=== PATIENT | male | born 1950 | race Caucasian/White ===

== ENCOUNTER 2018-03-12 19:18 | Inpatient (IN) ==
[2018-03-12 19:39] LABS: Basophils % 0.4 % (0.1-2.0); Eosinophils # 0.1 K/mm3 (0.0-0.4); Eosinophils % 2.2 % (0.1-12.0); Hematocrit 45.6 % (42.0-52.0); Hemoglobin 15.7 g/dL (14.1-18.0); Lymphocytes # 1.3 K/mm3 (0.7-4.5); Lymphocytes % 19.8 K/mm3 (10-50); Mean Corpuscular HGB Conc 34.4 g/dL (31.8-35.4); Mean Corpuscular Hemoglobin 30.4 pg (27.0-31.2); Mean Corpuscular Volume 88.3 fl (80-94); Mean Platelet Volume 7.7 fl (7.4-10.4); Monocytes # 0.5 K/mm3 (0.1-1.0); Monocytes % 8.1 % (1.7-9.3); Neutrophils # 4.5 K/mm3 (1.8-7.8); Neutrophils % 69.5 % (37.0-80.0); Platelet Count 204 K/mm3 (142-424); Red Blood Count 5.17 M/mm3 (4.60-6.20); White Blood Count 6.5 K/mm3 (4.8-10.8)
--- NOTE | 2018-03-12 19:46 | Emergency Department Note ---
ED Disposition Clinical Impression: Unstable angina pectoris Disposition: Admitted As Inpatient Condition on Discharge: Serious - Critical Care Critical Care Time: Yes Attestation: On , the high probability of a clinically significant, sudden or life threatening deterioration of the following system(s) required my full and direct attention, intervention and personal management. The time I documented below is in addition to time spent performing reported procedures but includes the following listed in this critical care notation. Total Critical Care Time: 60 Vital system(s) involved:: Circulatory Failure My critical care processes included: Assessment & monitoring of V/S, Initial and Re-exams, Data Review/Interpretation, Coordinating Care, Documentation Medical Decision Making - Medical Records Medical records reviewed: Yes: I reviewed the patient's medical records. - Donald Inquiry Pt receiving controlled substance: No Vital Signs: 03/12/18 19:19 Temperature 98.4 F Temperature Source Oral Pulse Rate [Right Brachial] 76 Respiratory Rate 16 Blood Pressure [Right Arm] 145/102 Blood Pressure Mean [Right Arm] 116 Blood Pressure Source [Right Arm] Automatic Cuff Blood Pressure Position [Right Arm] Sitting 02 Sat by Pulse Oximetry 96 Oxygen Delivery Method Room Air - Lab Data Lab results reviewed: Yes: I reviewed the patient's lab results. Orders (Tests/Meds): ED MEDICATIONS Discontinued Medications Generic Name Dose Route Start Last Admin Trade Name Freq PRN Reason Stop Dose Admin Aspirin 325 mg 03/12/18 19:31 03/12/18 19:35 Aspirin 325mg Tablet PO 03/12/18 19:32 325 mg ONCE ONE Administration Nitroglycerin 0.4 mg 03/12/18 19:31 03/12/18 19:35 Nitrostat 0.4mg Sl Tablet SL 03/12/18 19:32 0.4 mg ONCE ONE Administration ORDERS Category Date Time Status XR chest portable Stat Exams 03/12/18 19:31 Ordered Basic Metabolic Panel Stat Lab 03/12/18 19:30 Received Complete Blood Count Auto Diff Stat Lab 03/12/18 19:30 Received Troponin I Stat Lab 03/12/18 19:30 Received - Radiology Data #1 Image(s): Chest Image Reviewed: Yes I reviewed the patient's radiology image Preliminary Findings: Normal/NAD - ECG Data Tracing #1 I reviewed this ECG and interpreted as documented below: Normal Sinus Rhythm: Yes Ischemic changes: non-specific ST-T wave changes Tracing #2 I reviewed this ECG and interpreted as documented below: Normal Sinus Rhythm: Yes Ischemic changes: non-specific ST-T wave changes - Physician Consults Physician Consulted: deni Reason -: Pt condition Additional Consult: ajay Time: 19:57 Reason -: Admission Chest Pain HPI - General Chief Complaint: Chest Pain Stated Complaint: Chest pain Time Seen by Provider: 03/12/18 19:25 Mode of Arrival: Ambulatory Source of Information: Patient, Spouse, Medical Record Limitations: No Limitations Description of Symptoms (Recalled from ER Triage Doc. by RN): Pt advises he had sharp pains and pressure in his chest that started around 1800. Took 1 nitro prior to coming to ER. 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 hx of cad - last stent about 5 yrs ago - pt has been compliant with meds MD complaint: chest pain indicative of cardiac Onset (ago): hour(s) Duration: constant Activity at onset: during rest Pain location: left chest Severity: severe Quality: sharp Relieving factors: nitroglycerin Associated symptoms: nausea, sense of impending doom Risk Factors for CAD: Hypertension, Hypercholesterolemia, Family Hx of CAD Treatments prior to or on arrival for Cardiac Chest Pain: nitroglycerin - MARIA DE JESUS Score Non-Stemi Age of patient: 65 yrs or more Number of risk factors for CAD: Presence of 3 or more Prior coronary artery stenosis(seen in coronary angiography): Less than 50% ST-Segment deviation on ECG (more than 1 min): Absent Prior aspirin intake: ASA intake in the last 7 days Severe anginal chest pain: No or one episode in last 24 hours Elevated cardiac markers(CK-MB or troponin): Absent Non-Stemi Risk Score: 3 - Related Data Prior Cardiac Testing/Procedures: Stenting Home Medications Medication Instructions Recorded Confirmed Aspirin [Aspirin 81mg chewable 81 mg PO DAILY 03/12/18 03/12/18 tab] Atorvastatin Calcium [Atorvastatin 40 mg PO DAILY 03/12/18 03/12/18 40mg Tab] Losartan/Hydrochlorothiazide 1 each PO DAILY 03/12/18 03/12/18 [Losartan-Hctz 50-12.5 mg Tab] Omeprazole [Omeprazole 40mg 40 mg PO DAILY 08/27/18 08/27/18 Capsule] Allergies Allergy/AdvReac Type Severity Reaction Status Date / Time No Known Allergies Allergy Verified 03/12/18 19:27 [facility] History I have reviewed the patient's past medical history: Yes 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: Denies:: Cancer, Diabetes Mellitus Type 1, Diabetes Mellitus Type 2, Internal Pacemaker, MRSA Laterality Cases: Bilateral: Cataract Other Surgeries: No: Pacemaker Amputation: No Fractures: No - 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 Alcohol Intake: never - Psychiatric History Expresses thoughts of harming self/others: None Suicide Plan Description: No Plan ROS Obtained: Yes All systems reviewed & no additional complaints - Constitutional Constitutional: Denies fever(s) - Eyes Eyes: Denies change in vision - ENT Ears, Nose, Mouth, and Throat: Denies sore throat - Cardiovascular Cardiovascular: Reports chest pain, Reports chest pain at rest - Respiratory Respiratory: No cough - Gastrointestinal Gastrointestingal: Reports: abdominal pain - Genitourinary Male Genitourinary: Denies hematuria - Musculoskeletal Musculoskeletal: Denies joint pain, Denies joint swelling - Integumentary/Breasts Skin/Breast: Denies rash - Neurologic Neurologic: Denies seizure-like activity Physical Exam - General General appearance: alert, in no apparent distress - Head Head exam: normocephalic - Eye Eye exam: Present: PERRL, EOMI. Absent: scleral icterus - ENT ENT exam: Present: mucous membranes dry - Neck Neck exam: Present: trachea midline - Respiratory Respiratory exam: Present: normal lung sounds bilaterally. Absent: respiratory distress - Cardiovascular Cardiovascular exam: Present: regular rate. Absent: systolic murmur - Abdominal Exam Abdominal exam: Present: soft - Extremities Exam Extremities exam: Absent: calf tenderness - Neurological Exam Neurological exam: Present: alert, oriented X3, CN II-XII intact - Psychiatric Psychiatric exam: Present: normal affect - Skin Skin exam: Absent: rash
[2018-03-12 20:00] LABS: Blood Urea Nitrogen 13 mg/dL (7-18); Calcium 8.9 mg/dL (8.5-10.1); Carbon Dioxide 29 mmol/L (21.0-32.0); Chloride 100 mmol/L (98-107); Glucose 119 mg/dL (74-106); Sodium 138 mmol/L (136-145)
--- NOTE | 2018-03-13 07:47 | History & Physical Report ---
*Admission Date: 03/12/18 *Chief complaint: Chest pain *History of present illness: Mr. Miranda is a 67-year-old male with a history of coronary artery disease, acute CT in 1996 with stent placement, acute CT in 2001 with stent placement, hypertension, GERD, and COPD who presented to the emergency room last evening with severe midsternal sharp and pressure like chest pain. This was associated with shortness of breath and nausea. The chest pain started about 6 PM last evening. He did take a nitroglycerin which eased the pain for about 1-2 minutes. The pain again became severe and thus he had his bring him to the emergency room. The chest pain remains severe even after pain medicine in the emergency room. EKG was normal and with history and continuing severe chest pain he was taken to the [facility] at which time a stent was placed. He states that after stent placement the pain resolved. Patient has had nausea vomiting and diarrhea with fever and chilling for the past 2 days as well. During this period of time he had no chest pain and no shortness of breath. He had a minimal cough. He even exercised on 03/09/2018. He has had minimal p.o. intake. This a.m. the patient's chest is sore. He is not short of breath. He has eaten breakfast without problems. He has had no further vomiting. He does continue to have diarrhea. He had 20 diarrhea episodes yesterday. He denies hematemesis and any blood in his stool. He has ambulated to the bathroom without difficulty. [facility] History 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: Reports:: Atherosclerotic Heart Disease, Chronic Obstructive Pulmonary Disease (COPD), Coronary Artery Disease, Gastroesophageal Reflux Disease(GERD), Hyperlipidemia, Hypertension, Myocardial Infarction Denies:: Atrial Fibrillation, Cancer, Diabetes Mellitus Type 1, Diabetes Mellitus Type 2, Gastrointestinal Bleed, Internal Pacemaker, MRSA Laterality Cases: Bilateral: Cataract Other Surgeries: Yes: Cardiac Catheterization, Coronary Stent. No: Pacemaker Amputation: No Fractures: No Comment: Back surgery 1982; stent 1996; stent 2001; stent 05/2006. - *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 Educational Level: Completed High School Smoking Status: Former smoker Alcohol Intake: never Occupational Status: retired Housing: house - Psychiatric History Expresses thoughts of harming self/others: None Suicide Plan Description: No Plan *Family Hx:: Cancer, Diabetes Review of Systems - Constitutional Reports chills, Reports fatigue, Reports fever(s), Reports headache(s) - ENT Reports headache(s), Denies ear pain, Denies sore throat - *Cardiovascular Reports chest pain, Reports chest pain at rest, Reports chest pain with activity , Reports shortness of breath, Denies generalized swelling, Denies irregular heart rhythm, Denies leg swelling - *Respiratory Reports cough (Minimal), Denies chest congestion, Denies coughing up blood - *Gastrointestinal Reports change in bowel habits (Diarrhea), Reports change in stools, Reports heartburn, Reports nausea, Reports vomiting, Denies abdominal pain, Denies constipation, Denies vomiting blood, Denies bright, red blood in stools, Denies black, tarry stools - *Genitourinary Denies difficulty urinating - *Musculoskeletal Denies abnormal walking - *Neurologic Reports headache(s), Denies seizure-like activity Meds Home Medications Medication Instructions Recorded Confirmed Type Aspirin [Aspirin 81mg chewable 81 mg PO DAILY 03/12/18 03/12/18 History tab] Atorvastatin Calcium [Atorvastatin 40 mg PO HS 03/12/18 03/13/18 History 40mg Tab] Omeprazole [Omeprazole 40mg 40 mg PO DAILY 03/12/18 03/12/18 History Capsule] Albuterol Sulfate [Albuterol HFA 1 - 2 puffs IH Q4-6H 03/13/18 03/13/18 History Inhaler] Losartan Potassium 50 mg PO DAILY 03/13/18 03/13/18 History Allergies Allergy/AdvReac Type Severity Reaction Status Date / Time No Known Allergies Allergy Verified 03/12/18 19:27 Exam Vital signs and Labs for Last 24 Hours: Temp Pulse Resp BP Pulse Ox 98 F 70 18 109/74 99 03/13/18 05:00 03/13/18 06:57 03/13/18 06:57 03/13/18 06:57 03/13/18 06:57 Laboratory Results - last 24 hr 03/12/18 19:30: WBC 6.5, RBC 5.17, Hgb 15.7, Hct 45.6, MCV 88.3, MCH 30.4, MCHC 34.4, RDW 13.0, Plt Count 204, MPV 7.7, Neut % (Auto) 69.5, Lymph % (Auto) 19.8 , [place] % (Auto) 8.1, Eos % (Auto) 2.2, Baso % (Auto) 0.4, Neut # (Auto) 4.5, Lymph # (Auto) 1.3, [place] # (Auto) 0.5, Eos # (Auto) 0.1, Baso # (Auto) 0.0 03/12/18 19:30: Sodium 138, Potassium 3.0 L, Chloride 100, Carbon Dioxide 29, Anion Gap 12.0, BUN 13, Creatinine 1.23, Estimated Creat Clear 73, Estimated GFR 59, Est GFR ( Amer) 71, Glucose 119 H, Calcium 8.9, Troponin I < 0.02 I & O for Last 24 hours: Intake & Output 03/10/18 03/11/18 03/12/18 03/13/18 11:59 11:59 11:59 11:59 Intake Total Balance Weight 190 lb Radiology Reports for the Last 24 Hours: 03/12/2018 chest x-ray IMPRESSION: COPD 03/12/2018 cardiac catheterization IMPRESSION: 1. Severe disease in the proximal dominant right coronary 2. Successful stenting of the ostial proximal dominant right artery severe disease reduced to 0% with 1 drug-eluting stent 3. Slightly hyperdynamic ejection fraction with elevated LVEDP 4. Nonflow limiting disease as described above PLAN: 1. Brilinta and aspirin 2. LDL less than 55 3. Patient would benefit from beta blockers. He has both hypertensive and tachycardic. Metoprolol titrate 50 mg by mouth every 6 hours be started. I would recommend switching him to metoprolol succinate tomorrow. 4. Cardiac rehabilitation 5. Avoidance of tobacco products - Constitutional no acute distress - *Routine HEENT Exam Head: Present: normocephalic, atraumatic Eye: Present: PERRL. Absent: scleral injection, conjunctivae pink ENT: Present: mucous membranes moist, oropharynx clear - *Routine Neck Exam Present: supple, full ROM. Absent: carotid bruit, lymphadenopathy, tenderness - *Routine Respiratory Exam Present: CTA bilaterally (A&P) - *Routine Cardiovascular Exam Present: RRR Comments: Monitor showing sinus rhythm in the 50s - *Routine Abdominal Exam Present: soft, distended (Slightly). Absent: tenderness, guarding, organomegaly , mass - *Routine Extremities Exam Present: pulses intact. Absent: edema, calf tenderness - *Routine Skin Exam Present: dry, warm Comments: Good color - *Routine Neurological Exam Present: alert, oriented X3 Assessment and Plan (1) Unstable angina pectoris Current visit: Yes Status: Acute Category: Medical Code(s): I20.0 - Unstable angina (2) Acute coronary syndrome Current visit: Yes Status: Acute Category: Medical Code(s): I24.9 - Acute ischemic heart disease, unspecified (3) Status post insertion of drug-eluting stent into right coronary artery for coronary artery disease Current visit: Yes Status: Acute Category: Surgical Code(s): Z95.5 - Presence of coronary angioplasty implant and graft (4) Hypertension Current visit: Yes Status: Chronic Category: Medical Code(s): I10 - Essential (primary) hypertension (5) COPD (chronic obstructive pulmonary disease) Current visit: Yes Status: Chronic Category: Medical Code(s): J44.9 - Chronic obstructive pulmonary disease, unspecified (6) Hypokalemia Current visit: Yes Status: Acute Category: Medical Code(s): E87.6 - Hypokalemia (7) GERD (gastroesophageal reflux disease) Current visit: Yes Status: Chronic Category: Medical Code(s): K21.9 - Gastro-esophageal reflux disease without esophagitis - Assessment and plan all Dx Assessment and Plan for all problems:: Patient is post cardiac cath from last p.m. with stent placed in right coronary artery. We will continue to monitor and follow cardiology direction as to meds. Other home meds have been started.
[2018-03-13 09:15] LABS: Chol/HDL Ratio 2.7 (1-3.5)
--- NOTE | 2018-03-13 09:32 | Consult Report ---
History of Present Illness Consult date: 03/13/18 Requesting physician: Minoo Armenta Consult reason: chest pain Chief complaint: chest pain Additional 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:: 1. Coronary artery disease A. History of myocardial infarction with subsequent stenting approximately 1997. B. Acute myocardial infarction, 03/12/18 C. Cardiac catheterization, 03/12/18, ANGIOGRAPHIC RESULTS: 1. The left main artery has distal 10% stenosis 2. The left anterior descending artery has ostial 10-20% stenosis with mild luminal irregularities in the very proximal segment. 10% stenoses are present in the mid segment. 3. The circumflex artery gives rise to a ramus intermedius which has 20 and 30% stenoses. The true circumflex artery is a nondominant vessel and has proximal 30% stenoses with a 30-40% stenosis and a 1.5 mm first obtuse marginal artery 4. The right coronary artery is a large dominant vessel and has an ostial 50 followed by proximal 70-80% stenosis. The remaining vessel has 10% stenoses. 5. The MARQUEZ ventriculogram reveals slightly hyperdynamic at 75% 6. The left ventricular end-diastolic pressure 25 mmHg IMPRESSION: 1. Severe disease in the proximal dominant right coronary 2. Successful stenting of the ostial proximal dominant right artery severe disease reduced to 0% with 1 drug-eluting stent 3. Slightly hyperdynamic ejection fraction with elevated LVEDP 4. Nonflow limiting disease as described above PLAN: 1. Brilinta and aspirin 2. LDL less than 55 3. Patient would benefit from beta blockers. He has both hypertensive and tachycardic. Metoprolol titrate 50 mg by mouth every 6 hours be started. I would recommend switching him to metoprolol succinate tomorrow. 4. Cardiac rehabilitation 5. Avoidance of tobacco products 2. Hypertension 3. Hyperlipidemia History of present illness: Mr. Miranda is a 67-year-old male with a history of coronary artery disease, acute MT in 1996 with stent placement, acute MT in 2001 with stent placement, hypertension, GERD, and COPD who presented to the emergency room last evening with severe midsternal sharp and pressure like chest pain. This was associated with shortness of breath and nausea. The chest pain started about 6 PM last evening. He did take a nitroglycerin which eased the pain for about 1-2 minutes. The pain again became severe and thus he had his bring him to the emergency room. The chest pain remains severe even after pain medicine in the emergency room. EKG was normal and with history and continuing severe chest pain he was taken to the [facility] at which time a stent was placed. He states that after stent placement the pain resolved. Patient has had nausea vomiting and diarrhea with fever and chilling for the past 2 days as well. During this period of time he had no chest pain and no shortness of breath. He had a minimal cough. He even exercised on 03/09/2018. He has had minimal p.o. intake. This a.m. the patient's chest is sore. He is not short of breath. He has eaten breakfast without problems. He has had no further vomiting. He does continue to have diarrhea. He had 20 diarrhea episodes yesterday. He denies hematemesis and any blood in his stool. He has ambulated to the bathroom without difficulty. The above per Jocelin Morales APRN for Dr. Armenta. [facility] History 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: Reports:: Atherosclerotic Heart Disease, Chronic Obstructive Pulmonary Disease (COPD), Coronary Artery Disease, Gastroesophageal Reflux Disease(GERD), Hyperlipidemia, Hypertension, Myocardial Infarction Denies:: Atrial Fibrillation, Cancer, Diabetes Mellitus Type 1, Diabetes Mellitus Type 2, Gastrointestinal Bleed, Internal Pacemaker, MRSA Laterality Cases: Bilateral: Cataract Other Surgeries: Yes: Cardiac Catheterization, Coronary Stent. No: Pacemaker Amputation: No Fractures: No - *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 Educational Level: Completed High School Smoking Status: Former smoker Alcohol Intake: never Occupational Status: retired Housing: house - Psychiatric History Expresses thoughts of harming self/others: None Suicide Plan Description: No Plan *Family Hx:: Cancer, Diabetes Meds Home Medications Medication Instructions Recorded Confirmed Type Aspirin [Aspirin 81mg chewable 81 mg PO DAILY 03/12/18 03/12/18 History tab] Atorvastatin Calcium [Atorvastatin 40 mg PO HS 03/12/18 03/13/18 History 40mg Tab] Omeprazole [Omeprazole 40mg 40 mg PO DAILY 03/12/18 03/12/18 History Capsule] Albuterol Sulfate [Albuterol HFA 1 - 2 puffs IH Q4-6H 03/13/18 03/13/18 History Inhaler] Losartan Potassium 50 mg PO DAILY 03/13/18 03/13/18 History Allergies Allergy/AdvReac Type Severity Reaction Status Date / Time No Known Allergies Allergy Verified 03/12/18 19:27 Review of Systems - *Cardiovascular Reports chest pain, Reports shortness of breath with activity - *Respiratory Reports shortness of breath with activity - *Gastrointestinal Denies abdominal pain - *Genitourinary Denies blood in urine - *Neurologic Reports headache(s), Denies abnormal walking, Denies seizure-like activity Exam Vital signs and Labs for Last 24 Hours: Temp Pulse Resp BP Pulse Ox 98 F 70 18 109/74 99 03/13/18 05:00 03/13/18 06:57 03/13/18 06:57 03/13/18 06:57 03/13/18 06:57 Laboratory Results - last 24 hr 03/12/18 19:30: WBC 6.5, RBC 5.17, Hgb 15.7, Hct 45.6, MCV 88.3, MCH 30.4, MCHC 34.4, RDW 13.0, Plt Count 204, MPV 7.7, Neut % (Auto) 69.5, Lymph % (Auto) 19.8, [place] % (Auto) 8.1, Eos % (Auto) 2.2, Baso % (Auto) 0.4, Neut # (Auto) 4.5, Lymph # (Auto) 1.3, [place] # (Auto) 0.5, Eos # (Auto) 0.1, Baso # (Auto) 0.0 03/12/18 19:30: Sodium 138, Potassium 3.0 L, Chloride 100, Carbon Dioxide 29, An ion Gap 12.0, BUN 13, Creatinine 1.23, Estimated Creat Clear 73, Estimated GFR 59, Est GFR ( Amer) 71, Glucose 119 H, Calcium 8.9, Troponin I < 0.02 03/13/18 08:35: Triglycerides 98, Cholesterol 88 L, LDL Cholesterol 35, VLDL Cholesterol 20, HDL Cholesterol 33, Cholesterol/HDL Ratio 2.7 03/13/18 08:35: Troponin I 0.06 I & O for Last 24 hours: Intake & Output 03/10/18 03/11/18 03/12/18 03/13/18 11:59 11:59 11:59 11:59 Intake Total 373 / 373 Balance 373 / 373 Weight 190 lb - *Routine Neck Exam Absent: JVD, carotid bruit - *Routine Respiratory Exam Present: CTA bilaterally - *Routine Cardiovascular Exam Present: RRR. Absent: murmur, gallop - *Routine Abdominal Exam Present: soft. Absent: tenderness - *Routine Extremities Exam Absent: edema - *Routine Neurological Exam Present: alert, oriented X3, moving all extremities Assessment and Plan (1) Unstable angina pectoris Current visit: Yes Status: Acute Category: Medical Code(s): I20.0 - Uns table angina (2) Acute coronary syndrome Current visit: Yes Status: Acute Category: Medical Code(s): I24.9 - Acute ischemic heart disease, unspecified (3) Status post insertion of drug-eluting stent into right coronary artery for coronary artery disease Current visit: Yes Status: Acute Category: Surgical Code(s): Z95.5 - Presence of coronary angioplasty implant and graft (4) Hypertension Current visit: Yes Status: Chronic Category: Medical Code(s): I10 - Essential (primary) hypertension (5) COPD (chronic obstructive pulmonary disease) Current visit: Yes Status: Chronic Category: Medical Code(s): J44.9 - Chronic obstructive pulmonary disease, unspecified (6) Hypokalemia Current visit: Yes Status: Acute Category: Medical Code(s): E87.6 - Hypokalemia (7) GERD (gastroesophageal reflux disease) Current visit: Yes Status: Chronic Category: Medical Code(s): K21.9 - Gastro-esophageal reflux disease without esophagitis - Assessment and plan all Dx Assessment and Plan for all problems:: 1. Continue dual antiplatelet therapy in the form of aspirin and Brilinta. 2. Continue atorvastatin therapy. 3. Patient originally was to be started on metoprolol but due to low blood pressure this has been stopped. 4. Patient will ambulate today on the monitor and will reassess possible discharge tomorrow. 5. Will obtain an echocardiogram to evaluate for segmental wall motion abnormalities.
--- NOTE | 2018-03-13 14:54 | Progress Note ---
Internal Medicine - PN: Subj *Date: 03/13/18 *Time: 14:52 Interval history: PCR indicates C. Diff and EPEC. C/o abdominal pain. Exam Vital signs and Labs for Last 24 Hours: Temp Pulse Resp BP Pulse Ox 97.5 F L 60 20 119/73 97 03/13/18 07:00 03/13/18 12:00 03/13/18 11:00 03/13/18 11:00 03/13/18 11:00 Laboratory Results - last 24 hr 03/12/18 19:30: WBC 6.5, RBC 5.17, Hgb 15.7, Hct 45.6, MCV 88.3, MCH 30.4, MCHC 34.4, RDW 13.0, Plt Count 204, MPV 7.7, Neut % (Auto) 69.5, Lymph % (Auto) 19.8 , [place] % (Auto) 8.1, Eos % (Auto) 2.2, Baso % (Auto) 0.4, Neut # (Auto) 4.5, Lymph # (Auto) 1.3, [place] # (Auto) 0.5, Eos # (Auto) 0.1, Baso # (Auto) 0.0 03/12/18 19:30: Sodium 138, Potassium 3.0 L, Chloride 100, Carbon Dioxide 29, Anion Gap 12.0, BUN 13, Creatinine 1.23, Estimated Creat Clear 73, Estimated GFR 59, Est GFR ( Amer) 71, Glucose 119 H, Calcium 8.9, Troponin I < 0.02 03/13/18 07:30: Stl Aeromonas (PCR) Not detected, Stl C. cayetanensis PCR Not detected, Stool Rotavirus (PCR) Not detected, Stl Adenov F 40/41 PCR Not detected, Stool Astrovirus (PCR) Not detected, Stool Campylobacter PCR Not detected, Stl C.difficile Tox PCR Detected A, Stool Cryptosporidium PCR Not detected, Stl E.coli Shiga Tox PCR Not detected, Stool E coli O157 PCR Not detected, Stl Enterotoxigenic E PCR Detected A, Stool EPEC (PCR) Detected A, Stool EAEC (PCR) Not detected, Stl E. histolytica PCR Not detected, Stool Giardia Lamblia PCR Not detected, Stool Salmonella PCR Not detected, Stool Sapovirus (PCR) Not detected, Stl P. shigelloides PCR Not detected, Stl Shigella /EIEC PCR Not detected, St Y.enterocolitica PCR Not detected, Stool Vibrio (PCR ) Not detected, Stl Vibrio cholerae PCR Not detected, Stl Norovirus GI/GII PCR Not detected 03/13/18 08:35: Triglycerides 98, Cholesterol 88 L, LDL Cholesterol 35, VLDL Cholesterol 20, HDL Cholesterol 33, Cholesterol/HDL Ratio 2.7 03/13/18 08:35: Troponin I 0.06 I & O for Last 24 hours: Intake & Output 03/11/18 03/12/18 03/13/18 03/14/18 11:59 11:59 11:59 11:59 Intake Total 373 / 373 Balance 373 / 373 Weight 192 lb 2 oz Assessment and Plan (1) Unstable angina pectoris Current visit: Yes Status: Acute Category: Medical Code(s): I20.0 - Unstable angina (2) Acute coronary syndrome Current visit: Yes Status: Acute Category: Medical Code(s): I24.9 - Acute ischemic heart disease, unspecified (3) Status post insertion of drug-eluting stent into right coronary artery for coronary artery disease Current visit: Yes Status: Acute Category: Surgical Code(s): Z95.5 - Presence of coronary angioplasty implant and graft (4) Hypertension Current visit: Yes Status: Chronic Category: Medical Code(s): I10 - Essential (primary) hypertension (5) COPD (chronic obstructive pulmonary disease) Current visit: Yes Status: Chronic Category: Medical Code(s): J44.9 - Chronic obstructive pulmonary disease, unspecified (6) Hypokalemia Current visit: Yes Status: Acute Category: Medical Code(s): E87.6 - Hypokalemia (7) GERD (gastroesophageal reflux disease) Current visit: Yes Status: Chronic Category: Medical Code(s): K21.9 - Gastro-esophageal reflux disease without esophagitis - Assessment and plan all Dx Assessment and Plan for all problems:: KUB. Morphine Sulfate 2mg q 4hrs prn. Metronidazole and Levaquin IV.
[2018-03-13 16:37] LABS: Albumin Level 3.3 gm/dL (3.4-5.0); Albumin/Globulin Ratio 0.9 (1.1-1.8); Anion Gap 12.4 mEq/L (5-15); Bilirubin,Total 0.6 mg/dL (0.2-1.0); Calcium 8.4 mg/dL (8.5-10.1); Globulin 3.8 gm/dl (1.3-3.2); Potassium 3.4 mmoL/L (3.5-5.1); Total Protein,Serum 7.1 gm/dL (6.4-8.2)
[2018-03-13 17:11] LABS: Basophils % 0.4 % (0.1-2.0); Eosinophils # 0.3 K/mm3 (0.0-0.4); Eosinophils % 4.3 % (0.1-12.0); Hematocrit 41.5 % (42.0-52.0); Hemoglobin 14.3 g/dL (14.1-18.0); Lymphocytes # 1.4 K/mm3 (0.7-4.5); Lymphocytes % 23.7 K/mm3 (10-50); Mean Corpuscular HGB Conc 34.6 g/dL (31.8-35.4); Mean Corpuscular Hemoglobin 30.1 pg (27.0-31.2); Mean Corpuscular Volume 86.9 fl (80-94); Mean Platelet Volume 7.6 fl (7.4-10.4); Monocytes # 0.5 K/mm3 (0.1-1.0); Monocytes % 8.4 % (1.7-9.3); Neutrophils # 3.8 K/mm3 (1.8-7.8); Neutrophils % 63.2 % (37.0-80.0); Platelet Count 162 K/mm3 (142-424); Red Blood Count 4.77 M/mm3 (4.60-6.20); Red Cell Distribution Width 12.9 % (11.5-17.5); White Blood Count 6.1 K/mm3 (4.8-10.8)
[2018-03-13 18:18] LABS: Amylase 45 U/L (25-125); Lipase 136 u/L (73-393)
--- NOTE | 2018-03-13 20:23 | Cardiology Report ---
PROCEDURE: 2-D M-mode and color Doppler study INDICATIONS FOR THE TEST: Chest pain X COPDX Heart Murmur Tobacco SmokingEX Palpitations Fatigue Syncope Edema HypertensionXDiabetes Mellitus Rheumatic Fever SOB CHIRINOS Obesity HyperlipidemiaX Family History HD Additional History AK,STENT,CAD TDS LIMITED PSAX VIEWS PATIENT INFORMATION HEIGHT: 68 WEIGHT:192 GENDER: Male B/P:109/74 2-D/M-MODE INTERPRETATION: 2-D MEASUREMENTS OBSERVED VALUES IN CMS Right Ventricular Dimension (RVDd) 2.9 Interventricular Septum (Thickness)(IVsd) .6 Left Ventricular Internal Dimensions(LVIDd) 5.1 Left Ventricular Posterior Wall (Thickness)(LVPWd) 1.1 Aortic Root 4.2 Aortic Cusp Separation 1.9 Left Atrial Dimensions (LAD) 2.2 2D 1. Left atrium is qualitatively mildly enlarged, left ventricle is normal size, there is no concentric left ventricular hypertrophy, visually estimated ejection fraction 50%, there is abnormal septal motion. 2. The right atrium and right ventricle are mildly enlarged with normal contractility. 3. The aortic valve is minimally thickened and fibrosed. 4. The mitral and tricuspid valve are grossly normal. 5. The pulmonic valve is poorly visualized. 6. No significant pericardial effusion noted. DOPPLER INTERROGATION: Doppler interrogation of the aortic, mitral and tricuspid valvular presence of mild mitral and tricuspid regurgitation, tricuspid regurgitation jet velocity is insufficient for calculation of the right ventricular systolic pressure, diastolic parameters are inconclusive. CONCLUSION: 1. Mild biatrial enlargement, normal left ventricular size, visually estimated ejection fraction 50%, there is abnormal septal motion. Diastolic parameters are inconclusive. 2. Mildly enlarged right ventricle with normal contractility. 3. Mild mitral and tricuspid regurgitation 4. No significant pericardial effusion noted.
[2018-03-14 06:35] LABS: Anion Gap 10.4 mEq/L (5-15); Calcium 8.5 mg/dL (8.5-10.1); Potassium 3.4 mmoL/L (3.5-5.1)
--- NOTE | 2018-03-14 07:54 | Progress Note ---
Internal Medicine - PN: Subj *Date: 03/14/18 *Time: 07:40 Interval history: Patient does not feel well this morning. He is nauseated and does not want clear liquids this morning.. He has some abdominal pain. This started yesterday after eating a roast beef sandwich with right upper quadrant severe abdominal pain, nausea and vomiting. He thinks this is his gallbladder. He states he has had about 5 stools over 24 hours. Dilaudid seems to help the pain. He did sleep a little. He denies chest pain but chest wall is sore. Breathing is rough at times but he does want his inhaler. He ambulates to the bathroom without difficulty. Potassium remains slightly low at 3.4. Troponin I's have all been negative. Amylase and lipase are negative. He was busy yesterday and had CT of the abdomen and pelvis, chest and aortic ultrasound. CT of the abdomen did show gallbladder wall thickening, diverticulosis, and aortic artery was normal. CT of the chest was negative for pulmonary embolism and again the aortic artery was normal. Stool was positive for E. coli and C. difficile for which she was started on Levaquin and Flagyl IV Exam Vital signs and Labs for Last 24 Hours: Temp Pulse Resp BP Pulse Ox 98.7 F 65 17 110/51 96 03/14/18 05:00 03/14/18 06:00 03/14/18 05:00 03/14/18 07:01 03/14/18 07:01 Laboratory Results - last 24 hr 03/12/18 20:35: Activated Clotting Time 287 H* 03/13/18 07:30: Stl Aeromonas (PCR) Not detected, Stl C. cayetanensis PCR Not detected, Stool Rotavirus (PCR) Not detected, Stl Adenov F 40/41 PCR Not detected, Stool Astrovirus (PCR) Not detected, Stool Campylobacter PCR Not detected, Stl C.difficile Tox PCR Detected A, Stool Cryptosporidium PCR Not detected, Stl E.coli Shiga Tox PCR Not detected, Stool E coli O157 PCR Not detected, Stl Enterotoxigenic E PCR Detected A, Stool EPEC (PCR) Detected A, Stool EAEC (PCR) Not detected, Stl E. histolytica PCR Not detected, Stool Giardia Lamblia PCR Not detected, Stool Salmonella PCR Not detected, Stool Sapovirus (PCR) Not detected, Stl P. shigelloides PCR Not detected, Stl Shigella/EIEC PCR Not detected, St Y.enterocolitica PCR Not detected, Stool Vibrio (PCR) Not detected, Stl Vibrio cholerae PCR Not detected, Stl Norovirus GI/GII PCR Not detected 03/13/18 08:35: Triglycerides 98, Cholesterol 88 L, LDL Cholesterol 35, VLDL Cholesterol 20, HDL Cholesterol 33, Cholesterol/HDL Ratio 2.7 03/13/18 08:35: Troponin I 0.06 03/13/18 16:10: Sodium 138, Potassium 3.4 L, Chloride 104, Carbon Dioxide 25, Anion Gap 12.4, BUN 11, Creatinine 1.05, Estimated Creat Clear 86, Estimated GFR 71, Est GFR ( Amer) 86 D, Glucose 127 H, Calcium 8.4 L, Total Bilirubin 0.6, AST 20, ALT 33, Alkaline Phosphatase 94, Troponin I 0.04, Total Protein 7.1, Albumin 3.3 L, Globulin 3.8 H, Albumin/Globulin Ratio 0.9 L 03/13/18 16:10: WBC 6.1, RBC 4.77, Hgb 14.3, Hct 41.5 L, MCV 86.9, MCH 30.1, MCHC 34.6, RDW 12.9, Plt Count 162, MPV 7.6, Neut % (Auto) 63.2, Lymph % (Auto) 23.7, [place] % (Auto) 8.4, Eos % (Auto) 4.3, Baso % (Auto) 0.4, Neut # (Auto) 3.8, Lymph # (Auto) 1.4, [place] # (Auto) 0.5, Eos # (Auto) 0.3, Baso # (Auto) 0.0 03/13/18 16:10: Amylase 45, Lipase 136 03/14/18 05:10: Sodium 139, Potassium 3.4 L, Chloride 105, Carbon Dioxide 27, Anion Gap 10.4, BUN 10, Creatinine 0.95, Estimated Creat Clear 89, Estimated GFR 80, Est GFR ( Amer) 96, Glucose 100 D, Calcium 8.5 I & O for Last 24 hours: Intake & Output 03/11/18 03/12/18 03/13/18 03/14/18 11:59 11:59 11:59 11:59 Intake Total 373 / 373 20 / 20 Output Total 775 / 775 Balance 373 / 373 -755 / -755 Weight 192 lb 2 oz 189 lb 3 oz - Constitutional no acute distress Comments: Appears not to feel well. - *Routine Respiratory Exam Present: CTA bilaterally (Anteriorly and posteriorly) - *Routine Cardiovascular Exam Present: RRR (Monitor showing normal sinus rhythm in the 70s) - *Routine Abdominal Exam Present: soft, tenderness (Mostly in right upper quadrant and epigastrium), distended. Absent: guarding Comments: Hyperactive bowel sounds - *Routine Extremities Exam Absent: edema, calf tenderness Comments: PAO hose on - *Routine Neurological Exam Present: alert, oriented X3 Assessment and Plan (1) Unstable angina pectoris Current visit: Yes Status: Acute Category: Medical Code(s): I20.0 - Unstable angina (2) Acute coronary syndrome Current visit: Yes Status: Acute Category: Medical Code(s): I24.9 - Acute ischemic heart disease, unspecified (3) Status post insertion of drug-eluting stent into right coronary artery for coronary artery disease Current visit: Yes Status: Acute Category: Surgical Code(s): Z95.5 - Presence of coronary angioplasty implant and graft (4) Hypertension Current visit: Yes Status: Chronic Category: Medical Code(s): I10 - Essential (primary) hypertension (5) COPD (chronic obstructive pulmonary disease) Current visit: Yes Status: Chronic Category: Medical Code(s): J44.9 - Chronic obstructive pulmonary disease, unspecified (6) Hypokalemia Current visit: Yes Status: Acute Category: Medical Code(s): E87.6 - Hypokalemia (7) GERD (gastroesophageal reflux disease) Current visit: Yes Status: Chronic Category: Medical Code(s): K21.9 - Gastro-esophageal reflux disease without esophagitis (8) Enteritis, E. coli Current visit: Yes Status: Acute Category: Medical Code(s): A04.4 - Other intestinal Escherichia coli infections (9) C. difficile enteritis Current visit: Yes Status: Acute Category: Medical Code(s): A04.72 - Enterocolitis due to Clostridium difficile, not specified as recurrent (10) Right upper quadrant abdominal pain Current visit: Yes Status: Acute Category: Medical Code(s): R10.11 - Right upper quadrant pain - Assessment and plan all Dx Assessment and Plan for all problems:: Patient has been started on Levaquin and Flagyl IV. He continues with a PPI. We will add Levsin and Zofran for nausea. Continue with clear liquids. May need right upper quadrant ultrasound.
--- NOTE | 2018-03-14 08:06 | Pharmacy Consult Notes ---
[facility] Pharmacy VTE Monitoring - Patient Demographics Admission date: 03/14/18 Report Date: 03/14/18 Time: 08:06 Allergies/Adverse Reactions: Patient Allergies No Known Allergies Allergy (Verified 03/12/18 19:27) Height: 1.73 m Weight: 85.814 kg Patient Problems: Current Active Problems Unstable angina pectoris (Acute) Acute coronary syndrome (Acute) S/P right coronary artery (RCA) stent placement (Acute) Status post insertion of drug-eluting stent into right coronary artery for coronary artery disease (Acute) Hypertension (Chronic) COPD (chronic obstructive pulmonary disease) (Chronic) Hypokalemia (Acute) GERD (gastroesophageal reflux disease) (Chronic) Enteritis, E. coli (Acute) C. difficile enteritis (Acute) Right upper quadrant abdominal pain (Acute) - VTE Risk Labs: VTE Related Lab Results Hgb 14.3 g/dL (14.1-18.0) 03/13/18 16:10 Hct 41.5 % (42.0-52.0) L 03/13/18 16:10 Plt Count 162 K/mm3 (142-424) 03/13/18 16:10 BUN 10 mg/dL (7-18) 03/14/18 05:10 Creatinine 0.95 mg/dL (0.70-1.30) 03/14/18 05:10 Estimated Creat Clear 89 mL/min (0-300) 03/14/18 05:10 Was VTE Risk Assessment Performed: Yes VTE Score: 5 VTE Risk Level: Low Risk Clinical Trial Participant: No - Prophylaxis Types of VTE Prophylaxis: TEDS Knee High Location of Applied Device: Bilateral Lower Extremeties
--- NOTE | 2018-03-14 09:04 | Progress Note ---
Subjective Date: 03/14/18 Time: 09:01 Principal diagnosis: ACS Interval history: 67 yo WM in bed in NAD but appears weak and tired. Rough night secondary to abdominal pain and BM's. "Gallbladder is acting up." Denies chest pains. Exam Vital signs and Labs for Last 24 Hours: Temp Pulse Resp BP Pulse Ox 97.3 F L 69 16 132/80 96 03/14/18 07:51 03/14/18 07:51 03/14/18 07:51 03/14/18 07:51 03/14/18 07:51 Laboratory Results - last 24 hr 03/12/18 20:35: Activated Clotting Time 287 H* 03/13/18 07:30: Stl Aeromonas (PCR) Not detected, Stl C. cayetanensis PCR Not detected, Stool Rotavirus (PCR) Not detected, Stl Adenov F 40/41 PCR Not detected, Stool Astrovirus (PCR) Not detected, Stool Campylobacter PCR Not detected, Stl C.difficile Tox PCR Detected A, Stool Cryptosporidium PCR Not detected, Stl E.coli Shiga Tox PCR Not detected, Stool E coli O157 PCR Not detected, Stl Enterotoxigenic E PCR Detected A, Stool EPEC (PCR) Detected A, Stool EAEC (PCR) Not detected, Stl E. histolytica PCR Not detected, Stool Giardia Lamblia PCR Not detected, Stool Salmonella PCR Not detected, Stool Sapovirus (PCR) Not detected, Stl P. shigelloides PCR Not detected, Stl Shigella/EIEC PCR Not detected, St Y.enterocolitica PCR Not detected, Stool Vibrio (PCR) Not detected, Stl Vibrio cholerae PCR Not detected, Stl Norovirus GI/GII PCR Not detected 03/13/18 08:35: Triglycerides 98, Cholesterol 88 L, LDL Cholesterol 35, VLDL Cholesterol 20, HDL Cholesterol 33, Cholesterol/HDL Ratio 2.7 03/13/18 08:35: Troponin I 0.06 03/13/18 16:10: Sodium 138, Potassium 3.4 L, Chloride 104, Carbon Dioxide 25, Anion Gap 12.4, BUN 11, Creatinine 1.05, Estimated Creat Clear 86, Estimated GFR 71, Est GFR ( Amer) 86 D, Glucose 127 H, Calcium 8.4 L, Total Bilirubin 0.6, AST 20, ALT 33, Alkaline Phosphatase 94, Troponin I 0.04, Total Protein 7.1, Albumin 3.3 L, Globulin 3.8 H, Albumin/Globulin Ratio 0.9 L 03/13/18 16:10: WBC 6.1, RBC 4.77, Hgb 14.3, Hct 41.5 L, MCV 86.9, MCH 30.1, MCHC 34.6, RDW 12.9, Plt Count 162, MPV 7.6, Neut % (Auto) 63.2, Lymph % (Auto) 23.7, [place] % (Auto) 8.4, Eos % (Auto) 4.3, Baso % (Auto) 0.4, Neut # (Auto) 3.8, Lymph # (Auto) 1.4, [place] # (Auto) 0.5, Eos # (Auto) 0.3, Baso # (Auto) 0.0 03/13/18 16:10: Amylase 45, Lipase 136 03/14/18 05:10: Sodium 139, Potassium 3.4 L, Chloride 105, Carbon Dioxide 27, Anion Gap 10.4, BUN 10, Creatinine 0.95, Estimated Creat Clear 89, Estimated GFR 80, Est GFR ( Amer) 96, Glucose 100 D, Calcium 8.5 I & O for Last 24 hours: Intake & Output 03/11/18 03/12/18 03/13/18 03/14/18 11:59 11:59 11:59 11:59 Intake Total 373 / 373 80 / 80 Output Total 775 / 775 Balance 373 / 373 -695 / -695 Weight 192 lb 2 oz 189 lb 3 oz - *Routine Respiratory Exam Present: decreased breath sounds, CTA bilaterally - *Routine Cardiovascular Exam Present: RRR Progress Note: A&P (1) Unstable angina pectoris Status: Acute Current Visit: Yes (2) Acute coronary syndrome Status: Acute Current Visit: Yes (3) Status post insertion of drug-eluting stent into right coronary artery for coronary artery disease Status: Acute Current Visit: Yes (4) Hypertension Status: Chronic Current Visit: Yes (5) COPD (chronic obstructive pulmonary disease) Status: Chronic Current Visit: Yes (6) Hypokalemia Status: Acute Current Visit: Yes (7) GERD (gastroesophageal reflux disease) Status: Chronic Current Visit: Yes (8) Enteritis, E. coli Status: Acute Current Visit: Yes (9) C. difficile enteritis Status: Acute Current Visit: Yes (10) Right upper quadrant abdominal pain Status: Acute Current Visit: Yes Assessment and Plan for All Diagnoses:: Cardiac status stable. Echo shows preserved LVEF without significant valve disease. Continue ASA, Brilinta and statin. BP and pulse rate controlled on no meds at this time. Continue to monitor. GI issues per PCP.
[2018-03-15 07:01] LABS: Albumin/Globulin Ratio 0.8 (1.1-1.8); Anion Gap 9.6 mEq/L (5-15); Calcium 8.6 mg/dL (8.5-10.1); Globulin 3.6 gm/dl (1.3-3.2); Potassium 3.6 mmoL/L (3.5-5.1); Total Protein,Serum 6.6 gm/dL (6.4-8.2)
--- NOTE | 2018-03-15 08:19 | Progress Note ---
Subjective Date: 03/15/18 Time: 08:13 Principal diagnosis: ACS Interval history: 67-year-old white male in bed in no acute distress. States his abdominal issues are improving. He is now on full liquid diet including oatmeal without complications or problems. Exam Vital signs and Labs for Last 24 Hours: Temp Pulse Resp BP Pulse Ox 98.0 F 64 18 98/58 95 03/15/18 04:00 03/15/18 04:00 03/15/18 04:00 03/15/18 04:00 03/15/18 04:00 Laboratory Results - last 24 hr 03/15/18 06:17: Sodium 138, Potassium 3.6, Chloride 105, Carbon Dioxide 27, Anion Gap 9.6, BUN 9, Creatinine 1.04, Estimated Creat Clear 86, Estimated GFR 72, Est GFR ( Amer) 87, Glucose 100, Calcium 8.6, Total Bilirubin 1.0, AST 19, ALT 33, Alkaline Phosphatase 96, Total Protein 6.6, Albumin 3.0 L, Globulin 3.6 H, Albumin/Globulin Ratio 0.8 L I & O for Last 24 hours: Intake & Output 03/12/18 03/13/18 03/14/18 03/15/18 11:59 11:59 11:59 11:59 Intake Total 373 / 373 180 / 180 480 / 480 Output Total 1575 / 1575 1500 / 1500 Balance 373 / 373 -1395 / -1395 -1020 / -1020 Weight 192 lb 2 oz 189 lb 3 oz - *Routine Neck Exam Present: supple. Absent: lymphadenopathy - *Routine Respiratory Exam Present: CTA bilaterally. Absent: rhonchi, wheezes - *Routine Cardiovascular Exam Present: RRR. Absent: murmur, gallop, rubs - *Routine Extremities Exam Absent: cyanosis, clubbing, edema - *Routine Neurological Exam Present: alert, oriented X3, moving all extremities Progress Note: A&P (1) Acute coronary syndrome Status: Acute Current Visit: Yes (2) Status post insertion of drug-eluting stent into right coronary artery for coronary artery disease Status: Acute Current Visit: Yes (3) Hypertension Status: Chronic Current Visit: Yes (4) COPD (chronic obstructive pulmonary disease) Status: Chronic Current Visit: Yes (5) Hypokalemia Status: Acute Current Visit: Yes (6) GERD (gastroesophageal reflux disease) Status: Chronic Current Visit: Yes (7) Enteritis, E. coli Status: Acute Current Visit: Yes (8) C. difficile enteritis Status: Acute Current Visit: Yes (9) Right upper quadrant abdominal pain Status: Acute Current Visit: Yes Assessment and Plan for All Diagnoses:: Continue current meds. Will follow with you but OK for discharge from cardiology standpoint when PCP ready.
--- NOTE | 2018-03-15 08:26 | Progress Note ---
Internal Medicine - PN: Subj *Date: 03/15/18 *Time: 08:22 Interval history: The patient is resting quietly in bed watching tv. He tolerated his full liquid breakfast without nausea or abdominal pain. He denies any CP or SOB. He reports that his stools have been less frequent overnight and remain loose. Exam Vital signs and Labs for Last 24 Hours: Temp Pulse Resp BP Pulse Ox 98.0 F 64 18 98/58 95 03/15/18 04:00 03/15/18 04:00 03/15/18 04:00 03/15/18 04:00 03/15/18 04:00 Laboratory Results - last 24 hr 03/15/18 06:17: Sodium 138, Potassium 3.6, Chloride 105, Carbon Dioxide 27, Anion Gap 9.6, BUN 9, Creatinine 1.04, Estimated Creat Clear 86, Estimated GFR 72, Est GFR ( Amer) 87, Glucose 100, Calcium 8.6, Total Bilirubin 1.0, AST 19, ALT 33, Alkaline Phosphatase 96, Total Protein 6.6, Albumin 3.0 L, Globulin 3.6 H, Albumin/Globulin Ratio 0.8 L I & O for Last 24 hours: Intake & Output 03/12/18 03/13/18 03/14/18 03/15/18 11:59 11:59 11:59 11:59 Intake Total 373 / 373 180 / 180 480 / 480 Output Total 1575 / 1575 1500 / 1500 Balance 373 / 373 -1395 / -1395 -1020 / -1020 Weight 192 lb 2 oz 189 lb 3 oz Radiology Reports for the Last 24 Hours: 03/14/18 Gallbladder ultrasound: IMPRESSION: 1. No gallstones apparent. 2. Gallbladder wall slightly thickened which is nonspecific measuring up to 5mm. - Constitutional no acute distress - *Routine HEENT Exam Head: Present: normocephalic, atraumatic ENT: Present: mucous membranes moist - *Routine Respiratory Exam Present: CTA bilaterally Comments: generally diminished - *Routine Cardiovascular Exam Present: RRR - *Routine Abdominal Exam Comments: BS present x 4, soft, not distended, mildly ttp RUQ and epigastrium, no guarding or rigidity - *Routine Extremities Exam Present: full ROM, pulses intact. Absent: edema, calf tenderness Comments: bilateral PAO hose in place - *Routine Neurological Exam Present: alert, oriented X3, moving all extremities, normal speech. Absent: facial asymmetry Assessment and Plan (1) Acute coronary syndrome Current visit: Yes Status: Acute Category: Medical Code(s): I24.9 - Acute ischemic heart disease, unspecified (2) Status post insertion of drug-eluting stent into right coronary artery for coronary artery disease Current visit: Yes Status: Acute Category: Surgical Code(s): Z95.5 - Presence of coronary angioplasty implant and graft (3) Hypertension Current visit: Yes Status: Chronic Category: Medical Code(s): I10 - Essential (primary) hypertension (4) COPD (chronic obstructive pulmonary disease) Current visit: Yes Status: Chronic Category: Medical Code(s): J44.9 - Chronic obstructive pulmonary disease, unspecified (5) Hypokalemia Current visit: Yes Status: Acute Category: Medical Code(s): E87.6 - Hypokalemia (6) GERD (gastroesophageal reflux disease) Current visit: Yes Status: Chronic Category: Medical Code(s): K21.9 - Gastro-esophageal reflux disease without esophagitis (7) Enteritis, E. coli Current visit: Yes Status: Acute Category: Medical Code(s): A04.4 - Other intestinal Escherichia coli infections (8) C. difficile enteritis Current visit: Yes Status: Acute Category: Medical Code(s): A04.72 - Enterocolitis due to Clostridium difficile, not specified as recurrent (9) Right upper quadrant abdominal pain Current visit: Yes Status: Acute Category: Medical Code(s): R10.11 - Right upper quadrant pain - Assessment and plan all Dx Assessment and Plan for all problems:: Pt seems to be slightly improved. Will continue current care. Further per Dr. Armenta.
[2018-03-16 07:04] LABS: Anion Gap 10.6 mEq/L (5-15); Calcium 8.6 mg/dL (8.5-10.1); Potassium 3.6 mmoL/L (3.5-5.1)
--- NOTE | 2018-03-16 08:10 | Progress Note ---
Subjective Date: 03/16/18 Time: 08:07 Principal diagnosis: ACS Interval history: 67-year-old white male in bed in no aches she is feeling better. Continues to state no further chest pain since coronary stent was placed. His abdomen is feeling better and he is tolerating the advance diet. Exam Vital signs and Labs for Last 24 Hours: Temp Pulse Resp BP Pulse Ox 98.1 F 72 16 118/75 94 L 03/16/18 04:00 03/16/18 04:00 03/16/18 04:00 03/16/18 04:00 03/16/18 04:00 Laboratory Results - last 24 hr 03/16/18 06:17: Sodium 139, Potassium 3.6, Chloride 105, Carbon Dioxide 27, Anion Gap 10.6, BUN 12 D, Creatinine 1.04, Estimated Creat Clear 86, Estimated GFR 72, Est GFR ( Amer) 87, Glucose 105, Calcium 8.6 I & O for Last 24 hours: Intake & Output 03/13/18 03/14/18 03/15/18 03/16/18 11:59 11:59 11:59 11:59 Intake Total 373 / 373 180 / 180 580 / 580 700 / 700 Output Total 1575 / 1575 1500 / 1500 2 / 2 Balance 373 / 373 -1395 / -1395 -920 / -920 698 / 698 Weight 192 lb 2 oz 189 lb 3 oz - *Routine Respiratory Exam Present: CTA bilaterally - *Routine Cardiovascular Exam Present: RRR Progress Note: A&P (1) Acute coronary syndrome Status: Acute Current Visit: Yes (2) Status post insertion of drug-eluting stent into right coronary artery for coronary artery disease Status: Acute Current Visit: Yes (3) Hypertension Status: Chronic Current Visit: Yes (4) COPD (chronic obstructive pulmonary disease) Status: Chronic Current Visit: Yes (5) Hypokalemia Status: Acute Current Visit: Yes (6) GERD (gastroesophageal reflux disease) Status: Chronic Current Visit: Yes (7) Enteritis, E. coli Status: Acute Current Visit: Yes (8) C. difficile enteritis Status: Acute Current Visit: Yes (9) Right upper quadrant abdominal pain Status: Acute Current Visit: Yes Assessment and Plan for All Diagnoses:: 1. Cardiac status stable. Patient could be discharged home from cardiology standpoint. 2. Home medications, from a cardiac standpoint, should include aspirin 81 mg daily, Brilinta 90 mg twice daily and atorvastatin 40 mg daily. 3. With history of ST elevation TX and abnormal septal wall motion on cardiac cath, it was recommended the patient be on beta-evie therapy, however patient 's borderline low blood pressure at times, recent diarrhea and relative bradycardia have precluded institution of those medications at this time. We will continue to hold off on those medications but reconsider those at follow-up next week.
--- NOTE | 2018-03-16 08:17 | Progress Note ---
Internal Medicine - PN: Subj *Date: 03/16/18 *Time: 08:13 Interval history: Pt resting in bed without complaint. He tolerated advanced diet this morning without GI upset or discomfort. He reports ambulating around the unit last night without difficulty. He denies any CP or SOB. He is feeling much better and eager to go home. Exam Vital signs and Labs for Last 24 Hours: Temp Pulse Resp BP Pulse Ox 97.0 F L 74 18 121/80 95 03/16/18 08:00 03/16/18 08:00 03/16/18 08:00 03/16/18 08:00 03/16/18 08:00 Laboratory Results - last 24 hr 03/16/18 06:17: Sodium 139, Potassium 3.6, Chloride 105, Carbon Dioxide 27, Anion Gap 10.6, BUN 12 D, Creatinine 1.04, Estimated Creat Clear 86, Estimated GFR 72, Est GFR ( Amer) 87, Glucose 105, Calcium 8.6 I & O for Last 24 hours: Intake & Output 03/13/18 03/14/18 03/15/18 03/16/18 11:59 11:59 11:59 11:59 Intake Total 373 / 373 180 / 180 580 / 580 1060 / 1060 Output Total 1575 / 1575 1500 / 1500 2 / 2 Balance 373 / 373 -1395 / -1395 -920 / -920 1058 / 1058 Weight 192 lb 2 oz 189 lb 3 oz - Constitutional no acute distress - *Routine HEENT Exam Head: Present: normocephalic ENT: Present: mucous membranes moist - *Routine Respiratory Exam Comments: CTAB, generally diminished - *Routine Cardiovascular Exam Present: RRR - *Routine Abdominal Exam Present: soft, normoactive bowel sounds. Absent: tenderness, distended, rebound, guarding, rigid, organomegaly, mass - *Routine Extremities Exam Present: full ROM, pulses intact. Absent: edema, calf tenderness - *Routine Neurological Exam Present: alert, oriented X3, moving all extremities, normal speech. Absent: facial asymmetry Assessment and Plan (1) Acute coronary syndrome Current visit: Yes Status: Acute Category: Medical Code(s): I24.9 - Acute ischemic heart disease, unspecified (2) Status post insertion of drug-eluting stent into right coronary artery for coronary artery disease Current visit: Yes Status: Acute Category: Surgical Code(s): Z95.5 - Presence of coronary angioplasty implant and graft (3) Hypertension Current visit: Yes Status: Chronic Category: Medical Code(s): I10 - Essential (primary) hypertension (4) COPD (chronic obstructive pulmonary disease) Current visit: Yes Status: Chronic Category: Medical Code(s): J44.9 - Chronic obstructive pulmonary disease, unspecified (5) Hypokalemia Current visit: Yes Status: Acute Category: Medical Code(s): E87.6 - Hypokalemia (6) GERD (gastroesophageal reflux disease) Current visit: Yes Status: Chronic Category: Medical Code(s): K21.9 - Gastro-esophageal reflux disease without esophagitis (7) Enteritis, E. coli Current visit: Yes Status: Acute Category: Medical Code(s): A04.4 - Other intestinal Escherichia coli infections (8) C. difficile enteritis Current visit: Yes Status: Acute Category: Medical Code(s): A04.72 - Enterocolitis due to Clostridium difficile, not specified as recurrent (9) Right upper quadrant abdominal pain Current visit: Yes Status: Acute Category: Medical Code(s): R10.11 - Right upper quadrant pain - Assessment and plan all Dx Assessment and Plan for all problems:: Likely home today.
--- NOTE | 2018-03-16 10:37 | Discharge Summary ---
General - General Admission date:: 03/13/18 Discharge date: 03/16/18 HPI HPI: Mr. Miranda is a 67-year-old male with a history of coronary artery disease, acute OR in 1996 with stent placement, acute OR in 2001 with stent placement, hypertension, GERD, and COPD who presented to the emergency room evening with severe midsternal sharp and pressure like chest pain. This was associated with shortness of breath and nausea. The chest pain started about 6 PM in the evening. He did take a nitroglycerin which eased the pain for about 1-2 minutes. The pain again became severe and thus he had his bring him to the emergency room. The chest pain remained severe even after pain medicine in the emergency room. EKG was normal and with his cardiac history and continuing severe chest pain he was taken to the [facility] at which time a stent was placed. He stated that after stent placement the pain resolved. Patient experienced nausea, vomiting and diarrhea with fever and chilling for the previous 2 days as well. During this period of time he had no chest pain and no shortness of breath. He had a minimal cough. He even exercised on 03/09/2018. He had minimal p.o. intake. This a.m. after admission and stent placement the patient's chest was sore. He denied short of breath. He ate breakfast without problems. He had no further vomiting. He continued to have diarrhea with 20 diarrhea episodes the previous day. He denied hematemesis and any blood in his stool. He ambulated to the bathroom without difficulty. Hospital Course Hospital Course: Patient had cardiac cath the night of admission with stent placement. He was followed by cardiolgy daily. He did well initially with only chest wall soreness. CT of chest and US of aorta revealed normal aorta. After an evening meal he developed nausea, vomiting and abdominal pain. RUQ US showed a slight GB wall thickening. LFT were normal. Symptoms did improve with GI rest, antiemetics and levsin. Diarrhea persisted with a panel + for Ecoli and C diff. Flagyl and Levaquin were initiated. Hypokalemia was corrected. Pt was continued to have only chest wall soreness. Diet was slowly advanced; stool frequency decreased ; and was ambulating without problems. On 03/16/18 he was much improved and was stable to be discharged. Discharged to home in stable and satisfactory condition. He was to followup with Dr. Armenta in 1 week and continue with a low fat/cholesterol diet. He was also to follow up with cardiology. Meds as per med discharge sheet. Objective Vital signs: Temp Pulse Resp BP Pulse Ox 97.0 F L 74 18 121/80 95 03/16/18 08:00 03/16/18 08:00 03/16/18 08:00 03/16/18 08:00 03/16/18 08:00 Narrative: I & O for Last 24 hours: Intake & Output 03/13/18 03/14/18 03/15/18 03/16/18 11:59 11:59 11:59 11:59 Intake Total 373 / 373 180 / 180 580 / 580 1060 / 1060 Output Total 1575 / 1575 1500 / 1500 2 / 2 Balance 373 / 373 -1395 / -1395 -920 / -920 1058 / 1058 Weight 192 lb 2 oz 189 lb 3 oz - Constitutional no acute distress - *Routine HEENT Exam Head: Present: normocephalic ENT: Present: mucous membranes moist - *Routine Respiratory Exam Comments: CTAB, generally diminished - *Routine Cardiovascular Exam Present: RRR - *Routine Abdominal Exam Present: soft, normoactive bowel sounds. Absent: tenderness, distended, rebound, guarding, rigid, organomegaly, mass - *Routine Extremities Exam Present: full ROM, pulses intact. Absent: edema, calf tenderness - *Routine Neurological Exam Present: alert, oriented X3, moving all extremities, normal speech. Absent: facial asymmetry Results Completed studies during hospitalization [Text1]: 03/12/18 CXR IMPRESSION: COPD 03/13/18 ECHO CONCLUSION: 1. Mild biatrial enlargement, normal left ventricular size, visually estimated ejection fraction 50%, there is abnormal septal motion. Diastolic parameters are inconclusive. 2. Mildly enlarged right ventricle with normal contractility. 3. Mild mitral and tricuspid regurgitation 4. No significant pericardial effusion noted. 03/13/18 Aorta US IMPRESSION: Unremarkable upper abdominal aorta. Cannot adequately evaluate the mid and lower abdominal aorta. Suggest CT for better evaluation. 03/13/18 Chest CTA IMPRESSION: 1. No evidence of pulmonary embolus or aortic aneurysm. 2. Diffuse panlobular emphysematous changes with scattered areas of pulmonary fibrosis and evidence of old granulomatous disease 03/13/18 CT of abdomen/pelvis IMPRESSION: 1. No acute abdominal or pelvic findings. 2. No evidence of aortic aneurysm. 3. Other nonacute nonspecific findings as described above GB US 03/14/18 IMPRESSION: 1. No gallstones apparent. 2. Gallbladder wall slightly thickened which is nonspecific measuring up to 5 mm Labs on day of discharge: Labs from last 24 hours 03/16/18 06:17 Sodium 139 Potassium 3.6 Chloride 105 Carbon Dioxide 27 Anion Gap 10.6 BUN 12 D Creatinine 1.04 Estimated Creat Clear 86 Estimated GFR 72 Est GFR ( Amer) 87 Glucose 105 Calcium 8.6 - Additional Comments 03/12/18 cardiac cath IMPRESSION: 1. Severe disease in the proximal dominant right coronary 2. Successful stenting of the ostial proximal dominant right artery severe disease reduced to 0% with 1 drug-eluting stent 3. Slightly hyperdynamic ejection fraction with elevated LVEDP 4. Nonflow limiting disease as described above PLAN: 1. Brilinta and aspirin 2. LDL less than 55 3. Patient would benefit from beta blockers. He has both hypertensive and tachycardic. Metoprolol titrate 50 mg by mouth every 6 hours be started. I would recommend switching him to metoprolol succinate tomorrow. 4. Cardiac rehabilitation 5. Avoidance of tobacco products DS: Diagnosis - Discharge Diagnosis (1) Acute coronary syndrome Status: Acute (2) Status post insertion of drug-eluting stent into right coronary artery for coronary artery disease Status: Acute (3) Hypertension Status: Chronic (4) COPD (chronic obstructive pulmonary disease) Status: Chronic (5) Hypokalemia Status: Acute (6) GERD (gastroesophageal reflux disease) Status: Chronic (7) Enteritis, E. coli Status: Acute (8) C. difficile enteritis Status: Acute (9) Right upper quadrant abdominal pain Status: Acute Discharge Plan - Patient Discharge Instructions ACTIVITY: Continue current activity DIET: low fat, low cholesterol Patient Instructions: DI for Heart Attack, DI for Antibiotic -- associated Coli tis -- C difficile - Follow up Plan Follow up with: Minoo Armenta MD [Primary Care Provider] - 1 week Disposition: Home, Self-Jail Medications: Home Medications Medication Instructions Recorded Confirmed Type Aspirin [Aspirin 81mg chewable 81 mg PO HS 03/12/18 03/14/18 History tab] Atorvastatin Calcium [Atorvastatin 40 mg PO HS 03/12/18 03/13/18 History 40mg Tab] Omeprazole [Omeprazole 40mg 40 mg PO HS 03/12/18 03/14/18 History Capsule] Albuterol Sulfate [Albuterol HFA 2 puffs IH Q4HP PRN 03/13/18 03/14/18 History Inhaler] Losartan Potassium 50 mg PO DAILY 03/13/18 03/13/18 History Prescriptions/Medication Reconciliation: New Potassium Chloride [Klor-con 20 mEq tablet] 40 meq PO DAILY tablet Ticagrelor [Brilinta 90mg Tablet] 90 mg PO BID #60 tablet metroNIDAZOLE [metroNIDAZOLE 500mg Tablet] 500 mg PO TID #20 tablet Continue Omeprazole [Omeprazole 40mg Capsule] 40 mg PO HS Atorvastatin Calcium [Atorvastatin 40mg Tab] 40 mg PO HS Albuterol Sulfate [Albuterol HFA Inhaler] 2 puffs IH Q4HP PRN PRN Reason: Shortness Of Breath Or Wheezing Losartan Potassium 50 mg PO DAILY Aspirin [Aspirin 81mg chewable tab] 81 mg PO HS
== END 2018-03-16 09:42 | disposition home or self-care (01) ==
LOC: ER 19:18 → CATHLAB 20:02 → 2ND 20:02
PROVIDERS: ADMIT Internal Medicine; ATTEND Family Medicine

== ENCOUNTER → 2018-03-23 12:34 | Outpatient (CLI) | payer MEDICARE, SELFPAY ==
[2018-03-23 13:07] LABS: Adenovirus F 40/41, stool Not Detected (NotDetected); Astrovirus Not Detected (NotDetected); Campylobacter Not Detected (NotDetected); Clostridium Difficile A/B, PCR Not Detected (NotDetected); Cryptosporidium Not Detected (NotDetected); Cyclospora Cayetanesis Not Detected (NotDetected); Entamoeba histolytica Not Detected (NotDetected); Enteroaggregative E coli Not Detected (NotDetected); Enteropathogenic E coli Not Detected (NotDetected); Enterotoxigenic E coli Not Detected (NotDetected); Giardia lamblia Not Detected (NotDetected); Norovirus Not Detected (NotDetected); Plesimonas Shigalloides, PCR Not Detected (NotDetected); Rotavirus A Not Detected (NotDetected); Salmonella, PCR Not Detected (NotDetected); Sapovirus Not Detected (NotDetected); Shiga-like toxin E coli Not Detected (NotDetected); Shigella Enterovasive E coli Not Detected (NotDetected); Vibrio Cholerae Not Detected (NotDetected); Vibrio, PCR Not Detected (NotDetected); Yersinia Entercolitica, PCR Not Detected (NotDetected)
== END ==
PROVIDERS: PCP Family Medicine; Visit Provider Physician Assistant
DX: A09 Infectious gastroenteritis and colitis, unspecified (principal)
CPT/HCPCS: 87507

== ENCOUNTER 2018-03-26 10:22 | Outpatient (RCR) | payer MEDICARE, SELFPAY | END 2018-03-26 10:23 | disposition home or self-care (01) | LOC: PT 10:22 | PROVIDERS: Family Provider Family Medicine; PCP Family Medicine; Visit Provider Internal Medicine | DX: Z95.5 Presence of coronary angioplasty implant and graft (principal) | CPT/HCPCS: 93798 ==

== ENCOUNTER → 2018-04-04 09:04 | Outpatient (CLI) | payer MEDICARE, SELFPAY ==
[2018-04-04 10:27] LABS: Alanine Aminotransferase 44 U/L (12-78); Albumin Level 3.7 gm/dL (3.4-5.0); Alkaline Phosphatase 102 U/L (46-116); Aspartate Amino Transferase 28 U/L (15-37); Bilirubin,Direct 0.1 mg/dL (0.0-0.2); Bilirubin,Indirect 0.6 mg/dL (0.0-0.9); Bilirubin,Total 0.7 mg/dL (0.2-1.0); Chol/HDL Ratio 3.7 (1-3.5); Cholesterol 126 mg/dL (140-200); HDL Cholesterol 34 mg/dL (27-67); LDL Cholesterol 58 mg/dL (0-130); Total Protein,Serum 7.1 gm/dL (6.4-8.2); Triglycerides 172 mg/dL (30-200); VLDL Cholesterol 34 mg/dL (0-40)
== END ==
PROVIDERS: PCP Physician Assistant; Visit Provider Internal Medicine
DX: I10 Essential (primary) hypertension (principal); I24.9 Acute ischemic heart disease, unspecified; I25.10 Atherosclerotic heart disease of native coronary artery without angina pectoris; J44.9 Chronic obstructive pulmonary disease, unspecified; K21.9 Gastro-esophageal reflux disease without esophagitis; R06.09 Other forms of dyspnea; R94.31 Abnormal electrocardiogram [ECG] [EKG]; Z95.5 Presence of coronary angioplasty implant and graft
CPT/HCPCS: 36415; 80061; 80076

== ENCOUNTER → 2018-04-09 10:13 | Outpatient (CLI) | payer MEDICARE, SELFPAY ==
--- NOTE | 2018-04-09 10:30 | NM_ITS ---
Hepatobiliary HEPATOBILIARY SCAN WITH FATTY MEAL/ENSURE ORDERING PHYSICIAN : Minoo Armenta MD PATIENT AGE: 67 years GENDER: Male HISTORY: Right upper quadrant pain and nausea Following 8.02 millicuries Tc Choletec, images of the RUQ were obtained. There is prompt uptake of radionuclide by the liver which is grossly unremarkable. However at 60 minutes there is lack of activity within the small bowel... This may reflect Sphincter of Oddi spasm or dysfunction. Did the patient having pain medications / opioid prior to this study which could induce such.? The gallbladder was allowed to fill out to 60 minutes. Fatty meal/1 can of ensure over administered with imaging performed over 60 minutes minutes. Thereafter. The obtain data was analyzed and reveals a 23% gallbladder ejection fraction . Abnormal decreased gallbladder contraction. (normal greater than 50%; borderline 35-50%).. Visual inspection would support abnormal decreased contraction.. No pain following fatty meal. There is progressive Activity is seen throughout the small bowel on these latter images IMPRESSION: Abnormal study 1. Study Suggest Sphincter Of Oddi Spasm and/or dysfunction.. Lack of activity in the small bowel after 60 minutes. (Did patient take any pain medication that might affect Sphincter of Oddi prior to the study.) 2. Abnormal function gallbladder - . Only 23% % gallbladder ejection fraction following fatty meal./Ensure No pain with fatty meal.
--- NOTE | 2018-04-09 10:50 | HMH.ITSHM ---
POTASSIUM BRILINTA OMEPRAZOLE LOSARTAN ATORVASTATIN ASA
== END ==
PROVIDERS: Family Provider Family Medicine; PCP Family Medicine; Visit Provider Family Medicine
DX: R10.11 Right upper quadrant pain (principal)
CPT/HCPCS: 78226; A9537

== ENCOUNTER → 2018-11-21 12:34 | Outpatient (CLI) | payer MEDICARE, SELFPAY ==
--- NOTE | 2018-11-21 12:40 | XR_ITS ---
XR foot RT min 3V HISTORY: ITS.REASON: S/P INJURY, RT FOOT PAIN ORDERING PHYSICIAN: Jocelin Morales APRN PATIENT AGE: 68 years COMPARISON: None FINDINGS: No acute fracture or dislocation. There is a small well-circumscribed defect in the distal and medial aspect of the first metatarsal. Has the patient had prior surgery?. Possibly related to old injury. A small calcific density is present at the base and lateral aspect of the proximal phalanx of the fourth toe and could be related to a small avulsion injury age indeterminate. There are also small calcific densities along the lateral aspect of the midfoot lateral to the cuboid and one also lateral to the distal aspect of the calcaneus. These are nonspecific but could be related to avulsion injuries. IMPRESSION: 1. Small calcific densities at the base of the proximal phalanx of the fourth digit and at the lateral aspect of the calcaneocuboid junction. These are nonspecific but could related to avulsion injuries. Please correlate with patient's area of pain and tenderness 2. Otherwise negative
== END ==
PROVIDERS: PCP Nurse Practitioner Family; Visit Provider Nurse Practitioner Family
DX: S99.921A Unspecified injury of right foot, initial encounter (principal)
CPT/HCPCS: 73630

== ENCOUNTER 2019-01-23 09:00 | Outpatient (RCR) | payer MEDICARE, SELFPAY | END 2019-01-23 09:05 | disposition home or self-care (01) | LOC: PT 09:00 | PROVIDERS: Visit Provider Orthopaedic Surgery | DX: S93.601A Unspecified sprain of right foot, initial encounter (principal) | CPT/HCPCS: 97010; 97014; 97110; 97112; 97140; 97163; G0283 ==

== ENCOUNTER → 2019-08-09 12:38 | Outpatient (CLI) | payer MEDICARE, SELFPAY ==
--- NOTE | 2019-08-09 12:39 | CA_ITS ---
APPROVED REPORT EXAM: Comprehensive 2D, Doppler, and color-flow Echocardiogram De Icer Element Winder: Julianna Mims RVT Ht: 5 ft 8 in Wt: 199lbs BSA: 2.04 BP: 130/82 mmHg Indications: COPD, Shortness of Breath, CAD, Hyperlipidemia, Hypertension,Stents TDS 2D Dimensions LVOT 1.99 cm (M/F) 1.5-2.5 M-Mode Dimensions LVDd 5.19 cm (3.5-5.7) LVDs 3.74 cm (3.5-5.7) IVSd 0.47 cm (0.6-1.1) PWd 0.84 cm (0.6-1.1) EF (Teich) 53.80% FS 27.90% EDV (Teich) 128.90 mL ESV (Teich) 59.60 mL LV Diastology E/A Ratio 0.67 Mitral Valve MV A Velocity 63.00 (40-130 cm/s) Left Ventricle Left atrium is mildly enlarged, left ventricle is normal size, mild concentric left ventricular hypertrophy, visually estimated ejection fraction 55% with no regional wall motion abnormality. Grade 1 diastolic dysfunction seen without tissue Doppler evidence of raise left atrial pressure. Right Ventricle Right atrium and right ventricle mildly enlarged with normal contractility. Aortic Valve Aortic valve is minimally thickened and fibrosed, there is no aortic stenosis or aortic insufficiency. Mitral Valve Mitral valve is grossly normal, there is mild mitral regurgitation. Tricuspid Valve Tricuspid valve is grossly normal, there is mild tricuspid regurgitation. Tricuspid regurgitation jet velocity is inadequate for calculation of the right ventricular systolic pressure. Pulmonic Valve Pulmonic valve is poorly visualized. Great Vessels Aortic root is normal size. Pericardium No significant pericardial effusion noted. Conclusion 1. Mild biatrial enlargement, normal left ventricular size, mild concentric left ventricular hypertrophy, visually estimated ejection fraction 55% with no regional wall motion abnormality, grade 1 diastolic dysfunction seen without tissue Doppler evidence of raise left atrial pressure. 2. Mildly enlarged right ventricle with normal contractility. 3. Mild mitral and tricuspid regurgitation. 4. No significant pericardial effusion noted. Electronically signed by : Luis Cole, 08/09/2019 13:53:54
== END ==
PROVIDERS: PCP Family Medicine; Visit Provider Urology
DX: I10 Essential (primary) hypertension (principal); I25.10 Atherosclerotic heart disease of native coronary artery without angina pectoris; Z95.5 Presence of coronary angioplasty implant and graft
CPT/HCPCS: 93306

== ENCOUNTER → 2020-02-03 07:16 | Outpatient (CLI) | payer MEDICARE, SELFPAY ==
[2020-02-03 08:38] LABS: Alanine Aminotransferase 31 U/L (12-78); Alkaline Phosphatase 85 U/L (38-126); Aspartate Amino Transferase 33 U/L (17-59); Bilirubin,Direct 0.1 mg/dl (0.0-0.4); Bilirubin,Indirect 0.7 mg/dL (0.0-0.9); Bilirubin,Total 0.8 mg/dl (0.2-1.3); Bilirubin,Unconjugated 0.6 mg/dL (0.0-1.1)
[2020-02-03 08:39] LABS: Albumin Level 4.2 g/dl (3.5-5.0); Chol/HDL Ratio 4.6 (1-3.5); Cholesterol 143 mg/dl (140-200); HDL Cholesterol 31 mg/dl (40-60); Total Protein,Serum 7.3 g/dl (6.3-8.2); Triglycerides 302 mg/dl (30-150); VLDL Cholesterol 60 mg/dL (0-40)
[2020-02-03 08:49] LABS: Direct LDL Cholesterol 77.13 mg/dL (100-129)
== END ==
PROVIDERS: Visit Provider Urology
DX: E78.5 Hyperlipidemia, unspecified (principal); I20.0 Unstable angina
CPT/HCPCS: 36415; 80061; 80076

== ENCOUNTER → 2020-06-09 15:55 | Outpatient (CLI) | payer MEDICARE, SELFPAY ==
[2020-06-09 17:58] LABS: Basophils % 0.9 % (0.1-2.0); Eosinophils # 0.1 K/mm3 (0.0-0.4); Eosinophils % 2.8 % (0.1-12.0); Hematocrit 43.8 % (42.0-52.0); Hemoglobin 15.6 g/dL (14.1-18.0); Lymphocytes # 1.6 K/mm3 (0.7-4.5); Lymphocytes % 36.5 % (10-50); Mean Corpuscular HGB Conc 35.7 g/dL (31.8-35.4); Mean Corpuscular Hemoglobin 33.3 pg (27.0-31.2); Mean Corpuscular Volume 93.5 fl (80-94); Mean Platelet Volume 10.5 fl (7.4-10.4); Monocytes # 0.7 K/mm3 (0.1-1.0); Monocytes % 15.7 % (1.7-9.3); Neutrophils % 44.1 % (37.0-80.0); Platelet Count 149 K/mm3 (142-424); Red Blood Count 4.69 M/mm3 (4.60-6.20); Red Cell Distribution Width 14.7 % (11.5-17.5); White Blood Count 4.5 K/mm3 (4.8-10.8)
[2020-06-10 20:47] LABS: Covid-19 Nasal PCR Sendout Lex Positive
== END ==
PROVIDERS: PCP Family Medicine; Visit Provider Family Medicine
DX: Z20.828 Contact with and (suspected) exposure to other viral communicable diseases (principal); U07.1 COVID-19
CPT/HCPCS: 36415; 85025; 87275; 87276; U0004

== ENCOUNTER → 2020-07-15 14:54 | Outpatient (CLI) | payer MEDICARE, SELFPAY ==
--- NOTE | 2020-07-15 14:59 | XR_ITS ---
PROCEDURE: XR CHEST PORTABLE CLINICAL HISTORY: COVID SCREENING COMPARISON: CR CXR CHEST(2 VIEWS-NOT PORTABLE) from 12/27/2016 CR CXR CHEST(2 VIEWS-NOT PORTABLE) from 05/22/2017 CR [id number] XR chest portable from 03/12/[address] angio chest from 03/13/2018 FINDINGS: The cardiomediastinal silhouette and pulmonary vascularity are within normal limits. There is mild hyperinflation lung lo with possible mild bullous change in the upper lobes there is no acute infiltrate seen. Mild chronic basilar changes noted bilaterally which were seen previously. There is no pleural fluid. IMPRESSION: Mild COPD, no acute pathology noted Dictated by: Dr. Milton Phillips MD 07/15/2020 15:51 Dr. Milton Phillips MD in [place] 07/15/2020 15:51
[2020-07-15 15:47] LABS: Basophils % 0.7 % (0.1-2.0); Eosinophils # 0.2 K/mm3 (0.0-0.4); Eosinophils % 2.5 % (0.1-12.0); Hematocrit 45.1 % (42.0-52.0); Hemoglobin 15.1 g/dL (14.1-18.0); Lymphocytes % 33.5 % (10-50); Mean Corpuscular HGB Conc 33.5 g/dL (31.8-35.4); Mean Corpuscular Hemoglobin 30.7 pg (27.0-31.2); Mean Corpuscular Volume 91.7 fl (80-94); Mean Platelet Volume 8.1 fl (7.4-10.4); Monocytes # 0.5 K/mm3 (0.1-1.0); Monocytes % 9.2 % (1.7-9.3); Neutrophils # 3.2 K/mm3 (1.8-7.8); Neutrophils % 54.2 % (37.0-80.0); Platelet Count 189 K/mm3 (142-424); Red Blood Count 4.92 M/mm3 (4.60-6.20); Red Cell Distribution Width 13.5 % (11.5-17.5); White Blood Count 5.9 K/mm3 (4.8-10.8)
[2020-07-17 11:26] LABS: Covid-19 Nasal PCR Sendout P&C NEGATIVE
== END ==
PROVIDERS: PCP Family Medicine; Visit Provider Physician Assistant
DX: Z03.818 Encounter for observation for suspected exposure to other biological agents ruled out (principal)
CPT/HCPCS: 36415; 71045; 85025; U0004

== ENCOUNTER 2020-10-04 12:20 | Emergency (ER) | payer MEDICARE, SELFPAY ==
[2020-10-04 12:25] VITALS: BP 125/70; PULSE 83; RESP 17; TEMP 36.8; O2SAT 98; BMI 29.7
[2020-10-04 12:41] VITALS: BP 125/70; PULSE 83; RESP 17; TEMP 36.8; O2SAT 98
--- NOTE | 2020-10-04 12:46 | HMH.EDUTC ---
[facility] [place] Clinical Impression: Strep throat Disposition: Home, Self-Care Condition on Discharge: Good Instructions: Sore Throat, DI for Nasal Congestion, DI for Cough -- Adult, Amoxicillin Additional Instructions: *Monitor Temp, Over the counter Motrin or Tylenol as directed/as needed Tylenol every 4 hours and Motrin every 6 hours (as long as your family doctor has told you that you can take it) for fever or pain. and straight to ER if unable to lower temp less than 101.0 after medication given *Warm salt water gargles may help to soothe the throat *Throat Lozenges *Warm fluids like tea with honey may help to soothe the throat *Sleep elevated *Humidifier/Vaporizer *Flonase 2 sprays in each nostril daily but be aware that it may take 2-3 days before you notice improvement Follow up IMMEDIATELY for new or worsening symptoms or no Noticeable improvement over the next 48-72 hours. 911 for difficulty breathing or swallowing You were tested for today for COVID19 your test result should be back in the next 24-48 hours, you may call to the [facility] to see if your test results are back in the next 48 hours [phone] [facility] hours are 9am-9pm You was given a handout with instructions for Self Quarantine and Self isolation for while you wait on test results and what to do if they are positive If you are positive the Health Dept will be contacting you also Prescriptions: Amoxicillin [Amoxicillin 500mg Cap] 500 mg PO BID 10 Days #20 cap Transmission Status: Pending to [facility] #[id number] Promethazine/Dextromethorphan [Promethazine-Dm Syrup] 2.5 - 5 ml PO Q46H PRN #150 ml PRN Reason: Cough Transmission Status: Pending to [facility] #[id number] Referrals: Minoo Armenta MD [Primary Care Provider] - As needed Time of Disposition: 13:01 Medical Decision Making - Donald Inquiry Pt receiving controlled substance: No Donald was queried for this patient: No Vital Signs: 10/04/20 12:25 10/04/20 12:41 Temperature 98.2 F 98.2 F Temperature Source Oral Pulse Rate 83 Pulse Rate [Right Brachial] 83 Respiratory Rate 17 17 Blood Pressure 125/70 Blood Pressure [Right Arm] 125/70 Blood Pressure Mean [Right Arm] 88 Blood Pressure Source [Right Arm] Automatic Cuff Blood Pressure Position [Right Arm] Sitting 02 Sat by Pulse Oximetry 98 Oxygen Delivery Method Room Air - Lab Data Lab results reviewed: Yes: I reviewed the patient's lab results. Orders (Tests/Meds): ORDERS Category Date Time Status Covid-19 Nasal PCR ([facility]) Routine Lab 10/04/20 12:26 Received Medical Decision Narrative: Patient has taken Prometh DM previously without complications or reactions [facility] [place] HPI - General Stated complaint: wants covid test,symtoms Time Seen by Provider: 10/04/20 12:46 Mode of Arrival: Ambulatory Source of Information: Patient Limitations: No Limitations Description of Symptoms (Recalled from Triage Doc. by RN): COVID TEST D/T EXPOSURE. C/O COUGH AND RUNNY NOSE HEENT Symptoms (Recalled from RN notes): No Resp Symptoms (Recalled from RN notes): Yes Skin Symptoms (Recalled from RN notes): No MS Symptoms (Recalled from RN notes): No Functional Status (Recalled from RN notes): WNL - History of Present Illness Provider Complaint: Patient states that he had his first COVID vaccine a week or so ago and then last week he was around his grandson that tested positive for COVID State that for the last couple of days he has been having sore scratchy throat, runny nose and cough and is due for his second injection next week and wanted to make sure he didnt have COVID - Related Data Home Medications Medication Instructions Recorded Confirmed Aspirin [Aspirin 81mg chewable 81 mg PO HS 03/12/18 01/21/20 tab] Albuterol Sulfate [Ventolin HFA 2 puffs IH Q4HP PRN 03/13/18 01/21/20 Inhaler] Previous Rx's Medication Instructions Recorded atorvastatin 40 mg tablet 40 mg PO HS #90
[2020-10-04 13:02] LABS: UTC Influenza A Antigen Negative (Negative); UTC Strep Screen (Rapid) Positive (Negative)
[2020-10-04 13:03] LABS: UTC Influenza B Antigen Negative (Negative)
== END 2020-10-04 12:48 | disposition home or self-care (01) ==
PROVIDERS: Emergency Provider Nurse Practitioner; PCP Family Medicine
DX: J02.0 Streptococcal pharyngitis (principal); Z20.822 Contact with and (suspected) exposure to COVID-19; I10 Essential (primary) hypertension; E78.5 Hyperlipidemia, unspecified; I25.10 Atherosclerotic heart disease of native coronary artery without angina pectoris; J44.9 Chronic obstructive pulmonary disease, unspecified; K21.9 Gastro-esophageal reflux disease without esophagitis; Z87.891 Personal history of nicotine dependence; I25.2 Old myocardial infarction; Z79.899 Other long term (current) drug therapy
CPT/HCPCS: G0463; 87804; 87880; 99202; U0003

== ENCOUNTER → 2020-12-01 07:52 | Outpatient (CLI) | payer MEDICARE, SELFPAY | PROVIDERS: Visit Provider Surgery | DX: Z01.812 Encounter for preprocedural laboratory examination (principal); Z20.822 Contact with and (suspected) exposure to COVID-19; Z12.11 Encounter for screening for malignant neoplasm of colon | CPT/HCPCS: U0003 ==

== ENCOUNTER 2020-12-03 07:11 | Day surgery (SDC) | payer MEDICARE, SELFPAY ==
[2020-12-01 10:13] VITALS: BMI 30.2
--- NOTE | 2020-12-03 07:29 | P.PN_ITS ---
[facility] Anesthesia Checklist - Patient Identification Patient Identification: Arm Band - Structural Data Admitted From: Home Planned Operative Procedure/s: Colonooscopy Consent for Planned Operative Procedure(s) Verified: Yes - NPO Status Verified Time NPO: 03:50 (Prep) - Additional verifications Anesthesia Reactions: No Hx Blood Transfusions: No Blood Transfusion Reaction: No - Airway Assessment C-Spine Mobility Assessed: Yes TMJ Mobility Assessed: Yes - Neurological Assessment Level of Consciousness: Awake Hx Seizures: No Numbness or tingling in extremities: No - Anesthesia Plan Anesthesia Risk discussed: Yes Anesthesia Plan: Verified ASA Class: IV Anesthesia Type: MAC [facility] History I have reviewed the patient's past medical history: Yes 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: Reports:: Atherosclerotic Heart Disease, Chronic Obstructive Pulmonary Disease (COPD), Coronary Artery Disease, Gastroesophageal Reflux Disease(GERD), Hyperlipidemia, Hypertension, Lung Disease, Myocardial Infarction Denies:: Atrial Fibrillation, Cancer, Diabetes Mellitus Type 1, Diabetes Mellitus Type 2, Gastrointestinal Bleed, Internal Pacemaker, MRSA, Seizures *Have you ever received a pneumonia vaccine?: Yes *Have you received a flu vaccine this season?: Yes Other 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: Denies: Blood Transfusion Reaction Anesthesia experience/problems:: None Other Surgeries: Yes: Cardiac Catheterization, Cardiac Surgery, Colonoscopy, Coronary Stent, Other. No: Pacemaker Amputation: No Fractures: No - *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 Last grade of school completed: High school graduate Smoking Status: Never smoker Alcohol Intake: never Substance Use Type: denies use *Occupational Status:: retired Housing: house Household Members: spouse *Travel in the last 8 weeks: None Family Hx:: Cancer, Diabetes
[2020-12-03 07:42] VITALS: BP 124/73; PULSE 62; RESP 18; TEMP 36.1; O2SAT 98
[2020-12-03 08:37] VITALS: O2SAT 97
--- NOTE | 2020-12-03 09:06 | HMH.SCOPE ---
- Procedure: Date: 12/03/20 Patient Date of :: 1950 Procedure Performed:: Colonoscopy with polypectomy by means other than snare Indications:: History of multiple complex colon polyps Performing Provider:: Bryant Montoya MD Referring Provider:: . Sedation:: Monitored anesthesia care Procedure:: After informed consent was obtained the patient was taken to the endoscopy suite. Sedation ensued after the patient was transferred to the left lateral decubitus position. Pulse, blood pressure, and oxygen saturation were monitored throughout the procedure. Digital rectal exam revealed no significant abnormality. The colonoscope was placed in position. The entire colon was evaluated. The colonoscope was carefully removed and the patient was transferred to recovery in stable condition. Please see findings and specimens below for detail. Findings:: Bowel preparation moderate Moderate sigmoid spasticity/lack of relaxation Polyp at 15 cm Specimens:: Polyp at 15 cm Recommendations:: Timing of repeat colonoscopy is pending pathology but will likely be between 3-5 years. Complications:: No immediate Estimated blood obtained (mL): 1
[2020-12-03 09:08] VITALS: BP 99/57; PULSE 87; RESP 18; TEMP 36.2; O2SAT 90
[2020-12-03 09:18] VITALS: BP 98/57; PULSE 82; RESP 16; O2SAT 92
[2020-12-03 09:28] VITALS: BP 103/70; PULSE 81; RESP 18; O2SAT 94
[2020-12-03 09:38] VITALS: BP 123/75; PULSE 70; RESP 18; O2SAT 98
== END 2020-12-03 09:38 | disposition home or self-care (01) ==
LOC: OUTP 07:13
PROVIDERS: PCP Family Medicine; Visit Provider Surgery
PROC: 0DJD8ZZ Inspection of Lower Intestinal Tract, Via Natural or Artificial Opening Endoscopic (ICD-10-PCS; principal; 2020-12-03 08:30)
DX: Z12.11 Encounter for screening for malignant neoplasm of colon (principal); K58.9 Irritable bowel syndrome, unspecified; K63.5 Polyp of colon; Z86.010 Personal history of colon polyps; I25.10 Atherosclerotic heart disease of native coronary artery without angina pectoris; J44.9 Chronic obstructive pulmonary disease, unspecified; K21.9 Gastro-esophageal reflux disease without esophagitis; E78.5 Hyperlipidemia, unspecified; I10 Essential (primary) hypertension; I25.2 Old myocardial infarction; Z80.9 Family history of malignant neoplasm, unspecified; Z83.3 Family history of diabetes mellitus
CPT/HCPCS: 45380; 88305; J2704

== ENCOUNTER 2020-12-07 05:05 | Observation (INO) | payer MEDICARE, SELFPAY ==
[2020-12-07] VITALS (25 sets, daily range): BP systolic 91–141; BP diastolic 54–82; PULSE 54–75; RESP 13–21; TEMP 36.1–37.2; O2SAT 90–98; BMI 31.3; BMI 30.6
--- NOTE | 2020-12-07 | IR_ITS ---
APPROVED REPORT Patient Location: [facility] Publications Inspector: KEISHA Eddy RT (R) PROCEDURES Left heart catheterization Left ventriculogram Selective coronary angiogram Drug-eluting stent deployment to the ostial proximal dominant right coronary INDICATION Unstable angina, Coronary artery disease Informed consent was obtained prior to the procedure. COMPLICATIONS None Estimated Blood Loss: Less than 10 mls TECHNIQUE One percent lidocaine used to anesthetize the right anterior aspect of the wrist. The right radial artery was accessed via the Seldinger technique. A 6 Telugu sheath was placed in the right radial artery. 2.5 mg of verapamil, 800 mcg of nitroglycerin, 1mg Lidocaine and 5000 U Heparin were given through the arterial sheath. The Poppa was also used to perform left heart catheterization, left ventriculogram and selective coronary angiogram. At the end of the diagnostic angiogram therapeutic heparin was administered giving a therapeutic ACT and the same diagnostic catheter was used to intubate the right coronary artery followed by placement of a Choice PT extra-support wire distally. A 4 mm x 26 mm resolute [place] stent was deployed at 24 cody in the ostial proximal segment. A 4.5 x 12 mm balloon was then placed in the ostial proximal segment and deployed at 25 cody to post dilate. This still did not reduce the stenosis therefore a 5 mm x 8 mm noncompliant balloon was then deployed in the area of interest at 25 cody this time reducing the stenosis to 0%. MARIA DE JESUS-3 flow was present before and after the procedure. After achieving excellent angiographic results the apparatus was removed the sheath was removed and hemostasis was achieved using TR banding patient was transferred to the postop coronary stable condition ANGIOGRAPHIC RESULTS The left main artery Normal The left anterior descending artery Has mild proximal and mid vessel diffuse 10 to 20% luminal irregularities The circumflex artery Small nondominant with mild 10% diffuse luminal irregularities The right coronary artery Large dominant vessel with a proximal concentric 90% stenosis representing in-stent restenosis followed by diffuse 10 to 20% luminal irregularities The MARQUEZ ventriculogram reveals Preserved at 55 to 60% with mild inferior wall hypokinesis The left ventricular end-diastolic pressure 15 mmHg IMPRESSION Critical proximal dominant right coronary stenosis Successful stenting of the ostial proximal dominant right coronary artery critical disease reduced to 0% with 1 drug-eluting stent Preserved ejection fraction with mild regional wall motion abnormality Mildly elevated LVEDP PLAN 1. Dual antiplatelet therapy 2. LDL less than 55 3. Risk factor modification 4. Avoidance of tobacco products 5. Cardiac rehabilitation Electronically signed by : Puneet Ellison, 12/07/2020 08:22:45
--- NOTE | 2020-12-07 05:05 | ECG_ITS ---
APPROVED REPORT Exam: Resting ECG HR:69 bpm ECG Measurements Heart Rate 69 AXES OR 190 P 77 QRSd 84 QRS 37 QT 430 T 79 QTc 460 Conclusion Normal sinus rhythm Low voltage QRS Prolonged QT Abnormal ECG Electronically signed by : Dedrick Mcwilliams, 12/12/2020 07:38:28
--- NOTE | 2020-12-07 05:10 | XR_ITS ---
PROCEDURE INFORMATION: Exam: XR Chest Exam date and time: 12/07/2020 5:10 AM Age: 70 years old Clinical indication: Shortness of breath; Sternal or substernal pain; Prior surgery; Surgery date: 6+ months; Patient HX: Mid chest pain, stents, HX of heart attacks TECHNIQUE: Imaging protocol: XR of the chest. Views: 2 views. COMPARISON: CR XR CHEST PORTABLE 07/15/2020 3:19 PM FINDINGS: Lungs: COPD and interstitial prominence. Pleural spaces: No pleural effusion. Heart/Mediastinum: No cardiomegaly. Bones/joints: Mild degenerative change. IMPRESSION: COPD and interstitial prominence.
--- NOTE | 2020-12-07 05:13 | CT_ITS ---
PROCEDURE INFORMATION: Exam: CTA Chest With Contrast Exam date and time: 12/07/2020 5:13 AM Age: 70 years old Clinical indication: Shortness of breath; Sternal or substernal pain; Prior surgery; Surgery date: 6+ months; Patient HX: Mid chest pain, stents, HX of heart attacks; Additional info: Shortness of air, chest pain TECHNIQUE: Imaging protocol: Computed tomographic angiography of the chest with contrast. 3D rendering (Not supervised by radiologist): MIP and/or 3D reconstructed images were created by the technologist. Radiation optimization: All CT scans at this facility use at least one of these dose optimization techniques: automated exposure control; mA and/or kV adjustment per patient size (includes targeted exams where dose is matched to clinical indication); or iterative reconstruction. Contrast material: ISOVUE 370; Contrast volume: 70 ml; Contrast route: INTRAVENOUS (IV); COMPARISON: [facility] CT angio chest 03/13/2018 5:07 PM FINDINGS: Pulmonary arteries: No pulmonary embolus in the opacified pulmonary arteries. Aorta: Calcification and ectasia of the thoracic aorta, with the ascending thoracic aorta measuring 4.1 cm in maximum diameter. Lungs: COPD, interstitial disease, chronic granulomatous disease, and lingular parenchymal stranding. Pleural spaces: No pleural effusion. Heart: Coronary artery calcification. Lymph nodes: Calcified and noncalcified lymph nodes, the majority of which are subcentimeter in size. Upper abdomen: Cholelithiasis. Splenic granulomata. Wall thickening in the nondistended stomach. Bones/joints: Degenerative change and Schmorl's nodes. IMPRESSION: 1. No pulmonary embolus in the opacified pulmonary arteries. 2. COPD, interstitial disease, chronic granulomatous disease, and lingular parenchymal stranding. 3. Additional findings as described above.
[2020-12-07 05:17] LABS: Basophils % 0.7 % (0.1-2.0); Eosinophils # 0.2 K/mm3 (0.0-0.4); Eosinophils % 3.8 % (0.1-12.0); Hematocrit 42.9 % (42.0-52.0); Hemoglobin 14.7 g/dL (14.1-18.0); Lymphocytes # 2.7 K/mm3 (0.7-4.5); Lymphocytes % 42.6 % (10-50); Mean Corpuscular HGB Conc 34.2 g/dL (31.8-35.4); Mean Corpuscular Hemoglobin 30.6 pg (27.0-31.2); Mean Corpuscular Volume 89.2 fl (80-94); Mean Platelet Volume 8.1 fl (7.4-10.4); Monocytes # 0.5 K/mm3 (0.1-1.0); Monocytes % 8.1 % (1.7-9.3); Neutrophils # 2.8 K/mm3 (1.8-7.8); Neutrophils % 44.8 % (37.0-80.0); Platelet Count 189 K/mm3 (142-424); Red Cell Distribution Width 13.1 % (11.5-17.5); White Blood Count 6.3 K/mm3 (4.8-10.8)
--- NOTE | 2020-12-07 05:20 | PC.NURSE ---
Pt reports pain went from 8 out of 10 to 6 out of 10 after SL nitro.
[2020-12-07 05:25] LABS: Alanine Aminotransferase 28 U/L (12-78); Albumin Level 4.1 g/dl (3.5-5.0); Alkaline Phosphatase 85 U/L (38-126); Anion Gap 8.7 mEq/L (5-15); Aspartate Amino Transferase 36 U/L (17-59); Bilirubin,Direct 0.3 mg/dl (0.0-0.4); Bilirubin,Indirect 0.4 mg/dL (0.0-0.9); Bilirubin,Total 0.7 mg/dl (0.2-1.3); Bilirubin,Unconjugated 0.4 mg/dL (0.0-1.1); Blood Urea Nitrogen 15 mg/dl (9-20); Calcium 8.8 mg/dl (8.4-10.2); Carbon Dioxide 28 mmol/L (22.0-30.0); Chloride 108 mmol/L (98-107); Creatinine Clearance Estimated 91 mL/min (50-200); Estimated Glomerular Filt Rate 74 ml/min (>60); GFR (African American) 90 ML/MIN (>60); Glucose 115 mg/dl (74-100); Lipase 118 U/L (23-300); Potassium 3.7 mmoL/L (3.5-5.1); Sodium 141 mmol/L (136-145); Total Protein,Serum 7.3 g/dl (6.3-8.2)
[2020-12-07 05:28] LABS: Adenovirus,PCR Not Detected (NotDetected); Bordetella Pertussis Not Detected (NotDetected); Chlamydophila Pneumoniae, PCR Not Detected (NotDetected); Coronavirus 19, PCR Not Detected (NotDetected); Coronavirus 229E Not Detected (NotDetected); Coronavirus NL63 Not Detected (NotDetected); Coronavirus OC43 Not Detected (NotDetected); Coronovirus HKU1,PCR Not Detected (NotDetected); Human Metapneumovirus Not Detected (NotDetected); Influenza A, PCR Not Detected (NotDetected); Influenza AH1, 2009 Not Detected (NotDetected); Influenza AH1, PCR Not Detected (NotDetected); Influenza AH3,PCR Not Detected (NotDetected); Influenza B, PCR Not Detected (NotDetected); Mycoplasma Pneumoniae, PCR Not Detected (NotDetected); Parainfluenza 1, PCR Not Detected (NotDetected); Parainfluenza 2, PCR Not Detected (NotDetected); Parainfluenza 3, PCR Not Detected (NotDetected); Parainfluenza 4, PCR Not Detected (NotDetected); Respiratory Syncytial Virus Not Detected (NotDetected); Rhinovirus/Enterovirus Not Detected (NotDetected)
[2020-12-07 05:34] LABS: NT Pro Brain Natriuretic Pep. 55.6 pg/mL (0-125)
--- NOTE | 2020-12-07 05:39 | PC.NURSE ---
Pt reports pain has eased up and describes it as a dull pain 6 out of 10.
[2020-12-07 05:41] LABS: Troponin I < 0.01 ng/ml (0.00-0.034)
[2020-12-07 05:56] LABS: Thyroid Stimulating Hormone 1.64 uIU/mL (0.465-4.68)
--- NOTE | 2020-12-07 06:38 | HMH.EDCP ---
ED Disposition Clinical Impression: Unstable angina pectoris, S/P right coronary artery (RCA) stent placement COPD (chronic obstructive pulmonary disease) Qualifiers: COPD type: unspecified COPD Qualified Code(s): J44.9 - Chronic obstructive pulmonary disease, unspecified Disposition: Admitted As Inpatient Condition on Discharge: Good Referrals: Provider,Referral, [Primary Care Provider] - - Critical Care Critical Care Time: No Attestation: On 12/07/20, the high probability of a clinically significant, sudden or life threatening deterioration of the following system(s) required my full and direct attention, intervention and personal management. The time I documented below is in addition to time spent performing reported procedures but includes the following listed in this critical care notation. Medical Decision Making - Medical Records Medical records reviewed: Yes: I reviewed the patient's medical records. - Donald Inquiry Pt receiving controlled substance: No Vital Signs: 12/07/20 05:05 12/07/20 05:30 Temperature 97.9 F Temperature Source Oral Pulse Rate 65 Pulse Rate [Apical] 75 Respiratory Rate 21 18 Blood Pressure 122/69 Blood Pressure [Right Arm] 141/82 H Blood Pressure Mean 86 Blood Pressure Mean [Right Arm] 101 Blood Pressure Source [Right Arm] Automatic Cuff Blood Pressure Position [Right Arm] Sitting 02 Sat by Pulse Oximetry 95 96 Oxygen Delivery Method Room Air Room Air - Lab Data Lab results reviewed: Yes: I reviewed the patient's lab results. Lab Results 12/07/20 05:10: WBC 6.3, RBC 4.80, Hgb 14.7, Hct 42.9, MCV 89.2, MCH 30.6, MCHC 34.2, RDW 13.1, Plt Count 189, MPV 8.1, Neut % (Auto) 44.8, Lymph % (Auto) 42.6, [place] % (Auto) 8.1, Eos % (Auto) 3.8, Baso % (Auto) 0.7, Neut # (Auto) 2.8, Lymph # (Auto) 2.7, [place] # (Auto) 0.5, Eos # (Auto) 0.2, Baso # (Auto) 0.0 12/07/20 05:10: Sodium 141, Potassium 3.7, Chloride 108 H, Carbon Dioxide 28, Anion Gap 8.7, BUN 15, Creatinine 1.00, Estimated Creat Clear 91, Estimated GFR 74, Est GFR ( Amer) 90, Glucose 115 H, Calcium 8.8, Total Bilirubin 0.7, Direct Bilirubin 0.3, Conjugated Bilirubin 0.0, Indirect Bilirubin 0.4, Unconjugated Bilirubin 0.4, AST 36, ALT 28, Alkaline Phosphatase 85, Troponin I < 0.01, Total Protein 7.3, Albumin 4.1, Lipase 118, TSH 1.64, Thyroxine (T4) 8.0 12/07/20 05:10: NT-Pro-B Natriuret Pep 55.6 Result diagrams: 12/07/20 05:10 12/07/20 05:10 Orders (Tests/Meds): ED MEDICATIONS Generic Name Dose Route Start Last Admin Trade Name Freq PRN Reason Stop Dose Admin Sodium Chloride 1,000 mls @ 999 mls/hr 12/07/20 05:15 12/07/20 05:15 Sod Chlor 0.9% 1000ml Bag IV 12/07/20 06:15 999 mls/hr .Q1H1M JIMMIE Administration Nitroglycerin 0.4 mg 12/07/20 05:12 12/07/20 05:12 Nitroglycerin 0.4mg Sl Tablet SL 01/06/21 05:11 0.4 mg Q5MINP PRN Administration Chest Pain Sodium Chloride 8 ml 12/07/20 05:25 Sodium Chloride 0.9% 10ml Vial IV 01/06/21 05:24 NEEDED PRN dilute pepcid Discontinued Medications Generic Name Dose Route Start Last Admin Trade Name Freq PRN Reason Stop Dose Admin Aspirin 324 mg 12/07/20 05:12 12/07/20 05:12 Aspirin 81mg Chewable Tablet PO 12/07/20 05:13 324 mg ONCE ONE Administration Famotidine 20 mg 12/07/20 05:25 Famotidine 20mg/2ml Vial IV 12/07/20 05:26 ONCE ONE Iopamidol 70 ml 12/07/20 06:15 12/07/20 06:19 Iopamidol-370 (76%);100ml Bottle IV 12/07/20 06:16 70 ml ONCE ONE Administration Ketorolac Tromethamine 30 mg 12/07/20 05:25 12/07/20 05:43 Ketorolac 30mg/Ml Vial IV 12/07/20 05:26 30 mg ONCE ONE Administration Methylprednisolone Sodium Succinate 125 mg 12/07/20 05:42 12/07/20 05:43 Methylprednisolone Sod Succ 125mg Vial IV 12/07/20 05:43 125 mg ONCE ONE Administration Metoclopramide HCl 10 mg 12/07/20 05:25 Metoclopramide Hcl 10mg/2ml Vial IVP 12/07/20 05:26
--- NOTE | 2020-12-07 06:40 | PC.NURSE ---
Dano Ellison at this time.
--- NOTE | 2020-12-07 06:40 | PC.NURSE ---
dr. cheema paged for Dr. Galloway
--- NOTE | 2020-12-07 06:41 | PC.NURSE ---
Nilesh speaking with Scot at this time.
--- NOTE | 2020-12-07 06:47 | PC.NURSE ---
call placed to house for admit; tena to tena, obs and unstable angina
--- NOTE | 2020-12-07 06:49 | PC.NURSE ---
spoke with dr cheema and confirmed that he had spoken with the cath team and they were aware of the patient coming to the clinical lab assistant. waiting to hear from clinical lab assistant nurse. pt placed in gown, sites shaved. consent obtained.
--- NOTE | 2020-12-07 06:58 | PC.NURSE ---
Pt reports no pain currently. Bilateral groins and right wrist prepped and cath consent signed by patient.
--- NOTE | 2020-12-07 07:01 | PC.NURSE ---
Spoke with Leno from lab aid. He states someone will be down to get pt shortly.
--- NOTE | 2020-12-07 07:24 | CA_ITS ---
APPROVED REPORT EXAM: Comprehensive 2D, Doppler, and color-flow Echocardiogram Food Processing Chemist: Damaris Jacob RT(R) Ht: 5 ft 8 in Wt: 199lbs BSA: 2.04 BP: 141/82 mmHg Indications: CP, COPD, HTN, hyperlipidemia, CAD, GERD, angina, heart cath this morning with stent placed 2D Dimensions LVOT 2.10 cm (M/F) 1.5-2.5 M-Mode Dimensions RVDd 3.34 cm (0.9-2.6) LVDd 4.06 cm (3.5-5.7) LVDs 3.03 cm (3.5-5.7) IVSd 0.87 cm (0.6-1.1) PWd 0.93 cm (0.6-1.1) EF (Teich) 50.50% FS 25.40% EDV (Teich) 72.50 mL ESV (Teich) 35.90 mL LV Diastology E Decel Time 190.00 (160-240 msec) E/A Ratio 0.7 MED E' 8.10 (< 7 cm/sec) E'/MED E' Ratio 6.15 (>14) LAT E' 8.30 (<10 cm/sec) E/LAT E' Ratio 6.00 (>14) Mitral Valve MV E Max Real. 50.00 (40-130 cm/s) MV A Velocity 68.00 (40-130 cm/s) E/A Ratio 0.74 MV Decel. Time 190.00 (160-240 ms) MV PHT 56.00 ms Left Ventricle Technically difficult study because of the patient factors and poor acoustic windows. Left atrium is mildly enlarged, left ventricle is normal size, mild concentric left ventricular hypertrophy, visually estimated ejection fraction 55%, there is abnormal septal motion. There is no obvious regional wall motion abnormality, endocardial surfaces are poorly visualized. Right Ventricle Right atrium and right ventricle are mildly enlarged with normal contractility. Aortic Valve Aortic valve is thickened and calcified without aortic stenosis or aortic insufficiency. Mitral Valve Mitral valve is minimally thickened, there is mild mitral regurgitation. Tricuspid Valve Tricuspid valve is grossly normal, there is mild tricuspid regurgitation, tricuspid regurgitation jet velocity is inadequate for calculation of the right ventricular systolic pressure. Pulmonic Valve Pulmonic valve is poorly visualized. Great Vessels Aortic root is normal size. Pericardium No significant pericardial effusion noted. Conclusion 1. Technically difficult study because of the patient factors and poor acoustic windows. 2. Mild biatrial enlargement, normal left ventricular size, mild concentric left ventricular hypertrophy, visually estimated ejection fraction 55% with no regional wall motion abnormality, there is abnormal septal motion. 3. Mildly enlarged right ventricle with normal contractility. 4. Mild mitral and tricuspid regurgitation. 5. No significant pericardial effusion noted. Electronically signed by : Luis Cole, 12/08/2020 05:12:18
[2020-12-07 07:45] LABS: Troponin I < 0.01 ng/ml (0.00-0.034)
--- NOTE | 2020-12-07 07:53 | HMH.PHAVTE ---
[facility] [place] Pharmacy VTE Monitoring - Patient Demographics Admission date: 12/07/20 Report Date: 12/07/20 Time: 07:53 Allergies/Adverse Reactions: Patient Allergies No Known Allergies Allergy (Verified 12/03/20 07:48) Height: 1.7 m Weight: 90.718 kg Patient Problems: Current Active Problems Unstable angina pectoris (Acute) COPD (chronic obstructive pulmonary disease) (Chronic) S/P right coronary artery (RCA) stent placement (Chronic) - VTE Risk Labs: VTE Related Lab Results Hgb 14.7 g/dL (14.1-18.0) 12/07/20 05:10 Hct 42.9 % (42.0-52.0) 12/07/20 05:10 Plt Count 189 K/mm3 (142-424) 12/07/20 05:10 BUN 15 mg/dl (9-20) 12/07/20 05:10 Creatinine 1.00 mg/dl (0.66-1.25) 12/07/20 05:10 Estimated Creat Clear 91 mL/min (50-200) 12/07/20 05:10 - Prophylaxis VTE Prophylaxis Ordered?: Yes Types of VTE Prophylaxis: TEDS Knee High Location of Applied Device: Bilateral Lower Extremeties
[2020-12-07 09:06] LABS: CATHL Activated Clotting Time > 400 SEC (74-125)
--- NOTE | 2020-12-07 09:57 | HMH.PHAINT ---
MEDICATION RECONCILIATION COMPLETED ON PATIENT USING EXTERNAL FILL HISTORY FROM PHARMACY, LIST FROM CARDIOLOGY, AND LIST FROM [facility] OFFICE. -LATRICE COBBD
--- NOTE | 2020-12-07 10:59 | HMH.CNCARD ---
History of Present Illness Consult date: 12/07/20 Requesting physician: Minoo Armenta Consult reason: chest pain Chief complaint: chest pain History of present illness: 89-year-old male presented to [facility] ED with persistent chest pain. Patient states the chest pain woke him up in the middle of the night and was unable to rest. Patient states he did have to take a nitroglycerin to help relieve the pain. Patient states the nitroglycerin did not improve his chest pain, therefore he proceeded to the emergency room. He states upon arrival to the ED he was given morphine per his IV which seemed to improve his chest pain. Patient did complain of increased shortness of breath throughout the day yesterday. Patient states he did have an episode of diarrhea prior to coming to the emergency room. Patient denies palpitations or dizziness. Patient denies chest pain or shortness of breath at this time. Patient was admitted to the facility and underwent left heart catheterization this a.m. Left heart catheterization revealed critical proximal dominant RCA stenosis which required stenting to the ostial proximal dominant RCA with 1 drug-eluting stent. Patient was currently on Plavix and will continue the Plavix and aspirin due to CAD. Patient is currently on an RIAN inhibitor and statin. Patient is not on a beta-evie at this time due to hypotension and bradycardia. Patient seems to have a history of bradycardia. Once heart rate and blood pressure stabilized, will try to add beta-evie to current medication regimen. ED work-up was performed. Initial EKG revealed sinus bradycardia. early childhood associate teacher at this time reveals sinus bradycardia with a heart rate of 56 bpm. Blood pressure is stable. Serial troponins were negative. Dr. Ellison was notified from the ED regarding patient's condition, patient underwent left heart catheterization immediately after arrival to the ED. Will obtain echocardiogram to evaluate LV function and valve status. Pending on the results of the echocardiogram, medication and treatment therapy changes may be recommended. [facility]:ANGIOGRAPHIC RESULTS The left main artery Normal The left anterior descending artery Has mild proximal and mid vessel diffuse 10 to 20% luminal irregularities The circumflex artery Small nondominant with mild 10% diffuse luminal irregularities The right coronary artery Large dominant vessel with a proximal concentric 90% stenosis representing in-stent restenosis followed by diffuse 10 to 20% luminal irregularities The MARQUEZ ventriculogram reveals Preserved at 55 to 60% with mild inferior wall hypokinesis The left ventricular end-diastolic pressure 15 mmHg IMPRESSION Critical proximal dominant right coronary stenosis Successful stenting of the ostial proximal dominant right coronary artery critical disease reduced to 0% with 1 drug-eluting stent Preserved ejection fraction with mild regional wall motion abnormality Mildly elevated LVEDP PLAN 1. Dual antiplatelet therapy 2. LDL less than 55 3. Risk factor modification 4. Avoidance of tobacco products 5. Cardiac rehabilitation Thank you for allowing cardiology to participate in the care of this patient. [facility] History I have reviewed the patient's past medical history: Yes 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: Reports:: Atherosclerotic Heart Disease, Chronic Obstructive Pulmonary Disease (COPD), Coronary Artery Disease, Gastroesophageal Reflux Disease(GERD), Hyperlipidemia, Hypertension, Lung Disease, Myocardial Infarction Denies:: Atrial Fibrillation, Cancer, Diabetes Mellitus Type 1, Diabetes Mellitus Type 2, Gastrointestinal Bleed, Internal Pacemaker, MRSA, Seizures *Have you ever received a pneumonia vaccine?: Yes *Have you received a flu vaccine this season?: Yes Other 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: Denies: Blood Transfusion Reaction Other Surgeries: Yes: Cardiac Catheterization, Cardiac Surgery, Colonoscopy, Coronary Stent, Other. No: Pacemaker
--- NOTE | 2020-12-07 12:40 | PC.NURSE ---
TRACELET OFF @ 1235, SITE C/D/I. TELFA AND TEGADERM PLACED OVER SITE. CAP REFILL <3 SEC. MOVING FINGERS FREELY. +2 PULSES PALPABLE.
--- NOTE | 2020-12-07 13:12 | HMH.HP ---
*Admission Date: 12/07/20 *Chief complaint: Chest pain *History of present illness: This 70-year-old white male with known coronary artery disease started having midsternal chest pain last evening at about 11:00. He felt like he had indigestion. His pain worsened when it woke him up in the morning at 4 AM. He had associated nausea. He had associated shortness of breath. He came to the emergency room at [facility]. His evaluation revealed acute coronary syndrome. Dr. Ellison was contacted. He underwent heart catheterization this morning. His right coronary artery was stented. See cardiology's note for more details. Patient has a history of coronary artery disease with previous stents placed. His initial stent was placed at [place]. Subsequently he had a catheterization and stents placed in [place] and previous stenting at [facility] as well. Again see cardiology note for details. The patient is seen post procedure. He states he feels much better. He is not having chest pain. He is not having shortness of breath. [facility] History 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: Reports:: Atherosclerotic Heart Disease, Chronic Obstructive Pulmonary Disease (COPD), Coronary Artery Disease, Gastroesophageal Reflux Disease(GERD), Hyperlipidemia, Hypertension, Lung Disease, Myocardial Infarction Denies:: Atrial Fibrillation, Cancer, Diabetes Mellitus Type 1, Diabetes Mellitus Type 2, Gastrointestinal Bleed, Internal Pacemaker, MRSA, Seizures *Have you ever received a pneumonia vaccine?: Yes *Have you received a flu vaccine this season?: Yes Other 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: Denies: Blood Transfusion Reaction Other Surgeries: Yes: Cardiac Catheterization, Cardiac Surgery, Colonoscopy, Coronary Stent, Other. No: Pacemaker Amputation: No Fractures: No - *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 Smoking Status: Never smoker Alcohol Intake: never Substance Use Type: denies use *Occupational Status:: retired Housing: house Household Members: spouse *Travel in the last 8 weeks: None Family Hx:: Cancer, Diabetes Review of Systems - Constitutional Denies body ache(s), Denies chills - Eyes Denies change in vision - ENT Denies difficulty swallowing - *Cardiovascular Reports chest pain, Reports chest pain at rest, Reports shortness of breath, Reports leg swelling (Some recent) - *Respiratory Denies chest congestion, Denies cough - *Gastrointestinal Reports nausea (At the time of his chest pain), Denies abdominal pain - *Genitourinary Denies difficulty urinating - *Musculoskeletal Denies abnormal walking - *Neurologic Denies abnormal walking, Denies localized weakness, Denies seizure-like activity - Allergic/Immunologic Denies GI upset with certain foods Meds Home Medications Medication Instructions Recorded Confirmed Type Aspirin [Aspirin 81mg chewable 81 mg PO HS 03/12/18 12/07/20 History tab] Albuterol Sulfate [Ventolin HFA 2 puffs IH Q4HP PRN 03/13/18 12/07/20 History Inhaler] atorvastatin 40 mg tablet 40 mg PO HS #90 tab 07/21/20 12/07/20 Rx losartan 50 mg tablet 50 mg PO DAILY #90 tab 07/21/20 12/07/20 Rx Clopidogrel Bisulfate [Plavix] 75 mg PO DAILY 12/01/20 12/07/20 History Pantoprazole Sodium 40 mg PO DAILY 12/01/20 12/07/20 History Fluticasone/Vilanterol [Breo 1 puff IH DAILY 12/07/20 12/07/20 History Ellipta 100-25 Mcg INH] Umeclidinium [place] [Incruse 1 puff IH DAILY 12/07/20 12/07/20 History Ellipta] Allergies Allergy/AdvReac Type Severity Reaction Status Date / Time No Known Allergies Allergy Verified 12/03/20 07:48 Exam Vital signs and Labs for Last 24 Hours: Temp Pulse Resp BP Pulse Ox 98.1 F 57 L 16 96/58 L 93 L 12/07/20 09:20 12/07/20 12:35 12/07/20 12:35 12/07/20 12:35 12/07/20 12:35 Laboratory Results - last 24 hr 12/07/20 05:10: WBC 6.3, RBC 4.80, Hgb 14.7, Hct 42.9, MCV 89.2, MCH 30.6, MCHC 34.2, RDW 13.1, Plt Count 189, MPV 8.1, Neut % (Auto) 44.8, Lymph % (Auto) 4
--- NOTE | 2020-12-07 15:11 | PC.NURSE ---
@ 1435 recheck radial site w/ small amount of serosang drainage present. Cath site soft w/ no s/s of active bleeding. Cap refill <3 sec. Pulses present and equal. Currently on room air w/ no s/s of resp distress. HR regular, has been neha majority of time after cath. Abdomen soft, non-tender w/ active BS in all quads. Has gotten up to bathroom w/ standby assist. Sat in recliner for breif period of time. Voiding w/o difficulty. Denies pain. Currently sitting up in bed talking w/ family. No needs voiced. VSS.
[2020-12-08 04:00] VITALS: BP 101/59; PULSE 60; PULSE 70; RESP 17; TEMP 36.5; O2SAT 95
--- NOTE | 2020-12-08 04:23 | PC.NURSE ---
alert and oriented. vss. no acute changes. independent with care. telemetry reads NSR. right radial site dressing in place. scant amount of blood noted to dressing but has been unchanged this shift. call light in reach. will continue to monitor
[2020-12-08 04:59] VITALS: BMI 30.4
[2020-12-08 06:30] LABS: Basophils % 0.1 % (0.1-2.0); Eosinophils % 0.1 % (0.1-12.0); Hematocrit 37.7 % (42.0-52.0); Hemoglobin 12.6 g/dL (14.1-18.0); Lymphocytes # 1.3 K/mm3 (0.7-4.5); Lymphocytes % 9.8 % (10-50); Mean Corpuscular HGB Conc 33.4 g/dL (31.8-35.4); Mean Corpuscular Hemoglobin 30.8 pg (27.0-31.2); Mean Platelet Volume 8.2 fl (7.4-10.4); Monocytes # 0.7 K/mm3 (0.1-1.0); Monocytes % 5.4 % (1.7-9.3); Neutrophils % 84.7 % (37.0-80.0); Platelet Count 178 K/mm3 (142-424); Red Cell Distribution Width 12.8 % (11.5-17.5)
[2020-12-08 06:37] LABS: Anion Gap 9.5 mEq/L (5-15); Blood Urea Nitrogen 17 mg/dl (9-20); Calcium 8.4 mg/dl (8.4-10.2); Carbon Dioxide 27 mmol/L (22.0-30.0); Chloride 107 mmol/L (98-107); Chol/HDL Ratio 3.8 (1-3.5); Cholesterol 123 mg/dl (140-200); Creatinine Clearance Estimated 93 mL/min (50-200); Estimated Glomerular Filt Rate 96 ml/min (>60); GFR (African American) 116 ML/MIN (>60); Glucose 128 mg/dl (74-100); HDL Cholesterol 32 mg/dl (40-60); Magnesium 1.8 mg/dl (1.6-2.3); Potassium 4.5 mmoL/L (3.5-5.1); Sodium 139 mmol/L (136-145); Triglycerides 127 mg/dl (30-150); VLDL Cholesterol 25 mg/dL (0-40)
[2020-12-08 06:48] LABS: Direct LDL Cholesterol 67.25 mg/dL (100-129)
--- NOTE | 2020-12-08 07:49 | HMH.PNCARD ---
Subjective Date: 12/08/20 Time: 07:25 Principal diagnosis: Chest pain Interval history: 70-year-old male admitted to [facility] 1 day ago with acute coronary syndrome. Patient did undergo left heart catheterization upon arrival to the ED. Left heart catheterization revealed critical proximal dominant RCA with successful stenting to the ostial proximal dominant RCA. Mildly elevated LVEDP noted. Patient will continue his aspirin 81 mg daily along with Plavix 75 mg daily due to his CAD. Echocardiogram was also performed to assess LV function and valve status. EF 55% with no wall motion abnormality but there was abnormal septal motion. Mild MR and TR also noted. Patient is resting quietly in his room. Patient denies chest pain, pressure or tightness this morning. Patient states he slept very well throughout the night. Denies shortness of breath with exertion. Denies palpitations or dizziness. 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 BP is stable this morning even though he did have periods hypotension throughout the night. Right wrist cath site noted with dressing dry and intact. No swelling noted around the site. Patient states he is feeling so much better he is ready to go home. LHC:IMPRESSION Critical proximal dominant right coronary stenosis Successful stenting of the ostial proximal dominant right coronary artery critical disease reduced to 0% with 1 drug-eluting stent Preserved ejection fraction with mild regional wall motion abnormality Mildly elevated LVEDP PLAN 1. Dual antiplatelet therapy 2. LDL less than 55 3. Risk factor modification 4. Avoidance of tobacco products 5. Cardiac rehabilitation Echo:Conclusion 1. Technically difficult study because of the patient factors and poor acoustic windows. 2. Mild biatrial enlargement, normal left ventricular size, mild concentric left ventricular hypertrophy, visually estimated ejection fraction 55% with no regional wall motion abnormality, there is abnormal septal motion. 3. Mildly enlarged right ventricle with normal contractility. 4. Mild mitral and tricuspid regurgitation. 5. No significant pericardial effusion noted. Patient may be discharged home today. Patient symptoms have improved. Patient is on standard medications for CAD even though we are unable to start a beta-evie at this time due to bradycardia and hypotension at times. We will discuss this at clinic appointment in 1 week. Instructions given to patient as to no strenuous activity or heavy lifting until follow-up in clinic. Patient will be set up for cardiac rehab due to stenting and CAD. LDL goal<55. Pt will continue his statin. Encourage diet and exercise. Patient is to follow-up with cardiology in 1 week or sooner if signs and symptoms develop or persist. Thank you for allowing cardiology to participate in the care of this patient. Exam Vital signs and Labs for Last 24 Hours: Temp Pulse Resp BP Pulse Ox 97.7 F 70 17 101/59 L 95 12/08/20 04:00 12/08/20 04:00 12/08/20 04:00 12/08/20 04:00 12/08/20 04:00 Laboratory Results - last 24 hr 12/07/20 08:07: Activated Clotting Time > 400 H* 12/08/20 05:47: WBC 13.0 H D, RBC 4.10 L, Hgb 12.6 L, Hct 37.7 L, MCV 92.0, MCH 30.8, MCHC 33.4, RDW 12.8, Plt Count 178, MPV 8.2, Neut % (Auto) 84.7 H, Lymph % (Auto) 9.8 L, [place] % (Auto) 5.4, Eos % (Auto) 0.1, Baso % (Auto) 0.1, Neut # (Auto) 11.0 H, Lymph # (Auto) 1.3, [place] # (Auto) 0.7, Eos # (Auto) 0.0, Baso # (Auto) 0.0 12/08/20 05:47: Sodium 139, Potassium 4.5 D, Chloride 107, Carbon Dioxide 27, Anion Gap 9.5, BUN 17, Creatinine 0.80, Estimated Creat Clear 93, Estimated GFR 96, Est GFR ( Amer) 116 D, Glucose 128 H, Calcium 8.4, Magnesium 1.8, Triglycerides 127, Cholesterol 123 L, LDL Cholesterol Direct 67.25 L, VLDL Cholesterol 25, HDL Cholesterol 32 L, Cholesterol/HDL Ratio 3.8 H I & O for Last 24 hours: Intake & Ou
[2020-12-08 07:59] VITALS: BP 125/65; PULSE 60; RESP 18; TEMP 36.5; O2SAT 95
[2020-12-08 08:00] VITALS: PULSE 60; O2SAT 98
--- NOTE | 2020-12-08 08:42 | HMH.ACPN2 ---
Internal Medicine - PN: Subj *Date: 12/08/20 *Time: 08:42 Interval history: Patient states he feels better today. He denies any chest pain and feels his breathing is much improved. He has been out of bed without difficulty and no dizziness. He is eating without problems. He is voiding QS. He is ready to go home. Exam Vital signs and Labs for Last 24 Hours: Temp Pulse Resp BP Pulse Ox 97.7 F 60 18 125/65 95 12/08/20 07:59 12/08/20 07:59 12/08/20 07:59 12/08/20 07:59 12/08/20 07:59 Laboratory Results - last 24 hr 12/07/20 08:07: Activated Clotting Time > 400 H* 12/08/20 05:47: WBC 13.0 H D, RBC 4.10 L, Hgb 12.6 L, Hct 37.7 L, MCV 92.0, MCH 30.8, MCHC 33.4, RDW 12.8, Plt Count 178, MPV 8.2, Neut % (Auto) 84.7 H, Lymph % (Auto) 9.8 L, [place] % (Auto) 5.4, Eos % (Auto) 0.1, Baso % (Auto) 0.1, Neut # (Auto) 11.0 H, Lymph # (Auto) 1.3, [place] # (Auto) 0.7, Eos # (Auto) 0.0, Baso # (Auto) 0.0 12/08/20 05:47: Sodium 139, Potassium 4.5 D, Chloride 107, Carbon Dioxide 27, Anion Gap 9.5, BUN 17, Creatinine 0.80, Estimated Creat Clear 93, Estimated GFR 96, Est GFR ( Amer) 116 D, Glucose 128 H, Calcium 8.4, Magnesium 1.8, Triglycerides 127, Cholesterol 123 L, LDL Cholesterol Direct 67.25 L, VLDL Cholesterol 25, HDL Cholesterol 32 L, Cholesterol/HDL Ratio 3.8 H I & O for Last 24 hours: Intake & Output 12/05/20 12/06/20 12/07/20 12/08/20 11:59 11:59 11:59 11:59 Intake Total 999 / 999 1688 / 1688 Balance 999 / 999 1688 / 1688 Weight 207 lb 4 oz 205 lb 8 oz - Constitutional no acute distress - *Routine Respiratory Exam Present: CTA bilaterally (Anteriorly and posteriorly) - *Routine Cardiovascular Exam Present: RRR (Monitor showing sinus rhythm) - *Routine Abdominal Exam Present: soft, normoactive bowel sounds. Absent: tenderness, distended - *Routine Extremities Exam Absent: edema, calf tenderness - *Routine Neurological Exam Present: alert, oriented X3 Assessment and Plan (1) Unstable angina pectoris Status: Acute Category: Medical Code(s): I20.0 - Unstable angina (2) Acute coronary syndrome Status: Acute Category: Medical Code(s): I24.9 - Acute ischemic heart disease, unspecified (3) Hypertension Status: Chronic Qualifiers: Hypertension type: essential hypertension Qualified Code(s): I10 - Essential (primary) hypertension Category: Medical Code(s): I10 - Essential (primary) hypertension (4) COPD (chronic obstructive pulmonary disease) Status: Chronic Qualifiers: COPD type: unspecified COPD Qualified Code(s): J44.9 - Chronic obstructive pulmonary disease, unspecified Category: Medical Code(s): J44.9 - Chronic obstructive pulmonary disease, unspecified (5) GERD (gastroesophageal reflux disease) Status: Chronic Qualifiers: Esophagitis presence: esophagitis presence not specified Qualified Code(s): K21.9 - Gastro-esophageal reflux disease without esophagitis Category: Medical Code(s): K21.9 - Gastro-esophageal reflux disease without esophagitis (6) Abnormal EKG Status: Acute Category: Medical Code(s): R94.31 - Abnormal electrocardiogram [ECG] [EKG] (7) Stented coronary artery Status: Chronic Category: Surgical Code(s): Z95.5 - Presence of coronary angioplasty implant and graft (8) S/P right coronary artery (RCA) stent placement Status: Chronic Category: Surgical Code(s): Z95.5 - Presence of coronary angioplasty implant and graft (9) Status post insertion of drug-eluting stent into right coronary artery for coronary artery disease Status: Chronic Category: Surgical Code(s): Z95.5 - Presence of coronary angioplasty implant and graft (10) SOB (shortness of breath) Status: Chronic Category: Medical Code(s): R06.02 - Shortness of breath (11) HLD (hyperlipidemia) Status: Chronic Qualifiers: Hyperlipidemia type: unspecified Qualified Code(s): E78.5 - Hyperlipidemia, unspec
--- NOTE | 2020-12-08 09:27 | HMH.PHACLD ---
Giovani Miranda has received discharge medication counseling on the following medications: CONTINUED MEDICATIONS: PLAVIX, ASPIRIN, LOSARTAN, LIPITOR PATIENT WILL NOT BE STARTED ON A BETA MIKEL AT THIS TIME DUE TO HYPOTENSION PER CARDIOLOGY.
--- NOTE | 2020-12-10 15:03 | HMH.DCSUM ---
General - General Admission date:: 12/07/20 Discharge date: 12/08/20 HPI HPI: This 70-year-old white male with known coronary artery disease started having midsternal chest pain last evening at about 11:00. He felt like he had indigestion. His pain worsened when it woke him up in the morning at 4 AM. He had associated nausea. He had associated shortness of breath. He came to the emergency room at [facility]. His evaluation revealed acute coronary syndrome. Dr. Ellison was contacted. He underwent heart catheterization this morning. His right coronary artery was stented. See cardiology's note for more details. Patient has a history of coronary artery disease with previous stents placed. His initial stent was placed at [place]. Subsequently he had a catheterization and stents placed in [place] and previous stenting at [facility] as well. Again see cardiology note for details. The patient is seen post procedure. He states he feels much better. He is not having chest pain. He is not having shortness of breath. Hospital Course Hospital Course: The patient was observed overnight after his cardiac stent was placed. He was on Plavix and aspirin prior to hospitalization and these were continued. He was already on an RIAN inhibitor and a statin but cardiology was unable to start a beta-evie due to his history of hypotension and bradycardia. An echo was done showing an EF of 55%. He felt much better and had no further chest pain. His white blood cell count was elevated, but he had no other signs of infection. It was felt he was stable to be discharged home and will follow up with cardiology in 1 week. Objective Vital signs: Temp Pulse Resp BP Pulse Ox 97.7 F 60 18 125/65 98 12/08/20 07:59 12/08/20 08:00 12/08/20 07:59 12/08/20 07:59 12/08/20 08:00 Narrative: - Constitutional no acute distress (Post procedure.) - *Routine HEENT Exam Head: Present: normocephalic Eye: Present: PERRL ENT: Present: mucous membranes moist - *Routine Neck Exam Absent: JVD, carotid bruit - *Routine Respiratory Exam Present: CTA bilaterally - *Routine Cardiovascular Exam Present: bradycardia (Distant heart sounds) - *Routine Abdominal Exam Present: soft, normoactive bowel sounds. Absent: tenderness - *Routine Rectal Exam Rectal:: deferred - *Routine Genitalia Exam Genitalia:: deferred - *Routine Extremities Exam Present: edema (Trace). Absent: cyanosis, clubbing - *Routine Skin Exam Present: intact, warm. Absent: rash - *Routine Neurological Exam Present: alert, oriented X3 DS: Diagnosis - Discharge Diagnosis (1) Unstable angina pectoris Status: Acute (2) Acute coronary syndrome Status: Acute (3) Hypertension Status: Chronic (4) COPD (chronic obstructive pulmonary disease) Status: Chronic (5) GERD (gastroesophageal reflux disease) Status: Chronic (6) Abnormal EKG Status: Acute (7) Stented coronary artery Status: Chronic (8) S/P right coronary artery (RCA) stent placement Status: Chronic (9) Status post insertion of drug-eluting stent into right coronary artery for coronary artery disease Status: Chronic (10) SOB (shortness of breath) Status: Chronic (11) HLD (hyperlipidemia) Status: Chronic (12) CAD (coronary artery disease) Status: Chronic Discharge Plan - Patient Discharge Instructions ACTIVITY: Limited activity DIET: low fat, low cholesterol Patient Instructions: DI for Chronic Obstructive Pulmonary Disease, DI for Angina, DI for Cardiac Catheterization, DI for Coronary Stenting, DI for Surgical Site Infection, DI for Coronary Artery Disease - Follow up Plan Follow up with: Minoo Armenta MD [Primary Care Provider] - 12/16/20 2:15 pm (Also needs appt with Cardiology in a week) Puneet Ellison MD [Staff Physician] - 12/15/20 8:30 am Disposition: Home, Self-Care
== END 2020-12-08 09:55 | disposition home or self-care (01) ==
LOC: ER 06:47 → 2ND 06:56
PROVIDERS: Internal Medicine; Admitting Provider Family Medicine; Emergency Provider Emergency Medicine; PCP Family Medicine; Visit Provider Family Medicine
DX: T82.855A Stenosis of coronary artery stent, initial encounter (principal); I25.110 Atherosclerotic heart disease of native coronary artery with unstable angina pectoris; I10 Essential (primary) hypertension; J44.9 Chronic obstructive pulmonary disease, unspecified; K21.9 Gastro-esophageal reflux disease without esophagitis; R94.31 Abnormal electrocardiogram [ECG] [EKG]; Z95.5 Presence of coronary angioplasty implant and graft; E78.5 Hyperlipidemia, unspecified; Y83.1 Surgical operation with implant of artificial internal device as the cause of abnormal reaction of the patient, or of later complication, without mention of misadventure at the time of the procedure
CPT/HCPCS: 36415; 71046; 71275; 80048; 80061; 80076; 83690; 83735; 83880; 84436; 84443; 84484; 85025; 85347; 87581; 87633; 87798; 92928; 93005; 93306; 93458; 96365; 96375; 99152; 99284; C1725; C1769; C1876; C9600; G0378; J1644; J2405; Q9967

== ENCOUNTER 2020-12-12 21:51 | Emergency (ER) | payer MEDICARE, SELFPAY ==
[2020-12-12 21:53] VITALS: BP 146/85; PULSE 70; RESP 20; TEMP 36.3; O2SAT 97; BMI 30.4
--- NOTE | 2020-12-12 21:54 | XR_ITS ---
PROCEDURE INFORMATION: Exam: XR Chest Exam date and time: 12/12/2020 9:54 PM Age: 70 years old Clinical indication: Left-sided; Prior surgery; Surgery date: 3-7 days post-operative; Surgery type: Heart cath with stent placement; Patient HX: HX of heart cath 5 days ago with stent placement, total of 5 stents over the years, left sided chest pain for 1 hr TECHNIQUE: Imaging protocol: XR of the chest. Views: 2 views. COMPARISON: CR XR CHEST 2V 12/07/2020 5:50 AM FINDINGS: Lungs: Interstitial haziness in the lung bases which could reflect atelectasis or pneumonia. No CHF. Emphysema. Pleural spaces: Unremarkable. No pleural effusion. No pneumothorax. Heart/Mediastinum: Unremarkable. No cardiomegaly. Bones/joints: Unremarkable. IMPRESSION: Atelectasis versus pneumonia in the lung bases.
--- NOTE | 2020-12-12 22:02 | ECG_ITS ---
APPROVED REPORT Exam: Resting ECG HR:72 bpm ECG Measurements Heart Rate 72 AXES DE 168 P 77 QRSd 80 QRS 24 QT 380 T 70 QTc 416 Conclusion Sinus rhythm with fusion complexes Low voltage QRS Possible Inferior infarct, age undetermined Abnormal ECG Electronically signed by : Dedrick Mcwilliams, 12/18/2020 17:29:32
[2020-12-12 22:04] LABS: Basophils # 0.1 K/mm3 (0-0.2); Basophils % 0.6 % (0.1-2.0); Eosinophils # 0.2 K/mm3 (0.0-0.4); Eosinophils % 2.8 % (0.1-12.0); Hematocrit 47.8 % (42.0-52.0); Hemoglobin 16.2 g/dL (14.1-18.0); Lymphocytes # 2.7 K/mm3 (0.7-4.5); Lymphocytes % 34.8 % (10-50); Mean Corpuscular HGB Conc 33.8 g/dL (31.8-35.4); Mean Corpuscular Hemoglobin 30.8 pg (27.0-31.2); Mean Corpuscular Volume 91.2 fl (80-94); Mean Platelet Volume 8.2 fl (7.4-10.4); Monocytes # 0.8 K/mm3 (0.1-1.0); Monocytes % 10.1 % (1.7-9.3); Neutrophils # 4.1 K/mm3 (1.8-7.8); Neutrophils % 51.6 % (37.0-80.0); Platelet Count 204 K/mm3 (142-424); Red Blood Count 5.24 M/mm3 (4.60-6.20); Red Cell Distribution Width 13.1 % (11.5-17.5); White Blood Count 7.9 K/mm3 (4.8-10.8)
[2020-12-12 22:08] LABS: Anion Gap 9.9 mEq/L (5-15); Blood Urea Nitrogen 16 mg/dl (9-20); Calcium 8.9 mg/dl (8.4-10.2); Carbon Dioxide 30 mmol/L (22.0-30.0); Chloride 104 mmol/L (98-107); Creatinine Clearance Estimated 82 mL/min (50-200); Estimated Glomerular Filt Rate 67 ml/min (>60); GFR (African American) 81 ML/MIN (>60); Glucose 93 mg/dl (74-100); Potassium 3.9 mmoL/L (3.5-5.1); Sodium 140 mmol/L (136-145)
[2020-12-12 22:22] LABS: Troponin I < 0.01 ng/ml (0.00-0.034)
[2020-12-12 22:25] VITALS: BP 124/86; PULSE 76; RESP 15; O2SAT 94
[2020-12-12 22:30] VITALS: BP 118/85; PULSE 76; RESP 16; O2SAT 94
[2020-12-12 23:00] VITALS: BP 125/76; PULSE 76; RESP 15; O2SAT 94
[2020-12-12 23:30] VITALS: BP 124/76; PULSE 72; RESP 16; O2SAT 93
--- NOTE | 2020-12-12 23:44 | PC.NURSE ---
Pt states his pain has resolved with the GI cocktail, pt and family was informed of pt staying for his second troponin.
--- NOTE | 2020-12-12 23:50 | HMH.EDCP ---
ED Disposition Clinical Impression: Atypical chest pain GERD (gastroesophageal reflux disease) Qualifiers: Esophagitis bleeding: without hemorrhage Disposition: Home, Self-Care Condition on Discharge: Good Instructions: DI for Atypical Chest Pain Additional Instructions: Keep your follow-up with cardiology and your primary care for Monday and Monday. Please return to the ED if you have any new or worsening symptoms. Recommend [id number] acid reducing medication such as famotidine for your continued GERD symptoms. Prescriptions: Doxycycline Hyclate [Doxycycline 100mg Capsule] 100 mg PO Q12 7 Days #14 cap Transmission Status: Pending to [facility] #[id number] Referrals: Minoo Armenta MD [Primary Care Provider] - Time of Disposition: 03:00 - Critical Care Critical Care Time: No Attestation: On 12/12/20, the high probability of a clinically significant, sudden or life threatening deterioration of the following system(s) required my full and direct attention, intervention and personal management. The time I documented below is in addition to time spent performing reported procedures but includes the following listed in this critical care notation. Medical Decision Making - Medical Records Medical records reviewed: Yes: I reviewed the patient's medical records. - Donald Inquiry Pt receiving controlled substance: No Vital Signs: 12/12/20 21:53 12/12/20 22:25 12/12/20 22:30 Temperature 97.4 F L Temperature Source Oral Pulse Rate 76 76 Pulse Rate [Right] 70 Respiratory Rate 20 15 16 Blood Pressure 124/86 118/85 Blood Pressure [Right Arm] 146/85 H Blood Pressure Mean Blood Pressure Mean [Right Arm] 105 Blood Pressure Source [Right Arm] Automatic Cuff Blood Pressure Position [Right Arm] Supine 02 Sat by Pulse Oximetry 97 94 L 94 L Oxygen Delivery Method Room Air 12/12/20 23:00 12/12/20 23:30 12/13/20 00:00 Temperature Temperature Source Pulse Rate 76 72 62 Pulse Rate [Right] Respiratory Rate 15 16 16 Blood Pressure 125/76 124/76 139/76 Blood Pressure [Right Arm] Blood Pressure Mean 97 Blood Pressure Mean [Right Arm] Blood Pressure Source [Right Arm] Blood Pressure Position [Right Arm] 02 Sat by Pulse Oximetry 94 L 93 L 94 L Oxygen Delivery Method Room Air 12/13/20 00:30 Temperature Temperature Source Pulse Rate 60 Pulse Rate [Right] Respiratory Rate 14 Blood Pressure 122/77 Blood Pressure [Right Arm] Blood Pressure Mean 89 Blood Pressure Mean [Right Arm] Blood Pressure Source [Right Arm] Blood Pressure Position [Right Arm] 02 Sat by Pulse Oximetry 94 L Oxygen Delivery Method Room Air - Lab Data Lab Results 12/12/20 21:51: WBC 7.9, RBC 5.24, Hgb 16.2, Hct 47.8, MCV 91.2, MCH 30.8, MCHC 33.8, RDW 13.1, Plt Count 204, MPV 8.2, Neut % (Auto) 51.6, Lymph % (Auto) 34.8, [place] % (Auto) 10.1 H, Eos % (Auto) 2.8, Baso % (Auto) 0.6, Neut # (Auto) 4.1, Lymph # (Auto) 2.7, [place] # (Auto) 0.8, Eos # (Auto) 0.2, Baso # (Auto) 0.1 12/12/20 21:51: Sodium 140, Potassium 3.9, Chloride 104, Carbon Dioxide 30, Anion Gap 9.9, BUN 16, Creatinine 1.10, Estimated Creat Clear 82, Estimated GFR 67, Est GFR ( Amer) 81, Glucose 93, Calcium 8.9, Troponin I < 0.01 12/13/20 00:47: Troponin I < 0.01 Result diagrams: 12/12/20 21:51 12/12/20 21:51 Orders (Tests/Meds): ED MEDICATIONS Discontinued Medications Generic Name Dose Route Start Last Admin Trade Name Charity PRN Reason Stop Dose Admin Aspirin 324 mg 12/12/20 22:02 12/12/20 22:03 Aspirin 81mg Chewable Tablet PO 12/12/20 22:03 324 mg ONCE ONE Administration Belladonna Alkaloids 60 ml 12/12/20 22:40 12/12/20 22:44 Gi Cocktail 60ml Udc PO 12/12/20 22:41 60 ml ONCE ONE Administration Nitroglycerin 0.4 mg 12/12/20 22:02 12/12/20 22:03 Nitroglycerin 0.4mg Sl Tablet SL 12/12/20 22:03 1 tab ONCE ONE Administration Nitroglycerin 0.4 mg
[2020-12-13] VITALS: BP 139/76; PULSE 62; RESP 16; O2SAT 94
[2020-12-13 00:30] VITALS: BP 122/77; PULSE 60; RESP 14; O2SAT 94
--- NOTE | 2020-12-13 00:52 | PC.NURSE ---
second Troponin drawn and sent to lab
[2020-12-13 01:54] LABS: Troponin I < 0.01 ng/ml (0.00-0.034)
[2020-12-13 03:07] VITALS: BP 127/76; PULSE 60; RESP 16; TEMP 36.4; O2SAT 95
== END 2020-12-13 03:08 | disposition home or self-care (01) ==
PROVIDERS: Emergency Provider Student in an Organized Health Care Education/Training Program; PCP Family Medicine
DX: K21.00 Gastro-esophageal reflux disease with esophagitis, without bleeding (principal); J44.9 Chronic obstructive pulmonary disease, unspecified; I25.10 Atherosclerotic heart disease of native coronary artery without angina pectoris; E78.5 Hyperlipidemia, unspecified; I25.2 Old myocardial infarction; I10 Essential (primary) hypertension; Z79.899 Other long term (current) drug therapy
CPT/HCPCS: 71046; 80048; 84484; 85025; 93005; 99282

== ENCOUNTER 2020-12-22 09:50 | Outpatient (RCR) | payer MEDICARE, SELFPAY | END 2021-03-01 10:54 | disposition home or self-care (01) | LOC: PT 09:50 | PROVIDERS: Visit Provider Internal Medicine | DX: Z95.5 Presence of coronary angioplasty implant and graft (principal) | CPT/HCPCS: 93798 ==

== ENCOUNTER 2021-02-01 05:48 | Observation (INO) | payer MEDICARE, SELFPAY ==
[2021-02-01] VITALS (22 sets, daily range): BP systolic 102–161; BP diastolic 47–98; PULSE 49–80; RESP 14–22; TEMP 36.4–36.9; O2SAT 91–99; BMI 30.4
--- NOTE | 2021-02-01 | IR_ITS ---
APPROVED REPORT Patient Location: Inpatient [facility] Hand: KEISHA Dexter RT (R) PROCEDURES Left heart catheterization Left ventriculogram Selective coronary angiogram INDICATION Unstable angina, Known coronary artery disease Informed consent was obtained prior to the procedure. COMPLICATIONS None Estimated Blood Loss: Less than 10 mls TECHNIQUE One percent lidocaine used to anesthetize the right anterior aspect of the wrist. The right radial artery was accessed via the Seldinger technique. A 6 [place] sheath was placed in the right radial artery. 2.5 mg of verapamil, 800 mcg of nitroglycerin, 1mg Lidocaine and 5000 U Heparin were given through the arterial sheath. The trap catheter was also used to perform left heart catheterization, left ventriculogram and selective coronary angiogram. At the end of the procedure the sheath was removed good hemostasis was achieved using Traclet band, patient was transferred to the postop holding area in stable condition. ANGIOGRAPHIC RESULTS The left main artery Normal and widely patent The left anterior descending artery Has proximal 10 to 20% stenoses with mid vessel 20 to 30% stenosis along a tortuous bend The circumflex artery Is nondominant and has 20 to 30% stenosis in a proximal and mid first obtuse marginal artery with mild 10% luminal irregularities throughout The right coronary artery Is a large dominant vessel and has a stent in the ostial proximal segment which is widely patent free of in-stent restenosis with excellent distal transitioning and wide ostial patency. The mid LAD has 20 to 30% stenoses with distal 30% stenosis The MARQUEZ ventriculogram reveals Preserved at 60% The left ventricular end-diastolic pressure 15 mmHg IMPRESSION Widely patent coronary arteries as described above Preserved ejection fraction Borderline LVEDP PLAN 1. Continue medical management for ischemic heart disease 2. Evaluation for noncardiac symptoms Electronically signed by : Puneet Ellison, 02/01/2021 14:35:18
--- NOTE | 2021-02-01 05:46 | ECG_ITS ---
APPROVED REPORT Exam: Resting ECG HR:60 bpm ECG Measurements Heart Rate 60 AXES MN 176 P 72 QRSd 82 QRS 64 QT 404 T 73 QTc 404 Conclusion Normal sinus rhythm Normal ECG Electronically signed by : Dedrick Mcwilliams, 02/01/2021 22:09:23
--- NOTE | 2021-02-01 05:51 | XR_ITS ---
PROCEDURE INFORMATION: Exam: XR Chest Exam date and time: 02/01/2021 5:51 AM Age: 70 years old Clinical indication: Pain; Chest pressure; Prior surgery; Surgery date: 6+ months; Surgery type: Heart stents; Additional info: Chest pain TECHNIQUE: Imaging protocol: XR of the chest. Views: 2 views. COMPARISON: CR XR CHEST 2V 12/12/2020 10:09 PM FINDINGS: Lungs: Pulmonary hyperexpansion, similar to previous. No pulmonary infiltrate or consolidation. The appearance of the lungs is unchanged in the interval. Pleural spaces: Unremarkable. No pleural effusion. No pneumothorax. Heart/Mediastinum: Unremarkable. No cardiomegaly. Bones/joints: Unremarkable. IMPRESSION: 1. No acute cardiopulmonary disease. 2. Chronic obstructive pulmonary disease.
[2021-02-01 06:06] LABS: Basophils % 0.6 % (0.1-2.0); Eosinophils # 0.2 K/mm3 (0.0-0.4); Eosinophils % 2.7 % (0.1-12.0); Hematocrit 42.5 % (42.0-52.0); Hemoglobin 14.9 g/dL (14.1-18.0); Lymphocytes # 2.3 K/mm3 (0.7-4.5); Lymphocytes % 30.7 % (10-50); Mean Corpuscular Hemoglobin 31.6 pg (27.0-31.2); Mean Corpuscular Volume 90.3 fl (80-94); Monocytes # 0.6 K/mm3 (0.1-1.0); Monocytes % 7.8 % (1.7-9.3); Neutrophils # 4.4 K/mm3 (1.8-7.8); Neutrophils % 58.2 % (37.0-80.0); Platelet Count 182 K/mm3 (142-424); Red Blood Count 4.71 M/mm3 (4.60-6.20); Red Cell Distribution Width 13.3 % (11.5-17.5); White Blood Count 7.6 K/mm3 (4.8-10.8)
[2021-02-01 06:14] LABS: Blood Urea Nitrogen 14 mg/dl (9-20); Calcium 8.8 mg/dl (8.4-10.2); Carbon Dioxide 30 mmol/L (22.0-30.0); Chloride 103 mmol/L (98-107); Creatinine Clearance Estimated 91 mL/min (50-200); Estimated Glomerular Filt Rate 74 ml/min (>60); GFR (African American) 90 ML/MIN (>60); Glucose 113 mg/dl (74-100); Sodium 142 mmol/L (136-145)
[2021-02-01 06:29] LABS: Troponin I < 0.01 ng/ml (0.00-0.034)
[2021-02-01 06:30] LABS: Erythrocyte Sedimentation Rate 19 mm/hr (0-20)
[2021-02-01 06:33] LABS: Procalcitonin 0.072 ng/mL (0.0-2.0)
--- NOTE | 2021-02-01 06:38 | HMH.EDCP ---
ED Disposition Clinical Impression: Angina at rest Disposition: Admitted as Observation Condition on Discharge: Good Referrals: Minoo Armenta MD [Primary Care Provider] - - Critical Care Critical Care Time: No Attestation: On 02/01/21, the high probability of a clinically significant, sudden or life threatening deterioration of the following system(s) required my full and direct attention, intervention and personal management. The time I documented below is in addition to time spent performing reported procedures but includes the following listed in this critical care notation. Medical Decision Making - Medical Records Medical records reviewed: Yes: I reviewed the patient's medical records. - Donald Inquiry Pt receiving controlled substance: No Vital Signs: 02/01/21 05:48 02/01/21 06:19 02/01/21 06:41 Temperature 97.8 F Temperature Source Oral Pulse Rate 60 Pulse Rate [Right] 62 Respiratory Rate 20 22 17 Blood Pressure 132/75 123/77 Blood Pressure [Right Arm] 161/96 H Blood Pressure Mean [Right Arm] 117 02 Sat by Pulse Oximetry 97 98 97 Oxygen Delivery Method Room Air - Lab Data Lab results reviewed: Yes: I reviewed the patient's lab results. Lab Results 02/01/21 05:40: WBC 7.6, RBC 4.71, Hgb 14.9, Hct 42.5, MCV 90.3, MCH 31.6 H, MCHC 35.0, RDW 13.3, Plt Count 182, MPV 8.0, Neut % (Auto) 58.2, Lymph % (Auto) 30.7, [place] % (Auto) 7.8, Eos % (Auto) 2.7, Baso % (Auto) 0.6, Neut # (Auto) 4.4, Lymph # (Auto) 2.3, [place] # (Auto) 0.6, Eos # (Auto) 0.2, Baso # (Auto) 0.0 02/01/21 05:40: Sodium 142, Potassium 4.0, Chloride 103, Carbon Dioxide 30, Anion Gap 13.0, BUN 14, Creatinine 1.00, Estimated Creat Clear 91, Estimated GFR 74, Est GFR ( Amer) 90, Glucose 113 H, Calcium 8.8, Troponin I < 0.01, C-Reactive Protein 1.0 02/01/21 05:40: ESR 02/01/21 05:40: Procalcitonin 0.072 02/01/21 05:40: Total Bilirubin 0.7, Direct Bilirubin 0.4, Conjugated Bilirubin 0.0, Indirect Bilirubin 0.3, Unconjugated Bilirubin 0.2, AST 31, ALT 24, Alkaline Phosphatase 83, NT-Pro-B Natriuret Pep 65.5, Total Protein 6.8, Albumin 3.9, TSH 0.79, Thyroxine (T4) 7.8 Result diagrams: 02/01/21 05:40 02/01/21 05:40 Orders (Tests/Meds): ED MEDICATIONS Generic Name Dose Route Start Last Admin Trade Name Freq PRN Reason Stop Dose Admin Sodium Chloride 10 ml 02/01/21 06:36 Sodium Chloride 0.9% 10ml Flush Syringe IV 03/03/21 06:35 NEEDED PRN Maintain IV Site Discontinued Medications Generic Name Dose Route Start Last Admin Trade Name Freq PRN Reason Stop Dose Admin Aspirin 243 mg 02/01/21 05:54 02/01/21 05:56 Aspirin 81mg Chewable Tablet PO 02/01/21 05:55 243 mg ONCE ONE Administration Famotidine 20 mg 02/01/21 06:36 02/01/21 06:54 Famotidine 20mg/2ml Vial IV 02/01/21 06:37 20 mg ONCE ONE Administration Sodium Chloride 1,000 mls @ 999 mls/hr 02/01/21 06:15 02/01/21 06:35 Sod Chlor 0.9% 1000ml Bag IV 02/01/21 07:15 999 mls/hr .Q1H1M JIMMIE Administration Metoclopramide HCl 10 mg 02/01/21 06:36 02/01/21 06:54 Metoclopramide Hcl 10mg/2ml Vial IVP 02/01/21 06:37 10 mg ONCE ONE Administration Morphine Sulfate 4 mg 02/01/21 06:52 02/01/21 06:54 Morphine 4mg/Ml Syringe IV 02/01/21 06:53 4 mg ONCE ONE Administration Nitroglycerin 1 gm 02/01/21 05:54 02/01/21 05:56 Nitroglycerin 1 Gm Ointment TD 02/01/21 05:55 1 gm ONCE ONE Administration Ondansetron HCl 4 mg 02/01/21 06:36 02/01/21 06:54 Ondansetron 4mg/2ml Vial IV 02/01/21 06:37 4 mg ONCE ONE Administration ORDERS Category Date Time Status Chest XR 2 view (NOT portable) [XR chest 2V] Stat Exams 02/01/21 05:51 Taken Rapid PCR Covid and Flu A/B Stat Lab 02/01/21 07:15 Received Troponin I Q3H Lab 02/01/21 09:00 Ordered Troponin I Q3H Lab 02/01/21 12:00 Ordered - ECG Data Tracing #1 Normal Sinus Rhythm: Yes Ischemic changes: non-specific
--- NOTE | 2021-02-01 06:38 | PC.NURSE ---
pt returned from rad
[2021-02-01 06:58] LABS: Alanine Aminotransferase 24 U/L (12-78); Albumin Level 3.9 g/dl (3.5-5.0); Alkaline Phosphatase 83 U/L (38-126); Aspartate Amino Transferase 31 U/L (17-59); Bilirubin,Direct 0.4 mg/dl (0.0-0.4); Bilirubin,Indirect 0.3 mg/dL (0.0-0.9); Bilirubin,Total 0.7 mg/dl (0.2-1.3); Bilirubin,Unconjugated 0.2 mg/dL (0.0-1.1); Total Protein,Serum 6.8 g/dl (6.3-8.2)
[2021-02-01 07:09] LABS: NT Pro Brain Natriuretic Pep. 65.5 pg/mL (0-125)
[2021-02-01 07:16] LABS: T4 (Thyroxine) 7.8 ug/dl (5.53-11.0)
[2021-02-01 07:18] LABS: Coronavirus 19, PCR Not Detected (NotDetected); Influenza A, PCR Not Detected (NotDetected); Influenza B, PCR Not Detected (NotDetected)
[2021-02-01 07:30] LABS: Thyroid Stimulating Hormone 0.79 uIU/mL (0.465-4.68)
--- NOTE | 2021-02-01 07:33 | PC.NURSE ---
BRITNEY LAURA speaking with Dr. Armenta
--- NOTE | 2021-02-01 07:42 | PC.NURSE ---
notified care management of admission, spoke with gucci
--- NOTE | 2021-02-01 08:02 | PC.NURSE ---
pete malinn at BS
--- NOTE | 2021-02-01 08:08 | CA_ITS ---
APPROVED REPORT EXAM: Comprehensive 2D, Doppler, and color-flow Echocardiogram [employer] Supervisor: Orquidea Mcmanus CRT Ht: 5 ft 8 in Wt: 200lbs BSA: 2.04 BP: 161/96 mmHg Indications: CAD, GERD, Stent 12/07/20, 5 old MIs, COPD, HTN, Hyperlipidemia, cp 2D Dimensions LVOT 2.01 cm (M/F) 1.5-2.5 M-Mode Dimensions LA Diam 3.99 cm (1.9-4.0) LVDd 3.11 cm (3.5-5.7) Ao Diam 4.22 cm (2.0-3.7) LVDs 0.00 cm (3.5-5.7) IVSd 1.73 cm (0.6-1.1) PWd 1.14 cm (0.6-1.1) EF (Teich) 84.80% FS 52.40% EDV (Teich) 38.20 mL ESV (Teich) 5.80 mL Left Ventricle Technically difficult and poor study, left atrium is normal size, left ventricle is normal size, visually estimated ejection fraction 55% in the obtained views, with no regional wall motion abnormality, diastolic parameters are inconclusive. Right Ventricle Right atrium and right ventricle are mildly enlarged with normal contractility. Aortic Valve Aortic valve is minimally thickened and fibrosed, there is no aortic stenosis or aortic insufficiency. Mitral Valve Mitral valve is grossly normal, there is trace mitral regurgitation. Tricuspid Valve Tricuspid valve grossly normal, there is trace tricuspid regurgitation, tricuspid regurgitation jet velocity is inadequate for calculation of the right ventricular systolic pressure. Pulmonic Valve Pulmonic valve is poorly visualized. Great Vessels Aortic root is normal size. Pericardium No significant pericardial effusion noted. Conclusion 1. Normal left ventricular size, preserved left ventricular systolic function, visually estimated ejection fraction 55% with no regional wall motion abnormality, diastolic parameters are inconclusive. Endocardial surfaces are very poorly visualized, technically difficult and limited study. 2. Trace mitral and tricuspid regurgitation. 3. No significant pericardial effusion noted. Electronically signed by : Luis Cole, 02/01/2021 21:49:53
--- NOTE | 2021-02-01 08:14 | PC.WOUNDNOTE ---
report called to hernando recio rn on second floor at this time
--- NOTE | 2021-02-01 08:42 | HMH.HP ---
*Chief complaint: chest pain *History of present illness: Mr. Miranda is a 70-year-old male patient with a history of coronary artery disease with an acute [place] in 1996 and 2001, multiple stent placements with the last being 11/[address] Ellison. He also has a history of hypertension, GERD, COPD, and was Covid positive in May 2020. Patient states he awakened this a.m. around 4:00 with left anterior chest discomfort. This was associated with shortness of breath and some nausea. He did take a nitro with some improvement but when it did not resolve he came to the emergency room. Chest pain is now just a dull presence after receiving Nitropaste and morphine. Patient states he did nothing unusual yesterday. He was treated in the office of [facility] on 01/19/2021 for upper respiratory tract infection and was on a Z-Roderick and Medrol Dosepak. He states he did get better although the cough has been persistent. The cough is mostly nonproductive. At the time of this exam the patient does appear comfortable and states the chest discomfort is mildly present. His shortness of breath has resolved. He will be admitted with a cardiology consult. [facility] History I have reviewed the patient's past medical history: Yes 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: Reports:: Atherosclerotic Heart Disease, Chronic Obstructive Pulmonary Disease (COPD), Coronary Artery Disease, Gastroesophageal Reflux Disease(GERD), Hyperlipidemia, Hypertension, Lung Disease, Myocardial Infarction Denies:: Atrial Fibrillation, Cancer, Diabetes Mellitus Type 1, Diabetes Mellitus Type 2, Gastrointestinal Bleed, Internal Pacemaker, MRSA, Seizures *Have you ever received a pneumonia vaccine?: Yes *Have you received a flu vaccine this season?: Yes Other 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: Denies: Blood Transfusion Reaction Other Surgeries: Yes: Cardiac Catheterization, Cardiac Surgery, Colonoscopy, Coronary Stent, Other. No: Pacemaker Amputation: No Fractures: No Comment: back surgery 1982 - *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 Smoking Status: Former smoker Alcohol Intake: never Substance Use Type: denies use *Occupational Status:: retired Housing: house Household Members: spouse *Travel in the last 8 weeks: None Family Hx:: Cancer, Diabetes Review of Systems - Constitutional Reports lack of energy, Denies fever(s), Denies headache(s) - Eyes Denies change in vision - ENT Denies ear pain, Denies nasal congestion, Denies sore throat, Denies dizziness - *Cardiovascular Reports chest pain, Reports shortness of breath, Reports slow heart rate, Denies irregular heart rhythm, Denies rapid, pounding, or irregular heartbeat - *Respiratory Reports cough, Reports shortness of breath, Denies chest congestion, Denies coughing up blood - *Gastrointestinal Reports nausea, Denies abdominal pain, Denies loose stools, Denies bright, red blood in stools, Denies black, tarry stools, Denies vomiting - *Genitourinary Denies difficulty urinating - *Musculoskeletal Denies abnormal walking - *Neurologic Denies localized weakness, Denies seizure-like activity Meds Home Medications Medication Instructions Recorded Confirmed Type Aspirin [Aspirin 81mg chewable 81 mg PO HS 03/12/18 02/01/21 History tab] Albuterol Sulfate [Ventolin HFA 2 puffs IH Q4HP PRN 03/13/18 02/01/21 History Inhaler] atorvastatin 40 mg tablet 40 mg PO HS #90 tab 07/21/20 02/01/21 Rx losartan 50 mg tablet 50 mg PO DAILY #90 tab 07/21/20 02/01/21 Rx Clopidogrel Bisulfate [Plavix] 75 mg PO DAILY 12/01/20 02/01/21 History Fluticasone/Vilanterol [Breo 1 puff IH DAILY 12/07/20 02/01/21 History Ellipta 100-25 Mcg INH] Umeclidinium [place] [Incruse 1 puff IH DAILY 12/07/20 02/01/21 History Ellipta] Allergies Allergy/AdvReac Type Severity Reaction Status Date / Time No Known Allergies Allergy Verified 12/23/20 11:06 Exam Vital signs and Labs for Last 24 Hours: Temp Pulse Resp BP Pulse Ox 98.1 F 52 L 18 110/67 97 02/01
--- NOTE | 2021-02-01 09:10 | HMH.PHAINT ---
MEDICATION RECONCILIATION COMPLETE USING LIST FROM MD OFFICE AND EXTERNAL PHARMACY FILL HISTORY.
--- NOTE | 2021-02-01 09:17 | HMH.PHAVTE ---
[facility] Pharmacy VTE Monitoring - Patient Demographics Admission date: 02/01/21 Report Date: 02/01/21 Time: 09:17 Allergies/Adverse Reactions: Patient Allergies No Known Allergies Allergy (Verified 12/23/20 11:06) Height: 1.73 m Weight: 90.718 kg Patient Problems: Current Active Problems Hypertension (Chronic) COPD (chronic obstructive pulmonary disease) (Chronic) GERD (gastroesophageal reflux disease) (Chronic) Angina at rest (Acute) Chest pain at rest (Acute) SOB (shortness of breath) (Chronic) HLD (hyperlipidemia) (Chronic) CAD (coronary artery disease) (Chronic) - VTE Risk Labs: VTE Related Lab Results Hgb 14.9 g/dL (14.1-18.0) 02/01/21 05:40 Hct 42.5 % (42.0-52.0) 02/01/21 05:40 Plt Count 182 K/mm3 (142-424) 02/01/21 05:40 BUN 14 mg/dl (9-20) 02/01/21 05:40 Creatinine 1.00 mg/dl (0.66-1.25) 02/01/21 05:40 Estimated Creat Clear 91 mL/min (50-200) 02/01/21 05:40 - Prophylaxis VTE Prophylaxis Ordered?: Yes Types of VTE Prophylaxis: TEDS Knee High Location of Applied Device: Bilateral Lower Extremeties
[2021-02-01 09:30] LABS: Troponin I < 0.01 ng/ml (0.00-0.034)
--- NOTE | 2021-02-01 11:20 | HMH.CNCARD ---
History of Present Illness Consult date: 02/01/21 Requesting physician: Minoo Armenta Consult reason: chest pain Chief complaint: chest pain History of present illness: This is a 70-year-old white gentleman who was admitted to the hospital with chest pain. He does have a history of [place] in 1996 in 2001. The patient has had multiple stents placed with his most recent stents in November 2020 with stents to his right coronary artery. The patient states that he woke up around 4 AM this morning and was having substernal chest pain. He describes this as a sharp tight sensation. He states that this pain woke him up and he rated it about a 6 out of 10 in intensity. He states that he had shortness of breath and nausea associated with the chest pain and tightness. He took a sublingual nitroglycerin and it did help to improve the pain but it did not resolve. Because the chest pain and tightness did not resolve he decided to come into the emergency department. He was treated with Nitropaste and morphine at that time and states that he had significant improvement in his chest pain and tightness at that time but it did not resolve. He states that he still has some sharp, tight sensations in his chest but they are not as severe as they were when it woke him up this morning. He states that the pain has been radiating to his left shoudler/arm as well. He denies any fever, chills, vomiting, diarrhea, PND or orthopnea. While I am speaking to him the patient states that he still has some mild chest pain at this time. [facility] History I have reviewed the patient's past medical history: Yes 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: Reports:: Atherosclerotic Heart Disease, Chronic Obstructive Pulmonary Disease (COPD), Coronary Artery Disease, Gastroesophageal Reflux Disease(GERD), Hyperlipidemia, Hypertension, Lung Disease, Myocardial Infarction Denies:: Atrial Fibrillation, Cancer, Diabetes Mellitus Type 1, Diabetes Mellitus Type 2, Gastrointestinal Bleed, Internal Pacemaker, MRSA, Seizures *Have you ever received a pneumonia vaccine?: Yes *Have you received a flu vaccine this season?: Yes Other 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: Denies: Blood Transfusion Reaction Other Surgeries: Yes: Cardiac Catheterization, Cardiac Surgery, Colonoscopy, Coronary Stent, Other. No: Pacemaker Amputation: No Fractures: No - *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 Smoking Status: Former smoker Alcohol Intake: never Substance Use Type: denies use *Occupational Status:: retired Housing: house Household Members: spouse *Travel in the last 8 weeks: None Family Hx:: Cancer, Diabetes Meds Home Medications Medication Instructions Recorded Confirmed Type Aspirin [Aspirin 81mg chewable 81 mg PO HS 03/12/18 02/01/21 History tab] Albuterol Sulfate [Ventolin HFA 2 puffs IH Q4HP PRN 03/13/18 02/01/21 History Inhaler] atorvastatin 40 mg tablet 40 mg PO HS #90 tab 07/21/20 02/01/21 Rx losartan 50 mg tablet 50 mg PO DAILY #90 tab 07/21/20 02/01/21 Rx Clopidogrel Bisulfate [Plavix] 75 mg PO DAILY 12/01/20 02/01/21 History Fluticasone/Vilanterol [Breo 1 puff IH DAILY 12/07/20 02/01/21 History Ellipta 100-25 Mcg INH] Umeclidinium [place] [Incruse 1 puff IH DAILY 12/07/20 02/01/21 History Ellipta] Isosorbide Mononitrate [Isosorbide 30 mg PO DAILY 02/01/21 02/01/21 History Mononitrate ER] Nitroglycerin [Nitrostat 0.4mg SL 0.4 mg SL NEEDED PRN 02/01/21 02/01/21 History Tablet] Pantoprazole Sodium [Protonix 40mg 40 mg PO DAILY 02/01/21 02/01/21 History tablet] Allergies Allergy/AdvReac Type Severity Reaction Status Date / Time No Known Allergies Allergy Verified 12/23/20 11:06 Exam Vital signs and Labs for Last 24 Hours: Temp Pulse Resp BP Pulse Ox 97.5 F L 52 L 20 113/68 99 02/01/21 09:00 02/01/21 09:00 02/01/21 09:00 02/01/21 09:00 02/01/21 09:00 Laboratory Results - last 24 hr 02/01/21 05:40: WBC 7.6, RBC 4.71, Hgb 14.9, Hct 42.5, MCV 90.3, MCH 31.6 H, MCHC 35.0, RDW 13.3, Plt Count 1
[2021-02-01 13:08] LABS: Troponin I < 0.01 ng/ml (0.00-0.034)
--- NOTE | 2021-02-01 16:07 | PC.NURSE ---
Addendum entered by Vanessa Donohue RN 02/01/21 16:08: report given to nadeem nevarez. Original Note: patient has done well this shift. has been resting since return from cathlab. no bleeding noted. on room air. no complaints. radial band in place. family at bedside. vitals stable.
--- NOTE | 2021-02-01 17:34 | P.PN_ITS ---
Internal Medicine - PN: Subj *Date: 02/01/21 *Time: 17:34 Interval history: He is seen this evening stable post cardiac catheterization. No additional stenting was required. Admission chest x-ray was reviewed. White count was noted to be normal on admission. Exam Vital signs and Labs for Last 24 Hours: Temp Pulse Resp BP Pulse Ox 97.5 F L 58 L 16 149/73 H 94 L 02/01/21 09:00 02/01/21 17:20 02/01/21 17:20 02/01/21 17:20 02/01/21 17:20 Laboratory Results - last 24 hr 02/01/21 05:40: WBC 7.6, RBC 4.71, Hgb 14.9, Hct 42.5, MCV 90.3, MCH 31.6 H, MCHC 35.0, RDW 13.3, Plt Count 182, MPV 8.0, Neut % (Auto) 58.2, Lymph % (Auto) 30.7, [place] % (Auto) 7.8, Eos % (Auto) 2.7, Baso % (Auto) 0.6, Neut # (Auto) 4.4, Lymph # (Auto) 2.3, [place] # (Auto) 0.6, Eos # (Auto) 0.2, Baso # (Auto) 0.0 02/01/21 05:40: Sodium 142, Potassium 4.0, Chloride 103, Carbon Dioxide 30, Anion Gap 13.0, BUN 14, Creatinine 1.00, Estimated Creat Clear 91, Estimated GFR 74, Est GFR ( Amer) 90, Glucose 113 H, Calcium 8.8, Troponin I < 0.01, C- Reactive Protein 1.0 02/01/21 05:40: ESR 02/01/21 05:40: Procalcitonin 0.072 02/01/21 05:40: Total Bilirubin 0.7, Direct Bilirubin 0.4, Conjugated Bilirubin 0.0, Indirect Bilirubin 0.3, Unconjugated Bilirubin 0.2, AST 31, ALT 24, Alkaline Phosphatase 83, NT-Pro-B Natriuret Pep 65.5, Total Protein 6.8, Albumin 3.9, TSH 0.79, Thyroxine (T4) 7.8 02/01/21 07:15: SARS-CoV-2 (PCR) Not detected, Influenza A Untype (PCR) Not detected, Influenza Type B (PCR) Not detected 02/01/21 08:58: Troponin I < 0.01 02/01/21 12:30: Troponin I < 0.01 I & O for Last 24 hours: Intake & Output 01/30/21 01/31/21 02/01/21 02/02/21 11:59 11:59 11:59 11:59 Intake Total 0 / 0 Balance 0 / 0 Weight 200 lb 5 oz Assessment and Plan (1) Chest pain at rest Status: Acute Category: Medical Code(s): R07.9 - Chest pain, unspecified (2) CAD (coronary artery disease) Status: Chronic Qualifiers: Coronary Disease-Associated Artery/Lesion type: [place] artery [place] vs. transplanted heart: [place] heart Associated angina: without angina Qualified Code(s): I25.10 - Atherosclerotic heart disease of [place] coronary artery without angina pectoris Category: Medical Code(s): I25.10 - Atherosclerotic heart disease of [place] coronary artery without angina pectoris (3) COPD (chronic obstructive pulmonary disease) Status: Chronic Qualifiers: COPD type: unspecified COPD Qualified Code(s): J44.9 - Chronic obstructive pulmonary disease, unspecified Category: Medical Code(s): J44.9 - Chronic obstructive pulmonary disease, unspecified (4) GERD (gastroesophageal reflux disease) Status: Chronic Qualifiers: Esophagitis bleeding: without hemorrhage Category: Medical Code(s): K21.9 - Gastro-esophageal reflux disease without esophagitis (5) HLD (hyperlipidemia) Status: Chronic Qualifiers: Hyperlipidemia type: unspecified Qualified Code(s): E78.5 - Hyperlipidemia, unspecified Category: Medical Code(s): E78.5 - Hyperlipidemia, unspecified (6) Hypertension Status: Chronic Qualifiers: Hypertension type: essential hypertension Category: Medical Code(s): I10 - Essential (primary) hypertension (7) SOB (shortness of breath) Status: Chronic Category: Medical Code(s): R06.02 - Shortness of breath
[2021-02-02] VITALS: BP 114/53; PULSE 54; PULSE 60; RESP 18; TEMP 37; O2SAT 94
--- NOTE | 2021-02-02 00:37 | PC.NURSE ---
Patient is A&Ox4. Complained of mild chest discomfort at beginning of shift. Rated it a 1/10 on pain scale. Patient voiced no further complaints of pain after. Patient remains on Room air and VSS. Family is at bedside. Radial cath site dressing is clean dry and intact. Instructions given to family and patient on restrictions and instructions for cath site. No further concerns voiced to RN.
[2021-02-02 02:00] VITALS: BP 150/81; PULSE 68; O2SAT 93
[2021-02-02 04:00] VITALS: BP 101/52; PULSE 62; PULSE 90; RESP 18; TEMP 37.1; O2SAT 91
[2021-02-02 05:03] VITALS: BMI 30.4
[2021-02-02 06:00] VITALS: BP 121/64; PULSE 86; TEMP 36.8; O2SAT 92
[2021-02-02 06:33] LABS: Anion Gap 8.1 mEq/L (5-15); Blood Urea Nitrogen 11 mg/dl (9-20); Calcium 8.3 mg/dl (8.4-10.2); Carbon Dioxide 28 mmol/L (22.0-30.0); Chloride 105 mmol/L (98-107); Creatinine Clearance Estimated 91 mL/min (50-200); Estimated Glomerular Filt Rate 84 ml/min (>60); GFR (African American) 102 ML/MIN (>60); Glucose 91 mg/dl (74-100); Magnesium 1.6 mg/dl (1.6-2.3); Potassium 4.1 mmoL/L (3.5-5.1); Sodium 137 mmol/L (136-145)
[2021-02-02 06:40] LABS: Basophils % 0.4 % (0.1-2.0); Eosinophils # 0.2 K/mm3 (0.0-0.4); Eosinophils % 2.5 % (0.1-12.0); Hematocrit 38.9 % (42.0-52.0); Lymphocytes # 1.6 K/mm3 (0.7-4.5); Lymphocytes % 23.3 % (10-50); Mean Corpuscular Hemoglobin 29.7 pg (27.0-31.2); Mean Corpuscular Volume 87.3 fl (80-94); Mean Platelet Volume 8.3 fl (7.4-10.4); Monocytes # 0.5 K/mm3 (0.1-1.0); Monocytes % 7.8 % (1.7-9.3); Neutrophils # 4.5 K/mm3 (1.8-7.8); Platelet Count 141 K/mm3 (142-424); Red Blood Count 4.45 M/mm3 (4.60-6.20); Red Cell Distribution Width 13.3 % (11.5-17.5); White Blood Count 6.8 K/mm3 (4.8-10.8)
[2021-02-02 07:04] LABS: Hemoglobin 13.2 g/dL (14.1-18.0)
[2021-02-02 07:35] VITALS: PULSE 65; O2SAT 94
[2021-02-02 08:00] VITALS: BP 123/75; PULSE 63; PULSE 70; RESP 18; TEMP 36.8; O2SAT 94
--- NOTE | 2021-02-02 08:35 | HMH.ACPN2 ---
Internal Medicine - PN: Subj *Date: 02/02/21 *Time: 08:58 Interval history: Patient does feel better this morning. He did sleep. He denies any midsternal discomfort. He denies shortness of breath. He still does not feel very well. The nonproductive cough persist. Both he and his are concerned about this. He denies nausea and is able to eat. Laboratory data this morning showed a hemoglobin of 13.2 hematocrit of 38.9 and white blood cell count of 6800. Blood chemistries show normal electrolytes and renal function. Troponin I's have been normal x3. Exam Vital signs and Labs for Last 24 Hours: Temp Pulse Resp BP Pulse Ox 98.2 F 86 18 121/64 92 L 02/02/21 08:00 02/02/21 06:00 02/02/21 04:00 02/02/21 06:00 02/02/21 06:00 Laboratory Results - last 24 hr 02/01/21 08:58: Troponin I < 0.01 02/01/21 12:30: Troponin I < 0.01 02/02/21 05:35: WBC 6.8, RBC 4.45 L, Hgb 13.2 L D, Hct 38.9 L, MCV 87.3, MCH 29.7, MCHC 34.0, RDW 13.3, Plt Count 141 L, MPV 8.3, Neut % (Auto) 66.0, Lymph % (Auto) 23.3, [place] % (Auto) 7.8, Eos % (Auto) 2.5, Baso % (Auto) 0.4, Neut # (Auto) 4.5, Lymph # (Auto) 1.6, [place] # (Auto) 0.5, Eos # (Auto) 0.2, Baso # (Auto) 0.0 02/02/21 05:35: Sodium 137, Potassium 4.1, Chloride 105, Carbon Dioxide 28, Anion Gap 8.1, BUN 11, Creatinine 0.90, Estimated Creat Clear 91, Estimated GFR 84, Est GFR ( Amer) 102, Glucose 91, Calcium 8.3 L, Magnesium 1.6 I & O for Last 24 hours: Intake & Output 01/30/21 01/31/21 02/01/21 02/02/21 11:59 11:59 11:59 11:59 Intake Total 1304 / 1304 Balance 1304 / 1304 Weight 200 lb 5 oz 200 lb 9.93 oz - Constitutional no acute distress - *Routine Respiratory Exam Present: CTA bilaterally (Diminished breath sounds posteriorly) - *Routine Cardiovascular Exam Present: RRR (Monitor showing sinus rhythm in the 70s) - *Routine Abdominal Exam Present: soft, normoactive bowel sounds. Absent: tenderness, distended - *Routine Extremities Exam Absent: edema, calf tenderness Assessment and Plan (1) Chest pain at rest Status: Acute Category: Medical Code(s): R07.9 - Chest pain, unspecified (2) CAD (coronary artery disease) Status: Chronic Qualifiers: Coronary Disease-Associated Artery/Lesion type: [place] artery [place] vs. transplanted heart: [place] heart Associated angina: without angina Qualified Code(s): I25.10 - Atherosclerotic heart disease of [place] coronary artery without angina pectoris Category: Medical Code(s): I25.10 - Atherosclerotic heart disease of [place] coronary artery without angina pectoris (3) COPD (chronic obstructive pulmonary disease) Status: Chronic Qualifiers: COPD type: unspecified COPD Qualified Code(s): J44.9 - Chronic obstructive pulmonary disease, unspecified Category: Medical Code(s): J44.9 - Chronic obstructive pulmonary disease, unspecified (4) GERD (gastroesophageal reflux disease) Status: Chronic Qualifiers: Esophagitis bleeding: without hemorrhage Category: Medical Code(s): K21.9 - Gastro-esophageal reflux disease without esophagitis (5) HLD (hyperlipidemia) Status: Chronic Qualifiers: Hyperlipidemia type: unspecified Qualified Code(s): E78.5 - Hyperlipidemia, unspecified Category: Medical Code(s): E78.5 - Hyperlipidemia, unspecified (6) Hypertension Status: Chronic Qualifiers: Hypertension type: essential hypertension Category: Medical Code(s): I10 - Essential (primary) hypertension (7) SOB (shortness of breath) Status: Chronic Category: Medical Code(s): R06.02 - Shortness of breath - Assessment and plan all Dx Assessment and Plan for all problems:: Patient probably home today. Will follow cardiology direction with meds. Will have pulmonary consult as an outpatient.
--- NOTE | 2021-02-06 15:36 | HMH.DCSUM ---
General - General Admission date:: 02/01/21 Discharge date: 02/02/21 HPI HPI: Mr. Miranda is a 70-year-old male patient with a history of coronary artery disease with an acute OH in 1996 and 2001, multiple stent placements with the last being 11/[address] Ellison. He also has a history of hypertension, GERD, COPD, and was Covid positive in May 2020. Patient states he awakened this a.m. around 4:00 with left anterior chest discomfort. This was associated with shortness of breath and some nausea. He did take a nitro with some improvement but when it did not resolve he came to the emergency room. Chest pain is now just a dull presence after receiving Nitropaste and morphine. Patient states he did nothing unusual yesterday. He was treated in the office of [facility] on 01/19/2021 for upper respiratory tract infection and was on a Z-Roderick and Medrol Dosepak. He states he did get better although the cough has been persistent. The cough is mostly nonproductive. At the time of this exam the patient does appear comfortable and states the chest discomfort is mildly present. His shortness of breath has resolved. He will be admitted with a cardiology consult. Hospital Course Hospital Course: The patient was admitted and cardiology was consulted. They recommended a heart cath. It showed widely patent coronary arteries and a preserved ejection fraction. They wanted to continue medical management for ischemic heart disease. They felt the patient could be discharged home and should follow-up with them in 1 to 2 weeks. He did have a limited echo showing an EF of 55%. By 02/02/2021, he felt better and denied any more chest discomfort. He did have a nonproductive cough, but his chest x-ray revealed no pneumonia. His troponins were all normal and it was felt he could be discharged home with a cardiology and pulmonary consult on an outpatient basis. Objective Vital signs: Temp Pulse Resp BP Pulse Ox 98.2 F 63 18 123/75 94 L 02/02/21 08:00 02/02/21 08:00 02/02/21 08:00 02/02/21 08:00 02/02/21 08:00 Narrative: - Constitutional no acute distress Comments: appears comfortable lying on stretcher in the ER - *Routine HEENT Exam Head: Present: normocephalic, atraumatic Eye: Present: PERRL. Absent: conjunctival icterus, scleral injection ENT: Present: mucous membranes moist, oropharynx clear, nares patent, TM's clear bilaterally - *Routine Neck Exam Present: supple, full ROM. Absent: carotid bruit, lymphadenopathy, thyromegaly - Routine Chest/Breast/Axilla Exam Chest wall: Absent: tenderness - *Routine Respiratory Exam Present: CTA bilaterally. Absent: wheezes - *Routine Cardiovascular Exam Present: RRR Comments: sinus rhythm on monitor in the 50's - *Routine Abdominal Exam Present: soft, normoactive bowel sounds. Absent: tenderness, organomegaly - *Routine Rectal Exam Rectal:: deferred - *Routine Genitalia Exam Genitalia:: deferred - *Routine Extremities Exam Present: pulses intact. Absent: edema, calf tenderness - *Routine Skin Exam Present: dry, warm - *Routine Neurological Exam Present: alert, oriented X3 DS: Diagnosis - Discharge Diagnosis (1) Chest pain at rest Status: Acute (2) CAD (coronary artery disease) Status: Chronic (3) COPD (chronic obstructive pulmonary disease) Status: Chronic (4) GERD (gastroesophageal reflux disease) Status: Chronic (5) HLD (hyperlipidemia) Status: Chronic (6) Hypertension Status: Chronic (7) SOB (shortness of breath) Status: Chronic Discharge Plan - Patient Discharge Instructions ACTIVITY: Continue current activity DIET: low fat, low cholesterol Additional Instructions: Pt is scheduled for an upper GI and a gallbladder ultrasound on 02/04 @ 9:30 am. Nothing to eat or drink after midnight the night before. Patient Instructions: Coronary Artery Disease, Cardiac Catheterization,
== END 2021-02-02 10:40 | disposition home or self-care (01) ==
LOC: ER 07:43 → 2ND 08:43
PROVIDERS: Internal Medicine; Admitting Provider Family Medicine; Emergency Provider Emergency Medicine; PCP Family Medicine; Visit Provider Family Medicine
DX: I25.110 Atherosclerotic heart disease of native coronary artery with unstable angina pectoris (principal); I25.2 Old myocardial infarction; J44.9 Chronic obstructive pulmonary disease, unspecified; I25.10 Atherosclerotic heart disease of native coronary artery without angina pectoris; K21.9 Gastro-esophageal reflux disease without esophagitis; E78.5 Hyperlipidemia, unspecified; I10 Essential (primary) hypertension; Z95.5 Presence of coronary angioplasty implant and graft; Z87.891 Personal history of nicotine dependence
CPT/HCPCS: 36415; 71046; 80048; 80076; 83735; 83880; 84145; 84436; 84443; 84484; 85025; 85651; 86140; 93005; 93306; 93308; 93458; 96365; 96375; 99152; 99283; C1725; C1769; G0378; J1644; J2405; Q9967; U0003

== ENCOUNTER → 2021-02-04 09:09 | Outpatient (CLI) | payer MEDICARE, SELFPAY ==
--- NOTE | 2021-02-04 09:12 | US_ITS ---
PROCEDURE: US GALLBLADDER CLINICAL INDICATION: GERD COMPARISON: No exams were available for comparison FINDINGS: Pancreas: Partially visualized pancreas appears unremarkable. The tail is obscured. Liver: The liver parenchyma demonstrates heterogeneous echogenicity with focal hyperechogenicities, may represent focal fatty infiltration. There is appropriate direction of blood flow within a non dilated portal vein. Right kidney: Unremarkable appearing. No hydronephrosis. Gallbladder: Sludge is noted in the gallbladder. Small multiple calculi are noted. The gallbladder wall is normal measuring 3 millimeters without evidence of wall thickening. Common duct is normal in diameter. IMPRESSION: Sludge and calculi are noted in the gallbladder. No evidence of cholecystitis. Focal hyperechoic areas noted within the liver, may represent focal fatty infiltration. No evidence of suspicious lesions are noted. Dictated by: Kimmie Luz 02/04/2021 12:33 Kimmie Luz in [place] 02/04/2021 12:33
--- NOTE | 2021-02-04 09:12 | FL_ITS ---
PROCEDURE: FL UPPER GI W AIR CLINICAL INDICATION: GERD COMPARISON: No exams were available for comparison TECHNIQUE: FLUOROSCOPY TIME : 1 minutes 19 seconds FINDINGS: The esophagus, stomach, and duodenum have an unremarkable appearance. There is mild gastroesophageal reflux. There is no evidence of hiatal hernia. No ulcer or mass evident. No mucosal abnormalities apparent. There is normal peristalsis. The duodenal C-loop is nondisplaced. IMPRESSION: Mild gastroesophageal reflux. Otherwise unremarkable study. Dictated by: Kimmie Luz 02/04/2021 12:54 Kimmie Luz in [facility] 02/04/2021 12:54
== END ==
PROVIDERS: PCP Family Medicine; Visit Provider Family Medicine
DX: K21.9 Gastro-esophageal reflux disease without esophagitis (principal); E78.5 Hyperlipidemia, unspecified
CPT/HCPCS: 74246; 76705

== ENCOUNTER → 2021-03-06 07:53 | Outpatient (CLI) | payer MEDICARE, SELFPAY ==
[2021-03-06 08:15] LABS: Basophils % 0.7 % (0.1-2.0); Eosinophils # 0.2 K/mm3 (0.0-0.4); Eosinophils % 4.1 % (0.1-12.0); Hematocrit 41.5 % (42.0-52.0); Hemoglobin 14.5 g/dL (14.1-18.0); Lymphocytes # 1.8 K/mm3 (0.7-4.5); Mean Corpuscular Hemoglobin 30.8 pg (27.0-31.2); Mean Corpuscular Volume 88.1 fl (80-94); Mean Platelet Volume 7.9 fl (7.4-10.4); Monocytes # 0.4 K/mm3 (0.1-1.0); Monocytes % 7.4 % (1.7-9.3); Neutrophils # 2.9 K/mm3 (1.8-7.8); Neutrophils % 54.8 % (37.0-80.0); Platelet Count 159 K/mm3 (142-424); Red Blood Count 4.71 M/mm3 (4.60-6.20); Red Cell Distribution Width 13.2 % (11.5-17.5); White Blood Count 5.4 K/mm3 (4.8-10.8)
[2021-03-06 11:56] LABS: Chloride 107 mmol/L (98-107); Sodium 143 mmol/L (136-145)
[2021-03-06 11:59] LABS: Alanine Aminotransferase 23 U/L (12-78); Albumin Level 3.8 g/dl (3.5-5.0); Albumin/Globulin Ratio 1.4 (1.1-1.8); Alkaline Phosphatase 86 U/L (38-126); Aspartate Amino Transferase 29 U/L (17-59); Blood Urea Nitrogen 15 mg/dl (9-20); Carbon Dioxide 26 mmol/L (22.0-30.0); Estimated Glomerular Filt Rate 96 ml/min (>60); GFR (African American) 116 ML/MIN (>60); Globulin 2.8 g/dL (1.3-3.2); Total Protein,Serum 6.6 g/dl (6.3-8.2)
[2021-03-06 12:00] LABS: Calcium 8.7 mg/dl (8.4-10.2); Glucose 99 mg/dl (74-100)
== END ==
PROVIDERS: Visit Provider Surgery
DX: K82.9 Disease of gallbladder, unspecified (principal); I20.0 Unstable angina; Z01.812 Encounter for preprocedural laboratory examination; Z20.822 Contact with and (suspected) exposure to COVID-19
CPT/HCPCS: 36415; 80053; 85025; U0003

== ENCOUNTER 2021-03-09 06:54 | Day surgery (SDC) | payer MEDICARE, SELFPAY ==
[2021-03-03 13:56] VITALS: BMI 29.6
[2021-03-09] VITALS (12 sets, daily range): BP systolic 115–154; BP diastolic 57–91; PULSE 57–80; RESP 11–16; TEMP 36.2–43; O2SAT 94–96
--- NOTE | 2021-03-09 07:22 | P.PN_ITS ---
[facility] Anesthesia Checklist - Patient Identification Patient Identification: Arm Band, Verbal (Name & ) - Structural Data Admitted From: Home Planned Operative Procedure/s: [email or web address] Consent for Planned Operative Procedure(s) Verified: Yes Verified Documents: History and Physical - NPO Status Verified Time NPO: 00:00 - Chart Verification Results Verified: CBC, BMP - Additional verifications Patient : No Anesthesia Reactions: No Hx Blood Transfusions: No Blood Transfusion Reaction: No Cephalosporin Allergy: No Previous Colonoscopy: Yes - Cardiovascular Assessment Heart Sounds: S1 & S2 Pulse Strength: Baseline Pulse Rhythm: Regular Peripheral Edema: No - Airway Assessment C-Spine Mobility Assessed: Yes TMJ Mobility Assessed: Yes Dentition: Edentulous - Neurological Assessment Level of Consciousness: Awake, Alert, Appropriate Hx Seizures: No Numbness or tingling in extremities: No - Anesthesia Plan Anesthesia Risk discussed: Yes Anesthesia Plan: Verified ASA Class: III Anesthesia Type: General [facility] History I have reviewed the patient's past medical history: Yes 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: Reports:: Atherosclerotic Heart Disease, Congestive Heart Failure, Chronic Obstructive Pulmonary Disease (COPD), Coronary Artery Disease, Gastroesophageal Reflux Disease(GERD), Hyperlipidemia, Hypertension, Lung Disease, Myocardial Infarction Denies:: Atrial Fibrillation, Cancer, Diabetes Mellitus Type 1, Diabetes Mellitus Type 2, Gastrointestinal Bleed, Internal Pacemaker, MRSA, Seizures *Have you ever received a pneumonia vaccine?: Yes *Have you received a flu vaccine this season?: No Other 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: Denies: Blood Transfusion Reaction Anesthesia experience/problems:: none Laterality Cases: Bilateral: Cataract Other Surgeries: Yes: Cardiac Catheterization, Cardiac Surgery, Colonoscopy, Coronary Stent, Other. No: Pacemaker Amputation: No Fractures: No - *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 Last grade of school completed: GED Smoking Status: Former smoker Alcohol Intake: never Alcohol Intake Frequency:: a few times a month Substance Use Type: denies use *Occupational Status:: retired Housing: house Household Members: spouse *Travel in the last 8 weeks: None Family Hx:: No significant family history
--- NOTE | 2021-03-09 09:46 | HMH.OPNOTE ---
Date of procedure: 03/09/21 Pre-op Diagnosis:: Symptomatic gallstones Post-op Diagnosis:: Same Procedure performed:: Laparoscopic cholecystectomy Surgeon:: Chidi Delvalle MD ELECTRICAL ENGINEERING MANAGER:: Dian Gardner Anesthesia: GETBrendan Estimated blood loss (mL): 20 Clinical Note:: Patient is a 70-year-old male referred by Dr. Jessee Armenta for gallbladder. I had seen the patient about 3 and half years ago for possible gallbladder. At that time he had an ultrasound which was negative for gallstones and had a HIDA scan which revealed borderline ejection fraction with fatty meal. At that time he became asymptomatic and gallbladder surgery was not pursued. Patient has a strong history of coronary disease and states that he has had 5 heart attacks in the past and has had multiple stents placed. He states that he had a heart attack in November and had an additional stent, his fifth. Recently he had developed symptoms of chest pain and nausea. He thought he may be having a heart attack again. He also had some right upper quadrant pain and left arm tingling. He was seen and evaluated in the emergency department. He underwent left heart catheterization which reportedly revealed patent stents. As an outpatient he underwent upper GI series which was reportedly unremarkable. He had a gallbladder ultrasound performed which revealed sludge and gallstones. He was sent for surgical consultation. Patient does state that he has had about 4-5 additional sharp right upper quadrant acute pain attacks. Operative findings:: He had a distended gallbladder with numerous small gallstones Operative note:: Patient was taken to the operating room. He was given preoperative intravenous antibiotics. In the operating room he was placed in a supine position. General anesthesia was induced via endotracheal tube. Abdomen was prepped and draped in the standard surgical fashion. Subumbilical skin incision was made and while performing abdominal wall lift Veress needle was inserted. CO2 pneumoperitoneum was achieved to 15 mmHg. 11 mm optical trocar was inserted at the umbilicus. Intraperitoneal contents were visualized. He was positioned in reverse Trendelenburg left side down. A couple 5 mm trochars were inserted in the right upper abdomen. 10 mm trocar was inserted in the epigastrium. Gallbladder was grasped retracted anteriorly and superiorly over the dome of the liver. Infundibulum/Rubio's pouch of the gallbladder was retracted anterior laterally. Blunt dissection was carried out the neck of the gallbladder bluntly incising the visceral peritoneum. The cystic duct and cystic artery were identified and dissected free. Cystic duct was isolated, multiply clipped, and sharply divided. Cystic artery was carefully coagulated with RIAN ultrasonic harmonic wendi and divided. Gallbladder was dissected free from the liver in a retrograde fashion using RIAN ultrasonic harmonic wendi. There was some unavoidable spillage of bile and small stones during the dissection process and this was immediately suctioned free. The small tear in the gallbladder was closed with a PDS Endoloop. Gallbladder was then dissected free from the remainder of the liver. It was placed within an Endo Catch retrieval device and removed from the peritoneal cavity via the umbilical trocar site. Gallbladder fossa and perihepatic space were then thoroughly irrigated and aspirated until clear. Trochars were removed as CO2 pneumoperitoneum was evacuated. Fascia at the umbilicus was closed with 0 Vicryl suture. Anterior fascia at the epigastric site was closed with a single 0 Vicryl suture. Local anesthetic was infiltrated. Skin incisions were closed with 4-0 Monocryl subcuticular fashion. Steri-Strips and dressings were applied. Condition: stable Disposition: PACU Specimens:: Gallbladder and contents Complications:: None immediately apparent
--- NOTE | 2021-03-09 09:51 | P.PN_ITS ---
[facility] Anesthesia Record Part I Intake, IV Amount: 800 Estimated blood loss (mL): 20 Urine output (mL): 0 Blood Pressure: 119/72 SaO2: 96 Pulse Rate: 61 Respiratory Rate: 11 Temperature: 98.3 F Patient is:: Drowsy, Oral/Nasal airway Stable to PACU at:: 09:50
[2021-03-10 07:16] VITALS: BP 121/76; PULSE 57; TEMP 36.8
--- NOTE | 2021-03-10 07:16 | P.PN_ITS ---
[facility] Anesthesia Record Part II Discharge Time: 10:40 Destination: Surgical Day Care (OP Surgery) PACU nurse assessment reviewed?: Yes Patient Condition:: Good Anesthesia Complications:: None Swallowing reflex intact?: Yes Cyanosis?: No Blood Pressure: 121/76 Pulse Rate: 57 Temperature: 98.2 F Mental Status: Alert & Oriented Pain level:: 0 Nausea and/or vomitting:: None Intake, IV Amount: 0
== END 2021-03-09 11:15 | disposition home or self-care (01) ==
LOC: OR 06:55
PROVIDERS: PCP Family Medicine; Visit Provider Surgery
PROC: 0FT44ZZ Resection of Gallbladder, Percutaneous Endoscopic Approach (ICD-10-PCS; CPT 47562; principal; 2021-03-09 08:30)
DX: K80.12 Calculus of gallbladder with acute and chronic cholecystitis without obstruction (principal); Z95.5 Presence of coronary angioplasty implant and graft; I25.10 Atherosclerotic heart disease of native coronary artery without angina pectoris; E78.5 Hyperlipidemia, unspecified; I11.0 Hypertensive heart disease with heart failure; I50.9 Heart failure, unspecified; I25.2 Old myocardial infarction; Z87.891 Personal history of nicotine dependence; Z79.82 Long term (current) use of aspirin; Z79.899 Other long term (current) drug therapy
CPT/HCPCS: 47562; 88304; 96374; J0131; J2405

== ENCOUNTER → 2021-04-28 09:45 | Outpatient (CLI) | payer MEDICARE, SELFPAY ==
[2021-04-28 10:40] VITALS: PULSE 62; PULSE 64
== END ==
PROVIDERS: PCP Family Medicine; Visit Provider Internal Medicine Pulmonary Disease
DX: R06.00 Dyspnea, unspecified (principal)
CPT/HCPCS: 94060; 94618; 94640; 94727; 94729

== ENCOUNTER 2021-05-08 12:44 | Emergency (ER) | payer MEDICARE, SELFPAY ==
[2021-05-08 13:13] VITALS: BP 165/84; PULSE 67; RESP 18; TEMP 36.5; O2SAT 95; BMI 31.9
--- NOTE | 2021-05-08 13:13 | XR_ITS ---
PROCEDURE INFORMATION: Exam: XR Left Wrist Exam date and time: 05/08/2021 1:13 PM Age: 70 years old Clinical indication: Pain and injury or trauma; Fall; Swelling (edema); Left; Injury date: 05/07/21; Injury details: Fell on hand and wrist TECHNIQUE: Imaging protocol: XR Left wrist. Views: 3 or more views. COMPARISON: No relevant prior studies available. FINDINGS: Bones/joints: Maria E of bone along the dorsal aspect of the carpal bones may represent dorsal chip fracture of unknown age.. Degenerative changes in the radiocarpal joint Soft tissues: Normal. IMPRESSION: Maria E of bone along the dorsal aspect of the carpal bones may represent dorsal chip fracture of unknown age..
--- NOTE | 2021-05-08 13:13 | XR_ITS ---
PROCEDURE INFORMATION: Exam: XR Left Hand Exam date and time: 05/08/2021 1:13 PM Age: 70 years old Clinical indication: Pain; Hand; Left; Additional info: Fall hit hand and wrist TECHNIQUE: Imaging protocol: XR Left hand. Views: 3 or more views. COMPARISON: No relevant prior studies available. FINDINGS: Bones/joints: Joint space narrowing in the DIP joints and PIP joints of the fingers consistent with degenerative changes. Maria E of bone along the dorsal aspect of the carpal bones may represent dorsal chip fracture of unknown age.. Soft tissues: Normal. IMPRESSION: 1. Joint space narrowing in the DIP joints and PIP joints of the fingers consistent with degenerative changes. 2. Maria E of bone along the dorsal aspect of the carpal bones may represent dorsal chip fracture of unknown age..
--- NOTE | 2021-05-08 14:03 | HMH.EDUTC ---
[facility] [place] Clinical Impression: Right wrist sprain Qualifiers: Encounter type: initial encounter Qualified Code(s): S63.501A - Unspecified sprain of right wrist, initial encounter Sprain of right hand Qualifiers: Encounter type: initial encounter Qualified Code(s): S63.91XA - Sprain of unspecified part of right wrist and hand, initial encounter Disposition: Home, Self-Care Condition on Discharge: Good Instructions: DI for Wrist Fracture, How to Take Care of Your Splint, DI for Hand Injury Additional Instructions: Rest the extremity, apply ice for 15 minutes as tolerated three or four times per day, Wear the lois wrap for compression, Elevate the extremity as tolerated while you are resting. Make sure your wrist and hand do not swell too much inside the splint. If it starts getting tight, please remove the lois wrap only, and wrap it back looser. Try to prevent swelling by elevating it and apply ice as directed. Take tylenol for pain. Or, take something else that will not interfere with your plavix. Follow up with Dr. Luz (orthopedics). I put in a referral but you need to call his office and schedule an appointment. Make sure you call the office on Monday morning to get an appointment scheduled for when they can see you this week. Follow up with your regular doctor. GO TO THE ER FOR ANY WORSENING SYMPTOMS Referrals: Minoo Armenta MD [Primary Care Provider] - Deonte Luz MD [Staff Physician] - Time of Disposition: 15:07 Medical Decision Making - Medical Records Medical records reviewed: No: I reviewed the patient's medical records. - Donald Inquiry Pt receiving controlled substance: No Vital Signs: 05/08/21 13:13 05/08/21 15:09 Temperature 97.7 F 98.2 F Temperature Source Temporal Artery Scan Pulse Rate 65 Pulse Rate [Radial] 67 Respiratory Rate 18 19 Blood Pressure 160/80 H Blood Pressure [Right Arm] 165/84 H Blood Pressure Mean [Right Arm] 111 02 Sat by Pulse Oximetry 95 - Radiology Data #1 Image(s): Wrist Image Reviewed: Yes I reviewed the patient's radiology image, Yes I have reviewed radiologist's interpretation Preliminary Findings: No Fracture Seen PROCEDURE INFORMATION: Exam: XR Left Wrist Exam date and time: 05/08/2021 1:13 PM Age: 70 years old Clinical indication: Pain and injury or trauma; Fall; Swelling (edema); Left; Injury date: 05/07/21; Injury details: Fell on hand and wrist TECHNIQUE: Imaging protocol: XR Left wrist. Views: 3 or more views. COMPARISON: No relevant prior studies available. FINDINGS: Bones/joints: Maria E of bone along the dorsal aspect of the carpal bones may represent dorsal chip fracture of unknown age.. Degenerative changes in the radiocarpal joint Soft tissues: Normal. IMPRESSION: Maria E of bone along the dorsal aspect of the carpal bones may represent dorsal chip fracture of unknown age.. #2 Image(s): Hand Image Reviewed: Yes I reviewed the patient's radiology image, Yes I have reviewed radiologist's interpretation Preliminary Findings: Normal/NAD, No Fracture Seen PROCEDURE INFORMATION: Exam: XR Left Hand Exam date and time: 05/08/2021 1:13 PM Age: 70 years old Clinical indication: Pain; Hand; Left; Additional info: Fall hit hand and wrist TECHNIQUE: Imaging protocol: XR Left hand. Views: 3 or more views. COMPARISON: No relevant prior studies available. FINDINGS: Bones/joints: Joint space narrowing in the DIP joints and PIP joints of the fingers consistent with degenerative changes. Maria E of bone along the dorsal aspect of the carpal bones may represent dorsal chip fracture of unknown age.. Soft tissues: Normal. IMPRESSION: 1. Joint space narrowing in the DIP joints and PIP joints of the fingers consistent with degenerative changes. 2. Maria E of bone along the dorsal aspect of the carpal jessica
[2021-05-08 15:09] VITALS: BP 160/80; PULSE 65; RESP 19; TEMP 36.8; O2SAT 96
== END 2021-05-08 15:10 | disposition home or self-care (01) ==
PROVIDERS: Emergency Provider Nurse Practitioner Family; PCP Family Medicine
DX: S63.501A Unspecified sprain of right wrist, initial encounter (principal); W01.0XXA Fall on same level from slipping, tripping and stumbling without subsequent striking against object, initial encounter; Y92.019 Unspecified place in single-family (private) house as the place of occurrence of the external cause; I25.10 Atherosclerotic heart disease of native coronary artery without angina pectoris; K21.9 Gastro-esophageal reflux disease without esophagitis; I10 Essential (primary) hypertension; E78.5 Hyperlipidemia, unspecified
CPT/HCPCS: 29125; G0463; 73110; 73130; 99202

== ENCOUNTER 2021-05-14 14:19 | Outpatient (RCR) | payer MEDICARE, SELFPAY | END 2021-05-14 14:46 | disposition home or self-care (01) | LOC: OT 14:19 | PROVIDERS: Visit Provider Orthopaedic Surgery | DX: S63.501A Unspecified sprain of right wrist, initial encounter (principal) | CPT/HCPCS: 97763 ==

== ENCOUNTER → 2021-06-04 13:01 | Outpatient (CLI) | payer MEDICARE, SELFPAY ==
--- NOTE | 2021-06-04 13:04 | XR_ITS ---
PROCEDURE: XR WRIST LT MIN 3V CLINICAL INDICATION: LT wrist injury COMPARISON: CR XR WRIST LT MIN 3V from 05/08/2021 FINDINGS: Avulsion fracture noted of the triquetrum. Minimal dorsal displacement of fracture fragment. Overall not significantly changed. IMPRESSION: No change triquetrum avulsion fracture. Dictated by: Paulino Ward MD 06/04/2021 14:38 Paulino Ward MD in [facility] 06/04/2021 14:38
== END ==
PROVIDERS: PCP Family Medicine; Visit Provider Orthopaedic Surgery
DX: S69.92XA Unspecified injury of left wrist, hand and finger(s), initial encounter (principal)
CPT/HCPCS: 73110

== ENCOUNTER 2021-07-05 08:00 | Outpatient (RCR) | payer MEDICARE, SELFPAY ==
--- NOTE | 2021-06-14 08:35 | HMH.OTOPEV ---
OT Inpatient Evaluation Rehab OT Outpatient Eval Start: 06/14/21 08:22 Freq: Status: Active Protocol: Document 06/14/21 08:22 CHRISTINAHARDY (Rec: 06/14/21 08:35 [id number] [id number]) Electronically Signed By Jonna Eugene OT 06/14/21 08:22 Outpatient Therapy Subjective History Subjective History 70 year old male referred to skilled OP OT services for left wrist injury. Patient injured L wrist after a fall on 05/07/21. X-ray completed on 05/08/21 with findings of 1 . Joint space narrowing in the DIP joints and PIP joints of the fingers consistent with degenerative changes. 2. Maria E of bone along the dorsal aspect of the carpal bones may represent dorsal chip fracture of unknown age. Patient has been wearing a removable brace since the injury with plenty of resting to promote healing. F/u x-ray on left wrist on 06/04/21 with findings of No change triquetrum avulsion fracture. Chief Complaint Pain,Weakness,Decreased Sap Bi Developer Strength Symptom Type Ache Symptoms Relieved By Heat,Brace/Support Symptoms Aggravated By Physical Activity Prior Functional Limitations None Current Functional Limitations Reaching,Lifting,Squatting Symptom Description Intermittent Level of pain today (0-10) 0 Pain scale - at its best (0-10) 0 Pain scale - at its worst (0-10) 5 Wrist/Hand Eval Wrist Range of Motion Left Wrist Extension Active Range of Motion ( 45 degrees) Wrist Flexion Active Range of Motion ( 50 degrees) Wrist Radial Deviation Active Range of 20 Motion (degrees) Wrist Ulnar Deviation Active Range of 15 Motion (degrees) Forearm Supination Active Range of 85 Motion (degrees) Forearm Pronation Active Range of Motion 90 (degrees) Wrist Manual Muscle Testing Left Wrist Extension Strength Grade 3- Fair- Wrist Flexion Strength Grade 3- Fair- Wrist Radial Deviation Strength Grade 3- Fair- Wrist Ulnar Deviation Strength Grade 3- Fair- Forearm Supination Strength Grade 3+ Fair+ Sap Bi Developer/Pinch Strength Right Sap Bi Developer Strength Measurement (lbs) 100 Left Sap Bi Developer Strength Measurement (lbs) 45 OT Outpa
== END 2021-07-05 08:05 | disposition home or self-care (01) ==
LOC: OT 08:00
PROVIDERS: PCP Family Medicine; Visit Provider Orthopaedic Surgery
DX: S62.172D Displaced fracture of trapezium [larger multangular], left wrist, subsequent encounter for fracture with routine healing (principal)
CPT/HCPCS: 97014; 97035; 97110; 97140; 97165; G0283

== ENCOUNTER → 2021-11-17 08:46 | Outpatient (CLI) | payer MEDICARE, SELFPAY ==
[2021-11-17 10:30] LABS: Alanine Aminotransferase 37 U/L (12-78); Aspartate Amino Transferase 39 U/L (17-59)
[2021-11-17 10:31] LABS: Albumin Level 3.9 g/dl (3.5-5.0); Alkaline Phosphatase 98 U/L (38-126); Bilirubin,Direct 0.1 mg/dl (0.0-0.4); Bilirubin,Indirect 1.1 mg/dL (0.0-0.9); Bilirubin,Total 1.2 mg/dl (0.2-1.3); Chol/HDL Ratio 3.6 (1-3.5); Cholesterol 114 mg/dl (140-200); HDL Cholesterol 32 mg/dl (40-60); Total Protein,Serum 6.6 g/dl (6.3-8.2); Triglycerides 139 mg/dl (30-150); VLDL Cholesterol 28 mg/dL (0-40)
[2021-11-17 10:43] LABS: Direct LDL Cholesterol 62.02 mg/dL (100-129)
== END ==
PROVIDERS: PCP Family Medicine; Visit Provider Nurse Practitioner Family
DX: E78.5 Hyperlipidemia, unspecified (principal); I10 Essential (primary) hypertension; I25.10 Atherosclerotic heart disease of native coronary artery without angina pectoris; Z95.5 Presence of coronary angioplasty implant and graft
CPT/HCPCS: 36415; 80061; 80076

== ENCOUNTER → 2021-11-22 10:24 | Outpatient (CLI) | payer MEDICARE, SELFPAY | PROVIDERS: PCP Family Medicine; Visit Provider Family Medicine | DX: R42 Dizziness and giddiness (principal) | CPT/HCPCS: 93225; 93226 ==

== ENCOUNTER → 2022-05-05 15:49 | Outpatient (CLI) | payer MEDICARE, SELFPAY ==
[2022-05-05 16:13] LABS: Basophils # 0.1 K/mm3 (0-0.2); Basophils % 1.3 % (0.1-2.0); Eosinophils # 0.2 K/mm3 (0.0-0.4); Eosinophils % 4.5 % (0.1-12.0); Hematocrit 44.4 % (42.0-52.0); Hemoglobin 14.9 g/dL (14.1-18.0); Lymphocytes # 1.6 K/mm3 (0.7-4.5); Lymphocytes % 40.9 % (10-50); Mean Corpuscular HGB Conc 33.5 g/dL (31.8-35.4); Mean Corpuscular Hemoglobin 30.6 pg (27.0-31.2); Mean Corpuscular Volume 91.4 fl (80-94); Mean Platelet Volume 9.1 fl (7.4-10.4); Monocytes # 0.5 K/mm3 (0.1-1.0); Monocytes % 13.4 % (1.7-9.3); Neutrophils # 1.5 K/mm3 (1.8-7.8); Neutrophils % 39.9 % (37.0-80.0); Platelet Count 166 K/mm3 (142-424); Red Blood Count 4.85 M/mm3 (4.60-6.20); Red Cell Distribution Width 13.3 % (11.5-17.5); White Blood Count 3.8 K/mm3 (4.8-10.8)
== END ==
PROVIDERS: Physician Assistant; PCP Family Medicine; Visit Provider Family Medicine
DX: Z20.822 Contact with and (suspected) exposure to COVID-19 (principal)
CPT/HCPCS: 36415; 85025; 87275; 87276; C9803; U0003; U0005

== ENCOUNTER 2022-05-13 09:23 | Emergency (ER) | payer MEDICARE, SELFPAY ==
--- NOTE | 2022-05-13 09:45 | EXP.UTC ---
Discharge Plan Disposition Patient Disposition: Home, Self-Care Condition: Good Prescriptions Prescriptions: New benzonatate 100 mg capsule 100 mg PO TID PRN (Reason: cough) Qty: 15 0RF cefdinir 300 mg capsule 300 mg PO BID Qty: 20 0RF No Action Anoro Ellipta 62.5-25 mcg/actuation blister with device 1 inh INHALATION DAILY 90 Days Qty: 180 3RF albuterol sulfate 90 mcg/actuation HFA aerosol inhaler 1 inh INHALATION Q6H PRN (Reason: shortness of breath or wheezing) 90 Days Qty: 8.5 3RF Flovent Diskus 50 mcg/actuation blister with device 1 inh INHALATION BID 90 Days Qty: 180 3RF furosemide 20 mg tablet 20 mg PO DAILY losartan 50 mg tablet See Rx Instructions .ROUTE .COMPLEX Rx Instructions: TAKE 1 TABLET BY MOUTH DAILY FOR HYPERTENSION atorvastatin 40 mg tablet See Rx Instructions .ROUTE .COMPLEX Rx Instructions: TAKE 1 TABLET BY MOUTH AT BEDTIME FOR CHOLESTEROL clopidogrel 75 mg tablet See Rx Instructions .ROUTE .COMPLEX Rx Instructions: TAKE 1 TABLET BY MOUTH DAILY pantoprazole 40 mg tablet,delayed release (DR/EC) See Rx Instructions .ROUTE .COMPLEX Rx Instructions: TAKE 1 TABLET BY MOUTH DAILY aspirin 81 MG tablet,chewable 81 mg PO HS nitroglycerin 0.4 MG tablet, sublingual 0.4 mg sublingual NEEDED PRN (Reason: Chest Pain) Referrals Follow up/Referrals: Minoo Armenta MD [Primary Care Provider] - See instructions Activity Restrictions/Add. Instructions Additional Instructions/Restrictions: Start antibiotic today. Be sure to complete entire prescription even if feeling better Monitor temp. Tylenol every 4 hours as needed and / or ibuprofen every 6 hours as needed ( As long as your primary care physician has told you that it ok to take both. For fever/aches/pains ER if no less than 101 despite Tylenol or Motrin Humidifier/vaporizer or hot steamy shower *Tessalon Perles will not cause drowsiness but use at bedtime to help stop cough so that you may get some rest. Follow up IMMEDIATELY for new or worsening of symptoms OR no noticeable improvement over the next 48-72 hours. 911 immediately for any life threatening symptoms such as chest pain or difficulty breathing You were tested for today for Upper Respiraltory Panel with COVID19 your test result should be back in the next 24-48 hours, you may check your results on the [facility] My Health Portal Clinical Impressions Clinical Impression: Sinusitis, Bronchitis Instructions Patient Instructions: DI for Sinusitis, Sinusitis Discharge ED Provider: Maia Adame [facility] [place] H[place] General Stated complaint: Congestion,cough Time Seen by Provider: 05/13/22 09:45 History of Present Illness Provider Complaint: Patient states that he had telehealth visit with his PCP last week and was given steroids and cough medication States that he has continued to get worse States that he is coughing up mucous at times, headache, sinus congestion and pressure States that he feels like he has drainage in the back of his throat and feels worse States that today he came in to get checked Related Data Home Medications Medication Instructions Recorded Confirmed aspirin 81 mg chewable tablet 81 mg PO [facility] 03/12/18 03/24/22 nitroglycerin 0.4 mg sublingual 0.4 mg sublingual NEEDED PRN 02/01/21 03/24/22 tablet Chest Pain furosemide 20 mg tablet 20 mg PO DAILY 05/18/21 03/24/22 atorvastatin 40 mg tablet See Rx Instructions .Route 05/13/22 05/13/22 .COMPLEX Cholesterol clopidogrel 75 mg tablet See Rx Instructions .Route 05/13/22 05/13/22 .COMPLEX Blood thinner losartan 50 mg tablet See Rx Instructions .Route 05/13/22 05/13/22 .COMPLEX High blood pressure pantoprazole 40 mg tablet,delayed See Rx Instructions .Route 05/13/22 05/13/22 release .COMPLEX GERD Previous Rx's Medication Instructions Recorded albuterol sulfate 9
[2022-05-13 09:55] VITALS: BP 127/76; PULSE 82; RESP 18; TEMP 36.7; O2SAT 97; BMI 28.1
[2022-05-13 10:05] VITALS: BP 127/76; PULSE 82; RESP 18; TEMP 36.7
[2022-05-13 10:14] LABS: Adenovirus,PCR Not Detected (NotDetected); Bordetella Pertussis Not Detected (NotDetected); Chlamydophila Pneumoniae, PCR Not Detected (NotDetected); Coronavirus 229E Not Detected (NotDetected); Coronavirus NL63 Not Detected (NotDetected); Coronavirus OC43 Not Detected (NotDetected); Coronovirus HKU1,PCR Not Detected (NotDetected); Human Metapneumovirus Not Detected (NotDetected); Influenza A, PCR Not Detected (NotDetected); Influenza AH1, 2009 Not Detected (NotDetected); Influenza AH1, PCR Not Detected (NotDetected); Influenza AH3,PCR Not Detected (NotDetected); Influenza B, PCR Not Detected (NotDetected); Mycoplasma Pneumoniae, PCR Not Detected (NotDetected); Parainfluenza 1, PCR Not Detected (NotDetected); Parainfluenza 2, PCR Not Detected (NotDetected); Parainfluenza 3, PCR Not Detected (NotDetected); Parainfluenza 4, PCR Not Detected (NotDetected); Rhinovirus/Enterovirus Not Detected (NotDetected)
[2022-05-13 12:40] LABS: Coronavirus 19, PCR Detected (NotDetected); Respiratory Syncytial Virus Detected (NotDetected)
[2022-05-13 19:04] LABS: UTC Strep Screen (Rapid) Negative (Negative)
== END 2022-05-13 10:10 | disposition home or self-care (01) ==
PROVIDERS: Emergency Provider Nurse Practitioner; PCP Family Medicine
DX: U07.1 COVID-19 (principal); J40 Bronchitis, not specified as acute or chronic; F32.9 Major depressive disorder, single episode, unspecified; Z79.82 Long term (current) use of aspirin; Z79.899 Other long term (current) drug therapy; I25.10 Atherosclerotic heart disease of native coronary artery without angina pectoris; J44.9 Chronic obstructive pulmonary disease, unspecified; E78.5 Hyperlipidemia, unspecified; Z87.891 Personal history of nicotine dependence; Z95.5 Presence of coronary angioplasty implant and graft; I10 Essential (primary) hypertension
CPT/HCPCS: 87581; 87632; 87798; 87880; 99212; C9803; G0463; U0003; U0005

== ENCOUNTER 2022-05-23 12:55 | Emergency (ER) | payer MEDICARE, SELFPAY ==
[2022-05-23 14:46] VITALS: BP 141/80; PULSE 77; RESP 18; TEMP 36.8; O2SAT 97; BMI 28.4
--- NOTE | 2022-05-23 14:54 | XR_ITS ---
FINAL REPORT CLINICAL HISTORY: cough, chest congestion COMPARISON: 02/01/2021 FINDINGS: 2 views of the chest were obtained . The heart is normal in size. The mediastinum is within normal limits. The lungs are hyperexpanded with scarring at the bases. Lungs are otherwise clear. There is no pneumothorax. Osseous structures are unremarkable. IMPRESSION: No acute cardiopulmonary process. Reviewed, Interpreted and Dictated by Maurice Delgado MD Transcribed by Soniya Mcgill Authenticated and [facility]
--- NOTE | 2022-05-23 15:14 | EXP.UTC ---
Discharge Plan Disposition Patient Disposition: Home, Self-Care Condition: Good Prescriptions Prescriptions: New albuterol sulfate [Proventil HFA] 90 mcg/actuation HFA aerosol inhaler 1 inh inhalation Q6H PRN (Reason: shortness of breath or wheezing) Qty: 8.5 0RF azithromycin [Zithromax Z-Roderick] 250 mg tablet See Rx Instructions .ROUTE .COMPLEX 5 Days Qty: 6 0RF Rx Instructions: For 250 mg dose pack: take 500 mg today (day 1), then 250 mg for 4 days (days 2-5) No Action Anoro Ellipta 62.5-25 mcg/actuation blister with device 1 inh INHALATION DAILY 90 Days Qty: 180 3RF albuterol sulfate 90 mcg/actuation HFA aerosol inhaler 1 inh INHALATION Q6H PRN (Reason: shortness of breath or wheezing) 90 Days Qty: 8.5 3RF Flovent Diskus 50 mcg/actuation blister with device 1 inh INHALATION BID 90 Days Qty: 180 3RF clopidogrel 75 mg tablet See Rx Instructions .ROUTE .COMPLEX Qty: 90 3RF Dose Instruction: TAKE 1 TABLET BY MOUTH DAILY Rx Instructions: TAKE 1 TABLET BY MOUTH DAILY losartan 50 mg tablet See Rx Instructions .ROUTE .COMPLEX Rx Instructions: TAKE 1 TABLET BY MOUTH DAILY FOR HYPERTENSION atorvastatin 40 mg tablet See Rx Instructions .ROUTE .COMPLEX Rx Instructions: TAKE 1 TABLET BY MOUTH AT BEDTIME FOR CHOLESTEROL pantoprazole 40 mg tablet,delayed release (DR/EC) See Rx Instructions .ROUTE .COMPLEX Rx Instructions: TAKE 1 TABLET BY MOUTH DAILY aspirin 81 MG tablet,chewable 81 mg PO HS nitroglycerin 0.4 MG tablet, sublingual 0.4 mg sublingual NEEDED PRN (Reason: Chest Pain) Referrals Follow up/Referrals: Minoo Armenta MD [Primary Care Provider] - See instructions Activity Restrictions/Add. Instructions Additional Instructions/Restrictions: *Monitor Temp, Over the counter Motrin or Tylenol as directed/as needed Tylenol every 4 hours and Motrin every 6 hours (as long as your family doctor has told you that you can take it) for fever or pain. and straight to ER if unable to lower temp less than 101.0 after medication given *Warm salt water gargles may help to soothe the throat *Throat Lozenges? *Warm fluids like tea with honey may help to soothe the throat? *Sleep elevated *Humidifier/Vaporizer Follow up IMMEDIATELY for new or worsening symptoms or no Noticeable improvement over the next 48-72 hours. 911 for difficulty breathing or swallowing You were tested for today for COVID19 your test result should be back in the next 24-48 hours, you may check your results on the [facility] Health Portal Clinical Impressions Clinical Impression: Sinusitis Instructions Patient Instructions: DI for Sinusitis, Sinus Headache Discharge ED Provider: Maia Adame [facility] [place] HPI General Stated complaint: Cough,Congestion,weakness Mode of Arrival: Ambulatory Source of Information: Patient Limitations: No Limitations Time Seen by Provider: 05/23/22 15:15 Description of Symptoms (Recalled from Triage Doc. by RN): [facility], CONGESTION, WEAKESS, CHILLS AND A HEADACHE X 3 WEEKS. PT DENIES ANY CHEST PAIN OR SOB AT THIS TIME HEENT Symptoms (Recalled from RN notes): No (CONGESTION) Resp Symptoms (Recalled from RN notes): Yes (COUGH) Skin Symptoms (Recalled from RN notes): No MS Symptoms (Recalled from RN notes): Yes (BODYACHES) Functional Status (Recalled from RN notes): WDL History of Present Illness Provider Complaint: Patient state that he has been sick for about 3 weeks States that he has been having sinus congestion and pressure behind his eyes, cough body aches, chills, feeling achy and tired and headache on and off from his sinuses States that he sinus pressure is hurting behind his eyes States that he had URP in the [facility] and was positive for COVID but he thought he would be over that by now Related Data Home Medications Medication Instructions Recorded Confirmed aspirin 81 mg chewab
[2022-05-23 15:16] LABS: UTC Influenza A Antigen Negative (Negative); UTC Influenza B Antigen Negative (Negative)
[2022-05-23 16:11] LABS: Adenovirus,PCR Not Detected (NotDetected); Bordetella Pertussis Not Detected (NotDetected); Chlamydophila Pneumoniae, PCR Not Detected (NotDetected); Coronavirus 19, PCR Not Detected (NotDetected); Coronavirus 229E Not Detected (NotDetected); Coronavirus NL63 Not Detected (NotDetected); Coronavirus OC43 Not Detected (NotDetected); Coronovirus HKU1,PCR Not Detected (NotDetected); Human Metapneumovirus Not Detected (NotDetected); Influenza A, PCR Not Detected (NotDetected); Influenza AH1, 2009 Not Detected (NotDetected); Influenza AH1, PCR Not Detected (NotDetected); Influenza AH3,PCR Not Detected (NotDetected); Influenza B, PCR Not Detected (NotDetected); Mycoplasma Pneumoniae, PCR Not Detected (NotDetected); Parainfluenza 1, PCR Not Detected (NotDetected); Parainfluenza 2, PCR Not Detected (NotDetected); Parainfluenza 3, PCR Not Detected (NotDetected); Parainfluenza 4, PCR Not Detected (NotDetected); Respiratory Syncytial Virus Not Detected (NotDetected); Rhinovirus/Enterovirus Not Detected (NotDetected)
[2022-05-23 16:39] VITALS: BP 132/75; PULSE 79; RESP 17; TEMP 36.8; O2SAT 97
== END 2022-05-23 16:41 | disposition home or self-care (01) ==
PROVIDERS: Emergency Provider Nurse Practitioner; PCP Family Medicine
DX: J32.9 Chronic sinusitis, unspecified (principal)
CPT/HCPCS: 71046; 87581; 87632; 87798; 87804; 96372; 99212; C9803; G0463; U0003; U0005

== ENCOUNTER 2022-06-17 11:11 | Emergency (ER) | payer MEDICARE, SELFPAY ==
[2022-06-17 12:55] VITALS: BP 134/86; PULSE 65; RESP 16; TEMP 36.6; O2SAT 95; BMI 27.2
--- NOTE | 2022-06-17 12:56 | EXP.UTC ---
Discharge Plan Disposition Patient Disposition: Home, Self-Care Condition: Good Prescriptions Prescriptions: New amoxicillin [amoxicillin] 875 mg tablet 875 mg PO Q12H Qty: 20 0RF benzonatate [benzonatate] 100 mg capsule 100 mg PO TIDP PRN (Reason: Cough) Qty: 30 0RF prednisone 10 mg tablet 10 mg PO DIRECTED 9 Days Qty: 21 0RF Rx Instructions: Take 4 tablets daily for 3 days, then take 2 tablets daily for 3 days, then take 1 tablet daily for 3 days, then stop. No Action Anoro Ellipta 62.5-25 mcg/actuation blister with device 1 inh INHALATION DAILY 90 Days Qty: 180 3RF albuterol sulfate 90 mcg/actuation HFA aerosol inhaler 1 inh INHALATION Q6H PRN (Reason: shortness of breath or wheezing) 90 Days Qty: 8.5 3RF Flovent Diskus 50 mcg/actuation blister with device 1 inh INHALATION BID 90 Days Qty: 180 3RF clopidogrel 75 mg tablet See Rx Instructions .ROUTE .COMPLEX Qty: 90 3RF Dose Instruction: TAKE 1 TABLET BY MOUTH DAILY Rx Instructions: TAKE 1 TABLET BY MOUTH DAILY losartan 50 mg tablet See Rx Instructions .ROUTE .COMPLEX Rx Instructions: TAKE 1 TABLET BY MOUTH DAILY FOR HYPERTENSION atorvastatin 40 mg tablet See Rx Instructions .ROUTE .COMPLEX Rx Instructions: TAKE 1 TABLET BY MOUTH AT BEDTIME FOR CHOLESTEROL pantoprazole 40 mg tablet,delayed release (DR/EC) See Rx Instructions .ROUTE .COMPLEX Rx Instructions: TAKE 1 TABLET BY MOUTH DAILY albuterol sulfate [Proventil HFA] 90 mcg/actuation HFA aerosol inhaler 1 inh inhalation Q6H PRN (Reason: shortness of breath or wheezing) Qty: 8.5 0RF azithromycin [Zithromax Z-Roderick] 250 mg tablet See Rx Instructions .ROUTE .COMPLEX 5 Days Qty: 6 0RF Rx Instructions: For 250 mg dose pack: take 500 mg today (day 1), then 250 mg for 4 days (days 2-5) aspirin 81 MG tablet,chewable 81 mg PO HS nitroglycerin 0.4 MG tablet, sublingual 0.4 mg sublingual NEEDED PRN (Reason: Chest Pain) Referrals Follow up/Referrals: Minoo Armenta MD [Primary Care Provider] - See instructions Activity Restrictions/Add. Instructions Additional Instructions/Restrictions: Drink plenty of fluids. Take tylenol or ibuprofen for pain or fever. Take the medications as directed. Follow up with your regular doctor. GO TO THE ER FOR ANY WORSENING SYMPTOMS Don't start the oral steroids until tomorrow, since you had the shot here today. Clinical Impressions Clinical Impression: COPD (chronic obstructive pulmonary disease), Acute exacerbation of chronic obstructive pulmonary disease Instructions Patient Instructions: DI for Chronic Obstructive Pulmonary Disease Discharge ED Provider: Trey Khan [facility] [place] HPI General Stated complaint: Chills, bodyaches, cough Time Seen by Provider: 06/17/22 12:53 History of Present Illness Provider Complaint: He states that he had covid-19 and RSV around the last of April. He states that since then he has never got back to feeling good. He has continued to cough and have chest congestion. He has a history of copd. He denies shortness of breath and chest pain. Related Data Home Medications Medication Instructions Recorded Confirmed aspirin 81 mg chewable tablet 81 mg PO [facility] 03/12/18 05/23/22 nitroglycerin 0.4 mg sublingual 0.4 mg sublingual NEEDED PRN 02/01/21 05/23/22 tablet Chest Pain atorvastatin 40 mg tablet See Rx Instructions .Route 05/13/22 05/23/22 .COMPLEX Cholesterol losartan 50 mg tablet See Rx Instructions .Route 05/13/22 05/23/22 .COMPLEX High blood pressure pantoprazole 40 mg tablet,delayed See Rx Instructions .Route 05/13/22 05/23/22 release .COMPLEX GERD Previous Rx's Medication Instructions Recorded albuterol sulfate 90 mcg/actuation 1 inh inhalation Q6H PRN shortness 09/23/21 aerosol inhaler of breath or wheezing 90 days #8.5 grams fluticasone propionate
--- NOTE | 2022-06-17 12:57 | XR_ITS ---
FINAL REPORT TECHNIQUE: Chest PA & Lateral CLINICAL HISTORY: COVID/RSV x 1 month, SOA, cough w chest tightness. Former smoker, hx COPD COMPARISON: May 2022 FINDINGS: 2 views of the chest were performed. The heart size is normal. The mediastinum is within normal limits. The lungs are hyperinflated. There is mild scarring in the lung bases. There are no pleural effusions. There is no pneumothorax. The bony thorax appears intact. IMPRESSION: No acute cardiopulmonary process. Reviewed, Interpreted and Dictated by Maurice Delgado MD Transcribed by Yakov Rosenthal Authenticated and [facility]
[2022-06-17 13:37] LABS: UTC Influenza A Antigen Negative (Negative); UTC Influenza B Antigen Negative (Negative)
[2022-06-17 14:26] VITALS: BP 134/86; PULSE 65; RESP 16; TEMP 36.6
[2022-06-17 14:30] LABS: Adenovirus,PCR Not Detected (NotDetected); Bordetella Pertussis Not Detected (NotDetected); Chlamydophila Pneumoniae, PCR Not Detected (NotDetected); Coronavirus 19, PCR Not Detected (NotDetected); Coronavirus 229E Not Detected (NotDetected); Coronavirus NL63 Not Detected (NotDetected); Coronavirus OC43 Not Detected (NotDetected); Coronovirus HKU1,PCR Not Detected (NotDetected); Human Metapneumovirus Not Detected (NotDetected); Influenza A, PCR Not Detected (NotDetected); Influenza AH1, 2009 Not Detected (NotDetected); Influenza AH1, PCR Not Detected (NotDetected); Influenza B, PCR Not Detected (NotDetected); Mycoplasma Pneumoniae, PCR Not Detected (NotDetected); Parainfluenza 1, PCR Not Detected (NotDetected); Parainfluenza 2, PCR Not Detected (NotDetected); Parainfluenza 3, PCR Not Detected (NotDetected); Parainfluenza 4, PCR Not Detected (NotDetected); Respiratory Syncytial Virus Not Detected (NotDetected); Rhinovirus/Enterovirus Not Detected (NotDetected)
[2022-06-18 12:39] LABS: Influenza AH3,PCR Detected (NotDetected)
--- NOTE | 2022-06-18 12:43 | PC.NURSE ---
respiratory panel results called to pt.
== END 2022-06-17 14:27 | disposition home or self-care (01) ==
PROVIDERS: Emergency Provider Nurse Practitioner Family; PCP Family Medicine
DX: J44.1 Chronic obstructive pulmonary disease with (acute) exacerbation (principal)
CPT/HCPCS: 71046; 87581; 87632; 87798; 87804; 96372; 99213; C9803; G0463; J0696; U0003; U0005

== ENCOUNTER 2022-09-12 22:54 | Observation (INO) | payer MEDICARE, SELFPAY ==
[2022-09-12 22:56] VITALS: BP 128/71; PULSE 62; RESP 16; TEMP 36.4; O2SAT 98; BMI 27.5
--- NOTE | 2022-09-12 23:03 | ECG_ITS ---
APPROVED REPORT Exam: Resting ECG HR:60 bpm ECG Measurements Heart Rate 60 AXES ND 205 P 68 QRSd 90 QRS 67 QT 435 T 70 QTc 436 Conclusion SINUS RHYTHM WITH OCCASIONAL SUPRAVENTRICULAR PREMATURE COMPLEXES BORDERLINE ECG UNCONFIRMED REPORT Electronically signed by : Dedrick Mcwilliams MD 09/13/2022 20:29:23
--- NOTE | 2022-09-12 23:11 | XR_ITS ---
PROCEDURE INFORMATION: Exam: XR Chest Exam date and time: 09/12/2022 11:36 PM Age: 72 years old Clinical indication: Pain; Other: Abd; Additional info: Abd pain TECHNIQUE: Imaging protocol: Radiologic exam of the chest. Views: 1 view. Total images: 1 COMPARISON: CR XR CHEST 2V 06/17/2022 1:37 PM FINDINGS: Tubes, catheters and devices: EKG leads are present. Lungs: Lungs are emphysematous with bullous changes in the upper lungs. Chronic bibasilar interstitial fibrotic scarring. No acute infiltrate or airspace consolidation. No pulmonary vascular congestion. Pleural spaces: Unremarkable. No pleural effusion. No pneumothorax. Heart/Mediastinum: Unremarkable. No cardiomegaly. No mediastinal widening or hilar enlargement. Vasculature: Atherosclerotic aortic arch. Bones/joints: Partially visualized mild degenerative changes thoracic spine and both shoulders. Other findings: Lordotic positioning. IMPRESSION: 1. No radiographically acute cardiopulmonary process. 2. COPD and chronic bibasilar interstitial fibrosis.
[2022-09-12 23:21] LABS: Basophils # 0.1 K/mm3 (0-0.2); Basophils % 1.4 % (0.1-2.0); Eosinophils # 0.2 K/mm3 (0.0-0.4); Eosinophils % 2.7 % (0.1-12.0); Lymphocytes # 3.2 K/mm3 (0.7-4.5); Mean Corpuscular HGB Conc 34.1 g/dL (31.8-35.4); Mean Corpuscular Hemoglobin 30.8 pg (27.0-31.2); Mean Corpuscular Volume 90.4 fl (80-94); Mean Platelet Volume 8.1 fl (7.4-10.4); Monocytes # 0.6 K/mm3 (0.1-1.0); Monocytes % 8.5 % (1.7-9.3); Neutrophils # 2.7 K/mm3 (1.8-7.8); Neutrophils % 39.4 % (37.0-80.0); Platelet Count 229 K/mm3 (142-424); Red Blood Count 4.87 M/mm3 (4.60-6.20); Red Cell Distribution Width 12.9 % (11.5-17.5); White Blood Count 6.7 K/mm3 (4.8-10.8)
[2022-09-12 23:28] LABS: Alanine Aminotransferase 25 U/L (12-78); Albumin Level 4.1 g/dl (3.5-5.0); Albumin/Globulin Ratio 1.3 (1.1-1.8); Alkaline Phosphatase 86 U/L (38-126); Amylase 80 U/L (30-110); Anion Gap 4.6 mEq/L (5-15); Aspartate Amino Transferase 30 U/L (17-59); Bilirubin,Total 0.6 mg/dl (0.2-1.3); Blood Urea Nitrogen 15 mg/dl (9-20); Calcium 8.5 mg/dl (8.4-10.2); Carbon Dioxide 27 mmol/L (22.0-30.0); Chloride 108 mmol/L (98-107); Creatinine Clearance Estimated 80 mL/min (50-200); Estimated Glomerular Filt Rate 83 ml/min (>60); GFR (African American) 101 ML/MIN (>60); Globulin 3.2 g/dL (1.3-3.2); Glucose 113 mg/dl (74-100); Lipase 125 U/L (23-300); Potassium 3.6 mmoL/L (3.5-5.1); Sodium 136 mmol/L (136-145); Total Protein,Serum 7.3 g/dl (6.3-8.2)
[2022-09-12 23:30] VITALS: BP 124/74; PULSE 60; RESP 17; O2SAT 93
--- NOTE | 2022-09-12 23:45 | PC.NURSE ---
Addendum entered by Huong Griffiths RN 09/12/22 23:52: Provided him with warm blanket Original Note: Updated pt on POC. provided him with POC
--- NOTE | 2022-09-12 23:55 | HMH.EDDIZZ ---
Discharge Plan Disposition Patient Disposition: Admitted as Observation Chief Complaint: Dizziness Prescriptions Prescriptions: No Action losartan 50 mg tablet 50 mg PO DAILY atorvastatin 40 mg tablet 40 mg PO DAILY Rx Instructions: TAKE 1 TABLET BY MOUTH AT BEDTIME FOR CHOLESTEROL pantoprazole 40 mg tablet,delayed release (DR/EC) 40 mg PO DAILY Rx Instructions: TAKE 1 TABLET BY MOUTH DAILY albuterol sulfate [Proventil HFA] 90 mcg/actuation HFA aerosol inhaler 1 inh inhalation Q6H PRN (Reason: shortness of breath or wheezing) Qty: 8.5 0RF Flovent Diskus 50 mcg/actuation blister with device 1 inh INHALATION BID clopidogrel 75 mg tablet 75 mg PO DAILY Rx Instructions: TAKE 1 TABLET BY MOUTH DAILY Anoro Ellipta 62.5-25 mcg/actuation blister with device 1 inh INHALATION DAILY aspirin 81 MG tablet,chewable 81 mg PO HS nitroglycerin 0.4 MG tablet, sublingual 0.4 mg sublingual NEEDED PRN (Reason: Chest Pain) Discharge ED Provider: Nilesh (ED)Christian HPI General Chief Complaint: Dizziness Stated Complaint: Dizzy,nausea,Weakness Time Seen by Provider: 09/12/22 23:05 Mode of Arrival: Wheelchair Source of Information: Patient, Relative and Medical Record Limitations: No Limitations Description of Symptoms (Recalled from ER Triage Doc. by RN): pt advises around 10pm he became severely nauseated and dizzy. Advises he has not vomited and does not have diarrhea but just does not feel good. History of Present Illness HPI Narrative: pt with acute onset of dizzyness tonight w/o fever/trauma/chest pain/palpitations /no recent viral illness / worse with mov - has hx of cad/htn/copd complaint: dizziness Onset (ago): hour(s) Timing: sudden onset Description: lightheadedness History of similar episodes: No History of trauma: No Severity: moderate Exacerbating factors: movement Related Data Home Medications Medication Instructions Recorded Confirmed aspirin 81 mg chewable tablet 81 mg PO HS [facility] 03/12/18 09/13/22 nitroglycerin 0.4 mg sublingual 0.4 mg sublingual NEEDED PRN 02/01/21 09/13/22 tablet Chest Pain atorvastatin 40 mg tablet 40 mg PO DAILY Cholesterol 05/13/22 09/13/22 losartan 50 mg tablet 50 mg PO DAILY High blood pressure 05/13/22 09/13/22 pantoprazole 40 mg tablet,delayed 40 mg PO DAILY GERD 05/13/22 09/13/22 release clopidogrel 75 mg tablet 75 mg PO DAILY Blood thinner 09/13/22 09/13/22 fluticasone propionate 50 1 inh inhalation BID COPD 09/13/22 09/13/22 mcg/actuation blister powder for inhalation (Flovent Diskus) umeclidinium 62.5 mcg-vilanterol 1 inh inhalation DAILY COPD 09/13/22 09/13/22 25 mcg/actuation powdr for inhalation (Anoro Ellipta) Previous Rx's Medication Instructions Recorded albuterol sulfate 90 mcg/actuation 1 inh inhalation Q6H PRN shortness 05/23/22 aerosol inhaler (Proventil HFA) of breath or wheezing #8.5 grams Allergies Allergy/AdvReac Type Severity Reaction Status Date / Time No Known Allergies Allergy Verified 06/17/22 12:57 [facility] Disclaimer: The information contained in this section may have been updated after the patient was seen, as this information can be updated by other users. 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 CAD (coronary artery disease) COPD (chronic obstructive pulmonary disease) Dyspnea on exertion Family history of asthma History of smoking 30 or more pack years HLD (hyperlipidemia) SOB (shortness of breath) 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 Previous back surgery Stented coronary artery Family History Other No significant family history 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 Smoking Status: Never smoker second hand exposure: No alcohol intake: never substance use type: denies
[2022-09-13] VITALS (12 sets, daily range): BP systolic 95–124; BP diastolic 42–68; PULSE 60–90; RESP 15–18; TEMP 36.5–36.9; O2SAT 90–96; BMI 29.1
--- NOTE | 2022-09-13 | CT_ITS ---
PROCEDURE INFORMATION: Exam: CT Head Without Contrast Exam date and time: 09/13/2022 12:05 AM Age: 72 years old Clinical indication: Dizziness TECHNIQUE: Imaging protocol: Computed tomography of the head without contrast. Radiation optimization: All CT scans at this facility use at least one of these dose optimization techniques: automated exposure control; mA and/or kV adjustment per patient size (includes targeted exams where dose is matched to clinical indication); or iterative reconstruction. REPORTING DATA: Count of CT and Cardiac NM exams in prior 12 months: This patient has received [address] and 0 known cardiac nuclear medicine studies in the 12 months prior to the current study. COMPARISON: No relevant prior studies available. FINDINGS: Brain: There is no evidence of acute parenchymal hemorrhage, extra-axial collection, or acute infarction. There is no mass effect, midline shift, or downward herniation. Cerebral ventricles: No ventriculomegaly. Paranasal sinuses: There is moderate paranasal sinus mucosal thickening/opacification.. Mastoid air cells: Visualized mastoid air cells are well aerated. Bones/joints: Unremarkable. No acute fracture. Soft tissues: Unremarkable. IMPRESSION: No evidence of acute intracranial process.
--- NOTE | 2022-09-13 | CT_ITS ---
PROCEDURE INFORMATION: Exam: CT Abdomen And Pelvis Without Contrast Exam date and time: 09/13/2022 12:09 AM Age: 72 years old Clinical indication: Nausea; Abdominal pain; Additional info: Abd pain TECHNIQUE: Imaging protocol: Computed tomography of the abdomen and pelvis without contrast. Total images: 294 Radiation optimization: All CT scans at this facility use at least one of these dose optimization techniques: automated exposure control; mA and/or kV adjustment per patient size (includes targeted exams where dose is matched to clinical indication); or iterative reconstruction. REPORTING DATA: Count of CT and Cardiac NM exams in prior 12 months: This patient has received [address] and 0 known cardiac nuclear medicine studies in the 12 months prior to the current study. COMPARISON: ABDPELW CT abdomen pelvis w con 03/13/2018 5:07 PM FINDINGS: Lungs: Lungs are emphysematous with fibrotic scarring. No airspace consolidation. Heart: Normal heart size. Prominent coronary artery calcifications. Liver: Normal. No mass. Gallbladder and bile ducts: Status post cholecystectomy. No biliary ductal dilatation. Pancreas: Fatty interdigitation of the pancreas. No pancreatic mass or acute pancreatitis. Spleen: Nonenlarged spleen with calcified granuloma. Adrenal glands: Normal. No mass. Kidneys and ureters: No nephrolithiasis or hydronephrosis. No discrete renal mass. Stomach and bowel: Stomach is mildly distended with recently ingested content. Unremarkable duodenum. No bowel obstruction or ileus. Small bowel appears within normal limits. There are few loops of small bowel interposed anterior to the liver. Mild colonic stool burden. Minor scattered colonic diverticulosis without acute diverticulitis. Unremarkable rectum. Appendix: The appendix is not visualized. No secondary signs for appendicitis. Intraperitoneal space: Unremarkable. No free air. No significant fluid collection. Vasculature: Retroaortic left renal vein is a normal anatomic variation. Atherosclerotic abdominal aorta and iliac arteries without aneurysm. Pelvic phleboliths. Lymph nodes: Unremarkable. No enlarged lymph nodes. Urinary bladder: Minor bladder wall thickening. Reproductive: Mild prostatomegaly with central calcification. Bones/joints: Mild degenerative changes bilateral hips and SI joints. Severe degenerative changes lumbar spine greatest at L4-L5 and L5-S1. No concerning bone lesions. Soft tissues: Unremarkable. IMPRESSION: 1. No acute intra-abdominal or pelvic process. 2. Multiple chronic and incidental findings as described.
--- NOTE | 2022-09-13 00:01 | PC.NURSE ---
Pt to CT
--- NOTE | 2022-09-13 00:14 | PC.NURSE ---
PT back from CT
[2022-09-13 00:18] LABS: Coronavirus 19, PCR Not Detected (NotDetected); Influenza A, PCR Not Detected (NotDetected); Influenza B, PCR Not Detected (NotDetected)
--- NOTE | 2022-09-13 00:20 | PC.NURSE ---
Pt provided with pillow. Pt complains of nausea. RN notified.
[2022-09-13 00:21] LABS: C-Reactive Protein < 0.3 mg/L (0-4)
[2022-09-13 00:31] LABS: Troponin I < 0.01 ng/ml (0.00-0.034)
[2022-09-13 00:49] LABS: Erythrocyte Sedimentation Rate 15 mm/hr (0-20)
--- NOTE | 2022-09-13 00:49 | PC.NURSE ---
updated pt and on POC. Pt advises nausea is better but he is still dizzy when he opens his eyes.
--- NOTE | 2022-09-13 00:58 | PC.NURSE ---
Dr. Fernandez pagefortunato
--- NOTE | 2022-09-13 00:59 | PC.NURSE ---
Dr. Galloway speaking with Dr. Fernandez
--- NOTE | 2022-09-13 01:02 | PC.NURSE ---
Lab advised 7 minutes remaining on covid test
--- NOTE | 2022-09-13 01:06 | PC.NURSE ---
Patient admitted to [facility] with Acute Vertigo to service of Dr. Fernandez to Dr. Armenta.
--- NOTE | 2022-09-13 01:25 | PC.NURSE ---
Called report to Anali
--- NOTE | 2022-09-13 01:33 | PC.NURSE ---
pt arrived to floor at this time
[2022-09-13 03:38] LABS: Troponin I < 0.01 ng/ml (0.00-0.034)
[2022-09-13 06:47] LABS: Basophils % 0.2 % (0.1-2.0); Eosinophils % 0.3 % (0.1-12.0); Hematocrit 43.1 % (42.0-52.0); Hemoglobin 14.2 g/dL (14.1-18.0); Lymphocytes # 0.8 K/mm3 (0.7-4.5); Lymphocytes % 16.3 % (10-50); Mean Corpuscular HGB Conc 32.9 g/dL (31.8-35.4); Mean Corpuscular Hemoglobin 30.6 pg (27.0-31.2); Mean Platelet Volume 8.2 fl (7.4-10.4); Monocytes # 0.1 K/mm3 (0.1-1.0); Monocytes % 1.1 % (1.7-9.3); Neutrophils # 3.8 K/mm3 (1.8-7.8); Neutrophils % 82.2 % (37.0-80.0); Platelet Count 201 K/mm3 (142-424); Red Blood Count 4.63 M/mm3 (4.60-6.20); Red Cell Distribution Width 12.8 % (11.5-17.5); White Blood Count 4.7 K/mm3 (4.8-10.8)
[2022-09-13 07:06] LABS: Chloride 109 mmol/L (98-107); Potassium 4.2 mmoL/L (3.5-5.1); Sodium 138 mmol/L (136-145)
[2022-09-13 07:09] LABS: Anion Gap 8.2 mEq/L (5-15); Blood Urea Nitrogen 13 mg/dl (9-20); Carbon Dioxide 25 mmol/L (22.0-30.0); Creatinine Clearance Estimated 85 mL/min (50-200); Estimated Glomerular Filt Rate 96 ml/min (>60); GFR (African American) 116 ML/MIN (>60)
[2022-09-13 07:10] LABS: Calcium 8.2 mg/dl (8.4-10.2); Glucose 158 mg/dl (74-100)
--- NOTE | 2022-09-13 07:37 | HMH.PHAINT1 ---
Pharmacy Intervention Comments: Medication reconciliation completed using external fill history
[2022-09-13 07:41] LABS: Troponin I < 0.01 ng/ml (0.00-0.034)
--- NOTE | 2022-09-13 09:00 | EXP.ACUTE.PN ---
Subjective *Date: 09/13/22 *Time: 09:00 Interval history: Admitted with vertigo last night through the emergency room. He describesSpinning sensation as opposed to lightheadedness. He has no prior history of vertigo he states. He has prior history of coronary artery disease. He did not receive treatment with Rick maneuver in the emergency room. We will do that this morning. Medical Exam Vital signs and Labs for Last 24 Hours: Vital Signs Temp Pulse Pulse Resp BP BP Pulse Ox 09/13/22 07:57 97.7 F 68 18 95/42 L 90 L 09/13/22 06:00 70 09/13/22 02:00 60 09/13/22 03:57 98.4 F 86 16 116/66 94 L 09/13/22 03:47 98.4 F 86 16 116/66 94 L 09/13/22 01:59 98.2 F 86 16 110/62 96 09/13/22 01:18 98.4 F 66 16 110/62 09/13/22 00:30 62 15 124/68 96 09/12/22 23:30 60 17 124/74 93 L 09/12/22 22:56 97.6 F 62 16 128/71 98 Intake and Output 09/12/22 09/13/22 09/13/22 19:59 03:59 11:59 Output Total 300 / 300 Balance -300 / -300 Output: Output, Urine Amount 300 / 300 Other: Number of Voids 0 Weight 192 lb 3.2 oz Patient Weight 09/13/22 11:59 Weight 192 lb 3.2 oz Laboratory Results - last 24 hr 09/12/22 23:10: WBC 6.7, RBC 4.87, Hgb 15.0, Hct 44.0, MCV 90.4, MCH 30.8, MCHC 34.1, RDW 12.9, Plt Count 229, MPV 8.1, Neut % (Auto) 39.4, Lymph % (Auto) 48.0, [place] % (Auto) 8.5, Eos % (Auto) 2.7, Baso % (Auto) 1.4, Neut # (Auto) 2.7, Lymph # (Auto) 3.2, [place] # (Auto) 0.6, Eos # (Auto) 0.2, Baso # (Auto) 0.1 09/12/22 23:10: Sodium 136, Potassium 3.6, Chloride 108 H, Carbon Dioxide 27, Anion Gap 4.6 L, BUN 15, Creatinine 0.90, Estimated Creat Clear 80, Estimated GFR 83, Est GFR ( Amer) 101, Glucose 113 H, Calcium 8.5, Total Bilirubin 0.6, AST 30, ALT 25, Alkaline Phosphatase 86, Total Protein 7.3, Albumin 4.1, Globulin 3.2, Albumin/Globulin Ratio 1.3, Amylase 80, Lipase 125 09/12/22 23:10: ESR 15 09/12/22 23:10: Troponin I < 0.01, C-Reactive Protein < 0.3 09/13/22 00:16: SARS-CoV-2 (PCR) Not detected, Influenza A Untype (PCR) Not detected, Influenza Type B (PCR) Not detected 09/13/22 03:05: Troponin I < 0.01 09/13/22 06:30: Troponin I < 0.01 09/13/22 06:30: WBC 4.7 L D, RBC 4.63, Hgb 14.2, Hct 43.1, MCV 93.0, MCH 30.6, MCHC 32.9, RDW 12.8, Plt Count 201, MPV 8.2, Neut % (Auto) 82.2 H, Lymph % (Auto) 16.3, [place] % (Auto) 1.1 L, Eos % (Auto) 0.3, Baso % (Auto) 0.2, Neut # (Auto) 3.8, Lymph # (Auto) 0.8, [place] # (Auto) 0.1, Eos # (Auto) 0.0, Baso # (Auto) 0.0 09/13/22 06:30: Sodium 138, Potassium 4.2, Chloride 109 H, Carbon Dioxide 25, Anion Gap 8.2, BUN 13, Creatinine 0.80, Estimated Creat Clear 85, Estimated GFR 96, Est GFR ( Amer) 116, Glucose 158 H D, Calcium 8.2 L I & O for Labs for Last 24 Hours: Intake & Output 09/10/22 09/11/22 09/12/22 09/13/22 11:59 11:59 11:59 11:59 Output Total 300 / 300 Balance -300 / -300 Weight 192 lb 3.2 oz Head: Present normocephalic Eyes: Present change in vision (He states some blurriness) ENT: Present mucous membranes moist Neck: Present normal inspection Respiratory: Present CTA bilaterally; Absent respiratory distress Cardiac: Present Reg Rate and Rhythm (No ectopics) GI: Present soft; Absent distention or tenderness Rectal (male): Present deferred (male): Present deferred Extremities: Present normal inspection Skin: Present intact Neuro: Present Cranial Nerve 2-12 Intact, Motor Function Intact, Weakness (Stated), alert, oriented x 3 and moves all extremities; Absent Numbness, Resting Tremor or No Lateralizing Findings Comment:: No nystagmus. No Definitive nystagmus elicited during Rick maneuver. Assessment and Plan *Assessment and plan (1) Vertigo: Status: Acute Category: Medical Code(s): R42 - Dizziness and giddiness (2) CAD (coronary artery disease): Problem Comment: JANUARY 2021 Medical management for ischemic heart disease NOVEMBER 2020.Critical proxi
--- NOTE | 2022-09-13 09:07 | EXP.HP ---
History of Present Illness *Admission Date: 09/12/22 *Reason for visit:: Dizziness with nausea and some vomiting.: Also abdominal pain *History of present illness: Mr. Miranda is a 72-year-old male patient with a history of coronary artery disease with acute VA in 1996 with stent placement, acute VA in 2001 with stent placement, hypertension, GERD, COPD, colon polyps who was brought to [facility] emergency room after episode of severe dizziness of sudden onset followed with nausea and some vomiting and abdominal pain. He states if he kept his eyes closed it was much better. He was unable to walk any distance because of this. He denies having any chest pain or shortness of breath with this episode. He states he awakened around 9:30 PM last night got up and was a little bit dizzy but then when getting up around 10 PM the dizziness was sudden and made him fall backwards at which time he fell into a chair. He denies any upper respiratory symptoms. He had a good day yesterday and finished painting the ceiling in one room without any difficulties. He was eating and drinking normally as well. . With evaluation in the emergency room CT scan of the head showed no acute changes. CT of the abdomen showed no acute changes. Vital signs were stable. He was afebrile. Troponin I was normal x2. He received a fluid bolus, Zofran 4 mg IV once, promethazine 6.25 mg IV once. The decision was then made to admit him for observation. This a.m. he feels much better. He still has dizziness with movement of his head. He has been unable to go to the bathroom due to dizziness. He was able to eat some breakfast and denies nausea at present. [facility] Disclaimer: The information contained in this section may have been updated after the patient was seen, as this information can be updated by other users. 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 (Updated 09/13/22 @ 01:54 by Anali Longo RN) CAD (coronary artery disease) COPD (chronic obstructive pulmonary disease) Dyspnea on exertion Family history of asthma History of COVID-19 History of smoking 30 or more pack years HLD (hyperlipidemia) SOB (shortness of breath) 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 (Updated 09/13/22 @ 01:54 by Anali Longo RN) History of cholecystectomy History of colonoscopy Previous back surgery Stented coronary artery Family History (Updated 09/13/22 @ 01:54 by Anali Longo RN) Family history of cancer Family history of hypertension Family history of diabetes mellitus type II Family history of hyperlipidemia 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 (Updated 09/13/22 @ 01:54 by Anali Longo RN) Smoking Status: Former smoker second hand exposure: No alcohol intake: never substance use type: denies use current occupational status: retired Travel in the last 8 weeks: None household members: spouse housing: house current occupational exposures/hazards: No caffeine: Yes Review of Systems Constitutional Constitutional: Denies anorexia, Denies body ache(s), Denies chills, Denies fatigue, Denies fever(s), Denies frequent falls and Denies headache(s) Eyes Eyes: Reports blurry vision (with movement of the head) ENT Ears, Nose, Mouth, and Throat: Reports dizziness, Denies otalgia, Denies headache(s) and Denies sore throat *Cardiovascular Cardiovascular: Denies chest pain, Denies dyspnea, Denies edema and Denies irregular heart rhythm *Respiratory Respiratory: Denies chest congestion, Denies cough and Denies dyspnea *Gastrointestinal Gastrointestinal: Denies change in bowel habits, Denies dyspepsia, Denies hematemesis, Denies hematochezia, Denies loose stools, Denies melena, Reports nausea and Reports vomiting *Genitourinary Genitourinary: Denies difficulty urinating *Musculoskeletal Musculoskeletal: Reports abnormal gait (Difficulty with walking due to the dizziness; usually has no problems), Denies arthralgias, Denies muscle weakness and Denies myalgias *Neurologic Neurologic: Reports abnormal gait (Diffi
--- NOTE | 2022-09-13 18:07 | PC.NURSE ---
Pt alert and oriented. No complaints of dizziness throughout day. Up with SBA precaution. Tolerating oral intake with no further nausea. VSS. States he is feeling much better today
--- NOTE | 2022-09-14 11:27 | CARE MANAGER ---
Spoke with patient for post-discharge phone interview, no issues noted.
--- NOTE | 2022-09-18 23:11 | EXP.DC.SUM ---
General Admission date:: 09/13/22 Discharge date: 09/13/22 HPI HPI HPI: Mr. Miranda is a 72-year-old male patient with a history of coronary artery disease with acute MA in 1996 with stent placement, acute MA in 2001 with stent placement, hypertension, GERD, COPD, colon polyps who was brought to [facility] emergency room after episode of severe dizziness of sudden onset followed with nausea and some vomiting and abdominal pain. He states if he kept his eyes closed it was much better. He was unable to walk any distance because of this. He denies having any chest pain or shortness of breath with this episode. He states he awakened around 9:30 PM last night got up and was a little bit dizzy but then when getting up around 10 PM the dizziness was sudden and made him fall backwards at which time he fell into a chair. He denies any upper respiratory symptoms. He had a good day yesterday and finished painting the ceiling in one room without any difficulties. He was eating and drinking normally as well. With evaluation in the emergency room CT scan of the head showed no acute changes. CT of the abdomen showed no acute changes. Vital signs were stable. He was afebrile. Troponin I was normal x2. He received a fluid bolus, Zofran 4 mg IV once, promethazine 6.25 mg IV once. The decision was then made to admit him for observation. This a.m. he feels much better. He still has dizziness with movement of his head. He has been unable to go to the bathroom due to dizziness. He was able to eat some breakfast and denies nausea at present. Hospital Course Hospital Course Hospital Course: The patient was admitted for observation. His dizziness did improve and he was able to get up in a chair. He was stable to be discharged home with outpatient follow-up. Exam Data for Last 24 hours Vital signs and Labs for Last 24 Hours: Temp Pulse Resp BP Pulse Ox 97.9 F 69 17 103/45 L 91 L 09/13/22 15:55 09/13/22 16:00 09/13/22 15:55 09/13/22 15:55 09/13/22 15:55 Narrative: Constitutional Constitutional: no acute distress *Routine HEENT Exam Head: Present normocephalic and atraumatic Eye: Present EOMI and PERRL; Absent conjunctival icterus, scleral injection or conjunctivae pink ENT: Present mucous membranes moist and oropharynx clear *Routine Neck Exam Neck: Present supple; Absent carotid bruit, lymphadenopathy or thyromegaly *Routine Respiratory Exam Respiratory: Present CTA bilaterally (Anteriorly and posteriorly) *Routine Cardiovascular Exam Cardiovascular: Present RRR (Monitor showing sinus rhythm in the 70s without ectopy noted) *Routine Abdominal Exam Abdominal: Present soft, normoactive bowel sounds and tenderness (Because his lower abdomen sore); Absent distended or guarding *Routine Rectal Exam Rectal:: deferred *Routine Genitalia Exam Genitalia:: deferred *Routine Extremities Exam Extremities: Present full ROM and pulses intact; Absent edema or calf tenderness *Routine Neurological Exam Neurological: Present alert, oriented X3, moving all extremities, normal tone, hearing grossly intact and normal speech; Absent altered mental status, nystagmus, facial asymmetry or tremors DS: Diagnosis Discharge Diagnosis (1) Vertigo: Status: Resolved (2) CAD (coronary artery disease): Status: Chronic Problem details: JANUARY 2021 Medical management for ischemic heart disease NOVEMBER 2020.Critical proximal dominant right coronary stenosis Successful stenting of the ostial proximal dominant right coronary artery critical disease reduced to 0% with 1 drug-eluting stent Preserved ejection fraction with mild regional wall motion abnormality Mildly elevated LVEDP (3) HLD (hyperlipidemia): Status: Chronic (4) Stented coronary artery: Status: Chronic (5) COPD (chronic obstructive pulmonary disease): Status: Chronic (6) GERD (gastroesophageal reflux disease): Status: Chronic Meds Home M
== END 2022-09-13 18:30 | disposition home or self-care (01) ==
LOC: ER 23:04 → 2ND 09-13 01:12
PROVIDERS: Admitting Provider Family Medicine; Emergency Provider Emergency Medicine; PCP Family Medicine; Visit Provider Family Medicine
DX: R10.9 Unspecified abdominal pain (principal); R42 Dizziness and giddiness; I25.10 Atherosclerotic heart disease of native coronary artery without angina pectoris; E78.2 Mixed hyperlipidemia; Z95.5 Presence of coronary angioplasty implant and graft; J44.9 Chronic obstructive pulmonary disease, unspecified; K21.9 Gastro-esophageal reflux disease without esophagitis; Z79.899 Other long term (current) drug therapy; Z20.822 Contact with and (suspected) exposure to COVID-19
CPT/HCPCS: G0378; 36415; 70450; 71045; 74176; 80048; 80053; 82150; 83690; 84484; 85025; 85651; 86140; 93005; 99285; C9803; J2405; U0003; U0005

== ENCOUNTER → 2023-02-13 11:24 | Outpatient (CLI) | payer MEDICARE, SELFPAY ==
--- NOTE | 2023-02-13 11:35 | XR_ITS ---
FINAL REPORT CLINICAL HISTORY: HEMOPTYSIS COMPARISON: 09/12/2022 FINDINGS: TWO VIEW CHEST The heart size is normal. The mediastinum is normal. There is mild atelectasis or scarring in the lung bases. Emphysema is seen. There is no pneumothorax. IMPRESSION: Mild atelectasis or scarring in the lung bases. Reviewed, Interpreted and Dictated by Chidi Gross III, MD Transcribed by Karen Barrett Authenticated and [facility]
== END ==
PROVIDERS: PCP Family Medicine; Visit Provider Family Medicine
DX: R04.2 Hemoptysis (principal)
CPT/HCPCS: 71046

== ENCOUNTER → 2023-03-28 12:49 | Outpatient (CLI) | payer MEDICARE, SELFPAY ==
[2023-03-28 13:20] VITALS: PULSE 58; PULSE 60
--- NOTE | 2023-03-28 15:00 | PC.NURSE ---
RESPIRATORY CARE NOTE: PT UNABLE TO DO 6MWT. STATED THAT HE HASNT WALKED LONG DISTANCES IN YEARS
== END ==
PROVIDERS: PCP Family Medicine; Visit Provider Internal Medicine Pulmonary Disease
DX: R06.02 Shortness of breath (principal)
CPT/HCPCS: 94060; 94640

== ENCOUNTER → 2023-05-30 07:49 | Outpatient (CLI) | payer MEDICARE, SELFPAY ==
[2023-05-30 08:37] LABS: Alanine Aminotransferase 27 U/L (12-78); Albumin Level 4.1 g/dl (3.5-5.0); Alkaline Phosphatase 81 U/L (38-126); Aspartate Amino Transferase 39 U/L (17-59); Bilirubin,Direct 0.2 mg/dl (0.0-0.4); Bilirubin,Indirect 0.9 mg/dL (0.0-0.9); Bilirubin,Total 1.1 mg/dl (0.2-1.3); Bilirubin,Unconjugated 0.9 mg/dL (0.0-1.1); Chol/HDL Ratio 4.2 (1-3.5); Cholesterol 130 mg/dl (140-200); HDL Cholesterol 31 mg/dl (40-60); Total Protein,Serum 6.9 g/dl (6.3-8.2); Triglycerides 138 mg/dl (30-150); VLDL Cholesterol 28 mg/dL (0-40)
[2023-05-30 08:49] LABS: Direct LDL Cholesterol 75.73 mg/dL (100-129)
== END ==
PROVIDERS: PCP Family Medicine; Visit Provider Physician Assistant
DX: E78.5 Hyperlipidemia, unspecified (principal); I25.10 Atherosclerotic heart disease of native coronary artery without angina pectoris; R06.09 Other forms of dyspnea; Z95.5 Presence of coronary angioplasty implant and graft; Z87.891 Personal history of nicotine dependence
CPT/HCPCS: 36415; 80061; 80076

== ENCOUNTER → 2023-06-22 09:09 | Outpatient (CLI) | payer MEDICARE, SELFPAY | PROVIDERS: PCP Nurse Practitioner; Visit Provider Nurse Practitioner | DX: H60.91 Unspecified otitis externa, right ear (principal); B96.89 Other specified bacterial agents as the cause of diseases classified elsewhere | CPT/HCPCS: 87070 ==

== ENCOUNTER 2023-07-15 11:41 | Emergency (ER) | payer MEDICARE, SELFPAY ==
--- NOTE | 2023-07-15 12:10 | ED_ITS ---
Discharge Plan Disposition Patient Disposition: Home, Self-Care Condition: Good Prescriptions Prescriptions: New sulfamethoxazole-trimethoprim [Bactrim DS] 800-160 mg Tablet 1 tab PO BID Qty: 20 0RF cephalexin 500 mg capsule 500 mg PO QID Qty: 40 0RF mupirocin 2 % ointment 1 applic topical TID 7 Days Qty: 15 0RF methylprednisolone 4 mg Tablets,Dose Pack 4 mg PO DIRECTED 6 Days Qty: 21 0RF Rx Instructions: Take 1 pack as directed for 6 days No Action losartan 25 mg tablet 25 mg PO DAILY Qty: [address] 0.3-0.05 % drops,suspension 2 drp ophthalmic (eye) BID 10 Days Qty: 5 0RF Rx Instructions: please change the above route to EAR; direction: instill 2 drops into right EAR BID for 10 days mometasone 220 mcg/ actuation (120) aerosol powdr breath activated 1 inh inhalation BID Qty: 3 3RF albuterol sulfate [Proventil HFA] 90 mcg/actuation HFA aerosol inhaler 1 inh inhalation Q6H PRN (Reason: shortness of breath or wheezing) Qty: 8.5 0RF Trelegy Ellipta 100-62.5-25 mcg blister with device 1 inh inhalation DAILY 90 Days Qty: 90 3RF atorvastatin 40 mg tablet See Rx Instructions .ROUTE .COMPLEX Qty: 90 3RF Dose Instruction: TAKE 1 TABLET BY MOUTH AT BEDTIME FOR CHOLESTEROL Rx Instructions: TAKE 1 TABLET BY MOUTH AT BEDTIME FOR CHOLESTEROL pantoprazole 40 mg tablet,delayed release (DR/EC) See Rx Instructions .ROUTE .COMPLEX Qty: 90 3RF Dose Instruction: TAKE 1 TABLET BY MOUTH DAILY Rx Instructions: TAKE 1 TABLET BY MOUTH DAILY clopidogrel 75 mg tablet See Rx Instructions .ROUTE .COMPLEX Qty: 90 3RF Dose Instruction: TAKE 1 TABLET BY MOUTH DAILY Rx Instructions: TAKE 1 TABLET BY MOUTH DAILY aspirin 81 MG tablet,chewable 81 mg PO HS Referrals Follow up/Referrals: Chidi Delvalle MD [Staff Physician] - See instructions Minoo Armenta MD [Primary Care Provider] - See instructions Activity Restrictions/Add. Instructions Additional Instructions/Restrictions: Strep throat: Drink plenty of fluids. Take tylenol or ibuprofen for pain or fever. Take the medications as directed. Follow up with your regular doctor. Groin abscess: Keep the affected area clean and dry. Follow up with Dr Delvalle (surgery) as discussed. I put the referral in but you need to call his office and make the appointment. His office phone number will be on this paperwork. Take the antibiotics as directed and apply the topical antibiotics as directed. Apply warm wet compresses to the affected area three or four times per day. GO TO THE ER FOR ANY WORSENING SYMPTOMS Clinical Impressions Clinical Impression: Strep throat, Abscess of groin, right Instructions Patient Instructions: Strep Throat, Boil, DI for Strep Throat Discharge ED Provider: Trey Khan [facility] General Stated complaint: st cough congestion lathargic Time Seen by Provider: 07/15/23 12:09 History of Present Illness Provider Complaint: He states that he has had a very sore throat for the past 3 days. He also has a swollen area in his right groin area. He states that he has had boils there before that had to be drained. Related Data Home Medications Medication Instructions Recorded Confirmed aspirin 81 mg chewable tablet 81 mg PO [facility] 03/12/18 06/22/23 Previous Rx's Medication Instructions Recorded albuterol sulfate 90 mcg/actuation 1 inh inhalation Q6H PRN shortness 09/22/22 aerosol inhaler (Proventil HFA) of breath or wheezing #8.5 grams mometasone 220 mcg/actuation(120 1 inh inhalation BID #3 ea 09/22/22 doses)breath activated powder inhaler fluticasone fur. 100 mcg-umeclid 1 inh inhalation DAILY 90 days #90 03/28/23 62.5 mcg-vilant 25 mcg ea inhalat.powder (Trelegy Ellipta) atorvastatin 40 mg tablet See Rx Instructions .Route 05/22/23 .COMPLEX #90 tabs clopidogrel 75 mg tablet See Rx Instructions .Route 05/22/23 .COMPLEX #90 tabs pantoprazole 40 mg tablet,delayed See Rx Instructions .Route 05/22/23 release .COMPLEX #90 tabs losartan 25 mg tablet 25 mg PO DAILY #30 tabs 05/29/23 tobramycin 0.3 %-dexamethasone 2 drp ophthalmic (eye) BID right 06/22/23 0.05 % eye drops,suspension EAR 10 days #5 mL (Tobradex ST) cephalexin 500 mg capsule 500 mg PO QID #40 caps 07/15/23 methylprednisolone 4 mg tablets in 4 mg PO DIRECTED 6 days #21 tabs 07/15/23 a dose pack mupirocin 2 % topical ointment 1 applic topical TID 7 days #15 07/15/23 grams sulfamethoxazole 800 1 tab PO BID #20 tabs 07/15/23 mg-trimethoprim 160 mg tablet (Bactrim DS) Allergies Allergy/AdvReac Type Severity Reaction Status Date / Time No Known Allergies Allergy Verified 06/22/23 09:48 [facility] Disclaimer: The information contained in this section may have been updated after the patient was seen, as this information can be updated by other users. 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 (Updated 07/15/23 @ 12:51 by Trey Khan APRN) Acute exacerbation of chronic obstructive pulmonary disease Bronchitis CAD (coronary artery disease) COPD (chronic obstructive pulmonary disease) Dyspnea on exertion Dyspnea on exertion Family history of asthma Hearing loss in right ear History of COVID-19 History of smoking 30 or more pack years HLD (hyperlipidemia) Otitis externa of right ear Sinusitis SOB (shortness of breath) Tinnitus 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 History of cholecystectomy History of colonoscopy Previous back surgery Stented coronary artery Family History Other Family history of cancer Family history of diabetes mellitus type II Family history of hyperlipidemia Family history of hypertension 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 Smoking Status: Former smoker second hand exposure: No alcohol intake: never substance use type: denies use current occupational status: retired Travel in the last 8 weeks: None household members: spouse housing: house current occupational exposures/hazards: No caffeine: Yes ROS Obtained: Yes All systems reviewed & no additional complaints except as documented Constitutional Constitutional: Reports chills and Reports fever(s) Eyes Eyes: Denies eye discharge ENT Ears, Nose, Mouth, and Throat: Reports as per HPI Cardiovascular Cardiovascular: Denies chest pain Respiratory Respiratory: Denies chest congestion and Reports cough Gastrointestinal Gastrointestingal: Reports nausea; Denies abdominal pain, constipation, cramping, diarrhea or vomiting Musculoskeletal Musculoskeletal: Denies arthralgias Integumentary/Breasts Skin/Breast: Reports as per HPI Neurologic Neurologic: Denies paresthesias Physical Exam General General appearance: alert and in no apparent distress Head Head exam: atraumatic, normocephalic and normal inspection Eye Eye exam: Present normal appearance, PERRL and EOMI ENT ENT exam: Present mucous membranes moist and normal external ear exam Expanded ENT Exam TM/Canal exam: Bilateral TM: erythema and bulging Nose exam: Absent sinus tenderness Mouth exam: Present normal external inspection; Absent drooling Teeth exam: Present normal inspection Throat exam: Present tonsillar erythema, tonsillomegaly and tonsillar exudate Neck Neck exam: Present normal inspection, full ROM and trachea midline; Absent tenderness, meningismus or lymphadenopathy Chest Chest inspection: Present normal inspection and symmetric chest wall rise; Absent tenderness Respiratory Respiratory exam: Present normal lung sounds bilaterally; Absent respiratory distress, wheezes or stridor Cardiovascular Cardiovascular exam: Present regular rate and normal rhythm; Absent systolic murmur or diastolic murmur Abdominal Exam Abdominal exam: Present soft and normal bowel sounds; Absent distention, tenderness, guarding, rebound or rigidity Extremities Exam Extremities exam: Present normal inspection and normal capillary refill; Absent calf tenderness Back Exam Back exam: Present normal inspection and full ROM; Absent tenderness, CVA tenderness (R) or CVA tenderness (L) Neurological Exam Neurological exam: Present alert, oriented X3 and CN II-XII intact Psychiatric Psychiatric exam: Present normal affect and normal mood Skin Skin exam: Present erythema (there is an area of redness that measures 2 cm diameter on his right groin area. There is induration beneath it. No open wound or drainage noted. ) Medical Decision Making Medical Records Medical records reviewed: No I reviewed the patient's medical records. Donald Inquiry Pt receiving controlled substance: No Lab Data Lab results reviewed: Yes I reviewed the patient's lab results.
[2023-07-15 12:26] LABS: UTC Strep Screen (Rapid) Positive (Negative)
[2023-07-15 12:30] VITALS: BP 135/73; PULSE 74; RESP 20; TEMP 36.6; O2SAT 96; BMI 28.7
[2023-07-15] MEDS: cefTRIAXone 1GM VIAL 1 GM IM (12:55)
[2023-07-15] MEDS: LIDOCAINE 1% 5ML PF VIAL IM (12:55)
[2023-07-15 13:04] VITALS: BP 135/73; PULSE 74; RESP 20; TEMP 36.6; O2SAT 96
== END 2023-07-15 13:14 | disposition home or self-care (01) ==
PROVIDERS: Emergency Provider Nurse Practitioner Family; PCP Family Medicine
DX: J02.0 Streptococcal pharyngitis (principal); L02.214 Cutaneous abscess of groin; R07.0 Pain in throat; R05.9 Cough, unspecified; R50.9 Fever, unspecified; R09.81 Nasal congestion; R53.83 Other fatigue; J44.9 Chronic obstructive pulmonary disease, unspecified; I11.9 Hypertensive heart disease without heart failure; I25.10 Atherosclerotic heart disease of native coronary artery without angina pectoris; E78.5 Hyperlipidemia, unspecified; Z87.891 Personal history of nicotine dependence; Z95.5 Presence of coronary angioplasty implant and graft
CPT/HCPCS: 87880; 96372; 99212; 99214; G0463; J0696

== ENCOUNTER 2023-09-04 10:01 | Outpatient (POV) | payer MEDICARE, SELFPAY | END 2023-09-04 23:59 | disposition home or self-care (01) | LOC: SC 10:02 | PROVIDERS: Visit Provider Specialist/Technologist | DX: Z00.00 Encounter for general adult medical examination without abnormal findings (principal) ==

== ENCOUNTER 2023-09-28 08:33 | Outpatient (CLI) | payer MEDICARE, SELFPAY ==
--- NOTE | 2023-09-28 | CA_ITS ---
APPROVED REPORT EXAM: Comprehensive 2D, Doppler, and color-flow Echocardiogram Senior Escrow Officer: Julianna Mims RVT Ht: 5 ft 7 in Wt: 194lbs BSA: 2.00 BP: 118/65 mmHg Indications: CM,CAD,COPD,SOA,HLD,EX SMOKER 2D Dimensions LA Volume 48.30 mL LA Volume Index 24.15 mL/m2 (M/F) 16-34 M-Mode Dimensions RVDd 2.21 cm (0.9-2.6) LA Diam 3.67 cm (1.9-4.0) LVDd 4.96 cm (3.5-5.7) LVDs 3.34 cm (3.5-5.7) IVSd 0.64 cm (0.6-1.1) PWd 0.59 cm (0.6-1.1) EF (Teich) 60.90% FS 32.70% EDV (Teich) 116.10 mL TAPSE 2.90 (<1.7) ESV (Teich) 45.40 mL LV Diastology E Decel Time 233 (160-240 msec) E/A Ratio 0.7 Aortic Valve JEROMY Index 1.61 cm2/m2 AoV Peak Real. 111.0 (50-130 cm/s) AO Peak GR. 4.90 mmHg AO Mean GR. 2.30 (<5 mmHg) AO VTI 24.0 (18-25 cm) JEROMY (VTI) 3.29 (2.5-4.5 cm2) Mitral Valve MV E Max Real. 61.0 (40-130 cm/s) MV A Velocity 93.0 (40-130 cm/s) E/A Ratio 0.66 MV PHT 68.0 ms Pulmonary Valve PV Peak Velocity 50.0 (50-150 cm/s) Tricuspid Valve TR P. Velocity 137.00 cm/s RAP Estimate 10.00 mmHg RVSP 17.50 mmHg Left Ventricle The left ventricle is normal size. The left ventricular systolic function is normal. The left ventricular ejection fraction is within the normal range. There is normal left ventricular wall thickness. There is normal LV segmental wall motion. The left ventricular diastolic function is normal. LVEF is 60%. Right Ventricle The right ventricle is normal size. The right ventricular systolic function is normal. Atria The left atrium size is normal. The right atrium size is normal. There is no Doppler evidence of interatrial shunt. Aortic Valve The aortic valve is mildly thickened. There is no aortic valvular stenosis. No aortic regurgitation is present. Mitral Valve The mitral valve is mildly thickened. No evidence of mitral valve stenosis. Trace mitral regurgitation. Tricuspid Valve The tricuspid valve leaflets are thin and pliable. Trace tricuspid regurgitation. There is insufficient TR jet to estimate RVSP. Pulmonic Valve The pulmonary valve is normal in structure. Trace pulmonic regurgitation. Great Vessels The aortic root is normal in size. The ascending aorta is not well-visualized. IVC is normal in size and collapses >50% with inspiration. Pericardium There is no pericardial effusion. Other Information Study Quality: Fair Conclusion Normal biventricular systolic function. No significant valvular stenosis or regurgitation. Electronically signed by : Theresa Enrique MD 09/30/2023 22:24:47
== END 2023-09-28 23:59 ==
LOC: RT 08:33
PROVIDERS: PCP Family Medicine; Visit Provider Family Medicine
DX: I25.5 Ischemic cardiomyopathy (principal); Z95.5 Presence of coronary angioplasty implant and graft; Z87.891 Personal history of nicotine dependence
CPT/HCPCS: 93306

== ENCOUNTER 2023-11-27 09:42 | Outpatient (CLI) | payer MEDICARE, SELFPAY ==
[2023-11-27 10:36] LABS: Basophils % 0.5 % (0.1-2.0); Eosinophils # 0.1 K/mm3 (0.0-0.4); Eosinophils % 1.4 % (0.1-12.0); Hematocrit 45.8 % (42.0-52.0); Hemoglobin 14.8 g/dL (14.1-18.0); Lymphocytes # 1.8 K/mm3 (0.7-4.5); Lymphocytes % 28.6 % (10-50); Mean Corpuscular HGB Conc 32.4 g/dL (31.8-35.4); Mean Corpuscular Hemoglobin 31.2 pg (27.0-31.2); Mean Corpuscular Volume 96.5 fl (80-94); Mean Platelet Volume 8.8 fl (7.4-10.4); Monocytes # 0.4 K/mm3 (0.1-1.0); Monocytes % 6.9 % (1.7-9.3); Neutrophils # 3.9 K/mm3 (1.8-7.8); Neutrophils % 62.5 % (37.0-80.0); Platelet Count 169 K/mm3 (142-424); Red Blood Count 4.75 M/mm3 (4.60-6.20); Red Cell Distribution Width 13.3 % (11.5-17.5); White Blood Count 6.2 K/mm3 (4.8-10.8)
[2023-11-27 10:48] LABS: Alanine Aminotransferase 24 U/L (12-78); Alkaline Phosphatase 91 U/L (38-126); Aspartate Amino Transferase 29 U/L (17-59); Bilirubin,Direct 0.1 mg/dl (0.0-0.4); Bilirubin,Indirect 0.6 mg/dL (0.0-0.9); Bilirubin,Total 0.7 mg/dl (0.2-1.3); Bilirubin,Unconjugated 0.6 mg/dL (0.0-1.1); Blood Urea Nitrogen 16 mg/dl (9-20); Calcium 9.2 mg/dl (8.4-10.2); Carbon Dioxide 28 mmol/L (22.0-30.0); Chloride 104 mmol/L (98-107); Chol/HDL Ratio 2.6 (1-3.5); Cholesterol 132 mg/dl (140-200); Estimated Glomerular Filt Rate 74 ml/min (>60); GFR (African American) 89 ML/MIN (>60); Glucose 108 mg/dl (74-100); HDL Cholesterol 50 mg/dl (40-60); Magnesium 1.6 mg/dl (1.6-2.3); Sodium 140 mmol/L (136-145); Total Protein,Serum 6.8 g/dl (6.3-8.2); Triglycerides 69 mg/dl (30-150); VLDL Cholesterol 14 mg/dL (0-40)
[2023-11-27 10:55] LABS: Anion Gap 12.2 mEq/L (5-15); Potassium 4.2 mmoL/L (3.5-5.1)
[2023-11-27 10:58] LABS: Direct LDL Cholesterol 71.37 mg/dL (100-129)
[2023-11-27 11:05] LABS: Free T4 (Free Thyroxine) 0.92 ng/dl (0.78-2.19)
[2023-11-27 11:21] LABS: Thyroid Stimulating Hormone 0.82 uIU/mL (0.465-4.68)
== END 2023-11-27 23:59 | disposition home or self-care (01) ==
LOC: LAB 09:44
PROVIDERS: PCP Family Medicine; Visit Provider Physician Assistant
DX: E78.2 Mixed hyperlipidemia (principal); I11.9 Hypertensive heart disease without heart failure; I25.119 Atherosclerotic heart disease of native coronary artery with unspecified angina pectoris; Z87.891 Personal history of nicotine dependence; Z95.5 Presence of coronary angioplasty implant and graft
CPT/HCPCS: 36415; 80048; 80061; 80076; 83735; 84439; 84443; 85025

== ENCOUNTER 2024-03-06 11:10 | Inpatient (IN) | payer MEDICARE, SELFPAY ==
--- NOTE | 2024-03-04 16:25 | PC.NURSE ---
arrived by w/c from ED admissions
--- NOTE | 2024-03-04 16:27 | P.HP_ITS ---
History of Present Illness *Admission Date: 03/04/24 *Reason for visit:: RN and clarice *History of present illness: Mr. Miranda is a 73-year-old male with a history of coronary artery disease with acute [place] in 1996 with stent placement and in 2001 with stent placement, hypertension, GERD, COPD, and colon polyps. He presented to the office of [facility] complaining of a cough with a sore throat, body aches, and runny nose for a week. He stated his brother was diagnosed with COVID today. Patient was with him a couple of days ago. Pt denied having any fever, chest pain, and shortness of breath. With evaluation in the office his white blood cell count was found to be 13,400 with 88.3% granulocytes. COVID test and flu test were both negative. Chest assessment revealed bibasilar rales and decreased breath sounds. He was felt to have a pneumonia and was admitted for further evaluation and treatment. Patient also describes a poor oral intake for the last few days with a decrease in urinary output. He had no vomiting until presentation to the office. At the time of this exam right after admission patient is feeling a little better after receiving a DuoNeb treatment. He continues with a nonproductive cough. He states he feels terrible. He is somewhat nauseated and does not want anything to eat. He is complaining of bodyaches as well as a headache. [facility] Disclaimer: The information contained in this section may have been updated after the patient was seen, as this information can be updated by other users. 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 (Updated 03/04/24 @ 17:03 by Jocelin Morales APRN) Acute right otitis media Hearing difficulty of right ear Impacted cerumen, right ear Chronic inflammation of both eustachian tubes Congestion of both ears Excessive cerumen in both ear canals Excessive cerumen in right ear canal Tinnitus aurium Otitis externa of right ear Tinnitus Hearing loss in right ear Dyspnea on exertion History of COVID-19 Acute exacerbation of chronic obstructive pulmonary disease Bronchitis Sinusitis Family history of asthma History of smoking 30 or more pack years Dyspnea on exertion SOB (shortness of breath) HLD (hyperlipidemia) CAD (coronary artery disease) COPD (chronic obstructive pulmonary disease) 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 History of colonoscopy History of cholecystectomy Previous back surgery Stented coronary artery Family History Other Family history of cancer Family history of diabetes mellitus type II Family history of hyperlipidemia Family history of hypertension 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 (Updated 03/04/24 @ 17:00 by Sugar Cristina RN) Smoking Status: Former smoker second hand exposure: No alcohol intake: never substance use type: denies use current occupational status: retired Travel in the last 8 weeks: None household members: spouse housing: house current occupational exposures/hazards: No caffeine: Yes Review of Systems Constitutional Constitutional: Reports body ache(s), Denies fever(s), Denies frequent falls, Reports headache(s) and Reports poor appetite Eyes Eyes: Denies change in vision ENT Ears, Nose, Mouth, and Throat: Reports headache(s), Denies nasal congestion and Denies sore throat *Cardiovascular Cardiovascular: Denies chest pain and Reports dyspnea *Respiratory Respiratory: Reports chest congestion, Reports cough and Reports dyspnea *Gastrointestinal Gastrointestinal: Denies abdominal pain, Denies diarrhea, Reports nausea and Re ports vomiting *Genitourinary Genitourinary: Denies difficulty urinating and Reports oliguria *Musculoskeletal Musculoskeletal: Denies abnormal gait and Denies arthralgias *Neurologic Neurologic: Denies abnormal gait, Denies frequent falls and Reports headache(s) Meds Home Medications and Allergies Home Medications ?Medication ?Instructions ?Recorded ?Confirmed ?Type aspirin 81 mg chewable tablet 81 mg PO [facility] 03/12/18 02/08/24 History albuterol sulfate 90 mcg/actuation 1 inh inhalation Q6H PRN shortness 09/22/22 02/08/24 Rx aerosol inhaler (Proventil HFA) of breath or wheezing #8.5 grams atorvastatin 40 mg tablet See Rx Instructions .Route 05/22/23 02/08/24 Rx .COMPLEX #90 tabs clopidogrel 75 mg tablet See Rx Instructions .Route 05/22/23 02/08/24 Rx .COMPLEX #90 tabs pantoprazole 40 mg tablet,delayed See Rx Instructions .Route 05/22/23 02/08/24 Rx release .COMPLEX #90 tabs losartan 25 mg tablet See Rx Instructions .Route 07/31/23 02/08/24 Rx .COMPLEX #90 tabs fluticasone fur. 100 mcg-umeclid 1 inh inhalation DAILY 90 days #90 09/26/23 02/08/24 Rx 62.5 mcg-vilant 25 mcg ea inhalat.powder (Trelegy Ellipta) tadalafil 5 mg tablet (Cialis) 5 mg PO DAILY #30 tabs 10/09/23 02/08/24 Rx levocetirizine 5 mg tablet (Xyzal) 5 mg PO DAILY #30 tabs 12/18/23 02/08/24 Rx azelastine 137 mcg (0.1 %) nasal 1 spray intranasal BID #30 mL 01/10/24 02/08/24 Rx spray amoxicillin 500 mg capsule 500 mg PO Q12H otitis media 10 02/08/24 02/08/24 Rx days #20 caps New Prescriptions to Start Prescriptions: Allergies Allergy/AdvReac Type Severity Reaction Status Date / Time No Known Allergies Allergy Verified 02/08/24 10:14 Exam Constitutional Constitutional: no acute distress Comments: Appears not to feel well *Routine HEENT Exam Head: Present normocephalic and atraumatic Eye: Present PERRL; Absent conjunctival icterus, scleral injection or conjunctivae pink ENT: Present mucous membranes dry and oropharynx clear *Routine Neck Exam Neck: Present supple; Absent lymphadenopathy or thyromegaly *Routine Respiratory Exam Respiratory: Present decreased breath sounds (Posteriorly), wheezes (Bilaterally anteriorly) and able to speak in complete sentences *Routine Cardiovascular Exam Cardiovascular: Present RRR *Routine Abdominal Exam Abdominal: Present soft; Absent tenderness *Routine Rectal Exam Rectal:: deferred *Routine Genitalia Exam Genitalia:: deferred *Routine Extremities Exam Extremities: Absent edema or calf tenderness *Routine Neurological Exam Neurological: Present alert and oriented X3 Assessment and Plan *Assessment and plan (1) Pneumonia: Status: Acute Category: Medical Code(s): J18.9 - Pneumonia, unspecified organism (2) S/P right coronary artery (RCA) stent placement: Status: Chronic Category: Surgical Code(s): Z95.5 - Presence of coronary angioplasty implant and graft (3) GERD (gastroesophageal reflux disease): Status: Chronic Qualifiers: Esophagitis bleeding: without hemorrhage Category: Medical Code(s): K21.9 - Gastro-esophageal reflux disease without esophagitis (4) COPD (chronic obstructive pulmonary disease): Status: Chronic Qualifiers: COPD type: emphysema Emphysema type: centrilobular Qualified Code(s): J43.2 - Centrilobular emphysema Category: Medical Code(s): J44.9 - Chronic obstructive pulmonary disease, unspecified (5) History of smoking 30 or more pack years: Status: Chronic Category: Social Hx Code(s): Z87.891 - Personal history of nicotine dependence (6) HLD (hyperlipidemia): Status: Chronic Qualifiers: Hyperlipidemia type: mixed hyperlipidemia Qualified Code(s): E78.2 - Mixed hyperlipidemia Category: Medical Code(s): E78.5 - Hyperlipidemia, unspecified (7) CAD (coronary artery disease): Problem Comment: JANUARY 2021 Medical management for ischemic heart disease NOVEMBER 2020.Critical proximal dominant right coronary stenosis Successful stenting of the ostial proximal dominant right coronary artery critical disease reduced to 0% with 1 drug-eluting stent Preserved ejection fraction with mild regional wall motion abnormality Mildly elevated LVEDP Status: Chronic Qualifiers: Associated angina: without angina Coronary Disease-Associated Artery/Lesion type: [place] artery [place] vs. transplanted heart: [place] heart Qualified Code(s): I25.10 - Atherosclerotic heart disease of [place] coronary artery without angina pectoris Category: Medical Code(s): I25.10 - Atherosclerotic heart disease of [place] coronary artery without angina pectoris Plan Antibiotics with Rocephin and Zithromax. Also steroids and DuoNebs ordered. Cough medicine and Tylenol for symptoms. Chest x-ray, CMP ordered.
[2024-03-04 16:38] VITALS: BP 176/75; PULSE 95; RESP 24; TEMP 36.6; O2SAT 93; BMI 29.1
--- NOTE | 2024-03-04 17:05 | XR_ITS ---
PROCEDURE INFORMATION: Exam: XR Chest Exam date and time: 03/04/2024 5:15 PM Age: 73 years old Clinical indication: Shortness of breath; Additional info: SOB TECHNIQUE: Imaging protocol: Radiologic exam of the chest. Views: 1 view. COMPARISON: CR XR CHEST 2V 02/13/2023 11:39 AM FINDINGS: Lungs: No evidence of acute pulmonary disease or infiltrates Pleural spaces: No large effusion or pneumothorax. Heart/Mediastinum: Stable cardiac and mediastinal contours. Vasculature: There are calcifications of the aortic arch. Bones/joints: No evidence of acute osseous abnormalities within the visualized portions of the thoracic spine and ribs. Osseous structures appear appropriate for patient age. IMPRESSION: No dense parenchymal consolidation, pleural effusion, or pneumothorax.
--- NOTE | 2024-03-04 17:22 | PC.NURSE ---
new admit this shift, tolerating room air fairly well at time of writing with o2 sat >90%. duoneb admin upon arrival to floor r/t wheezing and tachypnea.
[2024-03-04] MEDS: 0.9 % SODIUM CHLORIDE 1000ML 1,000 ML 100 ML IV (17:40)
[2024-03-04] MEDS: METHYLPREDNISOLONE SOD SUCC 125MG VIAL 125 MG IV (17:40)
[2024-03-04] MEDS: guaiFENesin 200MG/10ML SYRUP UDC 200 MG PO (17:42)
[2024-03-04 17:44] LABS: MANUAL DIFFERENTIAL MANUAL DIFFERENTIAL (MANUAL DIFF)
[2024-03-04 17:47] LABS: Basophils # 0.1 K/mm3 (0-0.2); Basophils % 0.5 % (0.1-2.0); Eosinophils # 0.4 K/mm3 (0.0-0.4); Eosinophils % 2.5 % (0.1-12.0); Hematocrit 48.9 % (42.0-52.0); Hemoglobin 15.6 g/dL (14.1-18.0); Lymphocytes # 2.7 K/mm3 (0.7-4.5); Lymphocytes % 18.8 % (10-50); Mean Corpuscular HGB Conc 31.8 g/dL (31.8-35.4); Mean Corpuscular Hemoglobin 30.7 pg (27.0-31.2); Mean Corpuscular Volume 96.5 fl (80-94); Mean Platelet Volume 9.2 fl (7.4-10.4); Monocytes # 0.7 K/mm3 (0.1-1.0); Monocytes % 5.1 % (1.7-9.3); Neutrophils # 10.5 K/mm3 (1.8-7.8); Neutrophils % 73.1 % (37.0-80.0); Platelet Count 231 K/mm3 (142-424); Red Blood Count 5.07 M/mm3 (4.60-6.20); Red Cell Distribution Width 13.7 % (11.5-17.5); White Blood Count 14.4 K/mm3 (4.8-10.8)
[2024-03-04] MEDS: CEFTRIAXONE SODIUM 1 GM in 0.9 % SODIUM CHLORIDE 50 ML IV (17:48)
[2024-03-04 17:54] LABS: Chloride 103 mmol/L (98-107); Potassium 3.9 mmoL/L (3.5-5.1); Sodium 139 mmol/L (136-145)
[2024-03-04 17:57] LABS: Anion Gap 11.9 mEq/L (5-15); Blood Urea Nitrogen 20 mg/dl (9-20); Calcium 8.7 mg/dl (8.4-10.2); Carbon Dioxide 28 mmol/L (22.0-30.0); Creatinine Clearance Estimated 83 mL/min (50-200); Estimated Glomerular Filt Rate 74 ml/min (>60); GFR (African American) 89 ML/MIN (>60); Glucose 106 mg/dl (74-100)
[2024-03-04] MEDS: IPRATROPIUM/ALBUTEROL 3 ML NEB IH ×2 (18:08→23:03)
[2024-03-04 18:15] VITALS: PULSE 89; PULSE 91
[2024-03-04] MEDS: AZITHROMYCIN 500 MG in 0.9 % SODIUM CHLORIDE 250 ML 250 MG IV (18:33)
[2024-03-04 18:34] LABS: Adenovirus,PCR Not Detected (NotDetected); Bordetella Pertussis Not Detected (NotDetected); Chlamydophila Pneumoniae, PCR Not Detected (NotDetected); Coronavirus 19, PCR Not Detected (NotDetected); Coronavirus 229E Not Detected (NotDetected); Coronavirus NL63 Not Detected (NotDetected); Coronavirus OC43 Not Detected (NotDetected); Coronovirus HKU1,PCR Not Detected (NotDetected); Human Metapneumovirus Not Detected (NotDetected); Influenza A, PCR Not Detected (NotDetected); Influenza AH1, 2009 Not Detected (NotDetected); Influenza AH1, PCR Not Detected (NotDetected); Influenza AH3,PCR Not Detected (NotDetected); Influenza B, PCR Not Detected (NotDetected); Mycoplasma Pneumoniae, PCR Not Detected (NotDetected); Parainfluenza 1, PCR Not Detected (NotDetected); Parainfluenza 2, PCR Not Detected (NotDetected); Parainfluenza 3, PCR Not Detected (NotDetected); Parainfluenza 4, PCR Not Detected (NotDetected); Respiratory Syncytial Virus Not Detected (NotDetected); Rhinovirus/Enterovirus Not Detected (NotDetected)
[2024-03-04 19:12] LABS: Lymphocytes % 20 % (10-50); Monocytes % 6 % (2-9); Neutrophils % 74 % (42-76); Platelet Estimate Normal; RBC Morphology Normal; Total Cells Counted 100
[2024-03-04 20:00] VITALS: BP 131/74; PULSE 105; RESP 20; TEMP 37.1; O2SAT 95
[2024-03-04] MEDS: SODIUM CHLORIDE 0.9% 10ML VIAL 10 ML IV (20:42)
[2024-03-04] MEDS: PANTOPRAZOLE 40MG VIAL 40 MG IV (20:42)
[2024-03-04] MEDS: [UNRECOGNIZED DRUG - OTHER] PO (20:43)
[2024-03-04] MEDS: HYDROCODONE PO (20:43)
[2024-03-04 23:10] VITALS: PULSE 100; PULSE 96
[2024-03-04] MEDS: METHYLPREDNISOLONE SOD SUCC 125MG VIAL 80 MG IV (23:35)
[2024-03-05] VITALS (11 sets, daily range): BP systolic 115–142; BP diastolic 58–93; PULSE 74–102; RESP 16–18; TEMP 36.5–37.4; O2SAT 93–96; BMI 29.5
[2024-03-05] MEDS: HYDROCODONE PO ×5 (01:47→21:46)
[2024-03-05] MEDS: [UNRECOGNIZED DRUG - OTHER] PO ×5 (01:47→21:46)
[2024-03-05] MEDS: 0.9 % SODIUM CHLORIDE 1000ML 1,000 ML 100 ML IV ×2 (03:57→14:00)
[2024-03-05 06:14] LABS: MANUAL DIFFERENTIAL MANUAL DIFFERENTIAL (MANUAL DIFF)
[2024-03-05] MEDS: METHYLPREDNISOLONE SOD SUCC 125MG VIAL 80 MG IV (06:14)
[2024-03-05] MEDS: IPRATROPIUM/ALBUTEROL 3 ML NEB IH ×4 (06:20→23:44)
[2024-03-05 06:28] LABS: Chloride 105 mmol/L (98-107); Sodium 135 mmol/L (136-145)
[2024-03-05 06:29] LABS: Potassium 3.9 mmoL/L (3.5-5.1)
[2024-03-05 06:31] LABS: Anion Gap 12.9 mEq/L (5-15); Blood Urea Nitrogen 17 mg/dl (9-20); Carbon Dioxide 21 mmol/L (22.0-30.0); Creatinine Clearance Estimated 85 mL/min (50-200); Estimated Glomerular Filt Rate 83 ml/min (>60); GFR (African American) 101 ML/MIN (>60)
[2024-03-05 06:32] LABS: Calcium 8.2 mg/dl (8.4-10.2); Glucose 181 mg/dl (74-100)
[2024-03-05 06:58] LABS: Basophils % 0.1 % (0.1-2.0); Hematocrit 43.4 % (42.0-52.0); Hemoglobin 14.1 g/dL (14.1-18.0); Lymphocytes # 1.2 K/mm3 (0.7-4.5); Lymphocytes % 6.2 % (10-50); Mean Corpuscular HGB Conc 32.5 g/dL (31.8-35.4); Mean Corpuscular Hemoglobin 30.8 pg (27.0-31.2); Mean Corpuscular Volume 94.8 fl (80-94); Mean Platelet Volume 8.8 fl (7.4-10.4); Monocytes # 0.6 K/mm3 (0.1-1.0); Monocytes % 2.9 % (1.7-9.3); Neutrophils # 17.6 K/mm3 (1.8-7.8); Neutrophils % 90.8 % (37.0-80.0); Platelet Count 187 K/mm3 (142-424); Red Blood Count 4.58 M/mm3 (4.60-6.20); Red Cell Distribution Width 13.7 % (11.5-17.5); White Blood Count 19.4 K/mm3 (4.8-10.8)
--- NOTE | 2024-03-05 07:06 | PC.NURSE ---
Pt is alert and oriented x4 and currently on RA @ 93%. Pt did require 1L of O2 for the most part of the shift but was able to be taken off by morning. Pt has complained of cough throughout the shift and has been treated per MAR. no other acute changes this shift to note.
--- NOTE | 2024-03-05 07:34 | EXP.ACUTE.PN ---
Subjective *Date: 03/05/24 *Time: 07:34 Interval history: Patient states he still feels awful. He did not sleep due to cough. Cough remains nonproductive but is looser. He continues with the body aches and has a slight headache this morning. He still does not feel like eating and drinking. After IV fluids he is voiding QS. Blood chemistries with a sodium of 135 and potassium 3.9 BUN and creatinine are 17 and 0.9. Respiratory panel is negative. Chest x-ray completed yesterday showed nothing acute. Medical Exam Vital signs and Labs for Last 24 Hours: Vital Signs Temp Pulse Pulse Resp BP Pulse Ox O2 Del Method 03/05/24 07:00 Room Air 03/05/24 06:20 79 03/05/24 06:20 80 03/05/24 04:55 Nasal Cannula 03/05/24 04:00 98.6 F 85 16 127/79 93 L Nasal Cannula 03/05/24 03:00 Nasal Cannula 03/05/24 01:00 Nasal Cannula 03/05/24 00:00 99.3 F 102 H 16 120/58 L 95 Nasal Cannula 03/04/24 23:10 96 H 03/04/24 23:10 100 H 03/04/24 23:00 Nasal Cannula 03/04/24 22:00 Room Air 03/04/24 20:00 98.7 F 105 H 20 131/74 95 Room Air 03/04/24 20:00 Room Air 03/04/24 18:15 89 03/04/24 18:15 91 H 03/04/24 18:00 Room Air 03/04/24 16:38 97.8 F 95 H 24 176/75 H 93 L Room Air O2 Flow Rate 03/05/24 07:00 03/05/24 06:20 03/05/24 06:20 03/05/24 04:55 1 03/05/24 04:00 1 03/05/24 03:00 1 03/05/24 01:00 1 03/05/24 00:00 1 03/04/24 23:10 03/04/24 23:10 03/04/24 23:00 1 03/04/24 22:00 03/04/24 20:00 03/04/24 20:00 03/04/24 18:15 03/04/24 18:15 03/04/24 18:00 03/04/24 16:38 Intake and Output 03/04/24 03/05/24 03/05/24 19:59 03:59 11:59 Intake Total 620 / 620 Output Total 525 / 525 250 / 775 Balance 95 / 95 -250 / -155 Intake: Intake, Oral Amount 120 / 120 Intake, Total IV Amount 500 / 500 0.9 % Sodium Chloride 1000ML 1, 500 / 500 000 ml @ 100 mls/hr IV .Q10H [facility] Rx#:[id number] Output: Output, Urine Amount 525 / 525 250 / 775 Other: Weight 191 lb 7 oz 195 lb 4 oz Patient Weight 03/05/24 11:59 Weight 195 lb 4 oz Laboratory Results - last 24 hr 03/04/24 17:35: WBC 14.4 H, RBC 5.07, Hgb 15.6, Hct 48.9, MCV 96.5 H, MCH 30.7, MCHC 31.8, RDW 13.7, Plt Count 231, MPV 9.2, Neut % (Auto) 73.1, Lymph % (Auto) 18.8, [place] % (Auto) 5.1, Eos % (Auto) 2.5, Baso % (Auto) 0.5, Neut # (Auto) 10.5 H, Lymph # (Auto) 2.7, [place] # (Auto) 0.7, Eos # (Auto) 0.4, Baso # (Auto) 0.1, Total Counted 100, Neutrophils % (Manual) 74, Lymphocytes % (Manual) 20, Monocytes % (Manual) 6, Platelet Estimate Normal, RBC Morphology Normal, Sodium 139, Potassium 3.9, Chloride 103, Carbon Dioxide 28, Anion Gap 11.9, BUN 20, Creatinine 1.00, Estimated Creat Clear 83, Estimated GFR 74, Est GFR ( Amer) 89, Glucose 106 H, Calcium 8.7 03/04/24 18:30: Chlamy pneumoniae PCR Not detected, Adenovirus (PCR) Not detected, B. pertussis DNA (PCR) Not detected, Coronavirus OC43 (PCR) Not detected, Coronavirus HKU1 (PCR) Not detected, Coronavirus 229E (PCR) Not detected, SARS-CoV-2 (PCR) Not detected, Coronavirus NL63 (PCR) Not detected, Human Metapneumovir PCR Not detected, Influenza A (H1) PCR Not detected, Influ A (H1N1/09) PCR Not detected, Influenza A (H3) PCR Not detected, Influenza Type A (PCR) Not detected, Influenza Type B (PCR) Not detected, M. pneumoniae (PCR) Not detected, Parainfluenza 1 (PCR) Not detected, Parainfluenza 2 (PCR) Not detected, Parainfluenza 3 (PCR) Not detected, Parainfluenza 4 (PCR) Not detected, RSV (PCR) Not detected, Entero/Rhino (PCR) Not detected 03/05/24 05:45: WBC 19.4 H D, RBC 4.58 L, Hgb 14.1, Hct 43.4, MCV 94.8 H, MCH 30.8, MCHC 32.5, RDW 13.7, Plt Count 187, MPV 8.8, Neut % (Auto) 90.8 H, Lymph % (Auto) 6.2 L, [place] % (Auto) 2.9, Eos % (Auto) 0.0 L, Baso % (Auto) 0.1, Neut # (Auto) 17.6 H, Lymph # (Auto) 1.2, [place] # (Auto) 0.6, Eos # (Auto) 0.0, Baso # (Auto) 0.0, Sodium 135 L, Potassium 3.9, Chloride 105, Carbon Dioxide 21 L, Anion Gap 12.9, BUN 17, Creatinine 0.90, Estimated Creat Clear 85, Estimated GFR 83, Est GFR ( Amer) 101, Glucose 181 H D, Calcium 8.2 L I & O for Labs for Last 24 Hours: Intake & Output 03/02/24 03/03/24 03/04/24 03/05/24 11:59 11:59 11:59 11:59 Intake Total 620 / 620 Output Total 775 / 775 Balance -155 / -155 Weight 195 lb 4 oz Constitutional: Present no acute distress Comment:: Appears not to feel well. Respiratory: Present crackles (On the posterior left.) and diminished air movement (Anteriorly and on the right.) Cardiac: Present Reg Rate and Rhythm (90/min) GI: Present soft and normal bowel sounds; Absent distention, tenderness or guarding Extremities: Absent tenderness, edema or calf tenderness Neuro: Present alert and oriented x 3 Assessment and Plan *Assessment and plan (1) Pneumonia: Status: Acute Category: Medical Code(s): J18.9 - Pneumonia, unspecified organism (2) S/P right coronary artery (RCA) stent placement: Status: Chronic Category: Surgical Code(s): Z95.5 - Presence of coronary angioplasty implant and graft (3) GERD (gastroesophageal reflux disease): Status: Chronic Qualifiers: Esophagitis bleeding: without hemorrhage Category: Medical Code(s): K21.9 - Gastro-esophageal reflux disease without esophagitis (4) COPD (chronic obstructive pulmonary disease): Status: Chronic Qualifiers: COPD type: emphysema Emphysema type: centrilobular Qualified Code(s): J43.2 - Centrilobular emphysema Category: Medical Code(s): J44.9 - Chronic obstructive pulmonary disease, unspecified (5) History of smoking 30 or more pack years: Status: Chronic Category: Social Hx Code(s): Z87.891 - Personal history of nicotine dependence (6) HLD (hyperlipidemia): Status: Chronic Qualifiers: Hyperlipidemia type: mixed hyperlipidemia Qualified Code(s): E78.2 - Mixed hyperlipidemia Category: Medical Code(s): E78.5 - Hyperlipidemia, unspecified (7) CAD (coronary artery disease): Problem Comment: JANUARY 2021 Medical management for ischemic heart disease NOVEMBER 2020.Critical proximal dominant right coronary stenosis Successful stenting of the ostial proximal dominant right coronary artery critical disease reduced to 0% with 1 drug-eluting stent Preserved ejection fraction with mild regional wall motion abnormality Mildly elevated LVEDP Status: Chronic Qualifiers: Coronary Disease-Associated Artery/Lesion type: [place] artery [place] vs. transplanted heart: [place] heart Associated angina: without angina Qualified Code(s): I25.10 - Atherosclerotic heart disease of [place] coronary artery without angina pectoris Category: Medical Code(s): I25.10 - Atherosclerotic heart disease of [place] coronary artery without angina pectoris Plan Continue with current care. Continue with as needed cough meds. Increase in leukocytosis most likely due to steroids.
--- NOTE | 2024-03-05 08:15 | HMH.PHAINT1 ---
Pharmacy Intervention Comments: MEDICATION RECONCILIATION COMPLETED ON PATIENT USING EXTERNAL FILL HISTORY FROM PHARMACY. -MARY ANN DAVE, LATRICED
[2024-03-05 08:31] LABS: Lymphocytes % 8 % (10-50); Neutrophils % 90 % (42-76); Platelet Estimate Normal; RBC Morphology Normal; Total Cells Counted 100
--- NOTE | 2024-03-05 09:45 | EXP.PULM.CON ---
History of Present Illness History of present illness: Mr. Miranda is a 73-year-old male greater than [id number] smoking history, COPD at baseline on Trelegy 100 inhaler presented to [facility] with complaints of cough sore throat body aches and runny nose in the setting of exposure to COVID-19 pneumonia and was eventually admitted to the hospital for further evaluation and management. Patient other complaining of worsening cough productive phlegm wheezing along with diffuse bodyaches and weakness PFSH PFS Disclaimer: The information contained in this section may have been updated after the patient was seen, as this information can be updated by other users. 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 (Updated 03/05/24 @ 10:15 by Phong Rodas MD) Acute respiratory failure with hypoxia Acute right otitis media Hearing difficulty of right ear Impacted cerumen, right ear Chronic inflammation of both eustachian tubes Congestion of both ears Excessive cerumen in both ear canals Excessive cerumen in right ear canal Tinnitus aurium Otitis externa of right ear Tinnitus Hearing loss in right ear Dyspnea on exertion History of COVID-19 Acute exacerbation of chronic obstructive pulmonary disease Bronchitis Sinusitis Family history of asthma History of smoking 30 or more pack years Dyspnea on exertion SOB (shortness of breath) HLD (hyperlipidemia) CAD (coronary artery disease) COPD (chronic obstructive pulmonary disease) 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 History of colonoscopy History of cholecystectomy Previous back surgery Stented coronary artery Family History Other Family history of cancer Family history of diabetes mellitus type II Family history of hyperlipidemia Family history of hypertension 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 (Updated 03/04/24 @ 17:00 by Sugar Cristina RN) Smoking Status: Former smoker second hand exposure: No alcohol intake: never substance use type: denies use current occupational status: retired Travel in the last 8 weeks: None household members: spouse housing: house current occupational exposures/hazards: No caffeine: Yes Review of Systems Constitutional Constitutional: Reports body ache(s), Reports chills, Reports fatigue, Denies frequent falls, Reports headache(s) and Reports lethargy Eyes Eyes: Denies eye discharge, Denies dry eyes, Denies irritation and Denies itchy eyes ENT Ears, Nose, Mouth, and Throat: Reports headache(s), Denies lip swelling and Denies throat swelling *Cardiovascular Cardiovascular: Reports dyspnea and Reports dyspnea on exertion *Respiratory Respiratory: Denies change in phlegm color, Reports chest congestion, Reports cough, Reports dyspnea, Reports dyspnea on exertion, Reports excessive phlegm production and Reports wheezing *Gastrointestinal Gastrointestinal: Denies abdominal pain, Denies belching and Denies cramping *Musculoskeletal Musculoskeletal: Denies abnormal gait *Neurologic Neurologic: Denies abnormal gait, Denies frequent falls and Reports headache(s) Psychiatric Psychiatric: Denies homicidal ideation and Denies suicidal ideation Endocrine Endocrine: Reports fatigue and Denies heat intolerance Hematologic/Lymphatic Hematologic/Lymphatic: Denies easy bleeding and Denies lymphadenopathy Allergic/Immunologic Allergic/Immunologic: Denies itchy eyes, Denies lip swelling, Denies throat swelling and Reports wheezing Pulmonology Exam Inpatient Vital signs and Labs for Last 24 Hours: Temp Pulse Resp BP Pulse Ox O2 Del Method O2 Flow Rate 97.7 F 89 18 140/77 96 Room Air 1 03/05/24 08:00 03/05/24 08:00 03/05/24 08:00 03/05/24 08:00 03/05/24 08:00 03/05/24 08:00 03/05/24 04:55 Laboratory Results - last 24 hr 03/04/24 17:35: WBC 14.4 H, RBC 5.07, Hgb 15.6, Hct 48.9, MCV 96.5 H, MCH 30.7, MCHC 31.8, RDW 13.7, Plt Count 231, MPV 9.2, Neut % (Auto) 73.1, Lymph % (Auto) 18.8, [place] % (Auto) 5.1, Eos % (Auto) 2.5, Baso % (Auto) 0.5, Neut # (Auto) 10.5 H, Lymph # (Auto) 2.7, [place] # (Auto) 0.7, Eos # (Auto) 0.4, Baso # (Auto) 0.1, Total Counted 100, Neutrophils % (Manual) 74, Lymphocytes % (Manual) 20, Monocytes % (Manual) 6, Platelet Estimate Normal, RBC Morphology Normal, Sodium 139, Potassium 3.9, Chloride 103, Carbon Dioxide 28, Anion Gap 11.9, BUN 20, Creatinine 1.00, Estimated Creat Clear 83, Estimated GFR 74, Est GFR ( Amer) 89, Glucose 106 H, Calcium 8.7 03/04/24 18:30: Chlamy pneumoniae PCR Not detected, Adenovirus (PCR) Not detected, B. pertussis DNA (PCR) Not detected, Coronavirus OC43 (PCR) Not detected, Coronavirus HKU1 (PCR) Not detected, Coronavirus 229E (PCR) Not detected, SARS-CoV-2 (PCR) Not detected, Coronavirus NL63 (PCR) Not detected, Human Metapneumovir PCR Not detected, Influenza A (H1) PCR Not detected, Influ A (H1N1/09) PCR Not detected, Influenza A (H3) PCR Not detected, Influenza Type A (PCR) Not detected, Influenza Type B (PCR) Not detected, M. pneumoniae (PCR) Not detected, Parainfluenza 1 (PCR) Not detected, Parainfluenza 2 (PCR) Not detected, Parainfluenza 3 (PCR) Not detected, Parainfluenza 4 (PCR) Not detected, RSV (PCR) Not detected, Entero/Rhino (PCR) Not detected 03/05/24 05:45: WBC 19.4 H D, RBC 4.58 L, Hgb 14.1, Hct 43.4, MCV 94.8 H, MCH 30.8, MCHC 32.5, RDW 13.7, Plt Count 187, MPV 8.8, Neut % (Auto) 90.8 H, Lymph % (Auto) 6.2 L, [place] % (Auto) 2.9, Eos % (Auto) 0.0 L, Baso % (Auto) 0.1, Neut # (Auto) 17.6 H, Lymph # (Auto) 1.2, [place] # (Auto) 0.6, Eos # (Auto) 0.0, Baso # (Auto) 0.0, Total Counted 100, Neutrophils % (Manual) 90 H, Lymphocytes % (Manual) 8 L, Atypical Lymphs % 2.0, Platelet Estimate Normal, RBC Morphology Normal, Sodium 135 L, Potassium 3.9, Chloride 105, Carbon Dioxide 21 L, Anion Gap 12.9, BUN 17, Creatinine 0.90, Estimated Creat Clear 85, Estimated GFR 83, Est GFR ( Amer) 101, Glucose 181 H D, Calcium 8.2 L I & O for Labs for Last 24 Hours: Intake & Output 03/02/24 03/03/24 03/04/24 03/05/24 23:59 23:59 23:59 23:59 Intake Total 620 / 620 120 / 120 Output Total 225 / 225 550 / 550 Balance 395 / 395 -430 / -430 Weight 191 lb 7 oz 195 lb 4 oz Constitutional: Present moderate distress Head: Present normocephalic and atraumatic ENT: Present normal exam, normal oropharynx and mucous membranes moist Neck: Present normal inspection and full ROM Respiratory: Present respiratory distress; Absent wheezes, crackles or able to speak in complete sentences Cardiac: Present S1/S2, Tachycardia and radial pulses present GI: Present soft and distention; Absent tenderness or guarding Skin: Present intact; Absent cyanosis or jaundice Neuro: Present alert, awake and oriented x 3 Extremities: Present normal inspection; Absent clubbing or cyanosis Psychiatric: Present normal affect and cooperative Meds Home Medications and Allergies Home Medications ?Medication ?Instructions ?Recorded ?Confirmed ?Type aspirin 81 mg chewable tablet 81 mg PO HS 03/12/18 03/04/24 History fluticasone fur. 100 mcg-umeclid 1 inh inhalation DAILY 90 days #90 09/26/23 03/05/24 Rx 62.5 mcg-vilant 25 mcg ea inhalat.powder (Trelegy Ellipta) atorvastatin 40 mg tablet 40 mg PO HS 03/04/24 03/04/24 History clopidogrel 75 mg tablet 75 mg PO DAILY 03/04/24 03/04/24 History losartan 25 mg tablet 25 mg PO DAILY 03/04/24 03/04/24 History pantoprazole 40 mg tablet,delayed 40 mg PO DAILY 03/04/24 03/04/24 History release albuterol sulfate 90 mcg/actuation 1 inh inhalation Q6HP PRN 03/05/24 03/05/24 History aerosol inhaler (Proventil HFA) shortness of breath or wheezing New Prescriptions to Start Prescriptions: Allergies Allergy/AdvReac Type Severity Reaction Status Date / Time No Known Allergies Allergy Verified 02/08/24 10:14 Results Laboratory Findings 03/05/24 05:45 03/05/24 05:45 Abnormal lab findings: Abnormal Labs 03/04/24 03/05/24 17:35 05:45 WBC 14.4 H 19.4 H D RBC 4.58 L MCV 96.5 H 94.8 H Neut % (Auto) 90.8 H Lymph % (Auto) 6.2 L Eos % (Auto) 0.0 L Neut # (Auto) 10.5 H 17.6 H Neutrophils % (Manual) 90 H Lymphocytes % (Manual) 8 L Sodium 135 L Carbon Dioxide 21 L Glucose 106 H 181 H D Calcium 8.2 L Assessment and Plan *Assessment and plan (1) Pneumonia: Status: Acute Category: Medical Code(s): J18.9 - Pneumonia, unspecified organism (2) Acute respiratory failure with hypoxia: Status: Acute Category: Medical Code(s): J96.01 - Acute respiratory failure with hypoxia Plan Mr. Miranda is a 73-year-old male greater than [id number] smoking history, COPD at baseline on Trelegy 100 inhaler presented to [facility] with complaints of cough sore throat body aches and runny nose in the setting of exposure to COVID-19 pneumonia and was eventually admitted to the hospital for further evaluation and management. Patient other complaining of worsening cough productive phlegm wheezing along with diffuse bodyaches and weakness Comprehensive respiratory viral PCR panel upon admission resulted negative. Neutrophilic predominant leukocytosis upon admission worsening. Chest x-ray concerning for bilateral lower lobe airspace disease right greater than left. Patient on admission was initiated on treatment for community-acquired pneumonia with ceftriaxone azithromycin along with methylprednisolone 80 IV every 6 hours. -No significant wheezing noted on auscultation. Severe respiratory distress, not able to complete full sentences. Plan: - Continue oxygen supplementation as needed to maintain O2 saturation goal of 89% able to continue with saturating 90 to 92% Continue ceftriaxone azithromycin follow sputum cultures Wean steroids to methylprednisolone 40 IV daily DuoNebs every 6 hours along with pulm but every 12 scheduled # Thank you for involving pulmonary in this patient care. Will continue to follow.
[2024-03-05] MEDS: CLOPIDOGREL 75MG TAB 75 MG PO (10:34)
[2024-03-05] MEDS: SODIUM CHLORIDE 3% 15ML NEB 3 ML IH (11:06)
[2024-03-05] MEDS: BUDESONIDE 0.5MG/2ML NEB 0.5 MG IH (18:48)
[2024-03-05] MEDS: CEFTRIAXONE SODIUM 1 GM in 0.9 % SODIUM CHLORIDE 50 ML IV (18:50)
--- NOTE | 2024-03-05 19:29 | PC.NURSE ---
Patient had c/o cough once today relieved with medications
[2024-03-05] MEDS: AZITHROMYCIN 500 MG in 0.9 % SODIUM CHLORIDE 250 ML 250 MG IV (19:30)
[2024-03-05] MEDS: PANTOPRAZOLE 40MG VIAL 40 MG IV (20:33)
[2024-03-05] MEDS: SODIUM CHLORIDE 0.9% 10ML VIAL 10 ML IV (20:33)
[2024-03-06] VITALS (7 sets, daily range): BP systolic 114–116; BP diastolic 54–70; PULSE 77–92; RESP 18–20; TEMP 36.5–36.7; O2SAT 92–96; BMI 30.2
[2024-03-06] MEDS: 0.9 % SODIUM CHLORIDE 1000ML 1,000 ML 100 ML IV ×3 (01:56→23:11)
--- NOTE | 2024-03-06 04:00 | PC.NURSE ---
note per LCrump, pt is alert and oriented x 4 and currently tolerating RA well, pt became SOB when ambulating to the BR, this nurse applied 1L of O2 for comfort, was later removed, pt has coughed intermittently this shift and was treated per MAR, pt lungs sound remain diminished, pt denies pain and needs at this time and has no other acute changes to note this shift
[2024-03-06] MEDS: IPRATROPIUM/ALBUTEROL 3 ML NEB IH ×3 (06:21→18:38)
[2024-03-06] MEDS: BUDESONIDE 0.5MG/2ML NEB 0.5 MG IH ×2 (06:21→18:38)
[2024-03-06] MEDS: [UNRECOGNIZED DRUG - OTHER] PO ×3 (07:46→18:13)
[2024-03-06] MEDS: HYDROCODONE PO ×3 (07:46→18:13)
--- NOTE | 2024-03-06 08:39 | P.PN_ITS ---
Subjective *Date: 03/06/24 *Time: 09:50 Interval history: Patient states he finally feels a little better today. He is still coughing and sore. He was able to sleep last night. He did eat breakfast. Medical Exam Vital signs and Labs for Last 24 Hours: Vital Signs Temp Pulse Pulse Resp BP Pulse Ox O2 Del Method 03/06/24 00:00 97.8 F 77 18 116/65 94 L Nasal Cannula 03/05/24 21:38 98.3 F 88 18 119/64 94 L Room Air 03/05/24 18:48 76 03/05/24 18:48 79 03/05/24 16:00 98.2 F 81 18 115/66 94 L Room Air 03/05/24 12:00 98.1 F 101 H 16 142/93 H 94 L Room Air 03/05/24 11:08 78 18 03/05/24 11:08 78 03/05/24 11:08 78 O2 Flow Rate 03/06/24 00:00 1 03/05/24 21:38 03/05/24 18:48 03/05/24 18:48 03/05/24 16:00 03/05/24 12:00 03/05/24 11:08 03/05/24 11:08 03/05/24 11:08 Intake and Output 03/05/24 03/06/24 03/06/24 19:59 03:59 11:59 Intake Total 600 / 600 Output Total 550 / 1050 250 / 1050 250 / 1050 Balance 50 / -450 -250 / -450 -250 / -450 Intake: Intake, Oral Amount 600 / 600 Output: Output, Urine Amount 550 / 1050 250 / 1050 250 / 1050 Other: Number of Unmeasured Voids 0 0 Weight 199 lb 3.2 oz Patient Weight 03/06/24 11:59 Weight 199 lb 3.2 oz I & O for Labs for Last 24 Hours: Intake & Output 03/03/24 03/04/24 03/05/24 03/06/24 11:59 11:59 11:59 11:59 Intake Total 740 / 740 600 / 600 Output Total 775 / 775 1050 / 1050 Balance -35 / -35 -450 / -450 Weight 195 lb 4 oz 199 lb 3.2 oz Microbiology Reports for the Last 24 Hours: Microbiology 03/05/24 11:30 Sputum - Expectorated Sputum Gram Stain - Final Constitutional: Present no acute distress Comment:: Appears not to feel well. Respiratory: Present crackles (On the posterior left.) and diminished air moveme nt (Anteriorly and on the right.) Cardiac: Present Reg Rate and Rhythm GI: Present soft and normal bowel sounds; Absent distention, tenderness or guarding Extremities: Absent tenderness, edema or calf tenderness Neuro: Present alert and oriented x 3 Assessment and Plan *Assessment and plan (1) Pneumonia: Status: Acute Category: Medical Code(s): J18.9 - Pneumonia, unspecified organism (2) S/P right coronary artery (RCA) stent placement: Status: Chronic Category: Surgical Code(s): Z95.5 - Presence of coronary angioplasty implant and graft (3) GERD (gastroesophageal reflux disease): Status: Chronic Qualifiers: Esophagitis bleeding: without hemorrhage Category: Medical Code(s): K21.9 - Gastro-esophageal reflux disease without esophagitis (4) COPD (chronic obstructive pulmonary disease): Status: Chronic Qualifiers: COPD type: emphysema Emphysema type: centrilobular Qualified Code(s): J43.2 - Centrilobular emphysema Category: Medical Code(s): J44.9 - Chronic obstructive pulmonary disease, unspecified (5) History of smoking 30 or more pack years: Status: Chronic Category: Social Hx Code(s): Z87.891 - Personal history of nicotine dependence (6) HLD (hyperlipidemia): Status: Chronic Qualifiers: Hyperlipidemia type: mixed hyperlipidemia Qualified Code(s): E78.2 - Mixed hyperlipidemia Category: Medical Code(s): E78.5 - Hyperlipidemia, unspecified (7) CAD (coronary artery disease): Problem Comment: JANUARY 2021 Medical management for ischemic heart disease NOVEMBER 2020.Critical proximal dominant right coronary stenosis Successful stenting of the ostial proximal dominant right coronary artery critical disease reduced to 0% with 1 drug-eluting stent Preserved ejection fraction with mild regional wall motion abnormality Mildly elevated LVEDP Status: Chronic Qualifiers: Associated angina: without angina Coronary Disease-Associated Artery/Lesion type: [place] artery [place] vs. transplanted heart: chilkat heart Qualified Code(s): I25.10 - Atherosclerotic heart disease of [place] coronary artery without angina pectoris Category: Medical Code(s): I25.10 - Atherosclerotic heart disease of [place] coronary artery without angina pectoris Plan Continue with current care. Continue with as needed cough meds. Pulmonology to follow. Patient was able to get a sputum sample yesterday.
[2024-03-06] MEDS: METHYLPREDNISOLONE SOD SUCC 40MG VIAL 40 MG IV (08:59)
[2024-03-06] MEDS: CLOPIDOGREL 75MG TAB 75 MG PO (08:59)
--- NOTE | 2024-03-06 09:32 | EXP.PULM.PN ---
Subjective *Date: 03/06/24 *Time: 11:14 Interval history: Patient admits improving respiratory status. Denies any worsening cough and productive phlegm. Continue to complain of cough and pain with coughing. Not pleuritic. Pulmonology Exam Inpatient Vital signs and Labs for Last 24 Hours: Temp Pulse Resp BP Pulse Ox O2 Del Method O2 Flow Rate 97.7 F 92 H 18 114/54 L 94 L Room Air 1 03/06/24 08:00 03/06/24 08:00 03/06/24 08:00 03/06/24 08:00 03/06/24 08:00 03/06/24 08:00 03/06/24 00:00 Temp Pulse Resp BP Pulse Ox O2 Del Method O2 Flow Rate 97.7 F 89 18 140/77 96 Room Air 1 03/05/24 08:00 03/05/24 08:00 03/05/24 08:00 03/05/24 08:00 03/05/24 08:00 03/05/24 08:00 03/05/24 04:55 Laboratory Results - last 24 hr 03/04/24 17:35: WBC 14.4 H, RBC 5.07, Hgb 15.6, Hct 48.9, MCV 96.5 H, MCH 30.7, MCHC 31.8, RDW 13.7, Plt Count 231, MPV 9.2, Neut % (Auto) 73.1, Lymph % (Auto) 18.8, [place] % (Auto) 5.1, Eos % (Auto) 2.5, Baso % (Auto) 0.5, Neut # (Auto) 10.5 H, Lymph # (Auto) 2.7, [place] # (Auto) 0.7, Eos # (Auto) 0.4, Baso # (Auto) 0.1, Total Counted 100, Neutrophils % (Manual) 74, Lymphocytes % (Manual) 20, Monocytes % (Manual) 6, Platelet Estimate Normal, RBC Morphology Normal, Sodium 139, Potassium 3.9, Chloride 103, Carbon Dioxide 28, Anion Gap 11.9, BUN 20, Creatinine 1.00, Estimated Creat Clear 83, Estimated GFR 74, Est GFR ( Amer) 89, Glucose 106 H, Calcium 8.7 03/04/24 18:30: Chlamy pneumoniae PCR Not detected, Adenovirus (PCR) Not detected, B. pertussis DNA (PCR) Not detected, Coronavirus OC43 (PCR) Not detected, Coronavirus HKU1 (PCR) Not detected, Coronavirus 229E (PCR) Not detected, SARS-CoV-2 (PCR) Not detected, Coronavirus NL63 (PCR) Not detected, Human Metapneumovir PCR Not detected, Influenza A (H1) PCR Not detected, Influ A (H1N1/09) PCR Not detected, Influenza A (H3) PCR Not detected, Influenza Type A (PCR) Not detected, Influenza Type B (PCR) Not detected, M. pneumoniae (PCR) Not detected, Parainfluenza 1 (PCR) Not detected, Parainfluenza 2 (PCR) Not detected, Parainfluenza 3 (PCR) Not detected, Parainfluenza 4 (PCR) Not detected, RSV (PCR) Not detected, Entero/Rhino (PCR) Not detected 03/05/24 05:45: WBC 19.4 H D, RBC 4.58 L, Hgb 14.1, Hct 43.4, MCV 94.8 H, MCH 30.8, MCHC 32.5, RDW 13.7, Plt Count 187, MPV 8.8, Neut % (Auto) 90.8 H, Lymph % (Auto) 6.2 L, [place] % (Auto) 2.9, Eos % (Auto) 0.0 L, Baso % (Auto) 0.1, Neut # (Auto) 17.6 H, Lymph # (Auto) 1.2, [place] # (Auto) 0.6, Eos # (Auto) 0.0, Baso # (Auto) 0.0, Total Counted 100, Neutrophils % (Manual) 90 H, Lymphocytes % (Manual) 8 L, Atypical Lymphs % 2.0, Platelet Estimate Normal, RBC Morphology Normal, Sodium 135 L, Potassium 3.9, Chloride 105, Carbon Dioxide 21 L, Anion Gap 12.9, BUN 17, Creatinine 0.90, Estimated Creat Clear 85, Estimated GFR 83, Est GFR ( Amer) 101, Glucose 181 H D, Calcium 8.2 L I & O for Labs for Last 24 Hours: Intake & Output 03/03/24 03/04/24 03/05/24 03/06/24 23:59 23:59 23:59 23:59 Intake Total 620 / 620 720 / 720 780 / 780 Output Total 225 / 225 1350 / 1350 250 / 250 Balance 395 / 395 -630 / -630 530 / 530 Weight 191 lb 7 oz 195 lb 4 oz 199 lb 3.2 oz Intake & Output 03/02/24 03/03/24 03/04/24 03/05/24 23:59 23:59 23:59 23:59 Intake Total 620 / 620 120 / 120 Output Total 225 / 225 550 / 550 Balance 395 / 395 -430 / -430 Weight 191 lb 7 oz 195 lb 4 oz Microbiology Reports for the Last 24 Hours: Microbiology 03/05/24 11:30 Sputum - Expectorated Sputum Gram Stain - Final Constitutional: Present moderate distress Head: Present normocephalic and atraumatic ENT: Present normal exam, normal oropharynx and mucous membranes moist Neck: Present normal inspection and full ROM Respiratory: Present respiratory distress; Absent wheezes, crackles or able to speak in complete sentences Cardiac: Present S1/S2, Tachycardia and radial pulses present GI: Present soft and distention; Absent tenderness or guarding Skin: Present intact; Absent cyanosis or jaundice Neuro: Present alert, awake and oriented x 3 Extremities: Present normal inspection; Absent clubbing or cyanosis Psychiatric: Present normal affect and cooperative Assessment and Plan *Assessment and plan (1) Pneumonia: Status: Acute Category: Medical Code(s): J18.9 - Pneumonia, unspecified organism (2) Acute respiratory failure with hypoxia: Status: Acute Category: Medical Code(s): J96.01 - Acute respiratory failure with hypoxia Plan Mr. Miranda is a 73-year-old male greater than [id number] smoking history, COPD at baseline on Trelegy 100 inhaler presented to [facility] with complaints of cough sore throat body aches and runny nose in the setting of exposure to COVID-19 pneumonia and was eventually admitted to the hospital for further evaluation and management. Patient other complaining of worsening cough productive phlegm wheezing along with diffuse bodyaches and weakness Comprehensive respiratory viral PCR panel upon admission resulted negative. Neutrophilic predominant leukocytosis upon admission worsening. Chest x-ray concerning for bilateral lower lobe airspace disease right greater than left. Patient on admission was initiated on treatment for community-acquired pneumonia with ceftriaxone azithromycin along with methylprednisolone 80 IV every 6 hours. - On initial examination severe respiratory distress, not able to complete full sentences. No significant wheezing noted on auscultation. Interval update: No acute respiratory events overnight. Sputum Gram stain concerning for mixed respiratory nayeli. No actionable results at this point of time. Chest x-ray concern for slight worsening of the lower lobe airspace disease. Oxygen requirements improved, now on some improvement saturating 95% today. Will continue current antibiotic course. Follow with echocardiogram result. Plan: Continue oxygen supplementation as needed to maintain O2 saturation goal of 89% able to continue with saturating 90 to 92% Continue current antibiotics including ceftriaxone and azithromycin. Wean steroids to prednisone 40 mg daily for total of 5 days from tomorrow. DuoNebs every 6 hours along with pulm but every 12 scheduled # Thank you for involving pulmonary in this patient care. Will continue to follow.
--- NOTE | 2024-03-06 09:41 | XR_ITS ---
FINAL REPORT CLINICAL HISTORY: Hypoxia COMPARISON: 03/04/2024 FINDINGS: SINGLE-VIEW CHEST The heart size is normal. Lordotic positioning was obtained. The mediastinum is normal. There are chronic changes at the bases. The lungs are otherwise clear. There is no pneumothorax. IMPRESSION: No acute cardiopulmonary process. Reviewed, Interpreted and Dictated by Maurice Delgado MD Transcribed by Jocelin Soria Authenticated and [facility]
[2024-03-06 09:44] LABS: Basophils % 0.2 % (0.1-2.0); Eosinophils % 0.1 % (0.1-12.0); Hematocrit 40.5 % (42.0-52.0); Hemoglobin 13.1 g/dL (14.1-18.0); Lymphocytes # 1.4 K/mm3 (0.7-4.5); Lymphocytes % 8.4 % (10-50); Mean Corpuscular HGB Conc 32.3 g/dL (31.8-35.4); Mean Corpuscular Hemoglobin 31.3 pg (27.0-31.2); Mean Corpuscular Volume 96.8 fl (80-94); Mean Platelet Volume 8.8 fl (7.4-10.4); Monocytes # 0.9 K/mm3 (0.1-1.0); Monocytes % 5.5 % (1.7-9.3); Neutrophils # 14.1 K/mm3 (1.8-7.8); Neutrophils % 85.9 % (37.0-80.0); Platelet Count 183 K/mm3 (142-424); Red Blood Count 4.18 M/mm3 (4.60-6.20); Red Cell Distribution Width 13.8 % (11.5-17.5); White Blood Count 16.5 K/mm3 (4.8-10.8)
[2024-03-06 10:03] LABS: Albumin Level 3.3 g/dl (3.5-5.0); Chloride 109 mmol/L (98-107); Potassium 4.6 mmoL/L (3.5-5.1); Sodium 138 mmol/L (136-145)
--- NOTE | 2024-03-06 10:04 | CA_ITS ---
APPROVED REPORT EXAM: Comprehensive 2D, Doppler, and color-flow Echocardiogram Astronautical Engineer: Julianna Mims RVT Ht: 5 ft 8 in Wt: 199lbs BSA: 2.04 BP: 114/54 mmHg Indications: PNEUMONIA,SMOKER,COPD,CAD,HTN,HLD 2D Dimensions IVSd 0.70 cm M: 0.6-1.2 LVEF (Visual) 50.50 % PWd 0.87 cm M: 0.6 - 1.2 LA Volume 35.60 mL LVDd 5.04 cm M: 4.2 - 5.9 LA Volume Index 17.45 mL/m2 (M/F) 16-34 LVDs 3.74 cm M: 2.5 - 4.0 EF AP4 51.90 % GL Strain -29.0 % M-Mode Dimensions LA Diam 3.85 cm (1.9-4.0) TAPSE 2.17 (<1.7) LV Diastology E Decel Time 240 (160-240 msec) E/A Ratio 0.9 Aortic Valve JEROMY Index 2.00 cm2/m2 AoV Peak Real. 103.0 (50-130 cm/s) AO Peak GR. 4.30 mmHg AO Mean GR. 2.40 (<5 mmHg) AO VTI 21.5 (18-25 cm) JEROMY (VTI) 4.19 (2.5-4.5 cm2) Mitral Valve MV E Max Real. 72.0 (40-130 cm/s) MV A Velocity 82.0 (40-130 cm/s) E/A Ratio 0.87 MV PHT 70.0 ms Pulmonary Valve PV Peak Velocity 70.0 (50-150 cm/s) Tricuspid Valve TR P. Velocity 197.00 cm/s RAP Estimate 10.00 mmHg RVSP 25.50 mmHg Left Ventricle The left ventricle is normal size. The left ventricular systolic function is normal. The left ventricular ejection fraction is within the normal range. There is increased LV wall thickness. There is normal LV segmental wall motion. The left ventricular diastolic function is normal. LVEF is 60%. Right Ventricle Right ventricle is mildly dilated. The right ventricular systolic function is normal. Atria The left atrium size is normal. The right atrium size is normal. Color Doppler suggests presence of left to right interatrial shunt. Aortic Valve The aortic valve is mildly thickened. There is no aortic valvular stenosis. Trace aortic regurgitation. Mitral Valve The mitral valve is normal in structure. No evidence of mitral valve stenosis. Trace mitral regurgitation. Tricuspid Valve The tricuspid valve leaflets are thin and pliable. Trace tricuspid regurgitation. There is insufficient TR jet to estimate RVSP. Pulmonic Valve The pulmonary valve is normal in structure. Trace pulmonic regurgitation. Great Vessels The aortic root is normal in size. The ascending aorta is not well visualized. The IVC is not well visualized. Pericardium There is no pericardial effusion. Other Information Study Quality: Fair Conclusion Normal biventricular systolic function. Mild RV dilation. No significant valvular stenosis or regurgitation. Electronically signed by : Theresa Enrique MD 03/07/2024 15:58:19
[2024-03-06 10:05] LABS: Blood Urea Nitrogen 16 mg/dl (9-20); Creatinine Clearance Estimated 87 mL/min (50-200); Estimated Glomerular Filt Rate 95 ml/min (>60); GFR (African American) 115 ML/MIN (>60)
[2024-03-06 10:06] LABS: Alanine Aminotransferase 40 U/L (12-78); Albumin/Globulin Ratio 1.2 (1.1-1.8); Alkaline Phosphatase 62 U/L (38-126); Anion Gap 7.6 mEq/L (5-15); Aspartate Amino Transferase 59 U/L (17-59); Bilirubin,Total 0.6 mg/dl (0.2-1.3); Calcium 8.3 mg/dl (8.4-10.2); Carbon Dioxide 26 mmol/L (22.0-30.0); Globulin 2.7 g/dL (1.3-3.2); Glucose 149 mg/dl (74-100)
--- NOTE | 2024-03-06 11:46 | ECG_ITS ---
APPROVED REPORT Exam: Resting ECG HR:85 bpm ECG Measurements Heart Rate 85 AXES OR 172 P 90 QRSd 83 QRS 74 QT 325 T 27 QTc 367 Conclusion SINUS RHYTHM WITH OCCASIONAL ECTOPIC PREMATURE COMPLEXES NONSPECIFIC T-WAVE ABNORMALITY BORDERLINE ECG UNCONFIRMED REPORT Electronically signed by : Dedrick Mcwilliams MD 03/06/2024 14:04:40
[2024-03-06 11:53] LABS: MANUAL DIFFERENTIAL MANUAL DIFFERENTIAL (MANUAL DIFF)
[2024-03-06 13:19] LABS: Lymphocytes % 11 % (10-50); Monocytes % 9 % (2-9); Neutrophils % 80 % (42-76); Total Cells Counted 100
[2024-03-06 13:20] LABS: Burr Cells 1+; Platelet Estimate Normal
[2024-03-06] MEDS: CEFTRIAXONE SODIUM 1 GM in 0.9 % SODIUM CHLORIDE 50 ML IV (18:09)
--- NOTE | 2024-03-06 18:41 | PC.NURSE ---
Pt has done well this shift. remains on room air. Has had a couple of episodes of SOB after coughing spells and when walking to and from the bathroom. No other complaints this shift.
[2024-03-06] MEDS: AZITHROMYCIN 500 MG in 0.9 % SODIUM CHLORIDE 250 ML 250 MG IV (19:04)
[2024-03-06] MEDS: PANTOPRAZOLE 40MG VIAL 40 MG IV (20:47)
[2024-03-06] MEDS: SODIUM CHLORIDE 0.9% 10ML VIAL 10 ML IV (20:47)
[2024-03-07] VITALS (8 sets, daily range): BP systolic 124–143; BP diastolic 68–80; PULSE 72–82; RESP 16–22; TEMP 36.6–36.8; O2SAT 90–97; BMI 30.7
[2024-03-07] MEDS: IPRATROPIUM/ALBUTEROL 3 ML NEB IH ×3 (00:25→11:06)
--- NOTE | 2024-03-07 05:44 | PC.NURSE ---
Pt has rested well through this shift. He has remained A/O X 4. He has maintained 02 sats on RA above 90%. He still has occasional cough, mostly nonproductive and complains of tiring easily.
[2024-03-07] MEDS: BUDESONIDE 0.5MG/2ML NEB 0.5 MG IH (06:06)
--- NOTE | 2024-03-07 07:56 | P.PN_ITS ---
Subjective *Date: 03/07/24 *Time: 07:56 Medical Exam Vital signs and Labs for Last 24 Hours: Vital Signs Temp Pulse Pulse Resp BP Pulse Ox O2 Del Method 03/07/24 06:52 Room Air 03/07/24 06:44 97.8 F 72 16 126/71 90 L Room Air 03/07/24 06:07 78 03/07/24 06:07 82 03/07/24 06:07 97 Nasal Cannula 03/07/24 05:00 Room Air 03/07/24 03:00 Room Air 03/07/24 01:00 Room Air 03/07/24 00:26 77 03/07/24 00:26 78 03/07/24 00:26 95 Room Air 03/07/24 00:00 98.3 F 74 18 124/72 90 L Nasal Cannula 03/06/24 23:00 Room Air 03/06/24 21:00 Room Air 03/06/24 20:29 97.7 F 86 18 115/70 92 L Nasal Cannula 03/06/24 20:00 92 L Room Air 03/06/24 18:38 Room Air 03/06/24 18:38 79 03/06/24 18:38 85 03/06/24 18:38 96 Room Air 03/06/24 17:00 Room Air 03/06/24 16:00 98.1 F 78 20 114/65 95 Room Air 03/06/24 16:00 Room Air 03/06/24 15:00 Room Air 03/06/24 13:00 Room Air 03/06/24 11:10 78 03/06/24 11:10 80 03/06/24 11:10 95 Room Air 03/06/24 11:00 Room Air 03/06/24 09:00 Room Air 03/06/24 09:00 Room Air 03/06/24 08:00 97.7 F 92 H 18 114/54 L 94 L Room Air O2 Flow Rate 03/07/24 06:52 03/07/24 06:44 03/07/24 06:07 03/07/24 06:07 03/07/24 06:07 2 03/07/24 05:00 03/07/24 03:00 03/07/24 01:00 03/07/24 00:26 03/07/24 00:26 03/07/24 00:26 03/07/24 00:00 1 03/06/24 23:00 03/06/24 21:00 03/06/24 20:29 1 03/06/24 20:00 03/06/24 18:38 03/06/24 18:38 03/06/24 18:38 03/06/24 18:38 03/06/24 17:00 03/06/24 16:00 03/06/24 16:00 03/06/24 15:00 03/06/24 13:00 03/06/24 11:10 03/06/24 11:10 03/06/24 11:10 03/06/24 11:00 03/06/24 09:00 03/06/24 09:00 03/06/24 08:00 Intake and Output 03/06/24 03/06/24 03/07/24 15:59 23:59 07:59 Intake Total 1020 / 6976 5456 / 6976 1100 / 1100 Output Total 0 / 550 600 / 600 Balance 1020 / 6426 5456 / 6426 500 / 500 Intake: Intake, Oral Amount 1020 / 1570 550 / 1570 Intake, Total IV Amount 4906 / 5406 1100 / 1100 0.9 % Sodium Chloride 1000ML 1, 4906 / 5406 1100 / 1100 000 ml @ 100 mls/hr IV .Q10H [facility] Rx#:[id number] Output: Output, Urine Amount 0 / 550 600 / 600 Other: Number of Unmeasured Voids 0 Number of Bowel Movements 1 Weight 92.079 kg Patient Weight 03/07/24 23:59 Weight 92.079 kg Laboratory Results - last 24 hr 03/06/24 09:34: WBC 16.5 H, RBC 4.18 L, Hgb 13.1 L, Hct 40.5 L, MCV 96.8 H, MCH 31.3 H, MCHC 32.3, RDW 13.8, Plt Count 183, MPV 8.8, Neut % (Auto) 85.9 H, Lymph % (Auto) 8.4 L, [place] % (Auto) 5.5, Eos % (Auto) 0.1, Baso % (Auto) 0.2, Neut # (Auto) 14.1 H, Lymph # (Auto) 1.4, [place] # (Auto) 0.9, Eos # (Auto) 0.0, Baso # (Auto) 0.0, Total Counted 100, Neutrophils % (Manual) 80 H, Lymphocytes % (Manual) 11, Monocytes % (Manual) 9, Platelet Estimate Normal, [place] Cells 1+, Sodium 138, Potassium 4.6, Chloride 109 H, Carbon Dioxide 26, Anion Gap 7.6, BUN 16, Creatinine 0.80, Estimated Creat Clear 87, Estimated GFR 95, Est GFR ( Amer) 115, Glucose 149 H, Calcium 8.3 L, Total Bilirubin 0.6, AST 59, ALT 40, Alkaline Phosphatase 62, Total Protein 6.0 L, Albumin 3.3 L, Globulin 2.7, Albumin/Globulin Ratio 1.2 I & O for Labs for Last 24 Hours: Intake & Output 03/04/24 03/05/24 03/06/24 03/07/24 23:59 23:59 23:59 23:59 Intake Total 620 / 620 720 / 720 6476 / 6976 1100 / 1100 Output Total 225 / 225 1350 / 1350 250 / 550 600 / 600 Balance 395 / 395 -630 / -630 6226 / 6426 500 / 500 Weight 86.835 kg 88.564 kg 90.356 kg 92.079 kg The patient's infection will respond to the chosen ABx?: Yes (SPUTUM CULTURE PENDING, AFEBRILE > 24 HR, WHITE COUNT 16.5 TRENDING DOWN.) Is the patient receiving the right drug, dose, and route?: Yes Could a more targeted ABx be ordered?: No How long ABx needed (days)?: 7
--- NOTE | 2024-03-07 08:07 | EXP.ACUTE.PN ---
Subjective *Date: 03/07/24 *Time: 09:05 Interval history: Patient did not rest last night so he is tired this am. He was able to get up and take a shower this am but got very SOA. He had a neb and has had his oxygen off with satisfactory room air sats at rest. He ate some of his breakfast. Still sore from coughing and is now coughing up brown sputum. Medical Exam Vital signs and Labs for Last 24 Hours: Vital Signs Temp Pulse Pulse Resp BP Pulse Ox O2 Del Method 03/07/24 06:52 Room Air 03/07/24 06:44 97.8 F 72 16 126/71 90 L Room Air 03/07/24 06:07 78 03/07/24 06:07 82 03/07/24 06:07 97 Nasal Cannula 03/07/24 05:00 Room Air 03/07/24 03:00 Room Air 03/07/24 01:00 Room Air 03/07/24 00:26 77 03/07/24 00:26 78 03/07/24 00:26 95 Room Air 03/07/24 00:00 98.3 F 74 18 124/72 90 L Nasal Cannula 03/06/24 23:00 Room Air 03/06/24 21:00 Room Air 03/06/24 20:29 97.7 F 86 18 115/70 92 L Nasal Cannula 03/06/24 20:00 92 L Room Air 03/06/24 18:38 Room Air 03/06/24 18:38 79 03/06/24 18:38 85 03/06/24 18:38 96 Room Air 03/06/24 17:00 Room Air 03/06/24 16:00 98.1 F 78 20 114/65 95 Room Air 03/06/24 16:00 Room Air 03/06/24 15:00 Room Air 03/06/24 13:00 Room Air 03/06/24 11:10 78 03/06/24 11:10 80 03/06/24 11:10 95 Room Air 03/06/24 11:00 Room Air 03/06/24 09:00 Room Air 03/06/24 09:00 Room Air O2 Flow Rate 03/07/24 06:52 03/07/24 06:44 03/07/24 06:07 03/07/24 06:07 03/07/24 06:07 2 03/07/24 05:00 03/07/24 03:00 03/07/24 01:00 03/07/24 00:26 03/07/24 00:26 03/07/24 00:26 03/07/24 00:00 1 03/06/24 23:00 03/06/24 21:00 03/06/24 20:29 1 03/06/24 20:00 03/06/24 18:38 03/06/24 18:38 03/06/24 18:38 03/06/24 18:38 03/06/24 17:00 03/06/24 16:00 03/06/24 16:00 03/06/24 15:00 03/06/24 13:00 03/06/24 11:10 03/06/24 11:10 03/06/24 11:10 03/06/24 11:00 03/06/24 09:00 03/06/24 09:00 Intake and Output 03/06/24 03/07/24 03/07/24 19:59 03:59 11:59 Intake Total 5696 / 6796 500 / 6796 600 / 6796 Output Total 0 / 600 300 / 600 300 / 600 Balance 5696 / 6196 200 / 6196 300 / 6196 Intake: Intake, Oral Amount 790 / 790 Intake, Total IV Amount 4906 / 6006 500 / 6006 600 / 6006 0.9 % Sodium Chloride 1000ML 1, 4906 / 6006 500 / 6006 600 / 6006 000 ml @ 100 mls/hr IV .Q10H [facility] Rx#:[id number] Output: Output, Urine Amount 0 / 600 300 / 600 300 / 600 Other: Number of Unmeasured Voids 1 0 Weight 203 lb Patient Weight 03/07/24 11:59 Weight 203 lb Laboratory Results - last 24 hr 03/06/24 09:34: WBC 16.5 H, RBC 4.18 L, Hgb 13.1 L, Hct 40.5 L, MCV 96.8 H, MCH 31.3 H, MCHC 32.3, RDW 13.8, Plt Count 183, MPV 8.8, Neut % (Auto) 85.9 H, Lymph % (Auto) 8.4 L, [place] % (Auto) 5.5, Eos % (Auto) 0.1, Baso % (Auto) 0.2, Neut # (Auto) 14.1 H, Lymph # (Auto) 1.4, [place] # (Auto) 0.9, Eos # (Auto) 0.0, Baso # (Auto) 0.0, Total Counted 100, Neutrophils % (Manual) 80 H, Lymphocytes % (Manual) 11, Monocytes % (Manual) 9, Platelet Estimate Normal, [place] Cells 1+, Sodium 138, Potassium 4.6, Chloride 109 H, Carbon Dioxide 26, Anion Gap 7.6, BUN 16, Creatinine 0.80, Estimated Creat Clear 87, Estimated GFR 95, Est GFR ( Amer) 115, Glucose 149 H, Calcium 8.3 L, Total Bilirubin 0.6, AST 59, ALT 40, Alkaline Phosphatase 62, Total Protein 6.0 L, Albumin 3.3 L, Globulin 2.7, Albumin/Globulin Ratio 1.2 I & O for Labs for Last 24 Hours: Intake & Output 03/04/24 03/05/24 03/06/24 03/07/24 11:59 11:59 11:59 11:59 Intake Total 740 / 740 1380 / 1380 6796 / 6796 Output Total 775 / 775 1050 / 1050 600 / 600 Balance -35 / -35 330 / 330 6196 / 6196 Weight 195 lb 4 oz 199 lb 3.2 oz 203 lb Constitutional: Present no acute distress Comment:: Appears not to feel well. Respiratory: Present crackles (Faint bibasilar) and diminished air movement (Anteriorly and on the right.) Cardiac: Present Reg Rate and Rhythm GI: Present soft and normal bowel sounds; Absent distention, tenderness or guarding Extremities: Absent tenderness, edema or calf tenderness Neuro: Present alert and oriented x 3 Assessment and Plan *Assessment and plan (1) Pneumonia: Status: Acute Category: Medical Code(s): J18.9 - Pneumonia, unspecified organism (2) S/P right coronary artery (RCA) stent placement: Status: Chronic Category: Surgical Code(s): Z95.5 - Presence of coronary angioplasty implant and graft (3) GERD (gastroesophageal reflux disease): Status: Chronic Qualifiers: Esophagitis bleeding: without hemorrhage Category: Medical Code(s): K21.9 - Gastro-esophageal reflux disease without esophagitis (4) COPD (chronic obstructive pulmonary disease): Status: Chronic Qualifiers: COPD type: emphysema Emphysema type: centrilobular Qualified Code(s): J43.2 - Centrilobular emphysema Category: Medical Code(s): J44.9 - Chronic obstructive pulmonary disease, unspecified (5) History of smoking 30 or more pack years: Status: Chronic Category: Social Hx Code(s): Z87.891 - Personal history of nicotine dependence (6) HLD (hyperlipidemia): Status: Chronic Qualifiers: Hyperlipidemia type: mixed hyperlipidemia Qualified Code(s): E78.2 - Mixed hyperlipidemia Category: Medical Code(s): E78.5 - Hyperlipidemia, unspecified (7) CAD (coronary artery disease): Problem Comment: JANUARY 2021 Medical management for ischemic heart disease NOVEMBER 2020.Critical proximal dominant right coronary stenosis Successful stenting of the ostial proximal dominant right coronary artery critical disease reduced to 0% with 1 drug-eluting stent Preserved ejection fraction with mild regional wall motion abnormality Mildly elevated LVEDP Status: Chronic Qualifiers: Associated angina: without angina Coronary Disease-Associated Artery/Lesion type: [place] artery [place] vs. transplanted heart: [place] heart Qualified Code(s): I25.10 - Atherosclerotic heart disease of [place] coronary artery without angina pectoris Category: Medical Code(s): I25.10 - Atherosclerotic heart disease of [place] coronary artery without angina pectoris Plan Continue with current care. Continue with as needed cough meds. Pulmonology to follow. Sputum is still pending. Dr. Fernandez entry - Saw patient, agree with above note.
[2024-03-07] MEDS: [UNRECOGNIZED DRUG - OTHER] PO ×2 (08:11→19:46)
[2024-03-07] MEDS: HYDROCODONE PO ×2 (08:11→19:46)
[2024-03-07] MEDS: CLOPIDOGREL 75MG TAB 75 MG PO (08:45)
[2024-03-07] MEDS: predniSONE 20MG TAB 40 MG PO (08:45)
--- NOTE | 2024-03-07 09:53 | P.PN_ITS ---
Subjective *Date: 03/07/24 *Time: 11:21 Interval history: No acute respiratory vents overnight. Continue to remain on room air. Patient admits improving respiratory symptoms. Pulmonology Exam Inpatient Vital signs and Labs for Last 24 Hours: Temp Pulse Resp BP Pulse Ox O2 Del Method O2 Flow Rate 97.8 F 76 16 129/68 91 L Room Air 2 03/07/24 08:00 03/07/24 08:00 03/07/24 08:00 03/07/24 08:00 03/07/24 08:00 03/07/24 06:52 03/07/24 06:07 Laboratory Results - last 24 hr 03/06/24 09:34: WBC 16.5 H, RBC 4.18 L, Hgb 13.1 L, Hct 40.5 L, MCV 96.8 H, MCH 31.3 H, MCHC 32.3, RDW 13.8, Plt Count 183, MPV 8.8, Neut % (Auto) 85.9 H, Lymph % (Auto) 8.4 L, [place] % (Auto) 5.5, Eos % (Auto) 0.1, Baso % (Auto) 0.2, Neut # (Auto) 14.1 H, Lymph # (Auto) 1.4, [place] # (Auto) 0.9, Eos # (Auto) 0.0, Baso # (Auto) 0.0, Total Counted 100, Neutrophils % (Manual) 80 H, Lymphocytes % (Manual) 11, Monocytes % (Manual) 9, Platelet Estimate Normal, [place] Cells 1+, Sodium 138, Potassium 4.6, Chloride 109 H, Carbon Dioxide 26, Anion Gap 7.6, BUN 16, Creatinine 0.80, Estimated Creat Clear 87, Estimated GFR 95, Est GFR ( Amer) 115, Glucose 149 H, Calcium 8.3 L, Total Bilirubin 0.6, AST 59, ALT 40, Alkaline Phosphatase 62, Total Protein 6.0 L, Albumin 3.3 L, Globulin 2.7, Albumin/Globulin Ratio 1.2 Temp Pulse Resp BP Pulse Ox O2 Del Method O2 Flow Rate 97.7 F 89 18 140/77 96 Room Air 1 03/05/24 08:00 03/05/24 08:00 03/05/24 08:00 03/05/24 08:00 03/05/24 08:00 03/05/24 08:00 03/05/24 04:55 Laboratory Results - last 24 hr 03/04/24 17:35: WBC 14.4 H, RBC 5.07, Hgb 15.6, Hct 48.9, MCV 96.5 H, MCH 30.7, MCHC 31.8, RDW 13.7, Plt Count 231, MPV 9.2, Neut % (Auto) 73.1, Lymph % (Auto) 18.8, [place] % (Auto) 5.1, Eos % (Auto) 2.5, Baso % (Auto) 0.5, Neut # (Auto) 10.5 H, Lymph # (Auto) 2.7, [place] # (Auto) 0.7, Eos # (Auto) 0.4, Baso # (Auto) 0.1, Total Counted 100, Neutrophils % (Manual) 74, Lymphocytes % (Manual) 20, Monocytes % (Manual) 6, Platelet Estimate Normal, RBC Morphology Normal, Sodium 139, Potassium 3.9, Chloride 103, Carbon Dioxide 28, Anion Gap 11.9, BUN 20, Creatinine 1.00, Estimated Creat Clear 83, Estimated GFR 74, Est GFR ( Amer) 89, Glucose 106 H, Calcium 8.7 03/04/24 18:30: Chlamy pneumoniae PCR Not detected, Adenovirus (PCR) Not detected, B. pertussis DNA (PCR) Not detected, Coronavirus OC43 (PCR) Not detected, Coronavirus HKU1 (PCR) Not detected, Coronavirus 229E (PCR) Not detected, SARS-CoV-2 (PCR) Not detected, Coronavirus NL63 (PCR) Not detected, Human Metapneumovir PCR Not detected, Influenza A (H1) PCR Not detected, Influ A (H1N1/09) PCR Not detected, Influenza A (H3) PCR Not detected, Influenza Type A (PCR) Not detected, Influenza Type B (PCR) Not detected, M. pneumoniae (PCR) Not detected, Parainfluenza 1 (PCR) Not detected, Parainfluenza 2 (PCR) Not detected, Parainfluenza 3 (PCR) Not detected, Parainfluenza 4 (PCR) Not detected, RSV (PCR) Not detected, Entero/Rhino (PCR) Not detected 03/05/24 05:45: WBC 19.4 H D, RBC 4.58 L, Hgb 14.1, Hct 43.4, MCV 94.8 H, MCH 30.8, MCHC 32.5, RDW 13.7, Plt Count 187, MPV 8.8, Neut % (Auto) 90.8 H, Lymph % (Auto) 6.2 L, [place] % (Auto) 2.9, Eos % (Auto) 0.0 L, Baso % (Auto) 0.1, Neut # (Auto) 17.6 H, Lymph # (Auto) 1.2, [place] # (Auto) 0.6, Eos # (Auto) 0.0, Baso # (Auto) 0.0, Total Counted 100, Neutrophils % (Manual) 90 H, Lymphocytes % (Manual) 8 L, Atypical Lymphs % 2.0, Platelet Estimate Normal, RBC Morphology Normal, Sodium 135 L, Potassium 3.9, Chloride 105, Carbon Dioxide 21 L, Anion Gap 12.9, BUN 17, Creatinine 0.90, Estimated Creat Clear 85, Estimated GFR 83, Est GFR ( Amer) 101, Glucose 181 H D, Calcium 8.2 L I & O for Labs for Last 24 Hours: Intake & Output 03/04/24 03/05/24 03/06/24 03/07/24 23:59 23:59 23:59 23:59 Intake Total 620 / 620 720 / 720 6476 / 6976 1435 / 1435 Output Total 225 / 225 1350 / 1350 250 / 550 600 / 600 Balance 395 / 395 -630 / -630 6226 / 6426 835 / 835 Weight 191 lb 7 oz 195 lb 4 oz 199 lb 3.2 oz 203 lb Intake & Output 03/02/24 03/03/24 03/04/24 03/05/24 23:59 23:59 23:59 23:59 Intake Total 620 / 620 120 / 120 Output Total 225 / 225 550 / 550 Balance 395 / 395 -430 / -430 Weight 191 lb 7 oz 195 lb 4 oz Constitutional: Present moderate distress Head: Present normocephalic and atraumatic ENT: Present normal exam, normal oropharynx and mucous membranes moist Neck: Present normal inspection and full ROM Respiratory: Present respiratory distress; Absent wheezes, crackles or able to speak in complete sentences Cardiac: Present S1/S2, Tachycardia and radial pulses present GI: Present soft and distention; Absent tenderness or guarding Skin: Present intact; Absent cyanosis or jaundice Neuro: Present alert, awake and oriented x 3 Extremities: Present normal inspection; Absent clubbing or cyanosis Psychiatric: Present normal affect and cooperative Assessment and Plan *Assessment and plan (1) Pneumonia: Status: Acute Category: Medical Code(s): J18.9 - Pneumonia, unspecified organism (2) Acute respiratory failure with hypoxia: Status: Acute Category: Medical Code(s): J96.01 - Acute respiratory failure with hypoxia Plan Mr. Miranda is a 73-year-old male greater than 38-arts-rdal smoking history, COPD at baseline on Trelegy 100 inhaler presented to [facility] with complaints of cough sore throat body aches and runny nose in the setting of exposure to COVID-19 pneumonia and was eventually admitted to the hospital for further evaluation and management. Patient other complaining of worsening cough productive phlegm wheezing along with diffuse bodyaches and weakness Comprehensive respiratory viral PCR panel upon admission resulted negative. Neutrophilic predominant leukocytosis upon admission worsening. Chest x-ray concerning for bilateral lower lobe airspace disease right greater than left. Patient on admission was initiated on treatment for community-acquired pneumonia with ceftriaxone azithromycin along with methylprednisolone 80 IV every 6 hours. On initial examination severe respiratory distress, not able to complete full sentences. No significant wheezing noted on auscultation. Interval update: No acute respiratory events overnight. Continue to remain on room air. Admits continued cough and productive phlegm, improving. Leukocytosis slightly improved from admission. Hemodynamically stable. Afebrile. Plan: Continue oxygen supplementation as needed to maintain O2 saturation goal of 89% able to continue with saturating 90 to 92% Continue current antibiotics including ceftriaxone and azithromycin. Continue prednisone 40 mg daily for total of 5 days from 03/07/2024 Trelegy 100 inhaler. DuoNebs every 6 hours on as-needed basis Lasix 40 mg IV once # Thank you for involving pulmonary in this patient care. Will continue to follow.
[2024-03-07] MEDS: FUROSEMIDE 40MG/4ML VIAL 40 MG IV (11:27)
[2024-03-07] MEDS: FLUTICASONE/UMECLIDIN/VILANTER 100/62.5/25MCG INHALER 1 PUFF IH (12:57)
[2024-03-07] MEDS: CEFTRIAXONE SODIUM 1 GM in 0.9 % SODIUM CHLORIDE 50 ML IV (18:08)
--- NOTE | 2024-03-07 18:20 | PC.NURSE ---
PT HAS DONE FAIR TODAY. REPORTS THAT HE IS PRETTY TIRED FROM GOING TO THE BATHROOM SO MUCH TODAY. REPORTS A PRODUCTIVE COUGH. VSS.
[2024-03-07] MEDS: AZITHROMYCIN 500 MG in 0.9 % SODIUM CHLORIDE 250 ML 250 MG IV (19:40)
[2024-03-07] MEDS: 0.9 % SODIUM CHLORIDE 1000ML 1,000 ML 100 ML IV (19:52)
[2024-03-07] MEDS: SODIUM CHLORIDE 0.9% 10ML VIAL 10 ML IV (21:13)
[2024-03-07] MEDS: PANTOPRAZOLE 40MG VIAL 40 MG IV (21:13)
[2024-03-08] VITALS: O2SAT 90
[2024-03-08] MEDS: HYDROCODONE PO ×2 (00:54→06:45)
[2024-03-08] MEDS: [UNRECOGNIZED DRUG - OTHER] PO ×2 (00:54→06:45)
[2024-03-08 04:00] VITALS: BP 132/72; PULSE 72; RESP 16; TEMP 36.8; O2SAT 90; BMI 29.7
--- NOTE | 2024-03-08 04:58 | PC.NURSE ---
Pt has rested through the night. He was medicated with Hycodan per SEP for cough. He continues to have thick sputum at times. Encouraged to increase fluid intake to help thin secretions. Spoke with Dr Fernandez early in the shift who called to f/u on pt status and request CBC and BMP labs be ordered.
[2024-03-08] MEDS: FLUTICASONE/UMECLIDIN/VILANTER 100/62.5/25MCG INHALER 1 PUFF IH (06:13)
[2024-03-08 08:00] VITALS: BP 156/80; PULSE 61; RESP 17; TEMP 36.6; O2SAT 91
[2024-03-08 08:00] LABS: Basophils % 0.3 % (0.1-2.0); Eosinophils # 0.1 K/mm3 (0.0-0.4); Hematocrit 40.9 % (42.0-52.0); Hemoglobin 13.4 g/dL (14.1-18.0); Lymphocytes # 2.2 K/mm3 (0.7-4.5); Lymphocytes % 19.4 % (10-50); Mean Corpuscular HGB Conc 32.8 g/dL (31.8-35.4); Mean Corpuscular Hemoglobin 31.3 pg (27.0-31.2); Mean Corpuscular Volume 95.3 fl (80-94); Mean Platelet Volume 8.8 fl (7.4-10.4); Monocytes # 0.8 K/mm3 (0.1-1.0); Monocytes % 7.4 % (1.7-9.3); Neutrophils % 71.9 % (37.0-80.0); Platelet Count 201 K/mm3 (142-424); Red Cell Distribution Width 13.7 % (11.5-17.5); White Blood Count 11.1 K/mm3 (4.8-10.8)
--- NOTE | 2024-03-08 08:20 | P.PN_ITS ---
Subjective *Date: 03/08/24 *Time: 08:57 Interval history: Patient is feeling better this am. He is tired because he was up all day yesterday. He has been back and forth to the bathroom after he received lasix. His chest is still sore from coughing. He has been coughing up sputum. Medical Exam Vital signs and Labs for Last 24 Hours: Vital Signs Temp Pulse Pulse Resp BP Pulse Ox O2 Del Method 03/08/24 06:53 Room Air 03/08/24 04:00 98.3 F 72 16 132/72 90 L Room Air 03/08/24 03:00 Room Air 03/08/24 01:00 Room Air 03/08/24 00:00 90 L Room Air 03/07/24 23:00 Room Air 03/07/24 21:00 Room Air 03/07/24 20:00 90 L Room Air 03/07/24 20:00 98.3 F 78 22 143/80 H 90 L Room Air 03/07/24 19:00 Room Air 03/07/24 17:00 Room Air 03/07/24 16:00 98 F 78 17 127/73 91 L 03/07/24 16:00 Room Air 03/07/24 15:00 Room Air 03/07/24 13:00 Room Air 03/07/24 11:07 78 03/07/24 11:07 81 03/07/24 11:07 91 L Room Air 03/07/24 11:00 Room Air 03/07/24 09:00 Room Air Intake and Output 03/07/24 03/08/24 03/08/24 19:59 03:59 11:59 Intake Total 2516 / 3416 900 / 3416 Output Total 800 / 1100 300 / 1100 Balance 1716 / 2316 600 / 2316 Intake: Intake, Oral Amount 960 / 960 Intake, Total IV Amount 1556 / 2456 900 / 2456 0.9 % Sodium Chloride 1000ML 1, 1556 / 2456 900 / 2456 000 ml @ 100 mls/hr IV .Q10H [facility] Rx#:[id number] Output: Output, Urine Amount 800 / 1100 300 / 1100 Other: Number of Unmeasured Voids 1 Weight 202 lb 13.204 oz 196 lb 9.6 oz Patient Weight 03/08/24 11:59 Weight 196 lb 9.6 oz Laboratory Results - last 24 hr 03/08/24 07:44: WBC 11.1 H D, RBC 4.30 L, Hgb 13.4 L, Hct 40.9 L, MCV 95.3 H, MCH 31.3 H, MCHC 32.8, RDW 13.7, Plt Count 201, MPV 8.8, Neut % (Auto) 71.9, Lymph % (Auto) 19.4, [place] % (Auto) 7.4, Eos % (Auto) 1.0, Baso % (Auto) 0.3, Neut # (Auto) 8.0 H, Lymph # (Auto) 2.2, [place] # (Auto) 0.8, Eos # (Auto) 0.1, Baso # (Auto) 0.0 I & O for Labs for Last 24 Hours: Intake & Output 03/05/24 03/06/24 03/07/24 03/08/24 11:59 11:59 11:59 11:59 Intake Total 740 / 740 1380 / 1380 7131 / 7131 3416 / 3416 Output Total 775 / 775 1050 / 1050 600 / 600 1100 / 1100 Balance -35 / -35 330 / 330 6531 / 6531 2316 / 2316 Weight 195 lb 4 oz 199 lb 3.2 oz 203 lb 196 lb 9.6 oz Constitutional: Present no acute distress Comment:: Looks better today. Respiratory: Present diminished air movement; Absent crackles Cardiac: Present Reg Rate and Rhythm GI: Present soft and normal bowel sounds; Absent distention, tenderness or guarding Extremities: Absent tenderness, edema or calf tenderness Skin: Present intact Neuro: Present alert, awake and oriented x 3 Assessment and Plan *Assessment and plan (1) Pneumonia: Status: Acute Category: Medical Code(s): J18.9 - Pneumonia, unspecified organism (2) Acute respiratory failure with hypoxia: Status: Acute Category: Medical Code(s): J96.01 - Acute respiratory failure with hypoxia (3) S/P right coronary artery (RCA) stent placement: Status: Chronic Category: Surgical Code(s): Z95.5 - Presence of coronary angioplasty implant and graft (4) GERD (gastroesophageal reflux disease): Status: Chronic Qualifiers: Esophagitis bleeding: without hemorrhage Category: Medical Code(s): K21.9 - Gastro-esophageal reflux disease without esophagitis (5) COPD (chronic obstructive pulmonary disease): Status: Chronic Qualifiers: COPD type: emphysema Emphysema type: centrilobular Qualified Code(s): J43.2 - Centrilobular emphysema Category: Medical Code(s): J44.9 - Chronic obstructive pulmonary disease, unspecified (6) History of smoking 30 or more pack years: Status: Chronic Category: Social Hx Code(s): Z87.891 - Personal history of nicotine dependence (7) HLD (hyperlipidemia): Status: Chronic Qualifiers: Hyperlipidemia type: mixed hyperlipidemia Qualified Code(s): E78.2 - Mixed hyperlipidemia Category: Medical Code(s): E78.5 - Hyperlipidemia, unspecified (8) CAD (coronary artery disease): Problem Comment: JANUARY 2021 Medical management for ischemic heart disease NOVEMBER 2020.Critical proximal dominant right coronary stenosis Successful stenting of the ostial proximal dominant right coronary artery critical disease reduced to 0% with 1 drug-eluting stent Preserved ejection fraction with mild regional wall motion abnormality Mildly elevated LVEDP Status: Chronic Qualifiers: Associated angina: without angina Coronary Disease-Associated Artery/ Lesion type: [place] artery [place] vs. transplanted heart: [place] heart Qualified Code(s): I25.10 - Atherosclerotic heart disease of [place] coronary artery without angina pectoris Category: Medical Code(s): I25.10 - Atherosclerotic heart disease of [place] coronary artery without angina pectoris Plan Patient can likely discharge today. He has been off and on oxygen in the past 24 hours as he has been up and moving more. Patient's room air saturation this am was 82% at rest. He will need home oxygen, 2L/min. He will also need a nebulizer. He has had some coughing spells and his oxygen decreases during th sony spells. Will need to discharge on abx, nebs, and steroids. Dr. Fernandez entry - Saw patient, agree with above note. OK for discharge home today, f/u in office next week.
[2024-03-08 08:21] LABS: Chloride 106 mmol/L (98-107); Sodium 137 mmol/L (136-145)
[2024-03-08 08:22] LABS: Potassium 3.7 mmoL/L (3.5-5.1)
[2024-03-08 08:24] LABS: Blood Urea Nitrogen 14 mg/dl (9-20); Creatinine Clearance Estimated 85 mL/min (50-200); Estimated Glomerular Filt Rate 95 ml/min (>60); GFR (African American) 115 ML/MIN (>60)
[2024-03-08 08:25] LABS: Anion Gap 5.7 mEq/L (5-15); Calcium 8.3 mg/dl (8.4-10.2); Carbon Dioxide 29 mmol/L (22.0-30.0); Glucose 96 mg/dl (74-100)
[2024-03-08] MEDS: IPRATROPIUM/ALBUTEROL 3 ML NEB IH (08:26)
[2024-03-08] MEDS: guaiFENesin 200MG/10ML SYRUP UDC 200 MG PO (08:27)
[2024-03-08] MEDS: predniSONE 20MG TAB 40 MG PO (08:27)
[2024-03-08] MEDS: CLOPIDOGREL 75MG TAB 75 MG PO (08:27)
--- NOTE | 2024-03-08 09:48 | P.PN_ITS ---
Subjective *Date: 03/08/24 *Time: 12:30 Interval history: No acute respiratory vents overnight. Patient admits continued improvement in his respiratory symptoms. Pulmonology Exam Inpatient Vital signs and Labs for Last 24 Hours: Temp Pulse Resp BP Pulse Ox O2 Del Method O2 Flow Rate 98 F 61 17 156/80 H 91 L Room Air 2 03/08/24 08:00 03/08/24 08:00 03/08/24 08:00 03/08/24 08:00 03/08/24 08:00 03/08/24 06:53 03/07/24 06:07 Laboratory Results - last 24 hr 03/08/24 07:44: WBC 11.1 H D, RBC 4.30 L, Hgb 13.4 L, Hct 40.9 L, MCV 95.3 H, MCH 31.3 H, MCHC 32.8, RDW 13.7, Plt Count 201, MPV 8.8, Neut % (Auto) 71.9, Lymph % (Auto) 19.4, Dickenson % (Auto) 7.4, Eos % (Auto) 1.0, Baso % (Auto) 0.3, Neut # (Auto) 8.0 H, Lymph # (Auto) 2.2, Dickenson # (Auto) 0.8, Eos # (Auto) 0.1, Baso # (Auto) 0.0, Sodium 137, Potassium 3.7, Chloride 106, Carbon Dioxide 29, Anion Gap 5.7, BUN 14, Creatinine 0.80, Estimated Creat Clear 85, Estimated GFR 95, Est GFR ( Amer) 115, Glucose 96, Calcium 8.3 L Temp Pulse Resp BP Pulse Ox O2 Del Method O2 Flow Rate 97.7 F 89 18 140/77 96 Room Air 1 03/05/24 08:00 03/05/24 08:00 03/05/24 08:00 03/05/24 08:00 03/05/24 08:00 03/05/24 08:00 03/05/24 04:55 Laboratory Results - last 24 hr 03/04/24 17:35: WBC 14.4 H, RBC 5.07, Hgb 15.6, Hct 48.9, MCV 96.5 H, MCH 30.7, MCHC 31.8, RDW 13.7, Plt Count 231, MPV 9.2, Neut % (Auto) 73.1, Lymph % (Auto) 18.8, Dickenson % (Auto) 5.1, Eos % (Auto) 2.5, Baso % (Auto) 0.5, Neut # (Auto) 10.5 H, Lymph # (Auto) 2.7, Dickenson # (Auto) 0.7, Eos # (Auto) 0.4, Baso # (Auto) 0.1, Total Counted 100, Neutrophils % (Manual) 74, Lymphocytes % (Manual) 20, Monocytes % (Manual) 6, Platelet Estimate Normal, RBC Morphology Normal, Sodium 139, Potassium 3.9, Chloride 103, Carbon Dioxide 28, Anion Gap 11.9, BUN 20, Creatinine 1.00, Estimated Creat Clear 83, Estimated GFR 74, Est GFR ( Amer) 89, Glucose 106 H, Calcium 8.7 03/04/24 18:30: Chlamy pneumoniae PCR Not detected, Adenovirus (PCR) Not detected, B. pertussis DNA (PCR) Not detected, Coronavirus OC43 (PCR) Not detected, Coronavirus HKU1 (PCR) Not detected, Coronavirus 229E (PCR) Not detected, SARS-CoV-2 (PCR) Not detected, Coronavirus NL63 (PCR) Not detected, Human Metapneumovir PCR Not detected, Influenza A (H1) PCR Not detected, Influ A (H1N1/09) PCR Not detected, Influenza A (H3) PCR Not detected, Influenza Type A (PCR) Not detected, Influenza Type B (PCR) Not detected, M. pneumoniae (PCR) Not detected, Parainfluenza 1 (PCR) Not detected, Parainfluenza 2 (PCR) Not detected, Parainfluenza 3 (PCR) Not detected, Parainfluenza 4 (PCR) Not detected, RSV (PCR) Not detected, Entero/Rhino (PCR) Not detected 03/05/24 05:45: WBC 19.4 H D, RBC 4.58 L, Hgb 14.1, Hct 43.4, MCV 94.8 H, MCH 30.8, MCHC 32.5, RDW 13.7, Plt Count 187, MPV 8.8, Neut % (Auto) 90.8 H, Lymph % (Auto) 6.2 L, Dickenson % (Auto) 2.9, Eos % (Auto) 0.0 L, Baso % (Auto) 0.1, Neut # (Auto) 17.6 H, Lymph # (Auto) 1.2, Dickenson # (Auto) 0.6, Eos # (Auto) 0.0, Baso # (Auto) 0.0, Total Counted 100, Neutrophils % (Manual) 90 H, Lymphocytes % (Manual) 8 L, Atypical Lymphs % 2.0, Platelet Estimate Normal, RBC Morphology Normal, Sodium 135 L, Potassium 3.9, Chloride 105, Carbon Dioxide 21 L, Anion Gap 12.9, BUN 17, Creatinine 0.90, Estimated Creat Clear 85, Estimated GFR 83, Est GFR ( Amer) 101, Glucose 181 H D, Calcium 8.2 L I & O for Labs for Last 24 Hours: Intake & Output 03/05/24 03/06/24 03/07/24 03/08/24 23:59 23:59 23:59 23:59 Intake Total 720 / 720 6476 / 6976 3951 / 4851 900 / 900 Output Total 1350 / 1350 250 / 550 1700 / 1700 450 / 450 Balance -630 / -630 6226 / 6426 2251 / 3151 450 / 450 Weight 195 lb 4 oz 199 lb 3.2 oz 202 lb 13.204 oz 196 lb 9.6 oz Intake & Output 03/02/24 03/03/24 03/04/24 03/05/24 23:59 23:59 23:59 23:59 Intake Total 620 / 620 120 / 120 Output Total 225 / 225 550 / 550 Balance 395 / 395 -430 / -430 Weight 191 lb 7 oz 195 lb 4 oz Constitutional: Present moderate distress Head: Present normocephalic and atraumatic ENT: Present normal exam, normal oropharynx and mucous membranes moist Neck: Present normal inspection and full ROM Respiratory: Present respiratory distress; Absent wheezes, crackles or able to speak in complete sentences Cardiac: Present S1/S2, Tachycardia and radial pulses present GI: Present soft and distention; Absent tenderness or guarding Skin: Present intact; Absent cyanosis or jaundice Neuro: Present alert, awake and oriented x 3 Extremities: Present normal inspection; Absent clubbing or cyanosis Psychiatric: Present normal affect and cooperative Assessment and Plan *Assessment and plan (1) Pneumonia: Status: Acute Category: Medical Code(s): J18.9 - Pneumonia, unspecified organism (2) Acute respiratory failure with hypoxia: Status: Acute Category: Medical Code(s): J96.01 - Acute respiratory failure with hypoxia Plan Mr. Miranda is a 73-year-old male greater than [id number] smoking history, COPD at baseline on Trelegy 100 inhaler presented to [facility] with complaints of cough sore throat body aches and runny nose in the setting of exposure to COVID-19 pneumonia and was eventually admitted to the hospital for further evaluation and management. Patient other complaining of worsening cough productive phlegm wheezing along with diffuse bodyaches and weakness Comprehensive respiratory viral PCR panel upon admission resulted negative. Neutrophilic predominant leukocytosis upon admission worsening. Chest x-ray concerning for bilateral lower lobe airspace disease right greater than left. Patient on admission was initiated on treatment for community-acquired pneumonia with ceftriaxone azithromycin along with methylprednisolone 80 IV every 6 hours. On initial examination severe respiratory distress, not able to complete full sentences. No significant wheezing noted on auscultation. Interval update: Improving leukocytosis. Normal LVEF and normal diastolic function. No wall mo tion abnormalities. LV mildly dilated. Systolic function normal. Inadequate TR to measure RVSP. Plan: Saturations within normal limits at 89% on room air exertional hypoxia noted, being discharged on supplementation with exertion at 2 to 3 L. Continue current antibiotics including ceftriaxone and azithromycin, weaned to cefdinir upon discharge Continue prednisone 40 mg daily for total of 5 days from 03/07/2024 Trelegy 100 inhaler. DuoNebs every 6 hours on as-needed basis # Thank you for involving pulmonary in this patient care. Will follow the patient in 1 to 2 weeks post discharge
--- NOTE | 2024-03-08 15:15 | CARE MANAGER ---
Patient discharged home today with orders for home O2 and nebulizer machine. [facility] signed for [facility] and portable was delivered prior to discharge.
--- NOTE | 2024-03-11 12:54 | SW/DCPLANNER ---
Hospital follow up phone call: patient stated that he is feeling better at home. Patient stated that he has his home O2, picked up new medications and is aware of follow up appointments. Patient does not have any further needs/questions at this time.
--- NOTE | 2024-03-12 15:37 | P.DS_ITS ---
General Admission date:: 03/06/24 Discharge date: 03/08/24 HPI HPI HPI: Mr. Miranda is a 73-year-old male with a history of coronary artery disease with acute ID in 1996 with stent placement and in 2001 with stent placement, hypertension, GERD, COPD, and colon polyps. He presented to the office of [facility] complaining of a cough with a sore throat, body aches, and runny nose for a week. He stated his brother was diagnosed with COVID today. Patient was with him a couple of days ago. Pt denied having any fever, chest pain, and shortness of breath. With evaluation in the office his white b lood cell count was found to be 13,400 with 88.3% granulocytes. COVID test and flu test were both negative. Chest assessment revealed bibasilar rales and decreased breath sounds. He was felt to have a pneumonia and was admitted for further evaluation and treatment. Patient also describes a poor oral intake for the last few days with a decrease in urinary output. He had no vomiting until presentation to the office. At the time of this exam right after admission patient is feeling a little better after receiving a DuoNeb treatment. He continues with a nonproductive cough. He states he feels terrible. He is somewhat nauseated and does not want anything to eat. He is complaining of bodyaches as well as a headache. Hospital Course Hospital Course Hospital Course: On admission patient was started on IV fluids, antibiotics, cough medicines, and scheduled DuoNebs. Patient felt awful on admission and had difficulty sleeping due to cough. Cough eventually became productive. He did have body aches and headaches. He was seen by pulmonology with the following plan: Plan Mr. Miranda is a 73-year-old male greater than [id number] smoking history, COPD at baseline on Trelegy 100 inhaler presented to [facility] with complaints of cough sore throat body aches and runny nose in the setting of exposure to COVID-19 pneumonia and was eventually admitted to the hospital for further evaluation and management. Patient other complaining of worsening cough productive phlegm wheezing along with diffuse bodyaches and weakness Comprehensive respiratory viral PCR panel upon admission resulted negative. Neutrophilic predominant leukocytosis upon admission worsening. Chest x-ray concerning for bilateral lower lobe airspace disease right greater than left. Patient on admission was initiated on treatment for community-acquired pneumonia with ceftriaxone azithromycin along with methylprednisolone 80 IV every 6 hours. - On initial examination severe respiratory distress, not able to complete full sentences. No significant wheezing noted on auscultation. Interval update: No acute respiratory events overnight. Sputum Gram stain concerning for mixed respiratory nayeli. No actionable results at this point of time. Chest x-ray concern for slight worsening of the lower lobe airspace disease. Oxygen requirements improved, now on some improvement saturating 95% today. Will continue current antibiotic course. Follow with echocardiogram result. Plan: Continue oxygen supplementation as needed to maintain O2 saturation goal of 89% able to continue with saturating 90 to 92% Continue current antibiotics including ceftriaxone and azithromycin. Wean steroids to prednisone 40 mg daily for total of 5 days from tomorrow. DuoNebs every 6 hours along with pulm but every 12 scheduled The above as per Pt made slow progress and eventually was able to get up and take a shower but became very short of breath. He was sore from coughing. He did begin to eat. By 03/08 patient was feeling better. White blood cell count had decreased to 1 1,100. O2 sats were at 82% on RA. Noted that he would need home O2 and a nebulizer. He also will need to continue on antibiotics as well as the nebs and steroids. On 03/08 he was stable to be discharged home. Follow-up in the office in 1 week. Exam Data for Last 24 hours Vital signs and Labs for Last 24 Hours: Temp Pulse Resp BP Pulse Ox O2 Del Method O2 Flow Rate 98 F 61 17 156/80 H 91 L Nasal Cannula 2 03/08/24 08:00 03/08/24 08:00 03/08/24 08:00 03/08/24 08:00 03/08/24 08:00 03/08/24 09:00 03/07/24 06:07 Narrative: Constitutional: Present no acute distress Comment:: Looks better today. Respiratory: Present diminished air movement; Absent crackles Cardiac: Present Reg Rate and Rhythm GI: Present soft and normal bowel sounds; Absent distention, tenderness or guarding Extremities: Absent tenderness, edema or calf tenderness Skin: Present intact Neuro: Present alert, awake and oriented x 3 Results Data Completed and Pending Completed studies during hospitalization [Text1]: 03/04/2024 CXR FINDINGS: Lungs: No evidence of acute pulmonary disease or infiltrates Pleural spaces: No large effusion or pneumothorax. Heart/Mediastinum: Stable cardiac and mediastinal contours. Vasculature: There are calcifications of the aortic arch. Bones/joints: No evidence of acute osseous abnormalities within the visualized portions of the thoracic spine and ribs. Osseous structures appear appropriate for patient age. IMPRESSION: No dense parenchymal consolidation, pleural effusion, or pneumothorax. 03/06/2024 ECHO Conclusion Normal biventricular systolic function. Mild RV dilation. No significant valvular stenosis or regurgitation. DS: Diagnosis Discharge Diagnosis (1) Pneumonia: Status: Acute Code(s): J18.9 - Pneumonia, unspecified organism (2) Acute respiratory failure with hypoxia: Status: Acute Code(s): J96.01 - Acute respiratory failure with hypoxia Meds Home Medications and Allergies Home Medications ?Medication ?Instructions ?Recorded ?Confirmed ?Type aspirin 81 mg chewable tablet 81 mg PO HS 03/12/18 03/04/24 History fluticasone fur. 100 mcg-umeclid 1 inh inhalation DAILY 90 days #90 09/26/23 03/05/24 Rx 62.5 mcg-vilant 25 mcg ea inhalat.powder (Trelegy Ellipta) atorvastatin 40 mg tablet 40 mg PO HS 03/04/24 03/04/24 History clopidogrel 75 mg tablet 75 mg PO DAILY 03/04/24 03/04/24 History losartan 25 mg tablet 25 mg PO DAILY 03/04/24 03/04/24 History pantoprazole 40 mg tablet,delayed 40 mg PO DAILY 03/04/24 03/04/24 History release albuterol sulfate 90 mcg/actuation 1 inh inhalation Q6HP PRN 03/05/24 03/05/24 History aerosol inhaler (Proventil HFA) shortness of breath or wheezing azithromycin 500 mg tablet 500 mg PO DAILY 3 days #3 tabs 03/08/24 Rx (Zithromax TRI-ESAU) cefdinir 300 mg capsule 300 mg PO Q12H #14 caps 03/08/24 Rx hydrocodone-homatropine 5 mg-1.5 1 tab PO Q4HP PRN Cough #20 tabs 03/08/24 Rx mg tablet ipratropium 0.5 mg-albuterol 3 mg 3 ml inhalation Q6HP PRN shortness 03/08/24 Rx (2.5 mg base)/3 mL nebulization of breath or wheezing #50 mL soln prednisone 20 mg tablet 40 mg (2 x 20 mg) PO DAILY #5 tabs 03/08/24 Rx New Prescriptions to Start Prescriptions: azithromycin [Zithromax TRI-ESAU] [place], cefdinir [place], hydrocodone-homatropine [place], ipratropium-albuterol [place], prednisone [place], Allergies Allergy/AdvReac Type Severity Reaction Status Date / Time No Known Allergies Allergy Verified 02/08/24 10:14 Discharge Plan Disposition Patient Disposition: Home, Self-Care Condition: Fair Discharge Order Discharge Orders: Discharge Order (Routine); Ordered 03/08/24 Ordered By: Brian Fernandez Follow up Plan Follow up with: Minoo Armenta MD [Primary Care Provider] - 03/15/24 11:00 am (Appointment with Lucy ) Phong Rodas MD [Physician] - 03/21/24 1:00 pm Prescriptions/Medication Reconciliation: New hydrocodone-homatropine 5-1.5 mg Tablet 1 tab PO Q4HP PRN (Reason: Cough) Qty: 20 0RF ipratropium-albuterol 0.5 mg-3 mg(2.5 mg base)/3 mL Solution For Nebulization 3 ml inhalation Q6HP PRN (Reason: shortness of breath or wheezing) Qty: 50 0RF prednisone 20 mg Tablet 40 mg PO DAILY Qty: 5 0RF azithromycin [Zithromax TRI-ESAU] 500 mg tablet 500 mg PO DAILY 3 Days Qty: 3 0RF cefdinir 300 mg capsule 300 mg PO Q12H Qty: 14 0RF Continued Trelegy Ellipta 100-62.5-25 mcg blister with device 1 inh inhalation DAILY 90 Days Qty: 90 3RF aspirin 81 MG tablet,chewable 81 mg PO HS clopidogrel 75 mg tablet 75 mg PO DAILY atorvastatin 40 mg tablet 40 mg PO HS pantoprazole 40 mg tablet,delayed release (DR/EC) 40 mg PO DAILY losartan 25 mg tablet 25 mg PO DAILY albuterol sulfate [Proventil HFA] 90 mcg/actuation HFA aerosol inhaler 1 inh inhalation Q6HP PRN (Reason: shortness of breath or wheezing) Problem Reconciliation Problems Reviewed?: Yes Patient Discharge Instructions ACTIVITY: Limited activity DIET: continue same diet Patient Instructions: Pneumonia-Adult, DI for Pneumonia -- Adult Print Language: Chilean Providers Primary Care Provider: Minoo Armenta Admit Provider: Minoo Armenta Attending Provider: Minoo Armenta
== END 2024-03-08 10:51 | DRG 193 ==
PROVIDERS: Admitting Provider Family Medicine; PCP Family Medicine; Visit Provider Family Medicine
DX: J18.9 Pneumonia, unspecified organism (principal); J96.01 Acute respiratory failure with hypoxia; Z95.5 Presence of coronary angioplasty implant and graft; K21.9 Gastro-esophageal reflux disease without esophagitis; J43.2 Centrilobular emphysema; Z87.891 Personal history of nicotine dependence; E78.2 Mixed hyperlipidemia; I25.10 Atherosclerotic heart disease of native coronary artery without angina pectoris; I25.2 Old myocardial infarction; I10 Essential (primary) hypertension
CPT/HCPCS: 36415; 71045; 80048; 80053; 85007; 85014; 85018; 85025; 85027; 85048; 85049; 87070; 87077; 87205; 87581; 87632; 87635; 87798; 93005; 93306; 94640; 94761; J0456; J0696; J1940; J2919; J7030; J7620

== ENCOUNTER 2024-03-21 13:31 | Outpatient (CLI) | payer MEDICARE, SELFPAY ==
--- NOTE | 2024-03-21 13:43 | XR_ITS ---
FINAL REPORT CLINICAL HISTORY: PNM follow up COMPARISON: 03/06/2024 FINDINGS: TWO-VIEW CHEST The heart size is normal. The mediastinum is normal. The lungs are hyperinflated consistent with COPD. There are partially improved right base opacities consistent with improved pneumonia. There is no pneumothorax. IMPRESSION: Improved pneumonia. Reviewed, Interpreted and Dictated by Chidi Gross III, MD Transcribed by Jocelin Soria Authenticated and [facility]
== END 2024-03-21 23:59 | disposition home or self-care (01) ==
LOC: RAD 13:33
PROVIDERS: PCP Family Medicine; Visit Provider Internal Medicine Pulmonary Disease
DX: R06.02 Shortness of breath (principal)
CPT/HCPCS: 71046

== ENCOUNTER 2024-07-22 13:33 | Emergency (ER) | payer MEDICARE, SELFPAY ==
--- NOTE | 2024-07-22 13:39 | XR_ITS ---
FINAL REPORT CLINICAL HISTORY: fall FINDINGS: 2 views of the left forearm were obtained. Again seen is a mildly displaced, intra-articular fracture of the lateral aspect of the radial head. There is other no acute fracture or dislocation. The joints are intact. There are no soft tissue abnormalities. IMPRESSION: Mildly displaced, intra-articular fracture of the lateral aspect of the radial head. Reviewed, Interpreted and Dictated by Maurice Delgado MD Transcribed by Soniya Mcgill Authenticated and . [facility]
--- NOTE | 2024-07-22 13:39 | XR_ITS ---
FINAL REPORT CLINICAL HISTORY: fall FINDINGS: LEFT WRIST Three views demonstrate no acute fracture or dislocation. There is an ossific density at the dorsal aspect of the proximal carpal row which may be related to hypertrophic changes or old triquetral fracture. The visualized joint spaces are normally aligned. The soft tissues are unremarkable. IMPRESSION: No acute bony abnormality. Reviewed, Interpreted and Dictated by Maurice Delgado MD Transcribed by Soniya Mcgill Authenticated and [facility]
--- NOTE | 2024-07-22 13:39 | XR_ITS ---
FINAL REPORT CLINICAL HISTORY: fall FINDINGS: 3 views of the left elbow were obtained. There is a mildly displaced, intra-articular fracture of the lateral aspect of the radial head. A moderate size joint effusion is seen. There is not soft tissue abnormality. IMPRESSION: Mildly displaced, intra-articular fracture of the radial head. Reviewed, Interpreted and Dictated by Maurice Delgado MD Transcribed by Soniya Mcgill Authenticated and [facility] [place]
--- NOTE | 2024-07-22 13:39 | XR_ITS ---
FINAL REPORT CLINICAL HISTORY: fall FINDINGS: LEFT HAND Three views demonstrate no acute fracture or dislocation. The visualized joint spaces are normally aligned. A soft tissue foreign body is seen in the lateral aspect of the third distal phalanx measuring 2 mm. There is mild DIP joint space narrowing consistent with changes of osteoarthritis. IMPRESSION: No acute process. Reviewed, Interpreted and Dictated by Maurice Delgado MD Transcribed by Soniya Mcgill Authenticated and [facility]
[2024-07-22 13:58] VITALS: BP 142/85; PULSE 81; RESP 18; TEMP 36.6; O2SAT 95; BMI 29.9
--- NOTE | 2024-07-22 14:04 | XR_ITS ---
FINAL REPORT CLINICAL HISTORY: FALL FINDINGS: LEFT HUMERUS 2 views were obtained. There is no acute fracture or dislocation. Visualized joint spaces are normally aligned. Soft tissues are unremarkable. IMPRESSION: No acute bony abnormality. Reviewed, Interpreted and Dictated by Maurice Delgado MD Transcribed by Soniya Mcgill Authenticated and [facility]
--- NOTE | 2024-07-22 14:06 | EXP.UTC ---
Discharge Plan Disposition Patient Disposition: Home, Self-Care Condition: Good Prescriptions Prescriptions: No Action Eugenio Vilata 100-62.5-25 mcg blister with device 1 inh inhalation DAILY 90 Days Qty: 90 3RF pantoprazole 40 mg tablet,delayed release (DR/EC) 40 mg PO DAILY Qty: 90 1RF clopidogrel 75 mg tablet 75 mg PO DAILY Qty: 90 1RF atorvastatin 40 mg tablet 40 mg PO HS Qty: 90 1RF aspirin 81 MG tablet,chewable 81 mg PO HS losartan 25 mg tablet 25 mg PO DAILY albuterol sulfate [Proventil HFA] 90 mcg/actuation HFA aerosol inhaler 1 inh inhalation Q6HP PRN (Reason: shortness of breath or wheezing) ipratropium-albuterol 0.5 mg-3 mg(2.5 mg base)/3 mL Solution For Nebulization 3 ml inhalation Q6HP PRN (Reason: shortness of breath or wheezing) Qty: 50 0RF Referrals Follow up/Referrals: Minoo Armenta MD [Primary Care Provider] - See instructions Activity Restrictions/Add. Instructions Additional Instructions/Restrictions: Elevate Leave splint in place Ice 20 minutes every hour Tylenol as needed for pain If worsens or no improvement return Follow-up with Dr. Robles tomorrow 07/23/2024 at 1030 Clinical Impressions Clinical Impression: Closed fracture of head of left radius Instructions Patient Instructions: DI for Forearm Fracture Print Language Print Language: Albanian Discharge ED Provider: Kwame ([facility])[place]ry [facility] [place] H[place] General Stated complaint: AO-1230 hours, fall, pain in L elbow and hand Mode of Arrival: Ambulatory Source of Information: Patient Time Seen by Provider: 07/22/24 13:59 Description of Symptoms (Recalled from Triage Doc. by RN): FELL AND HURT LEFT ELBOW, FOREARM AND HAND HEENT Symptoms (Recalled from RN notes): No Resp Symptoms (Recalled from RN notes): No Skin Symptoms (Recalled from RN notes): No MS Symptoms (Recalled from RN notes): Yes Functional Status (Recalled from RN notes): UNABLE TO MOVE ARM AROUND OR EXTEND IT History of Present Illness Provider Complaint: 74-year-old male presents for left arm pain. Patient states he was scheduled for a left ambulate out of the building and slipped falling against left elbow and hand. Since then has had pain with movement Related Data Home Medications ?Medication ?Instructions ?Recorded ?Confirmed aspirin 81 mg chewable tablet 81 mg PO HS 03/12/18 07/22/24 losartan 25 mg tablet 25 mg PO DAILY 03/04/24 07/22/24 albuterol sulfate 90 mcg/actuation 1 inh inhalation Q6HP PRN 03/05/24 06/12/24 aerosol inhaler (Proventil HFA) shortness of breath or wheezing Previous Rx's ?Medication ?Instructions ?Recorded fluticasone fur. 100 mcg-umeclid 1 inh inhalation DAILY 90 days #90 09/26/23 62.5 mcg-vilant 25 mcg ea inhalat.powder (Trelegy Ellipta) ipratropium 0.5 mg-albuterol 3 mg 3 ml inhalation Q6HP PRN shortness 03/08/24 (2.5 mg base)/3 mL nebulization of breath or wheezing #50 mL soln atorvastatin 40 mg tablet 40 mg PO HS #90 tabs 07/18/24 clopidogrel 75 mg tablet 75 mg PO DAILY #90 tabs 07/18/24 pantoprazole 40 mg tablet,delayed 40 mg PO DAILY #90 tabs 07/18/24 release Allergies Allergy/AdvReac Type Severity Reaction Status Date / Time No Known Allergies Allergy Verified 06/12/24 08:37 Worker's Comp Is this a Worker's Comp case?: No [facility] Disclaimer: The information contained in this section may have been updated after the patient was seen, as this information can be updated by other users. 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) Congestion of both ears Tinnitus aurium Typical angina Impotence Family history of diabetes mellitus Sebaceous cyst of scrotum Scrotal abscess Abscess of groin, right Strep throat Acute respiratory failure with hypoxia Acute right otitis media Hearing difficulty of right ear Impacted cerumen, right ear Chronic inflammation of both eustachian tubes Excessive cerumen in both ear canals Excessive cerumen in right ear canal Otitis externa of right ear Tinnitus Hearing loss in right ear Dyspnea on exertion History of COVID-19 Acute exacerbation of chronic obstructive pulmonary disease Bronchitis Sinusitis Family history of asthma History of smoking 30 or more pack years Dyspnea on exertion SOB (shortness of breath) HLD (hyperlipidemia) CAD (coronary artery disease) COPD (chronic obstructive pulmonary disease) 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 , 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) Status post insertion of drug-eluting stent into right coronary artery for coronary artery disease S/P right coronary artery (RCA) stent placement History of colonoscopy History of cholecystectomy Previous back surgery Stented coronary artery Family History , 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) Family history of cancer Family history of hypertension Family history of diabetes mellitus type II Family history of hyperlipidemia 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 , 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) Smoking Status: Former smoker second hand exposure: No alcohol intake: never substance use type: denies use current occupational status: retired Travel in the last 8 weeks: None household members: spouse housing: house current occupational exposures/hazards: No caffeine: Yes ROS Obtained: Yes Systems reviewed as appropriate & no additional complaints except as documented Physical Exam General General appearance: alert and in no apparent distress ENT ENT exam: Present normal exam Neck Neck exam: Present normal inspection Chest Chest inspection: Present normal inspection Respiratory Respiratory exam: Present normal lung sounds bilaterally Cardiovascular Cardiovascular exam: Present regular rate and normal rhythm Extremities Exam Extremities exam: Present normal inspection, tenderness and normal capillary refill Expanded Upper Extremity Exam Left: Shoulder exam: Present normal inspection and full ROM Arm exam: Present normal inspection and tenderness Elbow exam: Present normal inspection and tenderness Forearm/Wrist exam: Present normal inspection and full ROM Hand exam: Present normal inspection and full ROM L/R Arms Top View: 1. Tender Neurological Exam Neurological exam: Present alert and oriented X3 Skin Skin exam: Present warm and intact Medical Decision Making Medical Records Medical records reviewed: Yes I reviewed the patient's medical records. Screening: Per USPSTF and CDC recommendations, given the prevalence of disease in our region, it is our hospital?s policy to screen for HIV and viral Hepatitis for all patients aged 18 and over and those with ongoing risk factors. Donald Inquiry Pt receiving controlled substance: No Vital Signs: 07/22/24 13:58 Temperature 97.9 F Temperature Source Oral Pulse Rate [Left Brachial] 81 Respiratory Rate 18 Blood Pressure [Left Arm] 142/85 H Blood Pressure Mean [Left Arm] 104 02 Sat by Pulse Oximetry 95 Orders (Tests/Meds): ORDERS Category Date Time Status Hand XR left minimum 3 views [XR hand LT min 3V] Stat Exams 07/22/24 13:39 Taken Humerus XR left [XR humerus LT] Stat Exams 07/22/24 14:04 Ordered XR elbow LT min 3V Stat Exams 07/22/24 13:39 Taken XR forearm LT 2V Stat Exams 07/22/24 13:39 Taken XR wrist LT min 3V Stat Exams 07/22/24 13:39 Taken Radiology Data #1: Image(s): Forearm Image Reviewed: Yes I reviewed the patient's radiology image and Yes I have reviewed radiologist's interpretation Preliminary Findings: Abnormal (Mildly displaced intra-articular fracture of the lateral aspect of the radial head) #2: Image(s): Elbow Image Reviewed: Yes I reviewed the patient's radiology results and Yes I reviewed the patient's radiology image Preliminary Findings: Abnormal #3: Image(s): Wrist Image Reviewed: Yes I reviewed the patient's radiology results and Yes I reviewed the patient's radiology image Preliminary Findings: Normal/NAD Physician Consults Physician Consulted: Travis Time: 15:46 Reason -: Orthopedic Eval/Care Comment/Response: Call Dr. Robles's office Travis will see patient tomorrow at 1030
[2024-07-22] MEDS: ACETAMINOPHEN 325MG TAB 650 MG PO (14:27)
[2024-07-22 15:51] VITALS: BP 142/85; PULSE 81; RESP 18; TEMP 36.6
== END 2024-07-22 16:05 | disposition home or self-care (01) ==
PROVIDERS: Emergency Provider Nurse Practitioner Family; PCP Family Medicine
DX: S52.122A Displaced fracture of head of left radius, initial encounter for closed fracture (principal)
CPT/HCPCS: 73060; 73080; 73090; 73110; 73130; 99213; G0381

== ENCOUNTER 2024-08-01 08:41 | Outpatient (CLI) | payer MEDICARE, SELFPAY ==
--- NOTE | 2024-08-01 08:45 | XR_ITS ---
FINAL REPORT CLINICAL HISTORY: Left elbow pain COMPARISON: 07/22/2024 FINDINGS: 3 views of the left elbow were obtained. The nondisplaced radial head fracture is difficult to appreciate, best seen on lateral view. There has been application of a fiberglass splint, which obscures bony detail. There are mild degenerative changes without subluxation. There is no acute soft tissue abnormality. IMPRESSION: Nondisplaced radial head fracture without new abnormality. Reviewed, Interpreted and Dictated by Minoo Umanzor MD Transcribed by Zoë Tucker Authenticated and [facility]
== END 2024-08-01 23:59 | disposition home or self-care (01) ==
LOC: RAD 08:43
PROVIDERS: PCP Family Medicine; Visit Provider Orthopaedic Surgery
DX: M25.522 Pain in left elbow (principal); S52.122A Displaced fracture of head of left radius, initial encounter for closed fracture
CPT/HCPCS: 73080

== ENCOUNTER 2024-08-22 08:30 | Outpatient (CLI) | payer MEDICARE, SELFPAY ==
--- NOTE | 2024-08-22 08:33 | XR_ITS ---
FINAL REPORT CLINICAL HISTORY: lt elbow pain COMPARISON: 08/01/2024 FINDINGS: LEFT ELBOW 3 views were obtained. There has been interval removal of the cast. There is a persistent fracture line in the radial head. The joint space is preserved. There is no soft tissue abnormality. IMPRESSION: Persistent fracture line radial head. Reviewed, Interpreted and Dictated by Maurice Delgado MD Transcribed by Sue Roberts Authenticated and [facility]
== END 2024-08-22 23:59 | disposition home or self-care (01) ==
LOC: RAD 08:31
PROVIDERS: PCP Family Medicine; Visit Provider Orthopaedic Surgery
DX: M25.522 Pain in left elbow (principal); S52.122A Displaced fracture of head of left radius, initial encounter for closed fracture
CPT/HCPCS: 73080

== ENCOUNTER 2024-09-24 09:55 | Outpatient (CLI) | payer MEDICARE, SELFPAY ==
[2024-09-24] MEDS: IPRATROPIUM/ALBUTEROL 3 ML NEB IH (10:24)
== END 2024-09-24 23:59 | disposition home or self-care (01) ==
LOC: RT 09:56
PROVIDERS: PCP Psychiatry & Neurology Sleep Medicine; Visit Provider Internal Medicine Pulmonary Disease
DX: J44.9 Chronic obstructive pulmonary disease, unspecified (principal)
CPT/HCPCS: 94010; J7620

== ENCOUNTER 2024-11-19 07:32 | Day surgery (SDC) | payer MEDICARE, SELFPAY ==
[2024-11-15 10:51] VITALS: BMI 29.0
[2024-11-19 07:50] VITALS: BP 140/94; PULSE 66; RESP 18; TEMP 36.4; O2SAT 98
--- NOTE | 2024-11-19 07:52 | EXP.GEN.HP ---
HPI HPI HPI: This is a 74-year-old gentleman who presents for colonoscopy. He has a history of polyps. His most recent colonoscopy was in November 2020 at which time a moderate bowel preparation was noted. Moderate spasticity/lack of relaxation also noted. A polyp at 15 cm was excised. Pathology confirmed lymphoid aggregate. Prior colonoscopy in March 2019 was complicated by fairly severe spasticity/lack of relaxation. Sigmoid diverticulosis and minimal hemorrhoids noted. Multiple complex polyps including adjacent periappendiceal adenomas, adjacent hepatic flexure adenomatous, a transverse colon adenoma, and an adenoma at 45cm were excised. [facility] Disclaimer: The information contained in this section may have been updated after the patient was seen, as this information can be updated by other users. 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 (Updated 11/19/24 @ 07:55 by Bryant Montoya MD) Encounter for preoperative assessment Impacted cerumen of right ear Congestion of both ears Tinnitus aurium Typical angina Impotence Family history of diabetes mellitus Sebaceous cyst of scrotum Scrotal abscess Abscess of groin, right Strep throat Acute respiratory failure with hypoxia Acute right otitis media Hearing difficulty of right ear Impacted cerumen, right ear Chronic inflammation of both eustachian tubes Excessive cerumen in both ear canals Excessive cerumen in right ear canal Otitis externa of right ear Tinnitus Hearing loss in right ear Dyspnea on exertion History of COVID-19 Acute exacerbation of chronic obstructive pulmonary disease Bronchitis Sinusitis Family history of asthma History of smoking 30 or more pack years Dyspnea on exertion SOB (shortness of breath) HLD (hyperlipidemia) CAD (coronary artery disease) COPD (chronic obstructive pulmonary disease) 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 Status post insertion of drug-eluting stent into right coronary artery for coronary artery disease S/P right coronary artery (RCA) stent placement History of colonoscopy History of cholecystectomy Previous back surgery Stented coronary artery Family History Other Family history of cancer Family history of diabetes mellitus type II Family history of hyperlipidemia Family history of hypertension 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 Smoking Status: Former smoker second hand exposure: No alcohol intake: never substance use type: denies use current occupational status: retired Travel in the last 8 weeks?: None household members: spouse housing: house current occupational exposures/hazards: No caffeine: Yes Have you lived/traveled outside [place] in past 30 days?: No Contact w/someone who lives/traveled outside [place] past 30 days?: No Exposure to someone with infectious disease in past 14 days?: No Do you have a fever (greater than 100.4 F or 38 C)?: No Have you tested positive for COVID-19?: No Exposed to someone with COVID-19 in past 14 days?: No Do you have a sore throat?: No Do you have a cough?: No Do you have any weakness?: No Are you experiencing any nausea/vomitting?: No Do you have any diarrhea?: No Are you experiencing any unusual bleeding?: No Do you have any muscle aches/pain?: No Do you have any abdominal pain?: No Are you experiencing loss of taste or smell?: No Other 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 Have you received the Flu Vaccine for this season: No Have you received the Pneumonia Vaccine: Yes Review of Systems Review of Systems Review of systems:: pertinent systems reviewed and negative unless documented below Meds Home Medications and Allergies Home Medications ?Medication ?Instructions ?Recorded ?Confirmed ?Type aspirin 81 mg chewable tablet 81 mg PO HS 03/12/18 11/19/24 History ipratropium 0.5 mg-albuterol 3 mg 3 ml inhalation Q6HP PRN shortness 03/08/24 11/19/24 Rx (2.5 mg base)/3 mL nebulization of breath or wheezing #50 mL soln atorvastatin 40 mg tablet 40 mg PO HS #90 tabs 07/18/24 11/19/24 Rx clopidogrel 75 mg tablet 75 mg PO DAILY #90 tabs 07/18/24 11/19/24 Rx losartan 25 mg tablet See Rx Instructions .Route 09/18/24 11/19/24 Rx .COMPLEX #90 tabs fluticasone fur. 100 mcg-umeclid 1 inh inhalation DAILY 11/14/24 11/19/24 History 62.5 mcg-vilant 25 mcg inhalat.powder (Trelegy Ellipta) albuterol sulfate 90 mcg/actuation 1 inh inhalation Q6H PRN shortness 11/15/24 11/19/24 Rx aerosol inhaler of breath or wheezing #8.5 grams New Prescriptions to Start Prescriptions: Allergies Allergy/AdvReac Type Severity Reaction Status Date / Time No Known Allergies Allergy Verified 11/19/24 07:46 Exam Constitutional Constitutional: no acute distress *Routine HEENT Exam Head: Present normocephalic Eye: Present EOMI ENT: Present mucous membranes moist *Routine Neck Exam Neck: Present full ROM *Routine Respiratory Exam Respiratory: Absent respiratory distress *Routine Cardiovascular Exam Cardiovascular: Absent tachycardia *Routine Abdominal Exam Abdominal: Present soft *Routine Rectal Exam Rectal:: deferred *Routine Genitalia Exam Genitalia:: deferred *Routine Extremities Exam Extremities: Present full ROM *Routine Skin Exam Skin: Absent erythema *Routine Neurological Exam Neurological: Present alert Assessment and Plan *Assessment and plan (1) History of colon polyps: Status: Acute Category: Medical Code(s): Z86.0100 - Personal history of colon polyps, unspecified Plan: Colonoscopy today I have discussed the risks and benefits including, but not limited to: Bleeding Infection Damage to surrounding tissue Inherent risks of sedation The patient agrees to proceed.
--- NOTE | 2024-11-19 07:55 | HMH.SCOPE ---
Procedure: Date: 11/19/24 Patient Date of :: 1950 Procedure Performed:: Colonoscopy with polypectomy Indications:: History of colon polyps Note: His most recent colonoscopy was in November 2020 at which time a moderate bowel preparation was noted. Moderate spasticity/lack of relaxation also noted. A polyp at 15 cm was excised. Pathology confirmed lymphoid aggregate. Prior colonoscopy in March 2019 was complicated by fairly severe spasticity/lack of relaxation. Sigmoid diverticulosis and minimal hemorrhoids noted. Multiple complex polyps including adjacent periappendiceal adenomas, adjacent hepatic flexure adenomatous, a transverse colon adenoma, and an adenoma at 45cm were excised. Performing Provider:: Bryant Montoya MD Referring Provider:: . Sedation:: Monitored anesthesia care Procedure:: After informed consent was obtained the patient was taken to the endoscopy suite. Sedation ensued after the patient was transferred to the left lateral decubitus position. Pulse, blood pressure, and oxygen saturation were monitored throughout the procedure. Digital rectal exam revealed no significant abnormality. The colonoscope was placed in position. The entire colon was evaluated. The colonoscope was carefully removed and the patient was transferred to recovery in stable condition. Please see findings and specimens below for detail. Findings:: Bowel preparation moderate Moderate spasticity/lack of relaxation Moderate tortuosity Unchanged sigmoid diverticulosis Mild hemorrhoidal cushions/internal tags Polyps (see specimens) Specimens:: Small adjacent periappendiceal polyps (cold biopsy forceps Lobulated proximal right colon polyp (cold snare) Lobulated proximal transverse colon polyp (cold snare and cold biopsy forceps Small lobulated polyp at 35 cm (cold biopsy forceps) Recommendations:: Timing of repeat colonoscopy is pending pathology but will likely be around 3 years secondary to history of multiple polyps and moderate bowel preparation. Complications:: No immediate Estimated blood obtained (mL): 1 Colonoscopy Component Colonoscopy Component Was a colonoscopy performed during today's procedure?: Yes Recommended follow up colonoscopy of at least 10 years?: No If no, follow up colonoscopy recommended in ___ years?: (See above) Reason for not recommending >/= 10 yr follow-up interval?: (See above)
[2024-11-19] MEDS: LACTATED RINGERS 1000ML 1,000 ML 50 ML IV (07:59)
--- NOTE | 2024-11-19 07:59 | P.PNANES_ITS ---
[facility] Disclaimer: The information contained in this section may have been updated after the patient was seen, as this information can be updated by other users. 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 (Updated 11/19/24 @ 07:55 by Bryant Montoya MD) Encounter for preoperative assessment Impacted cerumen of right ear Congestion of both ears Tinnitus aurium Typical angina Impotence Family history of diabetes mellitus Sebaceous cyst of scrotum Scrotal abscess Abscess of groin, right Strep throat Acute respiratory failure with hypoxia Acute right otitis media Hearing difficulty of right ear Impacted cerumen, right ear Chronic inflammation of both eustachian tubes Excessive cerumen in both ear canals Excessive cerumen in right ear canal Otitis externa of right ear Tinnitus Hearing loss in right ear Dyspnea on exertion History of COVID-19 Acute exacerbation of chronic obstructive pulmonary disease Bronchitis Sinusitis Family history of asthma History of smoking 30 or more pack years Dyspnea on exertion SOB (shortness of breath) HLD (hyperlipidemia) CAD (coronary artery disease) COPD (chronic obstructive pulmonary disease) 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 Status post insertion of drug-eluting stent into right coronary artery for coronary artery disease S/P right coronary artery (RCA) stent placement History of colonoscopy History of cholecystectomy Previous back surgery Stented coronary artery Family History Other Family history of cancer Family history of diabetes mellitus type II Family history of hyperlipidemia Family history of hypertension 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 Smoking Status: Former smoker second hand exposure: No alcohol intake: never substance use type: denies use current occupational status: retired Travel in the last 8 weeks?: None household members: spouse housing: house current occupational exposures/hazards: No caffeine: Yes Have you lived/traveled outside [place] in past 30 days?: No Contact w/someone who lives/traveled outside [place] past 30 days?: No Exposure to someone with infectious disease in past 14 days?: No Do you have a fever (greater than 100.4 F or 38 C)?: No Have you tested positive for COVID-19?: No Exposed to someone with COVID-19 in past 14 days?: No Do you have a sore throat?: No Do you have a cough?: No Do you have any weakness?: No Are you experiencing any nausea/vomitting?: No Do you have any diarrhea?: No Are you experiencing any unusual bleeding?: No Do you have any muscle aches/pain?: No Do you have any abdominal pain?: No Are you experiencing loss of taste or smell?: No [facility] Anesthesia Checklist Patient Identification Patient Identification: Arm Band and Verbal (Name & ) Structural Data Admitted From: Home Planned Operative Procedure/s: colonoscopy Consent for Planned Operative Procedure(s) Verified: Yes Verified Documents: Surgical Consent NPO Status Verified Time NPO: 00:00 Chart Verification Results Verified: ECG Additional verifications Anesthesia Reactions: No Hx Blood Transfusions: No Blood Transfusion Reaction: No Airway Assessment Mallampati Score:: Class II C-Spine Mobility Assessed: Yes TMJ Mobility Assessed: No Dentition: Edentulous Neurological Assessment Level of Consciousness: Awake, Alert and Appropriate Hx Seizures: No Numbness or tingling in extremities: No Anesthesia Plan Anesthesia Risk discussed: Yes Anesthesia Plan: Verified ASA Class: III Anesthesia Type: MAC
[2024-11-19 08:04] VITALS: O2SAT 98
[2024-11-19 08:40] VITALS: BP 97/55; PULSE 60; RESP 17; TEMP 36.1; O2SAT 97
[2024-11-19 08:50] VITALS: BP 102/62; PULSE 76; RESP 17; O2SAT 99
[2024-11-19 09:00] VITALS: BP 113/74; PULSE 75; RESP 17; O2SAT 99
[2024-11-19 09:06] VITALS: BP 129/72; PULSE 66; RESP 18; O2SAT 98
== END 2024-11-19 09:14 | disposition home or self-care (01) ==
PROVIDERS: PCP Family Medicine; Visit Provider Surgery
PROC: 0DJD8ZZ Inspection of Lower Intestinal Tract, Via Natural or Artificial Opening Endoscopic (ICD-10-PCS; CPT 45380; principal; 2024-11-19 08:15)
DX: Z12.11 Encounter for screening for malignant neoplasm of colon (principal); Z86.0100 Personal history of colon polyps, unspecified; K57.30 Diverticulosis of large intestine without perforation or abscess without bleeding; K64.9 Unspecified hemorrhoids; D12.2 Benign neoplasm of ascending colon; D12.0 Benign neoplasm of cecum; D12.5 Benign neoplasm of sigmoid colon; D12.3 Benign neoplasm of transverse colon
CPT/HCPCS: 45380; 45385; J7120

== ENCOUNTER 2025-03-25 20:46 | Inpatient (IN) | payer MEDICARE, SELFPAY ==
--- OUTSIDE RECORDS SUMMARY | 2024-04-22 10:05 | XMS_ITS ---
[facility] [address] [facility] [address] [place] [id number] Care Team Providers Care Assistant Guest Services Manager Name Role Phone Brian Fernandez Primary Care Provider [phone] Shelton Armenta Unavailable [phone] Allergies No Known Allergies REASON FOR VISIT 5 week f/u Medications Medication SIG (Take, Route, Frequency, Duration) Notes Start Date End Date Status Clopidogrel Bisulfate 75 MG 1 tab(s) orally once a day; Duration: 30 day(s) Active Losartan Potassium 50 MG 1 tab(s) orally once a day 12/27/2016 Active Nitrostat 0.4 MG 1 tab(s) sublinguall y every 5 minutes Active Atorvastatin Calcium 40 MG 1 tab(s) orally once a day (at bedtime) Active Aspirin Adult Low Dose 81 MG 1 tab(s) orally once a day Active Pantoprazole Sodium 40 MG 1 tab(s) orally once a day; Duration: 30 day(s) Active Albuterol Sulfate HFA 108 (90 Base) MCG/ACT 1 puff as needed Inhalation every 4 hrs Active Trelegy Ellipta 100-62.5-25 MCG/ACT 1 puff Inhalation Once a day Active Albuterol Sulfate 0.63 MG/3ML as directed Inhalation every 6 hours Not-Taking Vital Signs Blood pressure systolic 140 mm Hg 04/22/20 24 Blood pressure diastolic 70 mm Hg 024 Heart Rate 77 /min 04/22/2024 Height 69 in 04/22/2024 Weight 198.0 lbs 04/22/2024 BMI 29.24 kg/m2 04/22/2024 Encounters Encounter Location Date Provider Diagnosis [facility] [address] [place] [id number] 04/22/2024 Shelton Armenta Essential (primary) hypertension I10 ; Follow-up examination Z09 ; S/P right coronary artery (RCA) stent placement Z95.5 ; Ischemic cardiomyopathy I25.5 and prison current use of 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 Z79.01 Assessments Encounter Date Diagnosis (ICD Code) Assessment Notes Treatment Notes Treatment Clinical Notes Section Notes 04/22/2024 Essential (primary) hypertension (ICD-10 - I10) 04/22/2024 Follow-up examination (ICD-10 - Z09) 04/22/2024 S/P right coronary artery (RCA) stent placement (ICD-10 - Z95.5) 04/22/2024 Ischemic cardiomyopathy (ICD-10 - I25.5) 04/22/2024 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 :1950 A ge:73 Y S ex:Male Date:04/22/2024 Address:[address] [place] [address], [id number] Pcp:Brian Fernandez Subjective: * Chief Complaints: * 1 . 5 week f/u. * HPI: E NT/respiratory: The patient is here for a follow up on Pneumonia. Pt states he is doing much better. Pt states he does have a slight cough once in a while. 73 year old male presents with c/o cough. Denies : sore throat. D enies : Fever. D enies : Chest Pain. D enies : Short of Breath. * ROS: D ERMATOLOGY: no R danna. n o H tiffanie. G ASTROENTEROLOGY: no N ausea. n o V omiting. n o D iarrhea.? U ROLOGY: no D ifficulty urinating. n o B lood in urine. * 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: C oronary Artery Disease, Acute [place] 1996 w/stent placement, Acute [place] 2001 w/stent placement, HTN, GERD, COPD, Colon polyps, Covid Positive - May 2020. * 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: B ACK SURGERY 1982, STENT 1996, STENT 2001, stent 05/2006, heart cath x 2 (No [place] or stent) 05/2007, stent 11/2020, Galbladder removal 03/09/2021, left wrist fracture 04/2021, cyst on scrotum, [facility] 11/2023. * Hospitalization/Major Diagno stic Procedure: p neumonia 02/21/2007, [facility] ER- Fell out of a truck and hurt arms 11/16/2011, [facility]-Heart Cath 09/2015, Heart attack [facility] 03/12-, Heart Attack [facility] 10/05/2020, [facility] - chest pains 02/01-, [facility]- vertigo 09/13/2022. * Family History: F ather: alive. M other: , diabetes. P aternal Grand Father: . P aternal Grand Mother: . M aternal Grand Father: . M aternal Grand Mother: . 5 brother(s) , 1 sister(s) . 1 son(s) , 1 daughter(s) . . 1 brother with heart problems. Son . * 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: C URRENT TOBACCO USE S moking Status: Patient does NOT smoke. C affeine: yes, frequency:2 sodas qd. Exercise: yes. Home smoke detector use: yes. Marital Status: . 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 Past smoking status: no. Recreational drug use: no. Alcohol: no. Sexually active: yes. * Medications: T fortunatog Neallegy Ellipta 100-62.5-25 MCG/ACT Aerosol Powder Breath Activated 1 puff Inhalation Once a day , Taking Albuterol Sulfate HFA 108 (90 Base) MCG/ACT Aerosol Solution 1 puff as needed Inhalation every 4 hrs , Taking Pantoprazole Sodium 40 MG Tablet Delayed Release 1 tab(s) orally once a day , Taking Aspirin Adult Low Dose 81 MG Tablet Delayed Release 1 tab(s) orally once a day , Taking Atorvastatin Calcium 40 MG Tablet 1 tab(s) orally once a day (at bedtime) , Taking Nitrostat 0.4 MG Tablet Sublingual 1 tab(s) sublingually every 5 minutes , Taking Losartan Potassium 50 MG Tablet 1 tab(s) orally once a day , Taking Clopidogrel Bisulfate 75 MG Tablet 1 tab(s) orally once a day , Not-Taking Albuterol Sulfate 0.63 MG/3ML Nebulization Solution as directed Inhalation every 6 hours , Medication List reviewed and reconciled with the patient * Allergies: N .K.D.A. Objective: * Vitals: W t:198.0, Temp:97.8, BP:140/70, HR:77, O2 Sat:98% on RA, Nurse:CHETAN, Ht: 69, BMI:29.24. * Examination: G eneral Examination: General Appearance: N AD, note weight. H EENT: S clera and conjunctiva clear, PERRLA. O ral cavity: n o lesions, mucosa moist and WNL, no erythema. N fauzia: s upple, no lymphadenopathy. C hest: n ormal shape and expansion. H eart: R SR, S4 present. L ungs: c lear to auscultation, decreased breath sounds. A bdomen: soft and nontender, no organomegaly or masses. N eurologic Exam: I ntact, gait normal. S kin: n ormal, no rash. P eripheral pulses: n ormal . B ack: normal, mild dorsal kyphosis. E xtremities: t race leg edema. G enitalia: not examined. Assessment: * Assessment: 1. F ollow-up examination - Z09 (Primary) 2 . E ssential (primary) hypertension - I10 3 . S /P right coronary artery (RCA) stent placement - Z95.5 ? 4 . I schemic cardiomyopathy - I25.5 5 . L armando term current use of 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 - Z79.01 Plan: * Treatment: * Procedure Codes: 9 4760 PULSE OX * Follow Up: 3 Months * Images: Billing Information: * Visit Code: 30385 Office Visit, Est Pt., Level 3. * Procedure Codes: 84324 PULSE OX. * Electronic signature of Shelton Armenta MD on 03/25/2025 at 08:59 PM EDT Sign off status: Pending * Provider: Shelton Armenta M.D. Date: Generated for Printi ng/Faxing/eTransmitting on: 0 03/25/2025 08:59 PM EDT History and Physical Notes * HPI (History of Present Illness) Category Sub-Category Detail Notes Category Not es ENT/respiratory sore throat Short of Breath Chest Pain cough Fever Examination Category Sub-Category Detail Notes Category Not es General Examination HEENT: Sclera and conjunctiv a clear, PERRLA Heart: RSR, S4 present Lungs: clear to auscultatio n, decreased breath sounds Abdomen: soft and nontender, no organomegaly or masses Extremities: trace leg edema General Appearance: NAD, note weight Skin: normal, no rash Neurologic Exam: Intact, gait normal Neck: supple, no lymphaden opathy Oral cavity: no lesions, mucosa m oist and WNL, no erythema Peripheral pulses: normal Back: normal, mild dorsal kyphosis Genitalia: not examined Chest: normal shape and exp ansion
--- OUTSIDE RECORDS SUMMARY | 2024-04-22 10:05 | XMS_ITS ---
Author Organization [facility] Address [facility] [address] [place] [id number] Care Team Providers Care Ironer Or Presser Name Role Phone Brian Fernandez Primary Care Provider [phone] Shelton Armenta Unavailable [phone] Allergies No Known Allergies REASON FOR VISIT [...] Encounter Location Date Provider Diagnosis [facility] [address] [place] [id number] 04/22/2024 Shelton Armenta Essential (primary) hypertension I10 ; Follow-up examination Z09 ; S/P right coronary artery (RCA) stent placement Z95.5 ; Ischemic cardiomyopathy I25.5 and terminologist current use of 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 Z79.01 Assessments Encounter Date Diagnosis (ICD Code) Assessment Notes Treatment Notes Treatment Clinical Notes Section Notes 04/22/2024 Essential (primary) hypertension (ICD-10 - I10) 04/22/2024 Follow-up examination (ICD-10 - Z09) 04/22/2024 S/P right coronary artery (RCA) stent placement (ICD-10 - Z95.5) 04/22/2024 Ischemic cardiomyopathy (ICD-10 - I25.5) 04/22/2024 terminologist current use of 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 (ICD-10 - Z79.01) Plan Of Treatment Next Appt Details Follow Up: 3 Months, Reason: Provider Name:Shelton Lott er, 04/07/2025 09:30:00 AM, [facility], [address], [place], [phone], Progress Notes * MAYDASNOWDOB:1950 (74 yo M)Acc No.[id number]:04/22/2024 Progress Notes Patient: SNOW BACON Provider: Shelton Armenta M.D. :1950 A ge:73 Y S ex:Male Date:04/22/2024 Address:[address] [place] [address], [place], [id number] Pcp:Brian Fernandez Subjective: * Chief Complaints: * [...] 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: C oronary Artery Disease, Acute [place] 1996 w/stent placement, Acute [place] 2001 w/stent placement, HTN, GERD, COPD, Colon polyps, Covid Positive - May 2020. * 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: B ACK SURGERY 1982, STENT 1996, STENT 2001, stent 05/2006, heart cath x 2 (No [place] or stent) 05/2007, stent 11/2020, Galbladder removal 03/09/2021, left wrist fracture 04/2021, cyst on scrotum, [facility] 11/2023. * Hospitalization/Major Diagno stic Procedure: p neumonia 02/21/2007, [facility] ER- Fell out of a truck and hurt arms 11/16/2011, [facility]Heart Cath 09/2015, Heart attack [facility] 03/12-, Heart Attack [facility] 10/05/2020, [facility] - chest pains 02/01-, [facility]- vertigo 09/13/2022. * Family History: F [...] detector use: yes. Marital Status: . 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 Past smoking status: no. Recreational drug use: [...] * Images: Billing Information: * Visit Code: 74066 Office Visit, Est Pt., Level 3. * Procedure Codes: 97557 [place]SE [place]. * Electronic signature of Shelton Armenta MD on 03/26/2025 at 03:58 PM EDT Sign off status: Pending * Provider: Shelton Armenta M.D. Date: Generated for Printi ng/Faxing/eTransmitting on: 0 03/26/2025 03:58 PM EDT History and Physical Notes * [...]
--- OUTSIDE RECORDS SUMMARY | 2024-06-03 05:45 | XMS_ITS ---
Author Organization [facility] Address 12[address] [facility] [address] [place] [id number] Care Team Providers Care Route Service Representative Name Role Phone Brian Fernandez Primary Care Provider Deepthi Morales Unavailable [phone] Allergies No Known Allergies Results Component Value Reference Range Notes Influenza Screen (in house) Reviewed date:06/03/2024 02:03:25 PM Interpretation:neg Performing Lab: Notes/Report: neg results neg CBC Fingerstick (in house) Reviewed date:06/03/2024 02:02:57 PM Interpretation: Performing Lab: Notes/Report: wbc 10.8 3.5 - 10 lym 15.3 15 - 50 mid 3.8 2 - 15 gran 80.9 35 - 80 rbc 5.12 3.5 - 5.5 hgb 15.5 11.5 - 16.5 hct 47.4 35 - 55 mcv 92.7 75 - 100 mch 30.4 25 - 35 mchc 32.7 31 - 38 plat 178 100 - 400 Covid test (in house) Reviewed date:06/03/2024 02:03:10 PM Interpretation:neg Performing Lab: Notes/Report: neg Result: neg REASON FOR VISIT sore throat, coughing Medications Medication SIG (Take, Route, Frequency, Duration) Notes Start Date End Date Status Clopidogrel Bisulfate 75 MG 1 tab(s) orally once a day; Duration: 30 day(s) Active Cefuroxime Axetil 500 MG 1 tablet Orally every 12 hrs; Duration: 7 day(s) 06/03/2024 Active Losartan Potassium 50 MG 1 tab(s) orally once a day 12/27/2016 Active Nitrostat 0.4 MG 1 tab(s) sublinguall y every 5 minutes Active Atorvastatin Calcium 40 MG 1 tab(s) oral ly once a day (at bedtime) Active Aspirin Adult Low Dose 81 MG 1 tab(s) orally once a day A ctive Pantoprazole Sodium 40 MG 1 tab(s) orall y once a day; Duration: 30 day(s) Active Albuterol Sulfate HFA 108 (90 Base) MCG/ACT 1 puff as needed Inhalation every 4 hrs Active Trelegy Ellipta 100-62.5-25 MCG/ACT 1 puff Inhalation Once a day Active Vital Signs Blood pressure systolic 102 mm Hg 06/03/20 24 Blood pressure diastolic 66 mm Hg 024 Heart Rate 58 /min 06/03/2024 Height 69 in 06/03/2024 Weight 194.0 lbs 06/03/2024 BMI 28.65 kg/m2 06/03/2024 Encounters Encounter Location Date Provider Diagnosis [facility] 36 [facility] [address] [place] [phone] 06/03/2024 Deepthi Morales URI (upper respirato ry infection) J06.9 Assessments Encounter Date Diagnosis (ICD Code) Assessment Notes Treatment Notes Treatment Clinical Notes Section Notes 06/03/2024 URI (upper respiratory infection) (ICD-10 - J06.9) fluids, rest, supportive measures for fever/symptom relief Plan Of Treatment Medication Medication Name Sig Start Date Stop Date Notes Cefuroxime Axetil 500 MG 1 tablet Orally every 12 hrs; Duration: 7 day(s) 06/03/2024 Treatment Notes Assessment Notes URI (upper respiratory infection) fluids , rest, supportive measures for fever/symptom relief Next Appt Details Follow Up: prn, Reason: Provider Name:Shelton Lott er, 04/07/2025 09:30:00 AM, [address] [facility] 36 [facility], [address], [place], [phone], Progress Notes * SNOW MIRANDADOB:1950 (74 yo M)Acc No.[id number]:06/03/2024 Progress Notes Patient: Rachel SNOW MCNALLY Provider: BRINDA Castañeda :1950 A ge:73 Y S ex:Male Date:06/03/2024 Address:[facility] [address], [id number] Pcp:Brian Fernandez Subjective: * Chief Complaints: * 1 . Sore throat, coughing. * HPI: E NT/respiratory: 73 year old male presents with c/o sore throat. c/o cough. c/o Fever ? ??. c/o rhinorrhea. c/o Short of Breath P t sts he does use inhalers, but this morning has had a bunch of problems with trying to breathe. c/o body aches all over. Denies : Chest Pain. D enies : headache. D enies : smoking. eating less. * ROS: D ERMATOLOGY: no R danna. n o H tiffanie. G ASTROENTEROLOGY: no N ausea. n o V omiting. n o D iarrhea.? U ROLOGY: no D ifficulty urinating. n o B lood in urine. * 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: C oronary Artery Disease, Acute [place] 1996 w/stent placement, Acute [place] 2001 w/stent placement, HTN, GERD, COPD, Colon polyps, Covid Positive - May 2020. * 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: B ACK SURGERY 1982, STENT 1996, STENT 2001, stent 05/2006, heart cath x 2 (No [place] or stent) 05/2007, stent 11/2020, Galbladder removal 03/09/2021, left wrist fracture 04/2021, cyst on scrotum, [facility] 11/2023. * Hospitalization/Major Diagno stic Procedure: p neumonia 02/21/2007, [facility] ER- Fell out of a truck and hurt arms 11/16/2011, [facility]-Heart Cath 09/2015, Heart attack [facility] 03/12-, Heart Attack [facility] 10/05/2020, [facility] - chest pains 02/01-, [facility]- vertigo 09/13/2022. * Family History: [...] detector use: yes. Marital Status: . 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 Past smoking status: no. Recreational drug use: no. Alcohol: no. Sexually active: yes. * Medications: T aking Trelegy Ellipta 100-62.5-25 MCG/ACT Aerosol Powder Breath Activated [...] 1 tab(s) orally once a day , Medication List reviewed and reconciled with the patient * Allergies: N .K.D.A. Objective: * Vitals: W t:194.0, Temp:97.6, BP:102/66, HR:58, O2 Sat:99% on RA, Nurse:HENRIETTA, Ht: 69, BMI:28.65. * Examination: E NT/Respiratory: General Appearance: well nourished and hydrated NAD alert active. E yes: sclera and conjunctiva clear. E ars: auditory canals normal bilaterally tympanic membranes normal bilaterally. N ose : nares patent. O ral cavity : erythema without exudate on pharynx. N fauzia : supple no cervical lymphadenopathy. H eart : RRR. L ungs: decreased BS posteriorly. Assessment: * Assessment: 1. U RI (upper respiratory infection) - J06.9 (Primary) Plan: * Treatment: * Labs: * L ab: CBC Fingerstick (in house) (Collection Date & Time - 06/03/2024) Value Reference Range w bc 10.8 3.5 - 10 * l ym 15.3 15 - 50 * m id 3.8 2 - 15 * g ran 80.9 35 - 80 * r bc 5.12 3.5 - 5.5 * h gb 15.5 11.5 - 16.5 * h ct 47.4 35 - 55 * m cv 92.7 75 - 100 * m ch 30.4 25 - 35 * m chc 32.7 31 - 38 * p lat 178 100 - 400 * QueenieNelly 06/03/2024 9:46 :40 AM > Provider reviewed results while patient in office.Deepthi Morales 06/03/2024 2:02:53 PM > ?Lab: Covid test (in house) (Collection Date & Time - 06/03/2024)?neg* Value Reference Range R esult: neg Cielo Nelly Jerome 06/03/2024 10:0 4:45 AM > Provider reviewed results while patient in office.Deepthi Morales 06/03/2024 2:03:07 PM > ?Lab: Influenza Screen (in house) (Collection Date & Time - 06/03/2024)?neg * Value Reference Range r esults neg Nelly Wang 06/03/2024 10:0 5:05 AM > Provider reviewed results while patient in office.Deepthi Morales 06/03/2024 2:03:23 PM > * Procedure Codes: 9 4760 [place], [address] CAPILLARY BLOOD DRAW, 57424 CBC WITH AUTO DIFF, 82145 Flu Test- Nasal Swab, Modifiers: QW , 16454 COVID TEST IN HOUSE, Modifiers: QW * Follow Up: p rn * Images: Billing Information: * Visit Code: 92329 Office Visit, Est Pt., Level 3. * Procedure Codes: [address] [place]. [address] CAPILLARY BLOOD DRAW. 11635 CBC WITH AUTO DIFF. 44354 Flu Test- Nasal Swab. Modifiers: QW 49865 COVID TEST IN HOUSE. Modifiers: QW * Electronic signature of Kristyn Morales APRN on 03/25/2025 at 08:59 PM EDT Sign off status: Pending * Provider: BRINDA Castañeda Date: 1 08/03/2023 Generated for Dennis charles/Tien/Olive on: 0 03/25/2025 08:59 PM EDT History and Physical Notes * HPI (History of Present Illness) Category Sub-Category Detail Notes Category Not es ENT/respiratory sore throat eating less Short of Breath Pt sts he does use i nhalers, but this morning has had a bunch of problems with trying to breathe Chest Pain cough Fever ??? headache rhinorrhea smoking body aches all over Examination Category Sub-Category Detail Notes Category Not es ENT/Respiratory Oral cavity : erythema without exudate on pharynx Ears: auditory canals norm al bilaterally tympanic membranes normal bilaterally Neck : supple no cervical l ymphadenopathy Heart : RRR Lungs: decreased BS posteri kelby General Appearance: well nourished and h ydrated NAD alert active Nose : nares patent Eyes: sclera and conjuncti va clear
--- OUTSIDE RECORDS SUMMARY | 2024-06-03 05:45 | XMS_ITS ---
Author Organization [facility] Address 1210 [facility] [address] [place] [id number] Care Team Providers Care Aircraft Worker Name Role Phone Brian Fernandez Primary Care Provider Deepthi Morales Unavailable [phone] Allergies No Known Allergies Results Component Value [...] 06/03/2024 Encounters Encounter Location Date Provider Diagnosis [facility] [facility] 36 [facility] [address] [place] [phone] 06/03/2024 Deepthi Morales URI (upper respirato ry [...] Name:Shelton Lott er, 04/07/2025 09:30:00 AM, 12[address] [facility] 36 [facility], [address], [place], [phone], Progress Notes * SNOW MIRANDADOB:1950 (74 yo M)Acc No.[id number]:06/03/2024 Progress Notes Patient: Rachel SNOW MCNALLY Provider: BRINDA Castañeda :1950 A ge:73 Y S ex:Male Date:06/03/2024 Address:[facility] [address], [id number] Pcp:Brian Fernandez Subjective: * Chief Complaints: * [...] 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: C oronary Artery Disease, Acute [place] 1996 w/stent placement, Acute [place] 2001 w/stent placement, HTN, GERD, COPD, Colon polyps, Covid Positive - May 2020. * 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: B ACK SURGERY 1982, STENT 1996, STENT 2001, stent 05/2006, heart cath x 2 (No [place] or stent) 05/2007, stent 11/2020, Galbladder removal 03/09/2021, left wrist fracture 04/2021, cyst on scrotum, [facility] 11/2023. * Hospitalization/Major Diagno stic Procedure: p neumonia 02/21/2007, [facility] ER- Fell out of a truck and hurt arms 11/16/2011, [facility]-Heart Cath 09/2015, Heart attack [facility] 03/12-, Heart Attack [facility] 10/05/2020, [facility] - chest pains 02/01-, [facility]- vertigo 09/13/2022. * Family History: F [...] detector use: yes. Marital Status: . 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 Past smoking status: no. Recreational [...] * Procedure Codes: 9 4760 [place], [address] CAPILLARY BLOOD DRAW, 38305 CBC WITH AUTO DIFF, 88017 Flu Test- Nasal Swab, Modifiers: QW , 29829 COVID TEST IN HOUSE, Modifiers: QW * Follow Up: p rn * Images: Billing Information: * Visit Code: 26210 Office Visit, Est Pt., Level 3. * Procedure Codes: [address] [place]. [address] CAPILLARY BLOOD DRAW. 83887 CBC WITH AUTO DIFF. 59504 Flu Test- Nasal Swab. Modifiers: QW 51274 COVID TEST IN HOUSE. Modifiers: QW * Electronic signature of Kristyn Morales APRN on 03/26/2025 at 03:59 PM EDT Sign off status: Pending * Provider: BRINDA Catsañeda Date: 1 08/03/2023 Generated for Dennis charles/Tien/Olive on: 0 03/26/2025 03:59 PM EDT History and Physical Notes * [...]
--- OUTSIDE RECORDS SUMMARY | 2024-07-26 05:45 | XMS_ITS ---
Author Organization [facility] Address [address] [facility] [address] [place] [id number] Care Team Providers Care Mechanical Press Operator Name Role Phone Brian Fernandez Primary Care Provider Shelton Armentaory Unavailable [phone] Allergies No Known Allergies Results Component Value Reference Range Notes P-Comprehensive Metabolic Pa beatris (CMP) Reviewed date:07/29/2024 04:46:58 PM Interpretation:satisfactory Performing Lab: Notes/Report: Test performed by [employer] , [address], [place] [address] Otis Ricks MD, Manager Assessment CLIA: [id number] Sodium 141 135-145 mmol/L Potassium 4.7 3.5-5.3 mmol/L Chloride 105 97-108 mmol/L CO2 27 22-32 mmol/L Glucose 106 65-99 mg/dL BUN 12 8-23 mg/dL Creatinine 1.02 0.70-1.30 mg/dL Calcium 9.3 8.6-10.4 mg/dL eGFR by Creatinine 78 >59 mL/min/1.73m2 Protein 7.1 6.0-8.3 g/dL Albumin 4.2 3.5-5.3 g/dL Alkaline Phosphatase 111 40-129 IU/L ALT (SGPT) 24 <5-55 IU/L AST (SGOT) 24 <5-46 IU/L Bilirubin, Total 0.7 <0.2-1.2 mg/dL A/G Ratio 1.4 1.1-2.5 P-Lipid Panel Reviewed date:07/29/2024 04:46:58 PM Interpretation:satisfactory Performing Lab: Notes/Report: Test performed by [employer] [address] [facility] , [address], [place] [address] Otis Ricks MD, Manager Assessment CLIA: [id number] Cholesterol 120 <200 mg/dL Triglycerides 98 <150 mg/dL HDL Cholesterol 36 >39 mg/dL Cholesterol / HDL Ratio 3.33 0.00-4.99 Ratio Non-HDL Cholesterol 84 <130 mg/dL LDL Cholesterol (Calculation) 64 <130 mg/dL LDL Cholesterol Levels* Less than 100 mg/dL Optimal 100 to 129 mg/dL Near Optimal/ Above Optimal 130 to 159 mg/dL Borderline High 160 to 189 mg/dL High 190 mg/dL and above Very High * Categories as recommended by the 2004 ATPIII guidelines LDL/HDL Ratio 1.8 <3.3 Ratio LDL Cholesterol Patient History Test Date: 08/03/2022 LDL Results: 67 Units: mg/dL % Change: - Test Date: 01/12/2024 LDL Results: 74 Units: mg/dL % Change: +10% Test Date: 07/26/2024 LDL Results: 64 Units: mg/dL % Change: -13% REASON FOR VISIT 4 month check Medications Medication SIG (Take, Route, Frequency, Duration) Notes Start Date End Date Status Atorvastatin Calcium 40 MG 1 tab(s) oral ly once a day (at bedtime) Active Clopidogrel Bisulfate 75 MG 1 tab(s) orally once a day; Duration: 30 day(s) Active Losartan Potassium 50 MG 1 tab(s) orally once a day 12/27/2016 Active Nitrostat 0.4 MG 1 tab(s) sublinguall y every 5 minutes Active Aspirin Adult Low Dose 81 MG 1 tab(s) orally once a day A ctive Pantoprazole Sodium 40 MG 1 tab(s) orall y once a day; Duration: 30 day(s) Active Albuterol Sulfate HFA 108 (90 Base) MCG/ACT 1 puff as needed Inhalation every 4 hrs Active Trelegy Ellipta 100-62.5-25 MCG/ACT 1 puff Inhalation Once a day Active Problems Problem Type SNOMED Code ICD Code Onset Dates Problem Status W/U Status Risk Notes Problem Mixed hyperlipidemia (110279979) Mixed hyperlipidemia (E78.2) Active confirmed Vital Signs Blood pressure systolic 140 mm Hg 07/26/19 25 Blood pressure diastolic 80 mm Hg 025 Heart Rate 61 /min 07/26/2024 Height 69 in 07/26/2024 Weight 192.6 lbs 07/26/2024 BMI 28.44 kg/m2 07/26/2024 Encounters Encounter Location Date Provider Diagnosis [facility] [address] [facility] [address] [place], [place] [id number] 07/26/2024 Shelton Armenta Atherosclerosis of [place] coronary artery without angina pectoris, unspecified whether [place] or transplanted heart I25.10 ; Essential (primary) hypertension I10 ; Stented coronary artery Z95.5 ; Ischemic cardiomyopathy I25.5 ; Closed displaced fracture of head of radius with routine healing, unspecified laterality, subsequent encounter S52.123D and Mixed hyperlipidemia E78.2 Assessments Encounter Date Diagnosis (ICD Code) Assessment Notes Treatment Notes Treatment Clinical Notes Section Notes 07/26/2024 Atherosclerosis of [place] coronary artery without angina pectoris, unspecified whether [place] or transplanted heart (ICD-10 - I25.10) 07/26/2024 Essential (primary) hypertension (ICD-10 - I10) 07/26/2024 Stented coronary artery (ICD-10 - Z95.5) 07/26/2024 Ischemic cardiomyopathy (ICD-10 - I25.5) 07/26/2024 Closed displaced fracture of head of radius with routine healing, unspecified laterality, subsequent encounter (ICD-10 - S52.123D) 07/26/2024 Mixed hyperlipidemia (ICD-10 - E78.2) Plan Of Treatment Next Appt Details Follow Up: 3 Months, Reason: Provider Name:Shelton Lott er, 04/07/2025 09:30:00 AM, [address] [facility], [address], [place], [place], [id number], Progress Notes * SNOW MIRANDADOB:1950 (74 yo M)Acc No.[id number]:07/26/2024 Progress Notes Patient: SNOW BACON Provider: Shelton Armenta M.D. :1950 A ge:74 Y S ex:Male Date:07/26/2024 Address:[address] [place] [address], [facility], [id number] Pcp:Brian Fernandez Subjective: * Chief Complaints: * 1 . 4 month check. * HPI: C ardiology: The patient is here for a check up on Hypertension and Hyperlipidemia. Pt states he slipped on the ice on Monday and fell onto his left arm and broke his arm: interarticular fracture of the radial head. Has been seen by Dr. Robles and is in a splint and sling. Pt is fasting except for a cup of black coffee. Denies : Chest Pain. D enies : Short of Breath. D enies : Dizziness. D enies : Palpitations. E lbow/Arm: As described above. * ROS: D ERMATOLOGY: no R danna. n o H tiffanie. G ASTROENTEROLOGY: no N ausea. n o V omiting. n o D iarrhea.? U ROLOGY: no D ifficulty urinating. n o B lood in urine. * 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: C oronary Artery Disease, Acute [place] 1996 w/stent placement, Acute [place] 2001 w/stent placement, HTN, GERD, COPD, Colon polyps, Covid Positive - May 2020. * 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: B ACK SURGERY 1982, STENT 1996, STENT 2001, stent 05/2006, heart cath x 2 (No [place] or stent) 05/2007, stent 11/2020, Galbladder removal 03/09/2021, left wrist fracture 04/2021, cyst on scrotum, [facility] 11/2023. * Hospitalization/Major Diagno stic Procedure: p neumonia 02/21/2007, [facility] ER- Fell out of a truck and hurt arms 11/16/2011, [facility]-Heart Cath 09/2015, Heart attack [facility] 03/12-, Heart Attack [facility] 10/05/2020, [facility] - chest pains 02/01-, [facility]- vertigo 09/13/2022. * Family History: F ather: [...] detector use: yes. Marital Status: . 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 Past smoking status: no. Recreational drug use: no. Alcohol: no. Sexually active: yes. * Medications: T fortunatog Nealleprudencio Ellipta 100-62.5-25 MCG/ACT Aerosol Powder Breath Activated [...] 1 tab(s) orally once a day , Discontinued Cefuroxime Axetil 500 MG Tablet 1 tablet Orally every 12 hrs , Medication List reviewed and reconciled with the patient * Allergies: N .K.D.A. Objective: * Vitals: W t:192.6, Temp:97.7, BP:140/80, HR:61, Nurse:CHETAN, Ht: 69, Repeat BP:128/74, BMI:28.44. * Examination: G eneral Examination: General Appearance: [...] ack: normal, mild dorsal kyphosis. E xtremities: m inimal l eg edema. G enitalia: not examined. Assessment: * Assessment: 1. A therosclerosis of [place] coronary artery without angina pectoris, unspecified whether [place] or transplanted heart - I25.10 (Primary) 2 . E ssential (primary) hypertension - I10 3 . S tented coronary artery - Z95.5 4 . I schemic cardiomyopathy - I25.5 5 . C losed displaced fracture of head of radius with routine healing, unspecified laterality, subsequent encounter - S52.123D 6 . M ixed hyperlipidemia - E78.2 Plan: * Treatment: Value Reference Range A /G Ratio 1.4 1.1-2.5 - * A lbumin 4.2 3.5-5.3 - g/dL * A lkaline Phosphatase 111 40-129 - IU/L * A LT (SGPT) 24 <5-55 - IU/L * A ST (SGOT) 24 <5-46 - IU/L * B ilirubin, Total 0.7 <0.2-1.2 - mg/dL * B UN 12 8-23 - mg/dL * C alcium 9.3 8.6-10.4 - mg/dL * C hloride 105 97-108 - mmol/L * C O2 27 22-32 - mmol/L * C reatinine 1.02 0.70-1.30 - mg/dL * G lucose 106 H 65-99 - mg/dL * P otassium 4.7 3.5-5.3 - mmol/L * S odium 141 135-145 - mmol/L * P rotein 7.1 6.0-8.3 - g/dL * e GFR by Creatinine 78 >59 - mL/min/1.73m2 * Deepa Cash 07/29/2024 4:4 6:47 PM >Patient informed of normal results. ?LAB: P-Lipid Panel (Collection Date & Time - 07/26/2024 08:25 AM)? satisfactory* Value Reference Range C holesterol / HDL Ratio 3.33 0.00-4.99 - Ratio * C holesterol 120 <200 - mg/dL * H DL Cholesterol 36 L >39 - mg/dL * L DL Cholesterol (Calculation) 64 <130 - mg/d L * L DL/HDL Ratio 1.8 <3.3 - Ratio * N on-HDL Cholesterol 84 <130 - mg/dL * T riglycerides 98 <150 - mg/dL * Deepa Cash 07/29/2024 4:4 6:47 PM >Patient informed of normal results. * Procedure Codes: G 2211 Complex e/m visit add on * Follow Up: 3 Months * Images: Billing Information: * Visit Code: 73453 Office Visit, Est Pt., Level 4. * Procedure Codes: G2211 Complex e/m visit add on. * Electronic signature of Sheltno Armenta MD on 03/25/2025 at 08:59 PM EDT Sign off status: Pending * Provider: Shelton Armenta M.D. Date: 0 07/26/2024 Generated for Printi ng/Faxing/eTransmitting on: 0 03/25/2025 08:59 PM EDT History and Physical Notes * HPI (History of Present Illness) Category Sub-Category Detail Notes Category Not es Cardiology Short of Breath Chest Pain Palpitations Dizziness Examination Category Sub-Category Detail Notes Category Not es General Examination HEENT: Sclera and conjunctiv a clear, PERRLA Heart: RSR, S4 present Lungs: clear to auscultatio n, decreased breath sounds Abdomen: soft and nontender, no organomegaly or masses Extremities: minimal leg edema General Appearance: NAD, note weight Skin: normal, no rash Neurologic Exam: Intact, gait normal Neck: supple, no lymphaden opathy Oral cavity: no lesions, mucosa m oist and WNL, no erythema Peripheral pulses: normal Back: normal, mild dorsal kyphosis Genitalia: not examined Chest: normal shape and exp ansion
--- OUTSIDE RECORDS SUMMARY | 2024-07-26 05:45 | XMS_ITS ---
Author Organization [facility] Address [address] [facility] [address] [place] [id number] Care Team Providers Care Sap Ppm Consultant Name Role Phone Brian Fernandez Primary Care Provider Shelton Armentaory Unavailable [phone] Allergies No Known Allergies Results Component Value Reference Range Notes P-Comprehensive Metabolic Pa beatris (CMP) Reviewed date:07/29/2024 04:46:58 PM Interpretation:satisfactory Performing Lab: Notes/Report: Test performed by [employer], [facility] , [address], [place] [address] Otis Ricks MD, Building Mechanic CLIA: [id number] Sodium 141 135-145 mmol/L Potassium 4.7 3.5-5.3 [...] Interpretation:satisfactory Performing Lab: Notes/Report: Test performed by [employer] [address] [facility] , [address], [place] [address] Otis Ricks MD, Building Mechanic CLIA: [id number] Cholesterol 120 <200 mg/dL Triglycerides 98 <150 [...] W/U Status Risk Notes Problem Mixed hyperlipidemia (908783855) Mixed hyperlipidemia (E78.2) Active confirmed Vital Signs Blood pressure systolic 140 mm Hg 07/26/19 25 Blood pressure diastolic 80 mm Hg 025 Heart Rate 61 /min 07/26/2024 Height 69 in 07/26/2024 Weight 192.6 lbs 07/26/2024 BMI 28.44 kg/m2 07/26/2024 Encounters Encounter Location Date Provider Diagnosis [facility] [address] [facility] [address] [place], [place] [phone] 07/26/2024 Shelton Armenta Atherosclerosis of [place] coronary artery without angina pectoris, unspecified whether [place] or transplanted heart I25.10 ; Essential (primary) hypertension I10 ; Stented coronary artery Z95.5 ; Ischemic cardiomyopathy I25.5 ; Closed displaced fracture of head of radius with routine healing, unspecified laterality, subsequent encounter S52.123D and Mixed hyperlipidemia E78.2 Assessments Encounter Date Diagnosis (ICD Code) Assessment Notes Treatment Notes Treatment Clinical Notes Section Notes 07/26/2024 Atherosclerosis of [place] coronary artery without angina pectoris, unspecified whether [place] or transplanted heart (ICD-10 - I25.10) 07/26/2024 [...] 04/07/2025 09:30:00 AM, [address] [facility], [address], [place], [place], [id number], Progress Notes * SNOW MIRANDADOB:1950 (74 yo M)Acc No.[id number]:07/26/2024 Progress Notes Patient: SNOW BACON Provider: Shelton Armenta M.D. :1950 A ge:74 Y S ex:Male Date:07/26/2024 Address:[address] [place] [address], [facility], [id number] Pcp:Brian Fernandez Subjective: * Chief Complaints: * [...] 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: C oronary Artery Disease, Acute [place] 1996 w/stent placement, Acute [place] 2001 w/stent placement, HTN, GERD, COPD, Colon polyps, Covid Positive - May 2020. * 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: B ACK SURGERY 1982, STENT 1996, STENT 2001, stent 05/2006, heart cath x 2 (No [place] or stent) 05/2007, stent 11/2020, Galbladder removal 03/09/2021, left wrist fracture 04/2021, cyst on scrotum, [facility] 11/2023. * Hospitalization/Major Diagno stic Procedure: p neumonia 02/21/2007, [facility] ER- Fell out of a truck and hurt arms 11/16/2011, [facility]-Heart Cath 09/2015, Heart attack [facility] 03/12-, Heart Attack [facility] 10/05/2020, [facility] - chest pains 02/01-, [facility]- vertigo 09/13/2022. * Family History: F ather: [...] use: yes. Marital Status: . 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 Past smoking status: no. Recreational [...] Assessment: * Assessment: 1. A therosclerosis of [place] coronary artery without angina pectoris, unspecified whether [place] or transplanted heart - I25.10 (Primary) 2 [...] * Images: Billing Information: * Visit Code: 49418 Office Visit, Est Pt., Level 4. * Procedure Codes: G2211 Complex e/m visit add on. * Electronic signature of Shelton Armenta MD on 03/26/2025 at 03:58 PM EDT Sign off status: Pending * Provider: Shelton Armenta M.D. Date: 0 07/26/2024 Generated for Printi ng/Faxing/eTransmitting on: 0 03/26/2025 [...]
--- OUTSIDE RECORDS SUMMARY | 2024-08-21 07:15 | XMS_ITS ---
[facility] Organization [facility] Address [address] [place] [id number] Care Team Providers Care Senior Control Systems Engineer Name Role Phone Brian Fernandez Primary Care Provider [phone] Anastasia Hammer Unavailable [phone] Allergies No Known Allergies Results Component Value Reference Range Notes Influenza Screen (in house) Reviewed date:08/21/2024 01:21:00 PM Interpretation: Performing Lab: Notes/Report: results Neg Covid test (in house) Reviewed date:08/21/2024 01:20:52 PM Interpretation: Performing Lab: Notes/Report: Result: Neg REASON FOR VISIT Cough, Chills, Body Aches Medications Medication SIG (Take, Route, Frequency, Duration) Notes Start Date End Date Status Nitrostat 0.4 MG 1 tab(s) sublinguall y every 5 minutes Active Clopidogrel Bisulfate 75 MG 1 tab(s) orally once a day; Duration: 30 day(s) Active Tamiflu 75 MG 1 capsule Orally Twi ce a day; Duration: 5 day(s) 08/21/2024 Active Losartan Potassium 50 MG 1 tab(s) orally once a day 12/27/2016 Active Benzonatate 200 MG 1 capsule Orally Thr ee times a day 08/21/2024 Active Atorvastatin Calcium 40 MG 1 tab(s) oral ly once a day (at bedtime) Active Albuterol Sulfate HFA 108 (90 Base) MCG/ACT 1 puff as needed Inhalation every 4 hrs Active Trelegy Ellipta 100-62.5-25 MCG/ACT 1 puff Inhalation Once a day Active Aspirin Adult Low Dose 81 MG 1 tab(s) orally once a day A ctive Pantoprazole Sodium 40 MG 1 tab(s) orall y once a day; Duration: 30 day(s) Active Vital Signs Blood pressure systolic 132 mm Hg 08/21/19 25 Blood pressure diastolic 72 mm Hg 025 Heart Rate 65 /min 08/21/2024 Height 69 in 08/21/2024 Weight 189.6 lbs 08/21/2024 BMI 28.00 kg/m2 08/21/2024 Encounters Encounter Location Date Provider Diagnosis [facility] [address] [place] [id number] 08/21/2024 Anastasia Hammer Influenza J11.1 Assessments Encounter Date Diagnosis (ICD Code) Assessment Notes Treatment Notes Treatment Clinical Notes Section Notes 08/21/2024 Influenza (ICD-10 - J11.1) Patient's is here today as well and her flu test is positive. Patient has the same symptoms. Will treat for flu., Rest, fluids, tylenol or motrin for fevers. Home until fever free for 24-48 hours without the use of medication. Plan Of Treatment Medication Medication Name Sig Start Date Stop Date Notes Tamiflu 75 MG 1 capsule Orally Twi ce a day; Duration: 5 day(s) 08/21/2024 Benzonatate 200 MG 1 capsule Orally Three times a day 11/2024 Treatment Notes Assessment Notes Influenza Patient's is he re today as well and her flu test is positive. Patient has the same symptoms. Will treat for flu., Rest, fluids, tylenol or motrin for fevers. Home until fever free for 24-48 hours without the use of medication. Next Appt Details Follow Up: prn, Reason: Provider Name:Shelton Lott er, 04/07/2025 09:30:00 AM, [address], [address], [place], [id number], Progress Notes * SNOW MIRANDADOB:1950 (74 yo M)Acc No.[id number]:08/21/2024 Progress Notes Patient: Rachel ROBINSNOW LEDEZMA Provider: MALENA Narayan :1950 A ge:74 Y S ex:Male Date:08/21/2024 Address:[address] [place], [place] [address]Ramonita WEN, PEGG[place] G[place], [id number] Pcp:Brian Fernandez Subjective: * Chief Complaints: * 1 . Cough, Chills, Body Aches. * HPI: E NT/respiratory: The patient is here today with c/o cough, chills and bodyaches since Monday. 74 year old male presents with c/o cough. c/o Fever. c/o body aches. Denies : sore throat. D enies : rhinorrhea. * ROS: D ERMATOLOGY: no R danna. n o H tiffanie. G ASTROENTEROLOGY: no N ausea. n o V omiting. n o D iarrhea.? U ROLOGY: no D ifficulty urinating. n o B lood in urine. * 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: C oronary Artery Disease, Acute DC 1996 w/stent placement, Acute DC 2001 w/stent placement, HTN, GERD, COPD, Colon polyps, Covid Positive - May 2020. * 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: B ACK SURGERY 1982, STENT 1996, STENT 2001, stent 05/2006, heart cath x 2 (No [place] or stent) 05/2007, stent 11/2020, Galbladder removal 03/09/2021, left wrist fracture 04/2021, cyst on scrotum, [facility] 11/2023. * Hospitalization/Major Diagno stic Procedure: p neumonia 02/21/2007, [facility] ER- Fell out of a truck and hurt arms 11/16/2011, [facility]-Heart Cath 09/2015, Heart attack [facility] 03/12-, Heart Attack [facility] 10/05/2020, [facility] - chest pains 02/01-, [facility]- vertigo 09/13/2022. * Family History: F ather: [...] detector use: yes. Marital Status: . 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 Past smoking status: no. Recreational [...] Allergies: N .K.D.A. Objective: * Vitals: W t:189.6, Temp:98.6, BP:132/72, HR:65, O2 Sat:95% on RA, Nurse:CHETAN, Ht: 69, BMI:28.00. * Examination: E NT/Respiratory: General Appearance: N AD. E ars: a uditory canals normal bilaterally, TM's WNL. N ose : turbinates red, congested. S inuses : tender maxillary sinuses bilaterally. O ral cavity : erythema without exudate on pharynx. N fauzia : n o cervical lymphadenopathy. H eart : R RR, normal S1 S2, no murmurs. L ungs: c lear to auscultation bilaterally. Assessment: * Assessment: 1. I nfluenza - J11.1 (Primary) Plan: * Treatment: Value Reference Range r esults Neg * Deepa Cash 08/21/2024 12:5 6:03 PM > , Provider reviewed results while patient in office.Anastasia aHmmer 08/21/2024 1:20:57 PM > ?LAB: Covid test (in house) (Collection Date & Time - 08/21/2024)* Value Reference Range R esult: Neg * Deepa Cash 08/21/2024 12:5 6:26 PM > , Provider reviewed results while patient in office.HarmanAnastasia Juarez 08/21/2024 1:20:48 PM > Notes: Patient's is here today as well and her flu test is positive. Patient has the same symptoms. Will treat for flu., Rest, fluids, tylenol or motrin for fevers. Home until fever free for 24-48 hours without the use of medication.?? * Procedure Codes: G 2211 Complex e/[place], [address] [place], [address] Flu Test- Nasal Swab, Modifiers: QW , [address] COVID TEST IN HOUSE, Modifiers: QW , 3075F SYST BP GE 130 - 139MM HG, 3078F DIAST BP < 80 MM HG * Follow Up: p rn * Images: Billing Information: * Visit Code: 42429 Office Visit, Est Pt., Level 3. * Procedure Codes: G2211 Complex e/[place] [address] [place] [address] Flu Test- Nasal Swab. Modifiers: QW 15828 COVID TEST IN HOUSE. Modifiers: QW 3075F SYST BP GE 130 - 139MM HG. 3078F DIAST BP < 80 MM HG. * Electronic signature of MALENA Stockton on 03/26/2025 at 03:58 PM EDT Sign off status: Pending * Provider: MALENA Narayan Date: 0 08/21/2024 Generated for Dennis charles/Fajerig/eTransmitting on: 0 03/26/2025 03:58 PM EDT History and Physical Notes * HPI (History of Present Illness) Category Sub-Category Detail Notes Category Not es ENT/respiratory sore throat cough Fever rhinorrhea body aches Examination Category Sub-Category Detail Notes Category Not es ENT/Respiratory Oral cavity : erythema without exudate on pharynx Sinuses : tender maxillary sin uses bilaterally Ears: auditory canals norm al bilaterally, TM's WNL Neck : no cervical lymphade nopathy Heart : RRR, normal S1 S2, n o murmurs Lungs: clear to auscultatio n bilaterally General Appearance: NAD Nose : turbinates red, hui ested
--- OUTSIDE RECORDS SUMMARY | 2024-11-01 05:45 | XMS_ITS ---
Author Organization [facility] Address [address] [place] [phone] Care Team Providers Care Specialty Transformer Assembler Name Role Phone Brian Fernandez Primary Care Provider [phone] Shelton Armentaory Unavailable [phone] Allergies No Known Allergies Results Component Value Reference Range Notes P-Comprehensive Metabolic Pa beatris (CMP) Reviewed date:11/07/2024 12:45:33 PM Interpretation:Normal Performing Lab: Notes/Report: Test performed by [facility] [address] [place] [address] , [address], [place] [address] Otis Ricks MD, Construction Producer CLIA: [id number] Sodium 141 135-145 mmol/L Potassium 4.5 3.5-5.3 mmol/L Chloride 103 97-108 mmol/L CO2 24 22-32 mmol/L Glucose 96 65-99 mg/dL BUN 12 8-23 mg/dL Creatinine 0.83 0.70-1.30 mg/dL Calcium 9.2 8.6-10.4 mg/dL eGFR by Creatinine 93 >59 mL/min/1.73m2 Protein 6.8 6.0-8.3 g/dL Albumin 4.4 3.5-5.3 g/dL Alkaline Phosphatase 105 40-129 IU/L ALT (SGPT) 21 <5-55 IU/L AST (SGOT) 23 <5-46 IU/L Bilirubin, Total 0.8 <0.2-1.2 mg/dL A/G Ratio 1.8 1.1-2.5 P-PSA Reviewed date:11/07/2024 12:45:18 PM Interpretation:Normal Performing Lab: Notes/Report: Test performed by [facility] [employer] [facility] , [address], [place] [address] Otis Ricks MD, Construction Producer CLIA: [id number] PSA 0.97 <4.00 ng/mL Please note this is an ultrasensitive PSA assay with a lower limit of detection of 0.014 ng/mL. This test is performed by the Alvarez ECLIA methodology. Values obtained with different assay methods or kits cannot be directly compared. REASON FOR VISIT 3 months Medications Medication SIG (Take, Route, Frequency, Duration) Notes Start Date End Date Status Nitrostat 0.4 MG 1 tab(s) sublinguall y every 5 minutes Active Clopidogrel Bisulfate 75 MG 1 tab(s) orally once a day; Duration: 30 day(s) Active Losartan Potassium 50 MG 1 tab(s) orally once a day 12/27/2016 Active Atorvastatin Calcium 40 MG 1 tab(s) oral ly once a day (at bedtime) Active Trelegy Ellipta 100-62.5-25 MCG/ACT 1 puff Inhalation Once a day Active Albuterol Sulfate HFA 108 (90 Base) MCG/ACT 1 puff as needed Inhalation every 4 hrs Active Pantoprazole Sodium 40 MG 1 tab(s) orall y once a day; Duration: 30 day(s) Active Aspirin Adult Low Dose 81 MG 1 tab(s) orally once a day A ctive Vital Signs Blood pressure systolic 122 mm Hg 11/02/19 25 Blood pressure diastolic 70 mm Hg 025 Heart Rate 56 /min 11/01/2024 Height 69 in 11/01/2024 Weight 188.2 lbs 11/01/2024 BMI 27.79 kg/m2 11/01/2024 Encounters Encounter Location Date Provider Diagnosis [facility] [address] [place], [place] [phone] 11/01/2024 Shelton Armenta Essential (primary) hypertension I10 ; Status post insertion of drug-eluting stent into right coronary artery for coronary artery disease Z95.5 ; Coronary artery disease involving citizen [place] coronary artery of citizen [place] heart without angina pectoris I25.10 ; Benign prostatic hyperplasia without lower urinary tract symptoms N40.0 ; Mixed hyperlipidemia E78.2 ; Chronic obstructive pulmonary disease, unspecified COPD type J44.9 and BMI 27.0-27.9,adult Z68.27 Assessments Encounter Date Diagnosis (ICD Code) Assessment Notes Treatment Notes Treatment Clinical Notes Section Notes 11/01/2024 Essential (primary) hypertension (ICD-10 - I10) continue present RX 11/01/2024 Status post insertion of drug-eluting stent into right coronary artery for coronary artery disease (ICD-10 - Z95.5) 11/01/2024 Coronary artery disease involving [place] coronary artery of citizen [place] heart without angina pectoris (ICD-10 - I25.10) 11/01/2024 Benign prostatic hyperplasia without lower urinary tract symptoms (ICD-10 - N40.0) 11/01/2024 Mixed hyperlipidemia (ICD-10 - E78.2) 11/01/2024 Chronic obstructive pulmonary disease, unspecified COPD type (ICD-10 - J44.9) 11/01/2024 BMI 27.0-27.9,adult (ICD-10 - Z68.27) Plan Of Treatment Treatment Notes Assessment Notes Essential (primary) hypertension continu e present RX Next Appt Details Follow Up: 5M, Reason: Provider Name:Shelton Lott er, 04/07/2025 09:30:00 AM, [address] [facility], [address], [place], [place], [phone], Progress Notes * SNOW IMRANDADOB:1950 (74 yo M)Acc No.[id number]:11/01/2024 Progress Notes Patient: SNOW BACON Provider: Shelton Armenta M.D. :1950 A ge:74 Y S ex:Male Date:11/01/2024 Address:[address] [place] [address], [place], [id number] Pcp:Brian Fernandez Subjective: * Chief Complaints: * 1 . 3 months. * HPI: C ardiology: The pt is here today for a check up on Hypertension. Pt states he is doing good and denies any new concerns. Pt states he is fasting except for a cup of black coffee. 74 year old male presents with c/o Short of Breath w ith exertion. Denies : Chest Pain. D enies : Dizziness. D enies : Palpitations. * ROS: D ERMATOLOGY: no R danna. n o H tiffanie. G ASTROENTEROLOGY: no N ausea. n o V omiting. n o D iarrhea.? U ROLOGY: no D ifficulty urinating. n o B lood in urine. * 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: C oronary Artery Disease, Acute [place] 1996 w/stent placement, Acute AL 2001 w/stent placement, HTN, GERD, COPD, Colon polyps, Covid Positive - May 2020. * 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: B ACK SURGERY 1982, STENT 1996, STENT 2001, stent 05/2006, heart cath x 2 (No [place] or stent) 05/2007, stent 11/2020, Galbladder removal 03/09/2021, left wrist fracture 04/2021, cyst on scrotum, [facility] 11/2023. * Hospitalization/Major Diagno stic Procedure: p neumonia 02/21/2007, [facility] ER- Fell out of a truck and hurt arms 11/16/2011, [facility]-Heart Cath 09/2015, Heart attack [facility] 03/12-, Heart Attack [facility] 10/05/2020, [facility] - chest pains 02/01-, [facility]- vertigo 09/13/2022. * Family History: [...] detector use: yes. Marital Status: . 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 Past smoking status: no. Recreational [...] tab(s) orally once a day , Discontinued Tamiflu 75 MG Capsule 1 capsule Orally Twice a day , Discontinued Benzonatate 200 MG Capsule 1 capsule Orally Three times a day , Medication List reviewed and reconciled with the patient * Allergies: N .K.D.A. Objective: * Vitals: W t: 188.2, Temp: 97.7, BP: 122/70, HR: 56, O2 Sat: 96% on RA, Nurse: CHETAN, Ht: 69, BMI:27.79. * Examination: G eneral Examination: General Appearance: [...] enitalia: not examined. Assessment: * Assessment: 1. E ssential (primary) hypertension - I10 (Primary) 2 . S tatus post insertion of drug-eluting stent into right coronary artery for coronary artery disease - Z95.5 3 . C oronary artery disease involving [place] coronary artery of citizen [place] heart without angina pectoris - I25.10 4 . B enign prostatic hyperplasia without lower urinary tract symptoms - N40.0 5 . M ixed hyperlipidemia - E78.2 6 . C hronic obstructive pulmonary disease, unspecified COPD type - J44.9 7 . B AL 27.0-27.9,adult - Z68.27 Plan: * Treatment: Value Reference Range A /G Ratio 1.8 1.1-2.5 - * A lbumin 4.4 3.5-5.3 - g/dL * A lkaline Phosphatase 105 40-129 - IU/L * A LT (SGPT) 21 <5-55 - IU/L * A ST (SGOT) 23 <5-46 - IU/L * B ilirubin, Total 0.8 <0.2-1.2 - mg/dL * B UN 12 8-23 - mg/dL * C alcium 9.2 8.6-10.4 - mg/dL * C hloride 103 97-108 - mmol/L * C O2 24 22-32 - mmol/L * C reatinine 0.83 0.70-1.30 - mg/dL * G lucose 96 65-99 - mg/dL * P otassium 4.5 3.5-5.3 - mmol/L * S odium 141 135-145 - mmol/L * P rotein 6.8 6.0-8.3 - g/dL * e GFR by Creatinine 93 >59 - mL/min/1.73m2 * Deepa Cash 11/07/2024 12 :45:28 PM > Patient informed of normal results. Notes: continue present RX??2.?Benign prostatic hyperplasia without lower urinary tract symptoms?LAB: P-PSA (Collection Date & Time - 11/01/2024 09:49 AM)?Normal* Value Reference Range P SA 0.97 <4.00 - ng/mL * Deepa Cash 11/07/2024 12 :45:05 PM > Patient informed of normal results. * Procedure Codes: G 2211 Complex e/m visit add on, 3074F SYST BP LT 130 MM HG, 3078F DIAST BP < 80 MM HG * Follow Up: 5 M * Images: Billing Information: * Visit Code: 20127 Office Visit, Est Pt., Level 4. * Procedure Codes: G2211 Complex e/m visit add on. 3074F SYST BP LT 130 MM HG. 3078F DIAST BP < 80 MM HG. * Electronic signature of Shelton Armenta MD on 03/26/2025 at 03:58 PM EDT Sign off status: Pending * Provider: Shelton Armenta M.D. Date: 0 11/01/2024 Generated for Printi ng/Faxing/eTransmitting on: 0 03/26/2025 03:58 PM EDT History and Physical Notes * HPI (History of Present Illness) Category Sub-Category Detail Notes Category Not es Cardiology Short of Breath with exertion Chest Pain Palpitations Dizziness Examination Category Sub-Category [...]
--- OUTSIDE RECORDS SUMMARY | 2024-11-01 05:45 | XMS_ITS ---
Author Organization [facility]rine Address [address] [place] [id number] Care Team Providers Care Rn Mds Coordinator Name Role Phone Brian Fernandez Primary Care Provider Shelton Armentaory Unavailable [phone] Allergies No Known Allergies Results Component Value Reference Range Notes P-Comprehensive Metabolic Pa beatris (CMP) Reviewed date:11/07/2024 12:45:33 PM Interpretation:Normal Performing Lab: Notes/Report: Test performed by [facility] [address] [place] [address] , [address], [place] [address] Otis Ricks MD, Radius Corner Machine Operator CLIA: [id number] Sodium 141 135-145 mmol/L Potassium 4.5 3.5-5.3 [...] Interpretation:Normal Performing Lab: Notes/Report: Test performed by [facility] , [address], [place] [address] Otis Ricks MD, Radius Corner Machine Operator CLIA: [id number] PSA 0.97 <4.00 ng/mL Please note this [...] 11/01/2024 Encounters Encounter Location Date Provider Diagnosis [facility] [address] [place], [place] [id number] 11/01/2024 Shelton Armenta Essential (primary) hypertension I10 ; Status post insertion of drug-eluting stent into right coronary artery for coronary artery disease Z95.5 ; Coronary artery disease involving [place] coronary artery of [place] heart without angina pectoris I25.10 ; Benign [...] - Z95.5) 11/01/2024 Coronary artery disease involving [place] coronary artery of tling[place] heart without angina pectoris (ICD-10 - I25.10) [...] 04/07/2025 09:30:00 AM, [address] [facility], [address], [place], [place], [id number], Progress Notes * SNOW MIRANDADOB:1950 (74 yo M)Acc No.[id number]:11/01/2024 Progress Notes Patient: SNOW BACON Provider: Shelton Armenta M.D. :1950 A ge:74 Y S ex:Male Date:11/01/2024 Address:[address] [place] [address], [place], [id number] Pcp:Brian Fernandez Subjective: * Chief Complaints: [...] 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: C oronary Artery Disease, Acute [place] 1996 w/stent placement, Acute [place] 2001 w/stent placement, HTN, GERD, COPD, Colon polyps, Covid Positive - May 2020. * 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: B ACK SURGERY 1982, STENT 1996, STENT 2001, stent 05/2006, heart cath x 2 (No [place] or stent) 05/2007, stent 11/2020, Galbladder removal 03/09/2021, left wrist fracture 04/2021, cyst on scrotum, [facility] 11/2023. * Hospitalization/Major Diagno stic Procedure: p neumonia 02/21/2007, [facility] ER- Fell out of a truck and hurt arms 11/16/2011, [facility]-Heart Cath 09/2015, Heart attack [facility] 03/12-, Heart Attack [facility] 10/05/2020, [facility] - chest pains 02/01-, [facility]- vertigo 09/13/2022. * Family History: F [...] detector use: yes. Marital Status: . 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 Past smoking status: no. Recreational [...] 3 . C oronary artery disease involving tling[place] coronary artery of tling[place] heart without angina pectoris - I25.10 4 . B enign prostatic hyperplasia without lower urinary tract symptoms - N40.0 5 . M ixed hyperlipidemia - E78.2 6 . C hronic obstructive pulmonary disease, unspecified COPD type - J44.9 7 . B [place] 27.0-27.9,adult - Z68.27 Plan: * Treatment: Value [...] * Images: Billing Information: * Visit Code: 97946 Office Visit, Est Pt., Level 4. * Procedure Codes: G2211 Complex e/m visit add on. 3074F SYST BP LT 130 MM HG. 3078F DIAST BP < 80 MM HG. * Electronic signature of Shelton Armenta MD on 03/25/2025 at 08:59 PM EDT Sign off status: Pending * Provider: Shelton Armenta M.D. Date: 0 11/01/2024 Generated for Printi ng/Faxing/eTransmitting on: 0 03/25/2025 [...]
[2025-03-25] VITALS (7 sets, daily range): BP systolic 101–123; BP diastolic 60–73; PULSE 55–88; RESP 12–17; TEMP 36.6; O2SAT 92–99; BMI 28.5
--- NOTE | 2025-03-25 20:49 | ECG_ITS ---
APPROVED REPORT Exam: Resting ECG HR:58 bpm ECG Measurements Heart Rate 58 AXES ME 191 P -7 QRSd 85 QRS 1 QT 398 T -4 QTc 395 Conclusion Sinus bradycardia without acute ST or T wave changes concerning for ischemia Electronically signed by : Carie Mejía, 03/26/2025 00:21:05
--- NOTE | 2025-03-25 20:55 | HMH.EDGENADL ---
Discharge Plan Disposition Patient Disposition: Admitted Prescriptions Prescriptions: No Action Eugenio Terry 100-62.5-25 mcg blister with device 1 inh inhalation DAILY tadalafil 5 mg tablet PO Patient Comments: TAKE 1 TABLET BY MOUTH ONCE DAILY losartan 25 mg tablet See Rx Instructions .ROUTE .COMPLEX Qty: 90 3RF Dose Instruction: TAKE 1 TABLET BY MOUTH DAILY Rx Instructions: TAKE 1 TABLET BY MOUTH DAILY albuterol sulfate 90 mcg/actuation HFA aerosol inhaler 1 inh inhalation Q6H PRN (Reason: shortness of breath or wheezing) Qty: 8.5 3RF atorvastatin 40 mg tablet 40 mg PO HS Qty: 90 1RF clopidogrel 75 mg tablet 75 mg PO DAILY Qty: 90 1RF pantoprazole 40 mg tablet,delayed release (DR/EC) 40 mg PO DAILY Qty: 90 3RF aspirin 81 MG tablet,chewable 81 mg PO HS ipratropium-albuterol 0.5 mg-3 mg(2.5 mg base)/3 mL Solution For Nebulization 3 ml inhalation Q6HP PRN (Reason: shortness of breath or wheezing) Qty: 50 0RF Referrals Follow up/Referrals: Minoo Armenta MD [Primary Care Provider, Medical] - See instructions Clinical Impressions Clinical Impression: Chest pain Print Language Print Language: Welsh Discharge ED Provider: Arthur Alvarado General Adult HPI <Carie Mejía DO - Last Filed: 03/26/25 00:13> General Chief complaint: Chest Pain Stated complaint: cp Time Seen by Provider: 03/25/25 20:54 History of Present Illness HPI narrative: Patient is a 74-year-old gentleman with a past medical history of hypertension, coronary artery disease on a daily aspirin who presents to the emergency department with concern for chest pain. Patient states that he woke up around 8 PM with left-sided chest pain with heaviness in his left arm. Patient states that he took 1 dose of nitro and his pain went away but then his pain returned about 30 minutes later. Patient did not have any shortness of breath. Patient has not had any upper respiratory symptoms. Patient has not had any fevers. Patient has not had any abdominal pain nausea vomiting or diarrhea. Patient states that he has had 5 stents in the past. Patient is on a statin high blood pressure medications and takes a daily aspirin. Patient is not on any other blood thinners. Patient denies any recent long travel. Patient denies any history of blood clots. Related Data Home Medications ?Medication ?Instructions ?Recorded ?Confirmed aspirin 81 mg chewable tablet 81 mg PO HS 03/12/18 02/25/25 fluticasone fur. 100 mcg-umeclid 1 inh inhalation DAILY 11/14/24 02/25/25 62.5 mcg-vilant 25 mcg inhalat.powder (Trelegy Ellipta) tadalafil 5 mg tablet mg PO 11/26/24 02/25/25 Previous Rx's ?Medication ?Instructions ?Recorded ipratropium 0.5 mg-albuterol 3 mg 3 ml inhalation Q6HP PRN shortness 03/08/24 (2.5 mg base)/3 mL nebulization of breath or wheezing #50 mL soln losartan 25 mg tablet See Rx Instructions .Route 09/18/24 .COMPLEX #90 tabs albuterol sulfate 90 mcg/actuation 1 inh inhalation Q6H PRN shortness 11/15/24 aerosol inhaler of breath or wheezing #8.5 grams atorvastatin 40 mg tablet 40 mg PO HS #90 tabs 12/17/24 clopidogrel 75 mg tablet 75 mg PO DAILY #90 tabs 12/17/24 pantoprazole 40 mg tablet,delayed 40 mg PO DAILY #90 tabs 12/17/24 release Allergies Allergy/AdvReac Type Severity Reaction Status Date / Time No Known Allergies Allergy Verified 02/25/25 08:58 [facility] <Carie Mejía, DO - Last Filed: 03/26/25 00:13> [facility] Disclaimer: The information contained in this section may have been updated after the patient was seen, as this information can be updated by other users. 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 Impacted cerumen of both ears Encounter for preoperative assessment Impacted cerumen of right ear Congestion of both ears Tinnitus aurium Typical angina Impotence Family history of diabetes mellitus Sebaceous cyst of scrotum I will get consultation at the [facility] as excisional biopsies in this area often do not heal well. His infected cysts are not cured and although better today will likely reoccur. I will continue Cialis for the impotence. Scrotal abscess Abscess of groin, right Strep throat Acute respiratory failure with hypoxia Acute right otitis media Hearing difficulty of right ear Impacted cerumen, right ear Chronic inflammation of both eustachian tubes Excessive cerumen in both ear canals Excessive cerumen in right ear canal Otitis externa of right ear Tinnitus Hearing loss in right ear Dyspnea on exertion History of COVID-19 Acute exacerbation of chronic obstructive pulmonary disease Bronchitis Sinusitis Family history of asthma History of smoking 30 or more pack years Dyspnea on exertion SOB (shortness of breath) HLD (hyperlipidemia) CAD (coronary artery disease) JANUARY 2021 Medical management for ischemic heart disease NOVEMBER 2020.Critical proximal dominant right coronary stenosis Successful stenting of the ostial proximal dominant right coronary artery critical disease reduced to 0% with 1 drug-eluting stent Preserved ejection fraction with mild regional wall motion abnormality Mildly elevated LVEDP COPD (chronic obstructive pulmonary disease) 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 Status post insertion of drug-eluting stent into right coronary artery for coronary artery disease S/P right coronary artery (RCA) stent placement History of colonoscopy History of cholecystectomy Previous back surgery Stented coronary artery Family History Other Family history of cancer Family history of diabetes mellitus type II Family history of hyperlipidemia Family history of hypertension 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 Smoking Status: Unknown if ever smoked second hand exposure: No alcohol intake: never substance use type: denies use current occupational status: retired Travel in the last 8 weeks?: None household members: spouse housing: house current occupational exposures/hazards: No caffeine: Yes Have you lived/traveled outside [place] in past 30 days?: No Contact w/someone who lives/traveled outside [place] past 30 days?: No Exposure to someone with infectious disease in past 14 days?: No Do you have a fever (greater than 100.4 F or 38 C)?: No Have you tested positive for COVID-19?: No Exposed to someone with COVID-19 in past 14 days?: No Do you have a sore throat?: No Do you have a cough?: No Do you have any weakness?: No Do you have any diarrhea?: No Are you experiencing any unusual bleeding?: No Do you have any muscle aches/pain?: No Do you have any abdominal pain?: No Are you experiencing loss of taste or smell?: No Other 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 Have you received the Flu Vaccine for this season: No Have you received the Pneumonia Vaccine: Yes <Cariealexia Mejía, - Last Filed: 03/26/25 00:13> ROS Obtained: Yes All systems reviewed & no additional complaints except as documented and Yes Systems reviewed as appropriate & no additional complaints except as documented Physical Exam <Carie Alfonzo, DO - Last Filed: 03/26/25 00:13> General General appearance: alert and in no apparent distress Head Head exam: atraumatic, normocephalic and normal inspection Eye Eye exam: Present normal appearance, PERRL and EOMI; Absent scleral icterus ENT ENT exam: Present normal exam and normal external ear exam Neck Neck exam: Present normal inspection and full ROM Chest Chest inspection: Present normal inspection and symmetric chest wall rise Respiratory Respiratory exam: Present normal lung sounds bilaterally; Absent respiratory distress or wheezes Cardiovascular Cardiovascular exam: Present regular rate, normal rhythm and normal heart sounds Abdominal Exam Abdominal exam: Present soft and distention; Absent tenderness, guarding or rebound Extremities Exam Extremities exam: Present normal inspection and full ROM Back Exam Back exam: Present normal inspection and full ROM Neurological Exam Neurological exam: Present alert and oriented X3 Psychiatric Psychiatric exam: Present normal affect and normal mood Skin Skin exam: Present warm and dry Medical Decision Making <Carie AlfonzoDO - Last Filed: 03/26/25 00:13> Medical Records Medical records reviewed: Yes I reviewed the patient's medical records. Screening: Per USPSTF and CDC recommendations, given the prevalence of disease in our region, it is our hospital?s policy to screen for HIV and viral Hepatitis for all patients aged 18 and over and those with ongoing risk factors. Donald Inquiry Pt receiving controlled substance: No Vital Signs: 03/25/25 20:51 03/25/25 21:00 03/25/25 21:03 Temperature 97.9 F 97.8 F Temperature Source Oral Oral Pulse Rate 58 L 88 Pulse Rate [Left] 60 Respiratory Rate 17 13 17 Blood Pressure 113/67 113/67 Blood Pressure [Right Arm] 123/73 Blood Pressure Mean [Right Arm] 89 Blood Pressure Position Sitting 02 Sat by Pulse Oximetry 97 99 98 Oxygen Delivery Method Room Air Room Air 03/25/25 21:30 03/25/25 22:00 03/25/25 23:00 Temperature Temperature Source Pulse Rate 58 L 59 L Pulse Rate [Left] Respiratory Rate 14 14 14 Blood Pressure 102/65 L 101/61 L 114/60 Blood Pressure [Right Arm] Blood Pressure Mean [Right Arm] Blood Pressure Position 02 Sat by Pulse Oximetry 93 L 93 L Oxygen Delivery Method 03/25/25 23:30 03/26/25 00:00 03/26/25 00:30 Temperature Temperature Source Pulse Rate 55 L 49 L 49 L Pulse Rate [Left] Respiratory Rate 12 14 14 Blood Pressure 101/66 L 104/67 L 114/71 Blood Pressure [Right Arm] Blood Pressure Mean [Right Arm] Blood Pressure Position 02 Sat by Pulse Oximetry 92 L 96 94 L Oxygen Delivery Method 03/26/25 01:00 Temperature Temperature Source Pulse Rate 51 L Pulse Rate [Left] Respiratory Rate 14 Blood Pressure 113/62 Blood Pressure [Right Arm] Blood Pressure Mean [Right Arm] Blood Pressure Position 02 Sat by Pulse Oximetry 94 L Oxygen Delivery Method Lab Data Lab results reviewed: Yes I reviewed the patient's lab results. Lab Results 03/25/25 20:50: WBC 6.2, RBC 4.69, Hgb 14.5, Hct 41.9 L, MCV 89.3, MCH 30.9, MCHC 34.6, RDW 12.6, Plt Count 186, MPV 10.6 H, Neut % (Auto) 44.0, Lymph % (Auto) 42.4, [place] % (Auto) 11.1 H, Eos % (Auto) 2.0, Baso % (Auto) 0.3, Neut # (Auto) 2.7, Lymph # (Auto) 2.6, [place] # (Auto) 0.7, Eos # (Auto) 0.1, Baso # (Auto) 0.0, D-Dimer 0.32, Sodium 137, Potassium 4.0, Chloride 102, Carbon Dioxide 28, Anion Gap 11.0, BUN 19, Creatinine 1.00, Estimated Creat Clear 78, Estimated GFR 73, Est GFR ( Amer) 89, Glucose 102 H, Calcium 9.6, Total Bilirubin 0.8, AST 35, ALT 27, Alkaline Phosphatase 81, Troponin I < 0.01, NT-Pro-B Natriuret Pep 46.1, Total Protein 7.2, Albumin 4.2, Globulin 3.0, Albumin/Globulin Ratio 1.4, HCV Ab ALAYNA w/Rflx PCR Qn Negative, HIV Ag/Ab Combo Qual Negative 03/25/25 23:36: Troponin I < 0.01 03/25/25 20:50 03/25/25 20:50 Orders (Tests/Meds): ED MEDICATIONS Generic Name Dose Route Start Last Admin Trade Name Freq PRN Reason Stop Dose Admin Acetaminophen 650 mg 03/26/25 02:32 Acetaminophen 325mg Tab PO 04/25/25 02:31 Q6HP PRN Fever or Mild Pain (1-3) Ibuprofen 600 mg 03/26/25 02:32 Ibuprofen 600 Mg Tablet PO 04/25/25 02:31 Q6HP PRN Fever or Mild Pain (1-3) Discontinued Medications Generic Name Dose Route Start Last Admin Trade Name Freq PRN Reason Stop Dose Admin Acetaminophen 1,000 mg 03/26/25 02:24 03/26/25 02:31 Acetaminophen 500mg Tab PO 03/26/25 02:25 1,000 mg ONCE ONE Administration Aspirin 325 mg 03/25/25 21:00 03/25/25 21:06 Aspirin 325mg Tablet PO 03/25/25 21:01 325 mg ONCE ONE Administration Belladonna Alkaloids 60 ml 03/26/25 02:24 03/26/25 02:30 Belladonna Alkaloids 60 Ml Ml PO 03/26/25 02:25 60 ml ONCE ONE Administration Nitroglycerin 0.4 mg 03/26/25 02:24 03/26/25 02:31 Nitroglycerin 0.4mg Sl Tablet SL 03/26/25 02:25 0.4 mg ONCE ONE Administration Ondansetron HCl 4 mg 03/25/25 20:56 03/25/25 21:01 Ondansetron 4mg/2ml Vial IV 03/25/25 20:57 4 mg ONCE ONE Administration ORDERS Category Date Time Status CXR --portable [XR chest portable] Stat Exams 03/25/25 21:00 Completed BNP [NT Pro Brain Natriuretic Pep.] Stat Lab 03/25/25 20:50 Completed CBC w/Auto Diff [Complete Blood Count Auto Diff] Stat Lab 03/25/25 20:50 Completed CMP [Comprehensive Metabolic Panel] Stat Lab 03/25/25 20:50 Completed D-Dimer Stat Lab 03/25/25 20:50 Completed HIV Combo Stat Lab 03/25/25 20:50 Completed Hepatitis C Ab Qual. W/ RFX Stat Lab 03/25/25 20:50 Completed Trop I [Troponin I] Stat Lab 03/25/25 20:50 Completed Troponin I Q3H Lab 03/26/25 03:00 Ordered Troponin I Stat Lab 03/25/25 23:36 Completed Medical Decision Narrative: Patient is a 74-year-old gentleman with a past medical history of coronary artery disease, hypertension on a daily aspirin who presents to the emergency department with left-sided chest pain. Patient reported left arm heaviness but no other associated symptoms. On arrival, patient was hemodynamically stable with unremarkable vital signs. Differential includes but not limited to: ACS/TN, pneumothorax, pleural effusion, pericarditis, pericarditis, pulmonary embolism, amongst others. Patient's labs were reviewed and interpreted by myself: CBC showed no leukocytosis, hemoglobin was stable. D-dimer was normal at 0.32. CMP was unremarkable. Initial troponin was less than 0.01. EKG was reviewed and interpreted by myself and showed sinus bradycardia without acute ST or T wave changes concerning for ischemia. On arrival, patient still had some left-sided chest pain, he was given 324 of aspirin. No other interventions were done at this time. Patient was placed into ED observation status at 0850 pending serial troponin's. Patient's heart score is 5. Patient was signed out to the oncoming provider Dr. Arthur Alvarado pending repeat troponin at midnight. <Arthur Alvarado MD - Last Filed: 03/26/25 02:49> Vital Signs: 03/25/25 20:51 03/25/25 21:00 03/25/25 21:03 Temperature 97.9 F 97.8 F Temperature Source Oral Oral Pulse Rate 58 L 88 Pulse Rate [Left] 60 Respiratory Rate 17 13 17 Blood Pressure 113/67 113/67 Blood Pressure [Right Arm] 123/73 Blood Pressure Mean [Right Arm] 89 Blood Pressure Position Sitting 02 Sat by Pulse Oximetry 97 99 98 Oxygen Delivery Method Room Air Room Air 03/25/25 21:30 03/25/25 22:00 03/25/25 23:00 Temperature Temperature Source Pulse Rate 58 L 59 L Pulse Rate [Left] Respiratory Rate 14 14 14 Blood Pressure 102/65 L 101/61 L 114/60 Blood Pressure [Right Arm] Blood Pressure Mean [Right Arm] Blood Pressure Position 02 Sat by Pulse Oximetry 93 L 93 L Oxygen Delivery Method 03/25/25 23:30 03/26/25 00:00 03/26/25 00:30 Temperature Temperature Source Pulse Rate 55 L 49 L 49 L Pulse Rate [Left] Respiratory Rate 12 14 14 Blood Pressure 101/66 L 104/67 L 114/71 Blood Pressure [Right Arm] Blood Pressure Mean [Right Arm] Blood Pressure Position 02 Sat by Pulse Oximetry 92 L 96 94 L Oxygen Delivery Method 03/26/25 01:00 Temperature Temperature Source Pulse Rate 51 L Pulse Rate [Left] Respiratory Rate 14 Blood Pressure 113/62 Blood Pressure [Right Arm] Blood Pressure Mean [Right Arm] Blood Pressure Position 02 Sat by Pulse Oximetry 94 L Oxygen Delivery Method Lab Data Lab Results 03/25/25 20:50: WBC 6.2, RBC 4.69, Hgb 14.5, Hct 41.9 L, MCV 89.3, MCH 30.9, MCHC 34.6, RDW 12.6, Plt Count 186, MPV 10.6 H, Neut % (Auto) 44.0, Lymph % (Auto) 42.4, [place] % (Auto) 11.1 H, Eos % (Auto) 2.0, Baso % (Auto) 0.3, Neut # (Auto) 2.7, Lymph # (Auto) 2.6, [place] # (Auto) 0.7, Eos # (Auto) 0.1, Baso # (Auto) 0.0, D-Dimer 0.32, Sodium 137, Potassium 4.0, Chloride 102, Carbon Dioxide 28, Anion Gap 11.0, BUN 19, Creatinine 1.00, Estimated Creat Clear 78, Estimated GFR 73, Est GFR ( Amer) 89, Glucose 102 H, Calcium 9.6, Total Bilirubin 0.8, AST 35, ALT 27, Alkaline Phosphatase 81, Troponin I < 0.01, NT-Pro-B Natriuret Pep 46.1, Total Protein 7.2, Albumin 4.2, Globulin 3.0, Albumin/Globulin Ratio 1.4, HCV Ab ALAYNA w/Rflx PCR Qn Negative, HIV Ag/Ab Combo Qual Negative 03/25/25 23:36: Troponin I < 0.01 Orders (Tests/Meds): ED MEDICATIONS Generic Name Dose Route Start Last Admin Trade Name Charity PRN Reason Stop Dose Admin Acetaminophen 650 mg 03/26/25 02:32 Acetaminophen 325mg Tab PO 04/25/25 02:31 Q6HP PRN Fever or Mild Pain (1-3) Ibuprofen 600 mg 03/26/25 02:32 Ibuprofen 600 Mg Tablet PO 04/25/25 02:31 Q6HP PRN Fever or Mild Pain (1-3) Discontinued Medications Generic Name Dose Route Start Last Admin Trade Name Charity PRN Reason Stop Dose Admin Acetaminophen 1,000 mg 03/26/25 02:24 03/26/25 02:31 Acetaminophen 500mg Tab PO 03/26/25 02:25 1,000 mg ONCE ONE Administration Aspirin 325 mg 03/25/25 21:00 03/25/25 21:06 Aspirin 325mg Tablet PO 03/25/25 21:01 325 mg ONCE ONE Administration Belladonna Alkaloids 60 ml 03/26/25 02:24 03/26/25 02:30 Belladonna Alkaloids 60 Ml Ml PO 03/26/25 02:25 60 ml ONCE ONE Administration Nitroglycerin 0.4 mg 03/26/25 02:24 03/26/25 02:31 Nitroglycerin 0.4mg Sl Tablet SL 03/26/25 02:25 0.4 mg ONCE ONE Administration Ondansetron HCl 4 mg 03/25/25 20:56 03/25/25 21:01 Ondansetron 4mg/2ml Vial IV 03/25/25 20:57 4 mg ONCE ONE Administration ORDERS Category Date Time Status CXR --portable [XR chest portable] Stat Exams 03/25/25 21:00 Completed BNP [NT Pro Brain Natriuretic Pep.] Stat Lab 03/25/25 20:50 Completed CBC w/Auto Diff [Complete Blood Count Auto Diff] Stat Lab 03/25/25 20:50 Completed CMP [Comprehensive Metabolic Panel] Stat Lab 03/25/25 20:50 Completed D-Dimer Stat Lab 03/25/25 20:50 Completed HIV Combo Stat Lab 03/25/25 20:50 Completed Hepatitis C Ab Qual. W/ RFX Stat Lab 03/25/25 20:50 Completed Trop I [Troponin I] Stat Lab 03/25/25 20:50 Completed Troponin I Q3H Lab 03/26/25 03:00 Ordered Troponin I Stat Lab 03/25/25 23:36 Completed HEART Score History (anamnesis): Highly suspicious ECG: Normal Age: >65 years Risk factors: Atherosclerosis history Troponin: </= normal limit HEART Score: 6 Medical Decision Narrative: Patient is a 74-year-old gentleman with a past medical history of coronary artery disease, hypertension on a daily aspirin who presents to the emergency department with left-sided chest pain. Patient reported left arm heaviness but no other associated symptoms. On arrival, patient was hemodynamically stable with unremarkable vital signs. Differential includes but not limited to: ACS/TN, pneumothorax, pleural effusion, pericarditis, pericarditis, pulmonary embolism, amongst others. Patient's labs were reviewed and interpreted by myself: CBC showed no leukocytosis, hemoglobin was stable. D-dimer was normal at 0.32. CMP was unremarkable. Initial troponin was less than 0.01. EKG was reviewed and interpreted by myself and showed sinus bradycardia without acute ST or T wave changes concerning for ischemia. On arrival, patient still had some left-sided chest pain, he was given 324 of aspirin. No other interventions were done at this time. Patient was placed into ED observation status at 0850 pending serial troponin's. Patient's heart score is 5. Patient was signed out to the oncoming provider Dr. Arthur Alvarado pending repeat troponin at midnight. On reassessment, patient reports continued chest pain. Repeat troponin returns undetectably low. On my assessment, patient's heart score is 6. Given persistent left-sided chest pain and heaviness I am concerned that patient may be experiencing unstable angina. I called and spoke with Dr. Duque who admitted the patient on behalf of Dr. Armenta for further assessment. Critical Care <Carie Mejía, DO - Last Filed: 03/26/25 00:13> Critical Care Time Critical Care Time: No
--- OUTSIDE RECORDS SUMMARY | 2025-03-25 20:59 | XMS_ITS | Patient Health Record ---
[facility] Address [address] [place] [id number] Care Team Providers Care Senior Data Quality Analyst Name Role Phone Brian Fernandez Primary Care Provider [phone] Shelton Armenta Unavailable [phone] Deepthi Morales Unavailable [phone] Anastasia Hammer Unavailable [phone] Allergies No Known Allergies Results Component Value Reference Range Notes Influenza Screen (in house) Reviewed date:08/21/2024 01:21:00 PM Interpretation: Performing Lab: Notes/Report: results Neg Covid test (in house) Reviewed date:08/21/2024 01:20:52 PM Interpretation: Performing Lab: Notes/Report: Result: Neg P-Comprehensive Metabolic Pa beatris (CMP) Reviewed date:11/07/2024 12:45:33 PM Interpretation:Normal Performing Lab: Notes/Report: Test performed by [facility], [facility] [address] [place] [address] , [address], [place] [address] Otis Ricks MD, [employer] Consult[employer] CLIA: [id number] Sodium 141 135-145 mmol/L Potassium 4.5 3.5-5.3 [...] Interpretation:Normal Performing Lab: Notes/Report: Test performed by [facility] [address] [place], [place] [address] , [address], [place] [address] Otis Ricks MD, [employer] Consultant CLIA: [id number] PSA 0.97 <4.00 ng/mL Please note this is an ultrasensitive PSA assay with a lower limit of detection of 0.014 ng/mL. This test is performed by the [employer] ECLIA methodology. Values obtained with different assay methods or kits cannot be directly compared. Influenza Screen (in house) Reviewed date:06/03/2024 02:03:25 [...] Interpretation:neg Performing Lab: Notes/Report: neg Result: neg P-Comprehensive Metabolic Pa beatris (CMP) Reviewed date:07/29/2024 04:46:58 PM Interpretation:satisfactory Performing Lab: Notes/Report: Test performed by [facility] [address] [place], [place] [address] , [address], [place] [address] Otis Ricks MD, [employer] Consult[employer] CLIA: [id number] Sodium 141 135-145 mmol/L Potassium 4.7 3.5-5.3 [...] Interpretation:satisfactory Performing Lab: Notes/Report: Test performed by [facility], [address] , [facility], [place] [address] Otis Ricks MD, [employer] Consultant CLIA: [id number] Cholesterol 120 <200 mg/dL Triglycerides 98 <150 [...] Results: 64 Units: mg/dL % Change: -13% Medications Medication SIG (Take, Route, Frequency, Duration) Notes Start Date End Date Status Atorvastatin Calcium 40 MG 1 tab(s) oral ly once a day (at bedtime) Active Nitrostat 0.4 MG 1 tab(s) sublinguall y every 5 minutes Active Trelegy Ellipta 100-62.5-25 MCG/ACT 1 puff Inhalation Once a day Active Albuterol Sulfate HFA 108 (90 Base) MCG/ACT 1 puff as needed Inhalation every 4 hrs Active Pantoprazole Sodium 40 MG 1 tab(s) orall y once a day; Duration: 30 day(s) Active Aspirin Adult Low Dose 81 MG 1 tab(s) orally once a day A ctive Clopidogrel Bisulfate 75 MG 1 tab(s) orally once a day; Duration: 30 day(s) Active Losartan Potassium 50 MG 1 tab(s) orally once a day 12/27/2016 Active Immunizations Vaccine Route Administration Date Status Comme nts xFlu shot-36 months and older IM Intramuscular 05/25/2009 Administered Tetanus Tdap-Adacel (over 7yrs) IM Intramuscular 11/15/2018 Administered Prevnar (PCV13) IM Intramuscular 03/19/2020 Administered PNEUMOVAX 23 VACCINE IM Intramuscular 08/03/2022 Administe red Fluzone Quad-Medicare (6months&older) IM Intramuscular 03/19/2020 Administered Fluzone Quad (6months&older) IM Intramuscular 04/21/2017 Administered Fluzone High Dose (65yr and older) IM Intramuscular 06/10/2019 Administered Fluzone High Dose (65yr and older) IM Intramuscular 03/15/2021 Administered Fluzone High Dose (65yr and older) IM Intramuscular 03/28/2022 Administered Fluzone High Dose (65yr and older) IM Intramuscular 05/17/2023 Administered COVID 19 Moderna Unknown 09/17/2020 Administered COVID 19 Moderna Unknown 10/15/2020 Administered COVID 19 Moderna Unknown 04/07/2021 Administered COVID 19 Moderna Unknown 11/01/2021 Administered Problems Problem Type SNOMED Code ICD Code Onset Dates Problem Status W/U Status Risk Notes Problem Essential hypertension (70421871) Essential (primary) hypertension (I10) Active confirmed Problem Dizziness (614258141) Dizziness (R42) Active confirmed Problem Otitis externa (6159957) Otitis externa (H60.90) Active confirmed Problem Long-term current use of 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 (710287622) buttermaker helper current use of 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 (Z79.01) Active confirmed Problem Mixed hyperlipidemia (036452595) Mixed hyperlipidemia (E78.2) Active confirmed Problem Ischemic cardiomyopathy (205571160) Ischemic cardiomyopathy (I25.5) Active confirmed Problem History of cholecystectomy (669446486) Status post cholecystectomy (Z90.49) Active confirmed Problem Gastroesophageal reflux disease (disorder) (360100164) Chronic GERD (K21.9) Active confirmed Problem COPD - Chronic obstructive pulmonary disease (57483439) Chronic obstructive pulmonary disease, unspecified COPD type (J44.9) Active confirmed Problem Atherosclerotic heart disease of nulato coronary artery without angina pectoris (193526896177205) Coronary artery disease involving nulato coronary artery of nulato heart without angina pectoris (I25.10) Active confirmed Problem Hyperlipidaemia (90459351) Hyperlipidemia, unspecified hyperlipidemia type (E78.5) Active confirmed Problem Stented coronary artery (891536363) Stented coronary artery (Z95.5) Active confirmed Problem Atherosclerotic heart disease of nul[place] coronary artery without angina pectoris (553963891606674) Atherosclerosis of nulato coronary artery without angina pectoris, unspecified whether nulato or transplanted heart (I25.10) Active confirmed Problem Benign prostatic hypertrophy without outflow obstruction (135174875) Benign prostatic hyperplasia without lower urinary tract symptoms (N40.0) Active confirmed Problem Status post insertion of drug-eluting stent into right coronary artery for coronary artery disease (Z95.5) Active confirmed Problem Pneumonia (293684377) Acute pneumonia (J18.9) Active confirmed Problem Gastroesophageal reflux disease (379778108) Gastroesophageal reflux disease, unspecified whether esophagitis present (K21.9) Active confirmed Problem Stent in branch of right coronary artery (finding) (516420663548800) S/P right coronary artery (RCA) stent placement (Z95.5) Active confirmed Vital Signs Heart Rate 56 /min 11/01/2024 Blood pressure diastolic 70 mm Hg 11/01/2024 Height 69 in 11/01/2024 Blood pressure systolic 122 mm Hg 11/01/2024 Weight 188.2 lbs 11/01/2024 BMI 27.79 kg/m2 11/01/2024 Encounters Encounter Location Date Provider [facility] [address] [place] [id number] 04/22/2024 Shelton Armenta Essential (primary) hypertension I10 ; Follow-up examination Z09 ; S/P right coronary artery (RCA) stent placement Z95.5 ; Ischemic cardiomyopathy I25.5 and buttermaker helper current use of 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 Z79.01 [facility] [address] [place], [place] [id number] 06/03/2024 Deepthi Morales URI (upper respirato ry infection) J06.9 [facility] [address] [place] [id number] 07/26/2024 Shelton Armenta Atherosclerosis of nulato coronary artery without angina pectoris, unspecified whether nul[place] or transplanted heart I25.10 ; Essential (primary) hypertension I10 ; Stented coronary artery Z95.5 ; Ischemic cardiomyopathy I25.5 ; Closed displaced fracture of head of radius with routine healing, unspecified laterality, subsequent encounter S52.123D and Mixed hyperlipidemia E78.2 [facility] [address] [place] [id number] 08/21/2024 Anastasia Hammer Influenza J11.1 [facility] [address] [place] [id number] 11/01/2024 Shelton Armenta Essential (primary) hypertension I10 ; Status post insertion of drug-eluting stent into right coronary artery for coronary artery disease Z95.5 ; Coronary artery disease involving nulato coronary artery of nulato heart without angina pectoris I25.10 ; Benign prostatic hyperplasia without lower urinary tract symptoms N40.0 ; Mixed hyperlipidemia E78.2 ; Chronic obstructive pulmonary disease, unspecified COPD type J44.9 and BMI 27.0-27.9,adult Z68.27 [facility] [address] [place] [id number] 04/10/2024 Shelton Armenta Assessments Encounter Date Diagnosis (ICD Code) Assessment Notes Treatment Notes Treatment Clinical Notes Section Notes 04/22/2024 Essential (primary) hypertension (ICD-10 - I10) 04/22/2024 Follow-up examination (ICD-10 - Z09) 06/03/2024 URI (upper respiratory infection) (ICD-10 - J06.9) fluids, rest, supportive measures for fever/symptom relief 07/26/2024 Essential (primary) hypertension (ICD-10 - I10) 07/26/2024 Atherosclerosis of nulato coronary artery without angina pectoris, unspecified whether nulato or transplanted heart (ICD-10 - I25.10) 08/21/2024 Influenza (ICD-10 - J11.1) Patient's is here today as well and her flu test is positive. Patient has the same symptoms. Will treat for flu., Rest, fluids, tylenol or motrin for fevers. Home until fever free for 24-48 hours without the use of medication. 11/01/2024 Essential (primary) hypertension (ICD-10 - I10) continue present RX 11/01/2024 Status post insertion of drug-eluting stent into right coronary artery for coronary artery disease (ICD-10 - Z95.5) 11/01/2024 Coronary artery disease involving nulato coronary artery of nulato heart without angina pectoris (ICD-10 - I25.10) 07/26/2024 Stented coronary artery (ICD-10 - Z95.5) 04/22/2024 S/P right coronary artery (RCA) stent placement (ICD-10 - Z95.5) 04/22/2024 Ischemic cardiomyopathy (ICD-10 - I25.5) 07/26/2024 Ischemic cardiomyopathy (ICD-10 - I25.5) 11/01/2024 Benign prostatic hyperplasia without lower urinary tract symptoms (ICD-10 - N40.0) 11/01/2024 Mixed hyperlipidemia (ICD-10 - E78.2) 07/26/2024 Closed displaced fracture of head of radius with routine healing, unspecified laterality, subsequent encounter (ICD-10 - S52.123D) 04/22/2024 buttermaker helper current use of 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 (ICD-10 - Z79.01) 07/26/2024 Mixed hyperlipidemia (ICD-10 - E78.2) 11/01/2024 Chronic obstructive pulmonary disease, unspecified COPD type (ICD-10 - J44.9) 11/01/2024 BMI 27.0-27.9,adult (ICD-10 - Z68.27) Plan Of Treatment Next Appt Details Provider Name:Shelton Lott er, 04/07/2025 09:30:00 AM, [address], [address], [place], [place], [id number], Insurance Providers Payer Name Payer Address Payer Phone Subscriber Number Group Number Insured Name Patient Relationship to Insured Coverage Start Date Coverage End Date MEDICARE PART B [address] [address] [place] [id number] [phone] [id number] SNOW MIRANDA Self - patient is the insured [facility] HEALTH CARE OPTIONS [address] [place] [address] [phone] [id number] SNOW MIRANDA Self - patient is the insured Medications Administered Medication Instructions Date of Administration Dosage Notes Dexamethasone 01/06/2016 1 mL Medical (General) History 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 History ICD Code Coronary Artery Disease Acute UT 1996 w/stent placement Acute UT 2001 w/stent placement HTN GERD COPD Colon polyps Covid Positive - May 2020 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 Surgery Date(Month/Year) BACK SURGERY 1983 STENT 1996 STENT 2001 stent 05/2006 heart cath x 2 (No UT or stent) 05/2007 stent 11/2020 Galbladder removal 03/09/2021 left wrist fracture 04/2021 cyst on scrotum, [facility] 11/2023 Hospitalization History Reason Date(Month/Year) [facility]- vertigo 09/13/2022 [facility] - chest pains 02/01- Heart Attack [facility] 10/05/2020 Heart attack [facility] 03/12- [facility]-Heart Cath 09/2015 [facility] ER- Fell out of a truck and hurt arm s 11/16/2011 pneumonia 02/21/2007
--- OUTSIDE RECORDS SUMMARY | 2025-03-25 20:59 | XMS_ITS | Clinical Summary ---
[facility] Address [address] [place] [address] Care Team Providers Care Internist Name Role Phone Brian Fernandez MD Primary Care Provider [phone] Allergies Active Allergy Reactions Criticality Noted Date Comments Ramipril Cough 12/18/2017 Medications aspirin 81 MG tablet Take 1 tablet by mouth Daily. 90 tablet 3 12/14/2016 Active nitroglycerin (NITROSTAT) 0.[address] 1 tablet under the tongue Every 5 (Five) Minutes As Needed for Chest Pain. Take no more than 3 doses in 15 minutes. 30 tablet 5 12/18/2017 Active atorvastatin (LIPITOR) 40 MG tablet Take 1 tablet by mouth Daily. 90 tablet 3 12/18/2017 Active omeprazole (priLOSEC) 40 MG capsule TAKE 1 CAPSULE BY MOUTH DAILY 90 capsule 3 03/01/2018 Active losartan (COZAAR) 50 MG tablet TAKE 1 TABLET BY MOUTH DAILY 90 tablet 3 12/11/2019 Active Active Problems Problem Noted Date Diagnosed Date Nonsustained ventricular tachycardia 10/15/1997 Overview (04/15/2016): no further recurrence CAD (coronary artery disease) Overview (04/15/2016): a. History of inferior [place] with TPA, 1996. b. Status post left heart catheterization, 1996, with 3.5 x 20 mm multi-length stent to the RCA. c. Recurrent chest pain with left heart catheterization, October 1997, at [facility]: Normal coronaries, patent stents, history of 20-beat run of VT. Placed on beta evie. d. History of left heart catheterization, 11/05/1998, by Dr. Joni Heller for recurrent chest pain: Normal EF at 55% to 60%, essentially normal coronaries. e. EGD, 11/05/1998: Gastritis. f. Recurrent chest pain with left heart catheterization, 05/22/2007: EF 50% to 55%, essentially normal coronaries, no intervention performed. g. Recurrent chest discomfort. Benign hypertension Gastroesophageal reflux disease with hiatal rehan ia Hypercholesterolemia Fatigue Family History 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 Relation Name Comments No Known Problems Father Diabetes Mother Relation Name Status Comments Brother Alive pacemaker Father Mother 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 Tobacco Use Types Packs/Day Years Used Date Smoking Tobacco: Former Cigarettes Q uit: 04/25/2005 Smokeless Tobacco: Never Alcohol Use Standard Drinks/Week Comments Yes 0 (1 standard drink = 0.6 oz pur e alcohol) occasional beer Abuse Screen Answer Date Recorded Unsafe at Home or Work/School Not on file Feels Threatened by Someone? Not on file 05/2023 Does Anyone Keep You from Co ntacting Others or Doint Things Outside the Home? Not on file 04/26/2023 Physical Sign of Abuse Present Not on file 1 Housing Stability Answer Date Recorded Current Living Arrangements Not on file 04/16 Potentially Unsafe Housing Conditions Not on yanely e 04/26/2023 Family and Community Support Answer Raymundo e Recorded Help with Day-to-Day Activities Not on file 04/26/2023 Lonely or Isolated Not on file 04/26/2023 Employment Answer Date Recorded Do you want help finding or keeping work or a nayeli b? Not on file 04/26/2023 Disabilities Answer Date Recorded Concentrating, Remembering, or Making Decisions Difficulty Not on file 04/26/2023 Doing Errands Independently Difficulty Not on fi le 04/26/2023 Education Answer Date Recorded Help with school or training? Not on file Preferred Language Not on file 04/26/2023 Sex and Gender Information Value Date Recorded Sex Assigned at Not on file Legal Sex Male 11:46 AM EDT Gender Identity Not on file Sexual Orientation Not on file Last Filed Vital Signs Vital Sign Reading Time Taken Comments Blood Pressure 110/70 12/18/2017 9:26 AM EDT Pulse 72 12/18/2017 9:26 AM EDT Temperature - - Respiratory Rate - - Oxygen Saturation - - Inhaled Oxygen Concentration - - Weight 88 kg (194 lb) 12/18/2017 9:26 AM EDT Height 170.2 cm (5' 7 ) 12/18/2017 9:26 AM EDT Body Mass Index 30.38 12/18/2017 9:26 AM EDT Plan of Treatment Health Maintenance Due Date Last Done Comments TDAP/TD VACCINES (1 - Tdap) 1971 COLOGUARD 1997 COLON CANCER SCREENING 5 YEA R SIGMOIDOSCOPY 1997 COLONOSCOPY 1997 [address] CANCER SCREENING 1997 CT COLONOGRAPHY 1997 FECAL OCCULT BLOOD TEST 1997 FIT Testing (1 year) 1997 Pneumococcal Vaccine 50+ (1 of 1 - PCV) 2002 ZOSTER VACCINE (1 of 2) 2002 ANNUAL PHYSICAL 12/14/2016 HEPATITIS C SCREENING 12/14/2016 AAA SCREEN ONCE 2017 LIPID PANEL 12/18/2018 12/18/2017, 0607/2016, 10/20/2015 COVID-19 Vaccine ( - season) 2025 INFLUENZA VACCINE 04/16/2025 Procedures Procedure Name Priority Date/Time Associated Diagnosis Comments LIPID PANEL Routine 12/18/2017 Hypercholesterolemia from Last 3 Months or Most Recently Relevant to Health Maintenance Results * Lipid Panel (12/18/2017) Blood us Alena Wayne [facility] BLOOD ORDERABLES Final R esult [facility]
[address] [place] [address], from Last 3 Months or Most Recently Relevant to Health Maintenance Insurance MEDICARE A & B [facility] C[facility] OPTIONS Care Teams Internist Relationship Specialty Start Date End Date Brian Fernandez MD [address] [facility] [address] [place] [id number] PCP - General Family Medicine 04/25/16
--- NOTE | 2025-03-25 21:00 | XR_ITS ---
PROCEDURE INFORMATION: Exam: XR Chest Exam date and time: 03/25/2025 9:06 PM Age: 74 years old Clinical indication: Shortness of breath; Additional info: Shortness of breath and chest pain TECHNIQUE: Imaging protocol: Radiologic exam of the chest. Views: 1 view. COMPARISON: CR XR CHEST 2V 03/21/2024 1:48 PM FINDINGS: Lungs: Unremarkable. No consolidation. Pleural spaces: Unremarkable. No pleural effusion. No pneumothorax. Heart/Mediastinum: Unremarkable. No cardiomegaly. Bones/joints: Unremarkable. IMPRESSION: No acute findings.
--- OUTSIDE RECORDS SUMMARY | 2025-03-25 21:00 | XMS_ITS | Clinical Summary ---
Author Organization [facility] Address [address] [id number] Care Team Providers Care Retail Client Manager Name Role Phone Joni Armenta MD Primary Care Provider [phone] Allergies Active Allergy Reactions Criticality Noted Date Comments Ramipril Cough Low 12/18/2017 Medications atorvastatin (Lipitor) 40 MG tablet Take 1 tablet (40 mg) by mouth every night. 3 Active clopidogrel (Plavix) 75 MG tablet Take by mouth every night. 3 Active Trelegy Ellipta 100-62.5-25 MCG/ACT aerosol powder Inhale 1 (one) time each day. 4 Active losartan (Cozaar) 50 MG tablet 3 Active pantoprazole (Protonix) 40 MG EC tablet Take 1 tablet (40 mg) by mouth every night. 3 Active omeprazole OTC (PriLOSEC OTC) 20 MG EC tablet Take 2 tablets (40 mg) by mouth every night. Do not crush, chew, or split. Active aspirin 81 MG EC tablet Take 1 tablet (81 mg) by mouth every night. Active oxyCODONE (Roxicodone) 5 MG immediate release tablet Take 1 tablet (5 mg) by mouth every 6 (six) hours if needed for severe pain. 5 tablet 4 Active Additional Information Patient not taking.Reported on 01/02/2024 Active Problems Problem Noted Date Diagnosed Date Abnormal EKG 10/30/2023 Abscess of groin, right 10/30/2023 Acute coronary syndrome 10/30/2023 Acute exacerbation of chronic obstructive pulmon agustin disease 10/30/2023 Unstable angina pectoris 10/30/2023 Chest pain at rest 10/30/2023 Atypical chest pain 10/30/2023 Benign hypertension 10/30/2023 Bronchitis 10/30/2023 SOB (shortness of breath) 10/30/2023 Dyspnea on exertion 10/30/2023 CAD (coronary artery disease) 10/30/2023 Overview (10/30/2023): a. History of inferior [place] with TPA, 1996. b. Status post left heart catheterization, 1996, with 3.5 x 20 mm multi-length stent to the RCA. c. Recurrent chest pain with left heart catheterization, October 1997, at [facility]: Normal coronaries, patent stents, history of 20-beat [...] no intervention performed. g. Recurrent chest discomfort. C. difficile enteritis 10/30/2023 History of coronary artery stent placement 10/29 Hearing loss in right ear 10/30/2023 Gastroesophageal reflux disease with hiatal rehan ia 10/30/2023 Fatigue 10/30/2023 Enteritis, E. coli 10/30/2023 Otitis externa of right ear 10/30/2023 Hypokalemia 10/30/2023 Hypercholesterolemia 10/30/2023 HLD (hyperlipidemia) 10/30/2023 Vertigo 10/30/2023 Tinnitus 10/30/2023 Stented coronary artery 10/30/2023 Strep throat 10/30/2023 Sprain of right hand 10/30/2023 Sinusitis 10/30/2023 Right wrist sprain 10/30/2023 Right upper quadrant abdominal pain 10/30/2023 Nonsustained ventricular tachycardia 10/15/1997 Overview (10/30/2023): no further recurrence Immunizations Immunization Administration Dates Next Due Influenza, high-dose, quadrivalent 03/28/2022,,06/10/2019 Influenza, injectable, quadrivalent 03/19/2020,1 Pneumococcal Conjugate PCV 13 03/19/2020 Pneumococcal Polysaccharide PPV23 08/03/2022 Tdap 11/15/2018 Family History 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 Relation Name Comments Cancer Father Diabetes Mother Relation Name Status Comments Father Mother 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 Tobacco Use Types Packs/Day Years Used Date Smoking Tobacco: Former Cigarettes 1 33 1 972 - 2004 Smokeless Tobacco: Never Tobacco Cessation:Counseling Given: Not Answered Alcohol Use Standard Drinks/Week Comments Yes 0 (1 standard drink = 0.6 oz pur e alcohol) occasionally PHQ-2 Answer Date Recorded Patient Health Questionnaire-2 Score 0 01/02/2024 Sex and Gender Information Value Date Recorded Sex Assigned at Not on file Legal Sex Male 8:02 AM EDT Gender Identity Not on file Sexual Orientation Not on file Last Filed Vital Signs Vital Sign Reading Time Taken Comments Blood Pressure 144/73 01/02/2024 8:32 AM EDT Pulse 60 01/02/2024 8:32 AM EDT Temperature 36.4 C (97.5 F) 11/30/2023 11:20 AM EDT Respiratory Rate 14 11/30/2023 11:2 5 AM EDT Oxygen Saturation 98% 11/30/2023 11: 25 AM EDT Inhaled Oxygen Concentration - - Weight 87.9 kg (193 lb 12.6 oz) 01/02/2024 8:32 AM EDT Height 172.7 cm (5' 8 ) 11/30/2023 8:36 AM EDT Body Mass Index 29.46 11/30/2023 8:36 AM EDT Plan of Treatment Health Maintenance Due Date Last Done Comments [facility]-Hepatitis C Screening 1950 [facility]-Medicare Annual Wellness (AWV) 1950 [facility]-Infant/Child/Adol SDOH Screenings 1950 [facility]- SDOH Screenings 1970 [facility]-Adult SDOH Screenings 1970 CT Colonography 1997 Colonoscopy 1997 FIT-DNA 1997 FIT 1997 FOBT 1997 Sigmoidoscopy 1997 [facility]-Colorectal Cancer Screening 1997 [facility]-Zoster Vaccines (2 of 2) 02/13/2024 12/19/2023 [id number] Vaccine ( - season) 2024 05/01/2023, 11/01/2021, 04/07/2021, Additional history exists [facility]-Depression Screening 01/01/2025 01/02/2024 [facility]-Influenza Vaccine (#1) 03/17/202503/28, 03/15/2021, 03/19/2020, Additional history exists [facility]-DTaP,Tdap,and Td Vaccines (2 - Td or Tdap) 11/15/2028 11/15/2018 [facility]-Pneumococcal Vaccine: 50+ Years Completed 08/03/2022, 03/19/2020 [facility]-RSV Vaccine: 60+ Years or Completed 12/19/2023 [facility]-Obesity Intervention Completed 01/02/2024, 10/15 HPV Vaccines Aged Out No longer eligi ble based on patient's age to complete this topic [facility]-HIB Vaccines Aged Out No longer e ligible based on patient's age to complete this topic [facility]-Hepatitis A Vaccines Aged Out No longer eligible based on patient's age to complete this topic [facility]-IPV Vaccines Aged Out No longer e ligible based on patient's age to complete this topic [facility]-Rotavirus Vaccines Aged Out No lo nger eligible based on patient's age to complete this topic Insurance MEDICARE [facility] Care Teams Retail Client Manager Relationship Specialty Start Date End Date Joni Armenta MD [address] [place] [address] PCP - General 11/10/23
[2025-03-25] MEDS: ONDANSETRON 4MG/2ML VIAL 4 MG IV (21:01)
[2025-03-25 21:05] LABS: Hematocrit 41.9 % (42.0-52.0); Hemoglobin 14.5 g/dL (14.1-18.0); Immature Granulocytes % 0.2 %; Mean Corpuscular HGB Conc 34.6 g/dL (31.8-35.4); Mean Corpuscular Hemoglobin 30.9 pg (27.0-31.2); Mean Corpuscular Volume 89.3 fl (80-94); Nucleated Red Blood Cells % 0 %; Platelet Count 186 K/mm3 (142-424); Red Blood Count 4.69 M/mm3 (4.60-6.20); Red Cell Distribution Width-SD 41.2 fL; White Blood Count 6.2 K/mm3 (4.8-10.8)
[2025-03-25] MEDS: ASPIRIN 325MG TABLET 325 MG PO (21:06)
[2025-03-25 21:17] LABS: Alanine Aminotransferase 27 U/L (12-78); Albumin Level 4.2 g/dl (3.5-5.0); Albumin/Globulin Ratio 1.4 (1.1-1.8); Alkaline Phosphatase 81 U/L (38-126); Anion Gap 11.0 mEq/L (5-15); Aspartate Amino Transferase 35 U/L (17-59); Bilirubin,Total 0.8 mg/dl (0.2-1.3); Blood Urea Nitrogen 19 mg/dl (9-20); Calcium 9.6 mg/dl (8.4-10.2); Carbon Dioxide 28 mmol/L (22.0-30.0); Chloride 102 mmol/L (98-107); Creatinine Clearance Estimated 78 mL/min (50-200); Creatinine,Serum 1.00 mg/dl (0.66-1.25); Estimated Glomerular Filt Rate 73 ml/min (>60); GFR (African American) 89 ML/MIN (>60); Globulin 3.0 g/dL (1.3-3.2); Glucose 102 mg/dl (74-100); Potassium 4.0 mmoL/L (3.5-5.1); Sodium 137 mmol/L (136-145); Total Protein,Serum 7.2 g/dl (6.3-8.2)
[2025-03-25 21:22] LABS: D-Dimer 0.32 ug/mL (0.0-0.5)
[2025-03-25 21:30] LABS: NT Pro Brain Natriuretic Pep. 46.1 pg/mL (0-125)
[2025-03-25 21:33] LABS: Troponin I < 0.01 ng/ml (0.00-0.034)
[2025-03-25 22:07] LABS: Hepatitis C Ab Qual. W/ RFX NEGATIVE (Negative)
[2025-03-26] VITALS (29 sets, daily range): BP systolic 92–136; BP diastolic 49–73; PULSE 48–69; RESP 12–20; TEMP 36.5–36.9; O2SAT 91–100; BMI 28.5
--- NOTE | 2025-03-26 | ECG_ITS ---
APPROVED REPORT Exam: Resting ECG HR:54 bpm ECG Measurements Heart Rate 54 AXES AZ 196 P 65 QRSd 90 QRS 37 QT 447 T 37 QTc 433 Conclusion SINUS BRADYCARDIA LOW QRS VOLTAGE IN EXTREMITY LEADS [QRS DEFLECTION < 0.5 mV IN LIMB LEADS] BORDERLINE ECG UNCONFIRMED REPORT Electronically signed by : Dedrick Mcwilliams MD 03/26/2025 08:25:51
[2025-03-26 01:24] LABS: Troponin I < 0.01 ng/ml (0.00-0.034)
[2025-03-26] MEDS: BELLADONNA ALKALOIDS 60 ML ML PO (02:30)
[2025-03-26] MEDS: NITROGLYCERIN 0.4MG SL TABLET 0.4 MG SL ×2 (02:31→09:53)
[2025-03-26] MEDS: ACETAMINOPHEN 500MG TAB 1000 MG PO (02:31)
--- NOTE | 2025-03-26 03:07 | PC.NURSE ---
Report given to Yaa BLACKWOOD on the floor.
[2025-03-26 03:37] LABS: Troponin I < 0.01 ng/ml (0.00-0.034)
--- NOTE | 2025-03-26 04:50 | PC.NURSE ---
I was called to bedside to assess patient for increased left sided weakness. At bedside patient was alert and oriented, able to articulate words, and answer questions appropriately. No facial droop noted. Patient complained of severe left arm weakness. NIH performed and patient noted to have an NIH of 4. Left arm, and left leg drift, along with decreased sensation in left side extremities, and partial hemianopia. Left sided upper caser strength notably decreased compared to right upper extremity. Stroke alert called overhead at 0447. Patient states that he described and voiced left arm weakness/heaviness upon arrival to ER with associated chest pain, but denies knowing that he was significantly weaker in left lower extremity until I performed NIH assessment. Dr. Mcwilliams paged and orders received for head CT, head and neck CTA. FSBS 92. Patient transported to CT and tolerated well. EKG performed. Dr. Mcwilliams notified of CT results and provided patient update. Blood work drawn per protocol.
--- NOTE | 2025-03-26 04:53 | CT_ITS ---
PROCEDURE INFORMATION: Exam: CTA Head With Contrast, Arteriography Exam date and time: 03/26/2025 5:07 AM Age: 74 years old Clinical indication: Stroke-like symptoms; Other: Left weakness; Additional info: Left sided weakness TECHNIQUE: Imaging protocol: Computed tomographic angiography of the head with contrast. Exam focused on the arteries. 3D rendering (Not supervised by radiologist): MIP and/or 3D reconstructed images were created by the technologist. Radiation optimization: All CT scans at this facility use at least one of these dose optimization techniques: automated exposure control; mA and/or kV adjustment per patient size (includes targeted exams where dose is matched to clinical indication); or iterative reconstruction. Contrast material: ISOVUE; Contrast volume: 80 ml; Contrast route: INTRAVENOUS (IV); COMPARISON: CT HEAD/BRAIN WO CON 03/26/2025 5:04 AM FINDINGS: ANTERIOR CIRCULATION: Right internal carotid artery: Calcified atherosclerosis involving the cavernous portion of the right distal ICA with less than 50% luminal narrowing. Right middle cerebral artery: No occlusion or significant stenosis. No aneurysm. Right anterior cerebral artery: No occlusion or significant stenosis. No aneurysm. Left internal carotid artery: Calcified atherosclerosis involving the cavernous portion of the left distal ICA with less than 50% luminal narrowing. Left middle cerebral artery: No occlusion or significant stenosis. No aneurysm. Left anterior cerebral artery: No occlusion or significant stenosis. No aneurysm. POSTERIOR CIRCULATION: Right vertebral artery: No occlusion or significant stenosis. No aneurysm. Left vertebral artery: No occlusion or significant stenosis. No aneurysm. Basilar artery: No occlusion or significant stenosis. No aneurysm. Right posterior cerebral artery: No occlusion or significant stenosis. No aneurysm. Left posterior cerebral artery: No occlusion or significant stenosis. No aneurysm. Brain: No definite mass, mass effect, or midline shift. Cerebral ventricles: No ventriculomegaly. Bones/joints: Unremarkable. No acute fracture. Soft tissues: Unremarkable. IMPRESSION: No large vessel occlusion or significant stenosis.
--- NOTE | 2025-03-26 04:53 | CT_ITS ---
PROCEDURE INFORMATION: Exam: CTA Neck With Contrast Exam date and time: 03/26/2025 5:07 AM Age: 74 years old Clinical indication: Stroke-like symptoms; Other: Left weakness; Additional info: Left sided weakness TECHNIQUE: Imaging protocol: Computed tomographic angiography of the neck with contrast. Exam focused on the cervical segments of the vasculature. 3D rendering (Not supervised by radiologist): MIP and/or 3D reconstructed images were created by the technologist. Radiation optimization: All CT scans at this facility use at least one of these dose optimization techniques: automated exposure control; mA and/or kV adjustment per patient size (includes targeted exams where dose is matched to clinical indication); or iterative reconstruction. Contrast material: ISOVUE; Contrast volume: 80 ml; Contrast route: INTRAVENOUS (IV); COMPARISON: CT HEAD/BRAIN WO CON 03/26/2025 5:04 AM FINDINGS: Right common carotid artery: No stenosis. No dissection or occlusion. Right internal carotid artery: Calcified atherosclerosis right carotid bulb with 10% luminal narrowing. Right external carotid artery: No occlusion or stenosis of the origin. Left common carotid artery: No stenosis. No dissection or occlusion. Left internal carotid artery: Calcified atherosclerosis left carotid bulb with 20% luminal narrowing. Left external carotid artery: No occlusion or stenosis of the origin. Right vertebral artery: No stenosis. No dissection or occlusion. Left vertebral artery: No stenosis. No dissection or occlusion. Aorta: Atherosclerotic changes of the aorta and branch vessels. Thyroid: Subcentimeter nodule right thyroid lobe, no imaging follow-up recommended. Soft tissues: Benign nuchal calcifications are present. Bones/joints: No acute fracture. IMPRESSION: No significant stenosis or occlusion. COMMENTS: Consistent with the [employer]'s Incidental Findings Committee white paper (J Am Yvonne Radiol 2015): In patients aged 35 years and older with an incidental thyroid nodule equal to or greater than 1.[address], MRI or extrathyroidal US, further evaluation with dedicated thyroid US is recommended for patients with normal life expectancy and without comorbidities. For smaller nodules without suspicious features, no further evaluation or follow up is recommended. REFERENCES: NASCET CRITERIA. The degree of stenosis in the cervical segment of the internal carotid artery is based on NASCET criteria. Normal is no stenosis. Mild is less than 50% stenosis. Moderate is 50-69% stenosis. Severe is 70% to 99% stenosis. Total occlusion is no detectable patent lumen.
--- NOTE | 2025-03-26 04:53 | CT_ITS ---
PROCEDURE INFORMATION: Exam: CT Head Without Contrast Exam date and time: 03/26/2025 5:04 AM Age: 74 years old Clinical indication: Stroke-like symptoms; Other: Left weakness; Additional info: Left sided weakness TECHNIQUE: Imaging protocol: Computed tomography of the head without contrast. Radiation optimization: All CT scans at this facility use at least one of these dose optimization techniques: automated exposure control; mA and/or kV adjustment per patient size (includes targeted exams where dose is matched to clinical indication); or iterative reconstruction. Other technique: STROKE PROTOCOL was implemented. COMPARISON: CT HEAD/BRAIN WO CON 09/13/2022 12:05 AM FINDINGS: Brain: Normal. No hemorrhage. Unremarkable white matter. No mass effect. Cerebral ventricles: No ventriculomegaly. Paranasal sinuses: Small air-fluid level left sphenoid sinus. Mastoid air cells: Visualized mastoid air cells are well aerated. Orbital cavities: Bilateral lens replacements noted. Bones: Unremarkable. No acute fracture. Soft tissues: Unremarkable. IMPRESSION: No acute intracranial findings. ASSESSMENT: ASPECTS ([place] Stroke Program Early CT Score) is 10.
[2025-03-26] MEDS: SODIUM CHLORIDE 0.9% 10ML SYR (RAD ONLY) 10 ML IV (05:12)
[2025-03-26] MEDS: IOPAMIDOL-370 (76%);100ML BOTTLE 80 ML IV (05:12)
--- NOTE | 2025-03-26 05:21 | PC.NURSE ---
Pt arrived at 420 to room 218. On my assessment found pt had weakness in his left arm. Notified the warehouse supervisor Chris BLACKWOOD she did the NIHSS scale on the PT and he scored a 4. Pt has significant drift in his Left Leg, the Sampler And Test Preparer were weak in his left arm, unilateral weakness on his left side. decreased sensation on his Left side. Also, Pt Right foot is cold on assessment. Paged Dr Mcwilliams Phoned me back, ordered the CTA of head, CTA neck and CT without contrast. Pt went down and had these test preformed. Pt is back in the room rest quietly. Call light is with in reach. NAHUN WINSLOW RN
[2025-03-26 05:26] LABS: POC Glucose,Bedside 92 gm/dL (70-110)
[2025-03-26 05:56] LABS: Hematocrit 38.1 % (42.0-52.0); Immature Granulocytes % 1.0 %; Mean Corpuscular HGB Conc 34.1 g/dL (31.8-35.4); Mean Corpuscular Hemoglobin 30.7 pg (27.0-31.2); Mean Corpuscular Volume 90.1 fl (80-94); Nucleated Red Blood Cells % 0 %; Platelet Count 153 K/mm3 (142-424); Red Blood Count 4.23 M/mm3 (4.60-6.20); Red Cell Distribution Width-SD 41.3 fL; White Blood Count 4.0 K/mm3 (4.8-10.8)
[2025-03-26 06:00] LABS: Hemoglobin 13.1 g/dL (14.1-18.0)
[2025-03-26 06:01] LABS: Alanine Aminotransferase 24 U/L (12-78); Albumin Level 3.7 g/dl (3.5-5.0); Albumin/Globulin Ratio 1.4 (1.1-1.8); Alkaline Phosphatase 78 U/L (38-126); Anion Gap 10.0 mEq/L (5-15); Aspartate Amino Transferase 28 U/L (17-59); Bilirubin,Total 0.9 mg/dl (0.2-1.3); Blood Urea Nitrogen 17 mg/dl (9-20); Calcium 9.1 mg/dl (8.4-10.2); Carbon Dioxide 28 mmol/L (22.0-30.0); Chloride 102 mmol/L (98-107); Creatinine Clearance Estimated 78 mL/min (50-200); Creatinine,Serum 0.90 mg/dl (0.66-1.25); Estimated Glomerular Filt Rate 83 ml/min (>60); GFR (African American) 100 ML/MIN (>60); Globulin 2.7 g/dL (1.3-3.2); Glucose 101 mg/dl (74-100); INR 1.10 (0.9-1.1); Potassium 4.0 mmoL/L (3.5-5.1); Prothrombin Time 12.1 seconds (10.1-12.5); Sodium 136 mmol/L (136-145); Total Protein,Serum 6.4 g/dl (6.3-8.2)
--- NOTE | 2025-03-26 08:37 | EXP.HP ---
History of Present Illness *Admission Date: 03/26/25 *Reason for visit:: chest pain *History of present illness: Patient is a 74-year-old gentleman with a past medical history of hypertension, coronary artery disease on a daily aspirin who presents to the emergency department with concern for chest pain. Patient states that he woke up around 8 PM with left-sided chest pain with heaviness in his left arm. Patient states that he took 1 dose of nitro and his pain went away but then his pain returned about 30 minutes later. Patient did not have any shortness of breath. Patient has not had any upper respiratory symptoms. Patient has not had any fevers. Patient has not had any abdominal pain nausea vomiting or diarrhea. Patient states that he has had 5 stents in the past. Patient is on a statin high blood pressure medications and takes a daily aspirin. Patient is not on any other blood thinners. Patient denies any recent long travel. Patient denies any history of blood clots. (above as per ER physician) Patient is still having pain this am but it is not as severe as it was last night. The pain did radiate to his left arm. [facility] Disclaimer: The information contained in this section may have been updated after the patient was seen, as this information can be updated by other users. 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 Impacted cerumen of both ears Encounter for preoperative assessment Impacted cerumen of right ear Congestion of both ears Tinnitus aurium Typical angina Impotence Family history of diabetes mellitus Sebaceous cyst of scrotum Scrotal abscess Abscess of groin, right Strep throat Acute respiratory failure with hypoxia Acute right otitis media Hearing difficulty of right ear Impacted cerumen, right ear Chronic inflammation of both eustachian tubes Excessive cerumen in both ear canals Excessive cerumen in right ear canal Otitis externa of right ear Tinnitus Hearing loss in right ear Dyspnea on exertion History of COVID-19 Acute exacerbation of chronic obstructive pulmonary disease Bronchitis Sinusitis Family history of asthma History of smoking 30 or more pack years Dyspnea on exertion SOB (shortness of breath) HLD (hyperlipidemia) CAD (coronary artery disease) COPD (chronic obstructive pulmonary disease) 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 Status post insertion of drug-eluting stent into right coronary artery for coronary artery disease S/P right coronary artery (RCA) stent placement History of colonoscopy History of cholecystectomy Previous back surgery Stented coronary artery Family History Family history of cancer Family history of hypertension Family history of diabetes mellitus type II Family history of hyperlipidemia 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 Smoking Status: Unknown if ever smoked second hand exposure: No alcohol intake: never substance use type: denies use current occupational status: retired Travel in the last 8 weeks?: None household members: spouse housing: house current occupational exposures/hazards: No caffeine: Yes Have you lived/traveled outside [place] in past 30 days?: No Contact w/someone who lives/traveled outside US past 30 days?: No Exposure to someone with infectious disease in past 14 days?: No Do you have a fever (greater than 100.4 F or 38 C)?: No Have you tested positive for COVID-19?: No Exposed to someone with COVID-19 in past 14 days?: No Do you have a sore throat?: No Do you have a cough?: No Do you have any weakness?: No Are you experiencing any nausea/vomitting?: No Do you have any diarrhea?: No Are you experiencing any unusual bleeding?: No Do you have any muscle aches/pain?: No Do you have any abdominal pain?: No Are you experiencing loss of taste or smell?: No Other 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 Have you received the Flu Vaccine for this season: No Have you received the Pneumonia Vaccine: Yes Review of Systems Constitutional Constitutional: Denies body ache(s), Denies chills, Denies fever(s), Denies headache(s), Reports malaise and Reports weakness Eyes Eyes: Denies diplopia and Denies eye discharge ENT Ears, Nose, Mouth, and Throat: Denies headache(s), Denies nasal congestion, Denies sore throat and Reports vertigo *Cardiovascular Cardiovascular: Reports chest pain, Reports dyspnea, Denies leg edema, Reports lightheadedness and Reports radiating jaw, neck or arm pain *Respiratory Respiratory: Denies cough and Reports dyspnea *Gastrointestinal Gastrointestinal: Denies abdominal pain, Denies loose stools, Reports nausea and Denies vomiting *Genitourinary Genitourinary: Denies dysuria and Denies hematuria *Musculoskeletal Musculoskeletal: Denies arthralgias and Denies myalgias *Neurologic Neurologic: Denies headache(s), Reports vertigo and Reports weakness Meds Home Medications and Allergies Home Medications ?Medication ?Instructions ?Recorded ?Confirmed ?Type aspirin 81 mg chewable tablet 81 mg PO HS 03/12/18 03/26/25 History fluticasone fur. 100 mcg-umeclid 1 inh inhalation DAILY 11/14/24 03/26/25 History 62.5 mcg-vilant 25 mcg inhalat.powder (Trelegy Ellipta) albuterol sulfate 90 mcg/actuation 1 inh inhalation Q6H PRN shortness 11/15/24 03/26/25 Rx aerosol inhaler of breath or wheezing #8.5 grams atorvastatin 40 mg tablet 40 mg PO HS #90 tabs 12/17/24 03/26/25 Rx clopidogrel 75 mg tablet 75 mg PO DAILY #90 tabs 12/17/24 03/26/25 Rx pantoprazole 40 mg tablet,delayed 40 mg PO DAILY #90 tabs 12/17/24 03/26/25 Rx release losartan 25 mg tablet 25 mg PO DAILY 03/26/25 03/26/25 History New Prescriptions to Start Prescriptions: Allergies Allergy/AdvReac Type Severity Reaction Status Date / Time No Known Allergies Allergy Verified 02/25/25 08:58 Exam Data for Last 24 hours Vital signs and Labs for Last 24 Hours: Temp Pulse Resp BP Pulse Ox O2 Del Method O2 Flow Rate 97.8 F 69 16 115/68 94 L Room Air 2 03/26/25 08:00 03/26/25 08:00 03/26/25 08:00 03/26/25 08:00 03/26/25 08:00 03/26/25 06:01 03/26/25 04:00 Laboratory Results - last 24 hr 03/25/25 20:50: WBC 6.2, RBC 4.69, Hgb 14.5, Hct 41.9 L, MCV 89.3, MCH 30.9, MCHC 34.6, RDW 12.6, Plt Count 186, MPV 10.6 H, Neut % (Auto) 44.0, Lymph % (Auto) 42.4, [place] % (Auto) 11.1 H, Eos % (Auto) 2.0, Baso % (Auto) 0.3, Neut # (Auto) 2.7, Lymph # (Auto) 2.6, [place] # (Auto) 0.7, Eos # (Auto) 0.1, Baso # (Auto) 0.0, D-Dimer 0.32, Sodium 137, Potassium 4.0, Chloride 102, Carbon Dioxide 28, Anion Gap 11.0, BUN 19, Creatinine 1.00, Estimated Creat Clear 78, Estimated GFR 73, Est GFR ( Amer) 89, Glucose 102 H, Calcium 9.6, Total Bilirubin 0.8, AST 35, ALT 27, Alkaline Phosphatase 81, Troponin I < 0.01, NT-Pro-B Natriuret Pep 46.1, Total Protein 7.2, Albumin 4.2, Globulin 3.0, Albumin/Globulin Ratio 1.4, HCV Ab ALAYNA w/Rflx PCR Qn Negative, HIV Ag/Ab Combo Qual Negative 03/25/25 23:36: Troponin I < 0.01 03/26/25 03:02: Troponin I < 0.01 03/26/25 05:19: POC Glucose 92 03/26/25 05:41: WBC 4.0 L D, RBC 4.23 L, Hgb 13.1 L, Hct 38.1 L, MCV 90.1, MCH 30.7, MCHC 34.1, RDW 12.6, Plt Count 153, MPV 10.5 H, Neut % (Auto) 46.5, Lymph % (Auto) 36.7, [place] % (Auto) 13.3 H, Eos % (Auto) 2.0, Baso % (Auto) 0.5, Neut # (Auto) 1.9, Lymph # (Auto) 1.5, [place] # (Auto) 0.5, Eos # (Auto) 0.1, Baso # (Auto) 0.0, PT 12.1, INR 1.10, Sodium 136, Potassium 4.0, Chloride 102, Carbon Dioxide 28, Anion Gap 10.0, BUN 17, Creatinine 0.90, Estimated Creat Clear 78, Estimated GFR 83, Est GFR ( Amer) 100, Glucose 101 H, Calcium 9.1, Total Bilirubin 0.9, AST 28, ALT 24, Alkaline Phosphatase 78, Total Protein 6.4, Albumin 3.7 D, Globulin 2.7, Albumin/Globulin Ratio 1.4 I & O for Last 24 hours: Intake & Output 03/23/25 03/24/25 03/25/25 03/26/25 11:59 11:59 11:59 11:59 Output Total 300 / 300 Balance -300 / -300 Weight 182 lb 4.8 oz Constitutional Constitutional: no acute distress *Routine HEENT Exam Head: Present normocephalic and atraumatic Eye: Present EOMI and PERRL ENT: Present mucous membranes moist *Routine Neck Exam Neck: Present supple and full ROM *Routine Respiratory Exam Respiratory: Present CTA bilaterally *Routine Cardiovascular Exam Cardiovascular: Present RRR *Routine Abdominal Exam Abdominal: Present soft and normoactive bowel sounds; Absent tenderness *Routine Rectal Exam Rectal:: deferred *Routine Genitalia Exam Genitalia:: deferred *Routine Extremities Exam Extremities: Absent cyanosis, clubbing or edema *Routine Skin Exam Skin: Present intact; Absent erythema *Routine Neurological Exam Neurological: Present alert and oriented X3 H&P: Result Impressions CXR - nothing acute Head CT - nothing acute Head CTA - No large vessel occlusion or significant stenosis. Neck CTA - No significant stenosis or occlusion. Assessment and Plan *Assessment and plan (1) Chest pain: Status: Acute Qualifiers: Ischemic chest pain type: unstable angina pectoris Category: Medical Code(s): R07.9 - Chest pain, unspecified (2) Hypertension: Status: Chronic Qualifiers: Hypertension type: primary hypertension Qualified Code(s): I10 - Essential (primary) hypertension Category: Medical Code(s): I10 - Essential (primary) hypertension (3) GERD (gastroesophageal reflux disease): Status: Chronic Qualifiers: Esophagitis bleeding: without hemorrhage Category: Medical Code(s): K21.9 - Gastro-esophageal reflux disease without esophagitis (4) COPD (chronic obstructive pulmonary disease): Status: Chronic Qualifiers: COPD type: emphysema Emphysema type: centrilobular Qualified Code(s): J43.2 - Centrilobular emphysema Category: Medical Code(s): J44.9 - Chronic obstructive pulmonary disease, unspecified (5) HLD (hyperlipidemia): Status: Chronic Qualifiers: Hyperlipidemia type: mixed hyperlipidemia Qualified Code(s): E78.2 - Mixed hyperlipidemia Category: Medical Code(s): E78.5 - Hyperlipidemia, unspecified (6) CAD (coronary artery disease): Problem Comment: JANUARY 2021 Medical management for ischemic heart disease NOVEMBER 2020.Critical proximal dominant right coronary stenosis Successful stenting of the ostial proximal dominant right coronary artery critical disease reduced to 0% with 1 drug-eluting stent Preserved ejection fraction with mild regional wall motion abnormality Mildly elevated LVEDP Status: Chronic Qualifiers: Associated angina: without angina Coronary Disease-Associated Artery/Lesion type: [place] artery [place] vs. transplanted heart: [place] heart Qualified Code(s): I25.10 - Atherosclerotic heart disease of [place] coronary artery without angina pectoris Category: Medical Code(s): I25.10 - Atherosclerotic heart disease of [place] coronary artery without angina pectoris Plan Cardiac enyzmes have been normal and EKG showed sinus bradycardia. The patient continues with chest pain. Will consult cardiology.
--- NOTE | 2025-03-26 08:48 | CA_ITS ---
APPROVED REPORT EXAM: Comprehensive 2D, Doppler, and color-flow Echocardiogram Material Control Specialist: JESÚS Cam, RVS Ht: 5 ft 6 in Wt: 182lbs BSA: 1.92 BP: 115/68 mmHg Indications: CAD, Angina, Weakness Echo Enhancing Agent Comments: Poor Accoustic windows in parasternal windows, 2D Dimensions IVSd 0.87 cm M: 0.6-1.2 LVEF (Visual) 41.80 % PWd 0.94 cm M: 0.6 - 1.2 LA Volume 78.80 mL LVDd 4.24 cm M: 4.2 - 5.9 LA Volume Index [id number] mL/m2 (M/F) 16-34 LVDs 3.38 cm M: 2.5 - 4.0 Left Atrium 4.06 cm M: 3.0 - 4.0 M-Mode Dimensions LA Diam 4.17 cm (1.9-4.0) LVDd 4.64 cm (3.5-5.7) LVDs 3.51 cm (3.5-5.7) EF (Teich) 48.40% EPSs 1.17 cm FS 24.40% EDV (Teich) 99.30 mL TAPSE 2.68 (<1.7) ESV (Teich) 51.20 mL LV Diastology E Decel Time 277 (160-240 msec) E/A Ratio 0.77 MED A' 13.90 cm/s LAT A' 15.00 cm/s Aortic Valve JEROMY Index 1.24 cm2/m2 AoV Peak Real. 108.0 (50-130 cm/s) AO Peak GR. 4.70 mmHg AO Mean GR. 2.30 (<5 mmHg) AO VTI 24.4 (18-25 cm) JEROMY (VTI) 2.44 (2.5-4.5 cm2) Mitral Valve MV A Velocity 90.0 (40-130 cm/s) E/A Ratio 0.77 Tricuspid Valve TR P. Velocity 231.00 cm/s RAP Estimate 10.00 mmHg RVSP 31.30 mmHg Left Ventricle The left ventricle is normal size. Left ventricular systolic function is normal. The left ventricular ejection fraction is within the normal range. There is normal left ventricular wall thickness. There is normal LV segmental wall motion. The left ventricular diastolic function is normal. LVEF is 55%. Right Ventricle The right ventricle is normal size. The right ventricular systolic function is normal. Atria The left atrium size is normal. The right atrium size is normal. There is no color Doppler evidence of interatrial shunt. Aortic Valve The aortic valve is mildly thickened. There is no hemodynamically significant aortic valvular stenosis. Trace aortic regurgitation is present. Mitral Valve The mitral valve is normal in structure. No evidence of mitral valve stenosis. Trace mitral regurgitation is present. Tricuspid Valve The tricuspid valve leaflets are thin and pliable. Trace tricuspid regurgitation. RVSP is normal. Pulmonic Valve The pulmonary valve is grossly normal in structure. Trace pulmonic valve regurgitation is present. Great Vessels The aortic root is normal in size. IVC is normal in size and collapses >50% with inspiration. Pericardium There is no pericardial effusion. Other Information Study Quality: Fair Conclusion Normal biventricular systolic function. No significant valvular stenosis or regurgitation. Electronically signed by : Theresa Enrique MD 03/26/2025 11:26:21
[2025-03-26 09:01] LABS: Cholesterol 100 mg/dl (140-200); HDL Cholesterol 25 mg/dl (40-60); Triglycerides 109 mg/dl (30-150)
--- NOTE | 2025-03-26 09:58 | IR_ITS ---
APPROVED REPORT Patient Location: Inpatient PROCEDURES Left heart catheterization Left ventriculogram Selective coronary angiogram INDICATION Unstable angina Informed consent was obtained prior to the procedure. COMPLICATIONS NONE Estimated Blood Loss: LESS THAN 10 ML TECHNIQUE One percent lidocaine used to anesthetize the right anterior aspect of the wrist. The right radial artery was accessed via the Seldinger technique. A 6 English sheath was placed in the right radial artery. 2.5 mg of Verapamil, 800 mcg of nitroglycerin, 1mg Lidocaine and 5000 U Heparin were given through the arterial sheath. The JL3 catheter was also used to perform left heart catheterization, left ventriculogram and selective coronary angiogram. At the end of the procedure the sheath was removed good hemostasis was achieved using Traclet band, patient was transferred to the postop holding area in stable condition. During the cardiac catheterization and without manipulated the coronary arteries patient experienced sinus arrest with a junctional escape at 35 bpm. This was prolonged for approximately 15 to 20 seconds. Patient's blood pressure was monitored and 60 mmHg during the bradycardia ANGIOGRAPHIC RESULTS The left main artery Normal The left anterior descending artery Has mild proximal mid vessel 20 to 30% diffuse luminal regularities The circumflex artery Nondominant with diffuse 20-30% luminal regularities The right coronary artery Dominant with a stent in the ostial proximal segment which has moderate concentric in-stent restenosis nothing greater than 40%. There are diffuse 20 and 30% stenoses throughout The MARQUEZ ventriculogram reveals 50% The left ventricular end-diastolic pressure 20 mmHg IMPRESSION Coronary artery disease as described above Sinus arrest with junctional escape accompanied by hypotension Borderline ejection fraction Borderline LVEDP PLAN 1. Medical management for coronary artery disease 2. Patient's symptoms of weakness with TIA-like symptoms are almost certainly stemming from symptomatic bradycardia therefore recommend pacemaker placement tomorrow 3. Check TFTs today 4. Start low-dose dopamine if patient experiences bradycardia 5. Continuous telemetry Electronically signed by : Puneet Ellison MD 03/26/2025 15:15:59
[2025-03-26] MEDS: IRBESARTAN 75MG TABLET 37.5 MG PO (10:12)
[2025-03-26] MEDS: CLOPIDOGREL 75MG TAB 75 MG PO (10:12)
[2025-03-26] MEDS: PANTOPRAZOLE 40MG TABLET 40 MG PO (10:12)
[2025-03-26] MEDS: ASPIRIN 81MG CHEWABLE TABLET 81 MG PO (10:12)
--- NOTE | 2025-03-26 10:28 | P.CONCA_ITS ---
History of Present Illness History of Present Illness Consult date: 03/26/25 Requesting physician: Minoo Armenta Consult reason: chest pain Chief complaint: chest pain History of present illness: This is a 74-year-old white gentleman who presented to the emergency department with complaints of chest pain. He has a past medical history of coronary artery disease, hypertension and hyperlipidemia. He states the chest pain woke him up around 8 PM last night. This was a left-sided sharp pain that radiated to his left arm and caused heaviness. The pain was an 8 out of 10 in intensity. He states it was associated with nausea and shortness of breath. He took 1 dose of nitroglycerin which did relieve his chest pain. Then his chest pain returned again 30 minutes later and he decided to come to the emergency department. He states that he continues to have chest pain on and off through the night. He is having chest pain this morning and states that it is a severe, 8 out of 10 in intensity. He states that he just feels very fatigued and worn out since he started having the chest pain. He is also short of breath especially with exertion. He reports having edema in his bilateral lower extremities intermittently. He denies any fever, chills, vomiting, diarrhea, PNDk, or orthopnea [facility] Disclaimer: The information contained in this section may have been updated after the patient was seen, as this information can be updated by other users. 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 (Updated 03/26/25 @ 10:36 by Heidy Chi APRN) Sinus bradycardia Unstable angina Impacted cerumen of both ears Encounter for preoperative assessment Impacted cerumen of right ear Congestion of both ears Tinnitus aurium Typical angina Impotence Family history of diabetes mellitus Sebaceous cyst of scrotum Scrotal abscess Abscess of groin, right Strep throat Acute respiratory failure with hypoxia Acute right otitis media Hearing difficulty of right ear Impacted cerumen, right ear Chronic inflammation of both eustachian tubes Excessive cerumen in both ear canals Excessive cerumen in right ear canal Otitis externa of right ear Tinnitus Hearing loss in right ear Dyspnea on exertion History of COVID-19 Acute exacerbation of chronic obstructive pulmonary disease Bronchitis Sinusitis Family history of asthma History of smoking 30 or more pack years Dyspnea on exertion SOB (shortness of breath) HLD (hyperlipidemia) CAD (coronary artery disease) COPD (chronic obstructive pulmonary disease) 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 Status post insertion of drug-eluting stent into right coronary artery for cor onary artery disease S/P right coronary artery (RCA) stent placement History of colonoscopy History of cholecystectomy Previous back surgery Stented coronary artery Family History Family history of cancer Family history of hypertension Family history of diabetes mellitus type II Family history of hyperlipidemia 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 Smoking Status: Unknown if ever smoked second hand exposure: No alcohol intake: never substance use type: denies use current occupational status: retired Travel in the last 8 weeks?: None household members: spouse housing: house current occupational exposures/hazards: No caffeine: Yes Have you lived/traveled outside [place] in past 30 days?: No Contact w/someone who lives/traveled outside [place] past 30 days?: No Exposure to someone with infectious disease in past 14 days?: No Do you have a fever (greater than 100.4 F or 38 C)?: No Have you tested positive for COVID-19?: No Exposed to someone with COVID-19 in past 14 days?: No Do you have a sore throat?: No Do you have a cough?: No Do you have any weakness?: No Are you experiencing any nausea/vomitting?: No Do you have any diarrhea?: No Are you experiencing any unusual bleeding?: No Do you have any muscle aches/pain?: No Do you have any abdominal pain?: No Are you experiencing loss of taste or smell?: No Review of Systems Review of Systems Review of systems:: pertinent systems reviewed and negative unless documented below Constitutional Constitutional: Reports system reviewed and no additional complaints, except as documented, Reports fatigue, Denies headache(s) and Reports weakness Eyes Eyes: Reports system reviewed and no additional complaints, except as documented ENT Ears, Nose, Mouth, and Throat: Reports system reviewed and no additional complaints, except as documented, Denies headache(s) and Reports vertigo *Cardiovascular Cardiovascular: Reports system reviewed and no additional complaints, except as documented, Reports chest pain, Reports chest pain at rest, Reports chest pain with activity, Reports dyspnea, Reports dyspnea on exertion, Reports leg edema and Reports radiating jaw, neck or arm pain *Respiratory Respiratory: Reports system reviewed and no additional complaints, except as documented, Reports dyspnea and Reports dyspnea on exertion *Gastrointestinal Gastrointestinal: Reports system reviewed and no additional complaints, except as documented and Reports nausea *Genitourinary Genitourinary: Reports system reviewed and no additional complaints, except as documented *Musculoskeletal Musculoskeletal: Reports system reviewed and no additional complaints, except as documented Integumentary/Breasts Skin/Breast: Reports system reviewed and no additional complaints, except as documented *Neurologic Neurologic: Reports system reviewed and no additional complaints, except as documented, Denies headache(s), Reports vertigo and Reports weakness Psychiatric Psychiatric: Reports system reviewed and no additional complaints, except as documented Endocrine Endocrine: Reports system reviewed and no additional complaints, except as documented and Reports fatigue Hematologic/Lymphatic Hematologic/Lymphatic: Reports system reviewed and no additional complaints, except as documented Allergic/Immunologic Allergic/Immunologic: Reports system reviewed and no additional complaints, except as documented Exam Data for Last 24 hours Vital signs and Labs for Last 24 Hours: Temp Pulse Resp BP Pulse Ox O2 Del Method O2 Flow Rate 97.8 F 69 16 115/68 94 L Room Air 2 03/26/25 08:00 03/26/25 08:00 03/26/25 08:00 03/26/25 08:00 03/26/25 08:00 03/26/25 09:00 03/26/25 04:00 Laboratory Results - last 24 hr 03/25/25 20:50: WBC 6.2, RBC 4.69, Hgb 14.5, Hct 41.9 L, MCV 89.3, MCH 30.9, MCHC 34.6, RDW 12.6, Plt Count 186, MPV 10.6 H, Neut % (Auto) 44.0, Lymph % (Auto) 42.4, [place] % (Auto) 11.1 H, Eos % (Auto) 2.0, Baso % (Auto) 0.3, Neut # (Auto) 2.7, Lymph # (Auto) 2.6, [place] # (Auto) 0.7, Eos # (Auto) 0.1, Baso # (Auto) 0.0, D-Dimer 0.32, Sodium 137, Potassium 4.0, Chloride 102, Carbon Dioxide 28, Anion Gap 11.0, BUN 19, Creatinine 1.00, Estimated Creat Clear 78, Estimated GFR 73, Est GFR ( Amer) 89, Glucose 102 H, Calcium 9.6, Total Bilirubin 0.8, AST 35, ALT 27, Alkaline Phosphatase 81, Troponin I < 0.01, NT-Pro-B Natriuret Pep 46.1, Total Protein 7.2, Albumin 4.2, Globulin 3.0, Albumin/Globulin Ratio 1.4, HCV Ab ALAYNA w/Rflx PCR Qn Negative, HIV Ag/Ab Combo Qual Negative 03/25/25 23:36: Troponin I < 0.01 03/26/25 03:02: Troponin I < 0.01 03/26/25 05:19: POC Glucose 92 03/26/25 05:41: WBC 4.0 L D, RBC 4.23 L, Hgb 13.1 L, Hct 38.1 L, MCV 90.1, MCH 30.7, MCHC 34.1, RDW 12.6, Plt Count 153, MPV 10.5 H, Neut % (Auto) 46.5, Lymph % (Auto) 36.7, [place] % (Auto) 13.3 H, Eos % (Auto) 2.0, Baso % (Auto) 0.5, Neut # (Auto) 1.9, Lymph # (Auto) 1.5, [place] # (Auto) 0.5, Eos # (Auto) 0.1, Baso # (Auto) 0.0, PT 12.1, INR 1.10, Sodium 136, Potassium 4.0, Chloride 102, Carbon Dioxide 28, Anion Gap 10.0, BUN 17, Creatinine 0.90, Estimated Creat Clear 78, Estimated GFR 83, Est GFR ( Amer) 100, Glucose 101 H, Calcium 9.1, Total Bilirubin 0.9, AST 28, ALT 24, Alkaline Phosphatase 78, Total Protein 6.4, Albumin 3.7 D, Globulin 2.7, Albumin/Globulin Ratio 1.4, Triglycerides 109, Cholesterol 100 L, LDL Cholesterol Direct 50.17 L, VLDL Cholesterol 22, HDL Cholesterol 25 L, Cholesterol/HDL Ratio 4.0 H I & O for Last 24 hours: Intake & Output 03/23/25 03/24/25 03/25/25 03/26/25 23:59 23:59 23:59 23:59 Output Total 500 / 500 Balance -500 / -500 Weight 182 lb 182 lb 4.8 oz Constitutional Constitutional: no acute distress and average body habitus *Routine HEENT Exam Head: Present normocephalic and atraumatic ENT: Present mucous membranes moist *Routine Neck Exam Neck: Present supple, full ROM and normal carotid upstroke; Absent JVD, carotid bruit or lymphadenopathy *Routine Respiratory Exam Respiratory: Present CTA bilaterally, normal respiratory effort, able to speak in complete sentences and symmetric chest movement *Routine Cardiovascular Exam Cardiovascular: Present RRR, Normal S1 and Normal S2; Absent murmur or gallop *Routine Abdominal Exam Abdominal: Present soft and normoactive bowel sounds; Absent tenderness, distended or organomegaly *Routine Extremities Exam Extremities: Present full ROM, pulses intact and normal capillary refill; Absent cyanosis, clubbing or edema *Routine Skin Exam Skin: Present intact and warm; Absent erythema *Routine Neurological Exam Neurological: Present alert, oriented X3 and CN II-XII intact; Absent sensory deficit or motor deficit Routine Psychiatric Exam Psychiatric: Present normal affect Meds Home Medications and Allergies Home Medications ?Medication ?Instructions ?Recorded ?Confirmed ?Type aspirin 81 mg chewable tablet 81 mg PO HS 03/12/1805/10 History fluticasone fur. 100 mcg-umeclid 1 inh inhalation SHENA Y 11/14/24 03/26/25 History 62.5 mcg-vilant 25 mcg inhalat.powder (Trelegy Ellipta) albuterol sulfate 90 mcg/actuation 1 inh inhalation Q6 H PRN shortness 11/15/24 03/26/25 Rx aerosol inhaler of breath or wheezing #8.5 g sulma atorvastatin 40 mg tablet 40 mg PO HS #90 tabs 12/17/2 5 03/26/25 Rx clopidogrel 75 mg tablet 75 mg PO DAILY #90 tabs 10/0803/26/25 Rx pantoprazole 40 mg tablet,delayed 40 mg PO DAILY #90 t abs 12/17/24 03/26/25 Rx release losartan 25 mg tablet 25 mg PO DAILY 03/26/2503/17 History New Prescriptions to Start Prescriptions: Allergies Allergy/AdvReac Type Severity Reaction Status Date / Time No Known Allergies Allergy Verified 02/25/25 08:58 Assessment and Plan *Assessment and plan (1) Unstable angina: Status: Resolved Category: Medical Code(s): I20.0 - Unstable angina (2) CAD (coronary artery disease): Problem Comment: JANUARY 2021 Medical management for ischemic heart disease NOVEMBER 2020.Critical proximal dominant right coronary stenosis Successful stenting of the ostial proximal dominant right coronary artery critical disease reduced to 0% with 1 drug-eluting stent Preserved ejection fraction with mild regional wall motion abnormality Mildly elevated LVEDP Status: Chronic Qualifiers: Associated angina: without angina Coronary Disease-Associated Artery/Lesion type: [place] artery [place] vs. transplanted heart: [place] heart Qualified Code(s): I25.10 - Atherosclerotic heart disease of [place] coronary artery without angina pectoris Category: Medical Code(s): I25.10 - Atherosclerotic heart disease of [place] coronary artery without angina pectoris (3) HLD (hyperlipidemia): Status: Chronic Qualifiers: Hyperlipidemia type: mixed hyperlipidemia Qualified Code(s): E78.2 - Mixed hyperlipidemia Category: Medical Code(s): E78.5 - Hyperlipidemia, unspecified (4) Hypertension: Status: Chronic Qualifiers: Hypertension type: primary hypertension Qualified Code(s): I10 - Essential (primary) hypertension Category: Medical Code(s): I10 - Essential (primary) hypertension (5) GERD (gastroesophageal reflux disease): Status: Chronic Qualifiers: Esophagitis bleeding: without hemorrhage Esophagitis presence: with esophagitis Qualified Code(s): K21.00 - Gastro-esophageal reflux disease with esophagitis, without bleeding Category: Medical Code(s): K21.9 - Gastro-esophageal reflux disease without esophagitis (6) COPD (chronic obstructive pulmonary disease): Status: Chronic Qualifiers: COPD type: emphysema Emphysema type: centrilobular Qualified Code(s): J43.2 - Centrilobular emphysema Category: Medical Code(s): J44.9 - Chronic obstructive pulmonary disease, unspecified (7) Sinus bradycardia: Status: Acute Category: Medical Code(s): R00.1 - Bradycardia, unspecified Plan Plan: 1. The patient was admitted to the hospital due to unstable angina. He is still having symptoms of unstable angina this morning. Will plan to proceed with left cardiac catheterization today to evaluate his coronary artery disease due to unstable angina and known CAD. 2. The patient has been educated the risk and benefits of proceeding with left cardiac catheterization. The patient verbalizes understanding and is agreeable to proceeding with the procedure. 3. The patient will be n.p.o. in preparation for left cardiac catheterization. 4. Will start him on nitroglycerin 0.4 mg sublingual as needed for chest pain. 5. Will also start him on morphine 1 mg IV every 2 hours as needed for severe chest pain. 6. Will obtain an echocardiogram to evaluate his LV function due to his unstable angina. 7. Coronary artery disease is present. Continue his Plavix and aspirin. Awaiting left cardiac catheterization as mentioned above. 8. His blood pressure is well-controlled. Continue losartan. 9. His LDL goal is less than 55. He is on a statin. Will get a liver and lipid panel in the morning. 10. No beta-evie due to his history of chronic bradycardia. 11. Further recommendations will be made pending the patient's response to treatment and the results of his left cardiac catheterization and echocardiogram today. Thank you for the opportunity to help participate in the care of this patient. All recommendations and orders are per Dr. Enrique.
[2025-03-26] MEDS: HEPARIN 1,000 UNITS/ML 10ML VIAL (CATH LAB) 5000 UNIT IV (14:01)
[2025-03-26] MEDS: LIDOCAINE 1% 10ML MDV 10 ML IJ (14:01)
[2025-03-26] MEDS: NITROGLYCERIN 800MCG/8ML SYR (CATH LAB) 800 MCG IA (14:01)
[2025-03-26] MEDS: HEPARIN 1,000 UNITS/500ML NS (CATH LAB) 3000 UNIT IV (14:01)
[2025-03-26] MEDS: 0.9 % SODIUM CHLORIDE 500 ML 25 ML IV (14:02)
[2025-03-26] MEDS: VERAPAMIL 2.5MG/ML 2ML VIAL 2.5 MG IV (14:02)
[2025-03-26] MEDS: MIDAZOLAM HCL 1MG/ML 5ML VIAL 1 MG IV (14:32)
[2025-03-26] MEDS: FENTANYL 100MCG/2ML VIAL 50 MCG IV (14:32)
[2025-03-26] MEDS: IOPAMIDOL-370 (76%);100ML BOTTLE 75 ML IV (14:59)
--- NOTE | 2025-03-26 15:10 | P.PN_ITS ---
Subjective *Date: 03/26/25 *Time: 15:10 Interval history: I was present at time of [facility] [place]. Coronaries are patent. During cath, HR dropped to 30 with Third degree heart block. Dr. Ellison plans pacemaker tomorrow AM. Medical Exam Vital signs and Labs for Last 24 Hours: Vital Signs Temp Pulse Pulse Resp BP BP Pulse Ox 03/26/25 14:55 57 L 20 98/50 L 93 L 03/26/25 14:50 57 L 20 92/51 L 93 L 03/26/25 14:45 57 L 20 97/49 L 93 L 03/26/25 14:40 59 L 20 102/49 L 93 L 03/26/25 14:40 56 L 56 L 20 102/49 L 92 L 03/26/25 13:00 51 L 03/26/25 12:00 98 F 52 L 16 95/66 L 97 03/26/25 09:00 03/26/25 08:00 03/26/25 08:00 63 03/26/25 08:00 97.8 F 69 16 115/68 94 L 03/26/25 06:01 03/26/25 05:16 136/73 03/26/25 05:00 03/26/25 04:20 52 L 95 03/26/25 04:00 50 L 03/26/25 04:00 98.5 F 48 L 12 105/72 L 100 03/26/25 03:08 97.8 F 52 L 20 119/64 03/26/25 03:00 03/26/25 01:00 51 L 14 113/62 94 L 03/26/25 00:30 49 L 14 114/71 94 L 03/26/25 00:00 49 L 14 104/67 L 96 03/25/25 23:30 55 L 12 101/66 L 92 L 03/25/25 23:00 14 114/60 03/25/25 22:00 59 L 14 101/61 L 93 L 03/25/25 21:30 58 L 14 102/65 L 93 L 03/25/25 21:03 97.8 F 88 17 113/67 98 03/25/25 21:00 58 L 13 113/67 99 03/25/25 20:51 97.9 F 60 17 123/73 97 O2 Del Method O2 Flow Rate 03/26/25 14:55 Room Air 03/26/25 14:50 Room Air 03/26/25 14:45 Room Air 03/26/25 14:40 Room Air 03/26/25 14:40 Room Air 03/26/25 13:00 03/26/25 12:00 03/26/25 09:00 Room Air 03/26/25 08:00 Room Air 03/26/25 08:00 03/26/25 08:00 03/26/25 06:01 Room Air 03/26/25 05:16 03/26/25 05:00 Room Air 03/26/25 04:20 Room Air 03/26/25 04:00 03/26/25 04:00 Nasal Cannula 2 03/26/25 03:08 Room Air 03/26/25 03:00 Room Air 03/26/25 01:00 03/26/25 00:30 03/26/25 00:00 03/25/25 23:30 03/25/25 23:00 03/25/25 22:00 03/25/25 21:30 03/25/25 21:03 Room Air 03/25/25 21:00 03/25/25 20:51 Room Air Intake and Output 03/26/25 03/26/25 03/26/25 03:59 11:59 19:59 Output Total 500 / 500 Balance -500 / -500 Output: Output, Urine Amount 500 / 500 Other: Weight 182 lb 182 lb 4.8 oz Laboratory Results - last 24 hr 03/25/25 20:50: WBC 6.2, RBC 4.69, Hgb 14.5, Hct 41.9 L, MCV 89.3, MCH 30.9, MCHC 34.6, RDW 12.6, Plt Count 186, MPV 10.6 H, Neut % (Auto) 44.0, Lymph % (Auto) 42.4, [place] % (Auto) 11.1 H, Eos % (Auto) 2.0, Baso % (Auto) 0.3, Neut # (Auto) 2.7, Lymph # (Auto) 2.6, [place] # (Auto) 0.7, Eos # (Auto) 0.1, Baso # (Auto) 0.0, D-Dimer 0.32, Sodium 137, Potassium 4.0, Chloride 102, Carbon Dioxide 28, Anion Gap 11.0, BUN 19, Creatinine 1.00, Estimated Creat Clear 78, Estimated GFR 73, Est GFR ( Amer) 89, Glucose 102 H, Calcium 9.6, Total Bilirubin 0.8, AST 35, ALT 27, Alkaline Phosphatase 81, Troponin I < 0.01, NT-Pro-B Natriuret Pep 46.1, Total Protein 7.2, Albumin 4.2, Globulin 3.0, Albumin/Globulin Ratio 1.4, HCV Ab ALAYNA w/Rflx PCR Qn Negative, HIV Ag/Ab Combo Qual Negative 03/25/25 23:36: Troponin I < 0.01 03/26/25 03:02: Troponin I < 0.01 03/26/25 05:19: POC Glucose 92 03/26/25 05:41: WBC 4.0 L D, RBC 4.23 L, Hgb 13.1 L, Hct 38.1 L, MCV 90.1, MCH 30.7, MCHC 34.1, RDW 12.6, Plt Count 153, MPV 10.5 H, Neut % (Auto) 46.5, Lymph % (Auto) 36.7, [place] % (Auto) 13.3 H, Eos % (Auto) 2.0, Baso % (Auto) 0.5, Neut # (Auto) 1.9, Lymph # (Auto) 1.5, [place] # (Auto) 0.5, Eos # (Auto) 0.1, Baso # (Auto) 0.0, PT 12.1, INR 1.10, Sodium 136, Potassium 4.0, Chloride 102, Carbon Dioxide 28, Anion Gap 10.0, BUN 17, Creatinine 0.90, Estimated Creat Clear 78, Estimated GFR 83, Est GFR ( Amer) 100, Glucose 101 H, Calcium 9.1, Total Bilirubin 0.9, AST 28, ALT 24, Alkaline Phosphatase 78, Total Protein 6.4, Albumin 3.7 D, Globulin 2.7, Albumin/Globulin Ratio 1.4, Triglycerides 109, Cholesterol 100 L, LDL Cholesterol Direct 50.17 L, VLDL Cholesterol 22, HDL Cholesterol 25 L, Cholesterol/HDL Ratio 4.0 H I & O for Labs for Last 24 Hours: Intake & Output 03/24/25 03/25/25 03/26/25 03/27/25 11:59 11:59 11:59 11:59 Output Total 500 / 500 Balance -500 / -500 Weight 182 lb 4.8 oz Head: Present normocephalic Neck: Present normal inspection Respiratory: Absent respiratory distress Cardiac: Present Bradycardia GI: Present soft; Absent tenderness Rectal (male): Present deferred (male): Present deferred Extremities: Absent edema Skin: Present intact Neuro: Present moves all extremities Assessment and Plan *Assessment and plan (1) CAD (coronary artery disease): Problem Comment: JANUARY 2021 Medical management for ischemic heart disease NOVEMBER 2020.Critical proximal dominant right coronary stenosis Successful stenting of the ostial proximal dominant right coronary artery critical disease reduced to 0% with 1 drug-eluting stent Preserved ejection fraction with mild regional wall motion abnormality Mildly elevated LVEDP Status: Chronic Qualifiers: Coronary Disease-Associated Artery/Lesion type: [place] artery [place] vs. transplanted heart: [place] heart Associated angina: without angina Qualified Code(s): I25.10 - Atherosclerotic heart disease of [place] coronary artery without angina pectoris Category: Medical Code(s): I25.10 - Atherosclerotic heart disease of [place] coronary artery without angina pectoris (2) Third degree atrioventricular block: Status: Acute Category: Medical Code(s): I44.2 - Atrioventricular block, complete (3) Sinus bradycardia: Status: Acute Category: Medical Code(s): R00.1 - Bradycardia, unspecified (4) COPD (chronic obstructive pulmonary disease): Status: Chronic Qualifiers: COPD type: emphysema Emphysema type: centrilobular Qualified Code(s): J43.2 - Centrilobular emphysema Category: Medical Code(s): J44.9 - Chronic obstructive pulmonary disease, unspecified (5) GERD (gastroesophageal reflux disease): Status: Chronic Qualifiers: Esophagitis presence: with esophagitis Esophagitis bleeding: without hemorrhage Qualified Code(s): K21.00 - Gastro-esophageal reflux disease with esophagitis, without bleeding Category: Medical Code(s): K21.9 - Gastro-esophageal reflux disease without esophagitis Plan See cath report. Pacemaker is planned.
--- NOTE | 2025-03-26 15:38 | PC.NURSE ---
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 Post cath vitals in progress.
--- OUTSIDE RECORDS SUMMARY | 2025-03-26 15:59 | XMS_ITS | Patient Health Record ---
[facility] Address [address] [place] [id number] Care Team Providers Care Physician Assistant Surgery Name Role Phone Brian Fernandez Primary Care Provider Shelton Armenta Unavailable [phone] Andrew Deepthi Unavailable [phone] Anastasia Hammer Unavailable [phone] Allergies No Known Allergies Results Component Value Reference Range Notes Influenza Screen (in house) Reviewed date:08/21/2024 01:21:00 PM Interpretation: Performing Lab: Notes/Report: results Neg Covid test (in house) Reviewed date:08/21/2024 01:20:52 PM Interpretation: Performing Lab: Notes/Report: Result: Neg P-PSA Reviewed date:11/07/2024 12:45:18 PM Interpretation:Normal Performing Lab: Notes/Report: Test performed by [facility] [address] [place], [place] [address] [place] , [address], [place] [address] Otis Ricks MD, Aquatic Centre Manager CLIA: [id number] PSA 0.97 <4.00 ng/mL Please note this is an ultrasensitive PSA assay with a lower limit of detection of 0.014 ng/mL. This test is performed by the Alvarez ECLIA methodology. Values obtained with different assay methods or kits cannot be directly compared. P-Comprehensive Metabolic Pa beatris (CMP) Reviewed date:11/07/2024 12:45:33 PM Interpretation:Normal Performing Lab: Notes/Report: Test performed by [facility] [address] [place] [address] , [address], [place] [address] Otis Ricks MD, Aquatic Centre Manager CLIA: [id number] Sodium 141 135-145 mmol/L Potassium 4.5 3.5-5.3 [...] 0.8 <0.2-1.2 mg/dL A/G Ratio 1.8 1.1-2.5 P-Comprehensive Metabolic Pa beatris (CMP) Reviewed date:07/29/2024 04:46:58 PM Interpretation:satisfactory Performing Lab: Notes/Report: Test performed by [facility] [address] , [address], [place] [address] Otis Ricks MD, Aquatic Centre Manager CLIA: [id number] Sodium 141 135-145 mmol/L Potassium 4.7 3.5-5.3 [...] Interpretation:satisfactory Performing Lab: Notes/Report: Test performed by [facility] [address] [facility] , [address], [place] [address] Otis Ricks MD, Aquatic Centre Manager CLIA: [id number] Cholesterol 120 <200 mg/dL Triglycerides 98 <150 [...] Results: 64 Units: mg/dL % Change: -13% Influenza Screen (in house) Reviewed date:06/03/2024 02:03:25 [...] Interpretation:neg Performing Lab: Notes/Report: neg Result: neg Medications Medication SIG (Take, Route, Frequency, Duration) [...] W/U Status Risk Notes Problem Essential hypertension (37823200) Essential (primary) hypertension (I10) Active confirmed Problem Dizziness (082301700) Dizziness (R42) Active confirmed Problem Otitis externa (9886925) Otitis externa (H60.90) Active confirmed Problem Long-term current use of 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 (541929970) intermediate current use of 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 (Z79.01) Active confirmed Problem Mixed hyperlipidemia (038128109) Mixed hyperlipidemia (E78.2) Active confirmed Problem Ischemic cardiomyopathy (110846866) Ischemic cardiomyopathy (I25.5) Active confirmed Problem History of cholecystectomy (848721950) Status post cholecystectomy (Z90.49) Active confirmed Problem Gastroesophageal reflux disease (disorder) (407798658) Chronic GERD (K21.9) Active confirmed Problem COPD - Chronic obstructive pulmonary disease (31024367) Chronic obstructive pulmonary disease, unspecified COPD type (J44.9) Active confirmed Problem Atherosclerotic heart disease of samish coronary artery without angina pectoris (190404932243923) Coronary artery disease involving samish coronary artery of samish heart without angina pectoris (I25.10) Active confirmed Problem Hyperlipidaemia (67839485) Hyperlipidemia, unspecified hyperlipidemia type (E78.5) Active confirmed Problem Stented coronary artery (926060397) Stented coronary artery (Z95.5) Active confirmed Problem Atherosclerotic heart disease of samish coronary artery without angina pectoris (664182612650634) Atherosclerosis of samish coronary artery without angina pectoris, unspecified whether samish or transplanted heart (I25.10) Active confirmed Problem Benign prostatic hypertrophy without outflow obstruction (701460625) Benign prostatic hyperplasia without lower urinary tract symptoms (N40.0) Active confirmed Problem Status post insertion of drug-eluting stent into right coronary artery for coronary artery disease (Z95.5) Active confirmed Problem Pneumonia (885049566) Acute pneumonia (J18.9) Active confirmed Problem Gastroesophageal reflux disease (951188175) Gastroesophageal reflux disease, unspecified whether esophagitis present (K21.9) Active confirmed Problem Stent in branch of right coronary artery (finding) (606783515107121) S/P right coronary artery (RCA) stent placement (Z95.5) Active confirmed Vital Signs Heart Rate 56 /min 11/01/2024 Blood pressure diastolic 70 mm Hg 11/01/2024 Height 69 in 11/01/2024 Blood pressure systolic 122 mm Hg 11/01/2024 Weight 188.2 lbs 11/01/2024 BMI 27.79 kg/m2 11/01/2024 Encounters Encounter Location Date Provider [facility] [address] 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 [address] [place], [place] [id number] 06/03/2024 Deepthi Morales URI (upper respirato ry infection) J06.9 [facility] [address] [facility] [address] [place] [id number] 07/26/2024 Shelton Armenta Atherosclerosis of samish coronary artery without angina pectoris, unspecified whether samish or transplanted heart I25.10 ; Essential (primary) hypertension I10 ; Stented coronary artery Z95.5 ; Ischemic cardiomyopathy I25.5 ; Closed displaced fracture of head of radius with routine healing, unspecified laterality, subsequent encounter S52.123D and Mixed hyperlipidemia E78.2 [facility] [address] [place] [id number] 08/21/2024 Anastasia Hammer Influenza J11.1 [facility] [address] [place] [id number] 11/01/2024 Shelton Armenta Essential (primary) hypertension I10 ; Status post insertion of drug-eluting stent into right coronary artery for coronary artery disease Z95.5 ; Coronary artery disease involving samish coronary artery of samish heart without angina pectoris I25.10 ; Benign prostatic hyperplasia without lower urinary tract symptoms N40.0 ; Mixed hyperlipidemia E78.2 ; Chronic obstructive pulmonary disease, unspecified COPD type J44.9 and BMI 27.0-27.9,adult Z68.27 [facility] [address] [place] [address] [place] [id number] 04/10/2024 Shelton Armenta Assessments Encounter Date Diagnosis (ICD Code) Assessment Notes Treatment Notes Treatment Clinical Notes Section Notes 04/22/2024 Essential (primary) hypertension (ICD-10 - I10) 04/22/2024 Follow-up examination (ICD-10 - Z09) 06/03/2024 URI (upper respiratory infection) (ICD-10 - J06.9) fluids, rest, supportive measures for fever/symptom relief 07/26/2024 Essential (primary) hypertension (ICD-10 - I10) 07/26/2024 Atherosclerosis of samish coronary artery without angina pectoris, unspecified whether samish or transplanted heart (ICD-10 - I25.10) 11/01/2024 Essential (primary) hypertension (ICD-10 - I10) continue present RX 11/01/2024 Status post insertion of drug-eluting stent into right coronary artery for coronary artery disease (ICD-10 - Z95.5) 08/21/2024 Influenza (ICD-10 - J11.1) Patient's is here today as well and her flu test is positive. Patient has the same symptoms. Will treat for flu., Rest, fluids, tylenol or motrin for fevers. Home until fever free for 24-48 hours without the use of medication. 11/01/2024 Coronary artery disease involving samish coronary artery of samish heart without angina pectoris (ICD-10 - I25.10) 04/22/2024 S/P right coronary artery (RCA) stent placement (ICD-10 - Z95.5) 07/26/2024 Stented coronary artery (ICD-10 - Z95.5) 07/26/2024 Ischemic cardiomyopathy (ICD-10 - I25.5) 04/22/2024 Ischemic cardiomyopathy (ICD-10 - I25.5) 11/01/2024 Benign prostatic hyperplasia without lower urinary tract symptoms (ICD-10 - N40.0) 11/01/2024 Mixed hyperlipidemia (ICD-10 - E78.2) 07/26/2024 Closed displaced fracture of head of radius with routine healing, unspecified laterality, subsequent encounter (ICD-10 - S52.123D) 04/22/2024 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 (ICD-10 - Z79.01) 07/26/2024 Mixed hyperlipidemia (ICD-10 - E78.2) 11/01/2024 Chronic obstructive pulmonary disease, unspecified COPD type (ICD-10 - J44.9) 11/01/2024 BMI 27.0-27.9,adult (ICD-10 - Z68.27) Plan Of Treatment Next Appt Details Provider Name:Shelton Lott er, 04/07/2025 09:30:00 AM, [address], [address], [place], [place], [id number], Insurance Providers Payer Name Payer Address Payer Phone Subscriber Number Group Number Insured Name Patient Relationship to Insured Coverage Start Date Coverage End Date MEDICARE PART B [address] [address] [place] [id number] [phone] [id number] SNOW MIRANDA Self - patient is the insured [facility] [employer] C[employer] OPTIONS [address] [place] [id number] SNOW MIRANDA Self - patient is the insured Medications Administered Medication Instructions Date of Administration Dosage Notes Dexamethasone 01/06/2016 1 mL Medical (General) History 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 History ICD Code Coronary Artery Disease Acute IA 1996 w/stent placement Acute IA 2001 w/stent placement HTN GERD COPD Colon polyps Covid Positive - May 2020 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 Surgery Date(Month/Year) BACK SURGERY 1983 STENT 1996 STENT 2001 stent 05/2006 heart cath x 2 (No IA or stent) 05/2007 stent 11/2020 Galbladder removal 03/09/2021 left wrist fracture 04/2021 cyst on scrotum, [facility] 11/2023 Hospitalization History Reason Date(Month/Year) [facility]- vertigo 09/13/2022 [facility] - chest pains 02/01- Heart Attack [facility] 10/05/2020 Heart attack [facility] 03/12- [facility]-Heart Cath 09/2015 [facility] ER- Fell out of a truck and hurt arm s 11/16/2011 pneumonia 02/21/2007
--- OUTSIDE RECORDS SUMMARY | 2025-03-26 15:59 | XMS_ITS | Clinical Summary ---
[facility] Address [address] [place] [address] Care Team Providers Care Spice Room Worker Name Role Phone Brian Fernandez MD Primary Care Provider [phone] Allergies Active Allergy Reactions Criticality Noted Date [...] disease) Overview (04/15/2016): a. History of inferior ID with TPA, 1996. b. Status post left heart catheterization, 1996, with 3.5 x 20 mm multi-length stent to the RCA. c. Recurrent chest pain with left heart catheterization, October 1997, at 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
[address] [place] [address], from Last 3 Months or Most Recently Relevant to Health Maintenance Insurance MEDICARE A & B [facility] C[facility] OPTIONS Care Teams Spice Room Worker Relationship Specialty Start Date End Date Brian Fernandez MD [address] [facility] [address] [place] [address] PCP - General Family Medicine 04/25/16
--- OUTSIDE RECORDS SUMMARY | 2025-03-26 15:59 | XMS_ITS | Clinical Summary ---
Author Organization [facility] Address [address] [id number] Care Team Providers Care Learning And Development Intern Name Role Phone Joni Armenta MD Primary Care Provider [phone] Allergies Active Allergy Reactions Criticality Noted Date [...] 10/30/2023 Overview (10/30/2023): a. History of inferior IN with TPA, 1996. b. Status post left heart catheterization, 1996, with 3.5 x 20 mm multi-length stent to the RCA. c. Recurrent chest pain with left heart catheterization, October 1997, at [facility]: Normal coronaries, patent stents, history of [...] Screening 1950 [facility]-Medicare Annual Wellness (AWV) 1950 [facility]-/Child/Adol SDOH Screenings 1952 [facility]- SDOH Screenings 1970 [facility]-Adult SDOH Screenings 1970 CT Colonography 1997 Colonoscopy 1997 FIT-DNA 1997 FIT 1997 FOBT 1997 Sigmoidoscopy 1997 [facility]-Colorectal Cancer Screening 1997 [facility]-Zoster Vaccines (2 of 2) 02/13/2024 12/19/2023 [id number] Vaccine ( - season) 2024 05/01/2023, 11/01/2021, [...] age to complete this topic Insurance [facility] Care Teams Learning And Development Intern Relationship Specialty Start Date End Date Joni Armenta MD [address] [place] [address] PCP - General 11/10/23
--- NOTE | 2025-03-26 18:36 | PC.NURSE ---
air added back to radial band 3x, removed band and applied manual pressure for 10 minutes, hemostasis achieved, 4x4 gauze and tegaderm pressure dressing applied.
[2025-03-26] MEDS: ATORVASTATIN 40MG TABLET 40 MG PO (20:20)
--- NOTE | 2025-03-26 23:05 | PC.NURSE ---
During resting period at this time, the patient's oxygen saturations were maintaining between 86% and 88% on room air. Nasal cannula (2 L of oxygen flow) was applied; oxygen saturations increased to 93%. Continuous pulse ox remains in place with an accurate pleth. Respirations remain even and unlabored; patient does not have any complaints of chest pain.
[2025-03-27] VITALS (15 sets, daily range): BP systolic 103–144; BP diastolic 58–78; PULSE 50–80; RESP 14–20; TEMP 36.5–36.9; O2SAT 92–97; BMI 28.2
[2025-03-27 06:08] LABS: Hematocrit 40.0 % (42.0-52.0); Hemoglobin 13.3 g/dL (14.1-18.0); Immature Granulocytes % 0.2 %; Mean Corpuscular HGB Conc 33.3 g/dL (31.8-35.4); Mean Corpuscular Hemoglobin 30.2 pg (27.0-31.2); Mean Corpuscular Volume 90.7 fl (80-94); Nucleated Red Blood Cells % 0 %; Platelet Count 145 K/mm3 (142-424); Red Blood Count 4.41 M/mm3 (4.60-6.20); Red Cell Distribution Width-SD 41.5 fL; White Blood Count 5.7 K/mm3 (4.8-10.8)
[2025-03-27 06:11] LABS: Alanine Aminotransferase 23 U/L (12-78); Albumin Level 3.6 g/dl (3.5-5.0); Alkaline Phosphatase 79 U/L (38-126); Anion Gap 7.0 mEq/L (5-15); Aspartate Amino Transferase 32 U/L (17-59); Bilirubin,Direct 0.0 mg/dl (0.0-0.4); Bilirubin,Indirect 1.1 mg/dL (0.0-0.9); Bilirubin,Total 1.1 mg/dl (0.2-1.3); Bilirubin,Unconjugated 1.1 mg/dL (0.0-1.1); Blood Urea Nitrogen 18 mg/dl (9-20); Calcium 8.5 mg/dl (8.4-10.2); Carbon Dioxide 28 mmol/L (22.0-30.0); Chloride 105 mmol/L (98-107); Cholesterol 103 mg/dl (140-200); Creatinine Clearance Estimated 78 mL/min (50-200); Creatinine,Serum 0.90 mg/dl (0.66-1.25); Estimated Glomerular Filt Rate 83 ml/min (>60); GFR (African American) 100 ML/MIN (>60); Glucose 88 mg/dl (74-100); HDL Cholesterol 23 mg/dl (40-60); Potassium 4.0 mmoL/L (3.5-5.1); Sodium 136 mmol/L (136-145); Total Protein,Serum 6.2 g/dl (6.3-8.2); Triglycerides 113 mg/dl (30-150)
[2025-03-27 06:41] LABS: Thyroid Stimulating Hormone 0.62 uIU/mL (0.465-4.68)
--- NOTE | 2025-03-27 07:16 | IR_ITS ---
APPROVED REPORT Patient Location: Inpatient PROCEDURES 1. Pocket formation for Permanent Pacemaker Placement. 2. Placement of an atrial sensing and pacing coil into the right atrial appendage. 3. Placement of a ventricular sensing and pacing coil in the right ventricular apex. 4. Permanent Pacemaker Placement. INDICATION Symptomatic bradycardia, Sinus arrest Informed consent was obtained prior to the procedure. COMPLICATIONS NONE Estimated Blood Loss: LESS THAN 10 ML TECHNIQUE 1% Lidocaine with epinephrine used to anesthetized the left anterior aspect of the chest. Scalpel was used to make the initial cutaneous incision while electrocautery was used to dissect down tinto the fascia. The fascia was lifted off the pectoralis muscle and digitally manipulated creating a pocket for the pacemaker. The patient was then placed in Trendelenburg position and the subclavian vein was accessed twice via the Selinger technique, there are two wires in the vein. A 6 Norwegian sheath was placed under fluoroscopic guidance into the subclavian vein over one of the wires while keeping the other wire in place within the subclavian vein. The dilator was removed from the sheath. Using fluoroscopic guidance, the ventricular lead was placed into the right ventricular apex, screwed and secured into place. Electronic interrogation proved acceptable thresholds and voltage within the lead. Using 3-0 silk, the ventricular lead was then secured into place. Lead was secured to the facia using the 3-0 silk. Following this, the sheath was pealed away. An additional 6 Norwegian fresh sheath and dilator was placed over the existing wire. Using fluoroscopic guidance, the atrial lead was the placed into the right atrial appendage and screwed and secured in place. Electrical interrogation demonstrated acceptable thresholds and voltage number. The atrial lead was then secured into place using 3-0 silk. 1 gram of Ancef was used to flush the pocket. Following the pacemaker generator being secured to the fascia and in place, Monocryl was used to close the subcutaneous layers while guille were used to close the cutaneous layer. A pressure dressing was placed and the patient was transferred to the postop holding area in stable condition for postoperative care. INTERROGATION Generator Model number: SouleymaneTrivnet [facility] [id number] Generator Serial number: [id number] Atrial lead model number: Tendril STS 2088TC Atrial lead serial number: [id number] P-wave: 2.0 mV Impedance: 560 Ohms Threshold: 1.0V @ 0.4ms Right Ventricular lead model number: Vlad STS 2088TC Right Ventricular lead serial number: [id number] R-wave: 10mV Impedance: 610 Ohms Threshold: 0.75V @ 0.4ms Pacing Parameters: Mode: DDDR Base/Max Track:60 ppm / 130 ppm No diaphragmatic stimulation at 10 volts. IMPRESSION 1. Successful pocket formation for Permanent Pacemaker Placement. 2. Successful placement of an atrial sensing and pacing coil into the right atrial appendage. 3. Successful placement of a ventricular sensing and pacing coil in the right ventricular apex. 4. Successful permanent Pacemaker Placement. PLAN 1. Postop wound care. Electronically signed by : Puneet Ellison MD 03/27/2025 17:04:48
--- NOTE | 2025-03-27 08:17 | EXP.ACUTE.PN ---
Subjective *Date: 03/27/25 *Time: 08:57 Interval history: Patient is feeling better this morning. He had a heart cath yesterday and is scheduled for pacemaker placement today due to symptomatic bradycardia. He denies any chest pain or shortness of breath. He slept well last Medical Exam Vital signs and Labs for Last 24 Hours: Vital Signs Temp Pulse Pulse Resp BP BP Pulse Ox 03/27/25 08:00 98.0 F 61 16 112/66 92 L 03/27/25 06:45 03/27/25 05:00 03/27/25 04:00 97.9 F 62 16 109/64 L 95 03/27/25 03:00 03/27/25 01:00 03/27/25 00:00 70 03/27/25 00:00 98.4 F 70 16 103/58 L 96 03/26/25 23:30 14 97 03/26/25 23:05 12 93 L 03/26/25 23:00 03/26/25 22:00 64 14 109/53 L 93 L 03/26/25 21:00 59 L 14 92/54 L 92 L 03/26/25 21:00 03/26/25 20:00 57 L 14 110/59 L 91 L 03/26/25 20:00 57 L 14 91 L 03/26/25 20:00 50 L 03/26/25 19:00 55 L 14 106/65 L 94 L 03/26/25 18:16 03/26/25 17:55 53 L 14 111/56 L 95 03/26/25 17:25 53 L 14 112/63 94 L 03/26/25 17:00 03/26/25 16:55 58 L 14 114/69 99 03/26/25 16:25 58 L 14 109/58 L 99 03/26/25 16:00 48 L 03/26/25 15:55 57 L 111/58 L 99 03/26/25 15:40 56 L 14 104/64 L 95 03/26/25 15:25 97.7 F 52 L 14 98/64 L 92 L 03/26/25 14:55 57 L 20 98/50 L 93 L 03/26/25 14:50 57 L 20 92/51 L 93 L 03/26/25 14:45 57 L 20 97/49 L 93 L 03/26/25 14:40 59 L 20 102/49 L 93 L 03/26/25 14:40 56 L 56 L 20 102/49 L 92 L 03/26/25 13:10 97.9 F 48 L 14 102/59 L 92 L 03/26/25 13:00 51 L 03/26/25 12:00 98 F 52 L 16 95/66 L 97 03/26/25 11:00 03/26/25 09:00 O2 Del Method O2 Flow Rate 03/27/25 08:00 Room Air 03/27/25 06:45 Room Air 03/27/25 05:00 Nasal Cannula 2 03/27/25 04:00 Nasal Cannula 2 03/27/25 03:00 Nasal Cannula 2 03/27/25 01:00 Nasal Cannula 2 03/27/25 00:00 03/27/25 00:00 Nasal Cannula 2 03/26/25 23:30 Nasal Cannula 2 03/26/25 23:05 Nasal Cannula 2 03/26/25 23:00 Room Air 03/26/25 22:00 Room Air 03/26/25 21:00 Room Air 03/26/25 21:00 Room Air 03/26/25 20:00 Room Air 03/26/25 20:00 Room Air 03/26/25 20:00 03/26/25 19:00 Room Air 03/26/25 18:16 Room Air 03/26/25 17:55 Room Air 03/26/25 17:25 Room Air 03/26/25 17:00 Room Air 03/26/25 16:55 Nasal Cannula 2 03/26/25 16:25 Nasal Cannula 03/26/25 16:00 03/26/25 15:55 Nasal Cannula 03/26/25 15:40 Nasal Cannula 2 03/26/25 15:25 Room Air 03/26/25 14:55 Room Air 03/26/25 14:50 Room Air 03/26/25 14:45 Room Air 03/26/25 14:40 Room Air 03/26/25 14:40 Room Air 03/26/25 13:10 Room Air 03/26/25 13:00 03/26/25 12:00 03/26/25 11:00 Room Air 03/26/25 09:00 Room Air Intake and Output 03/26/25 03/27/25 03/27/25 19:59 03:59 11:59 Intake Total 120 / 120 Output Total 775 / 1375 600 / 1375 Balance -655 / -1255 -600 / -1255 Intake: Intake, Oral Amount 120 / 120 Output: Output, Urine Amount 775 / 1375 600 / 1375 Other: Weight 180 lb Patient Weight 03/27/25 11:59 Weight 180 lb Laboratory Results - last 24 hr 03/26/25 05:41: Triglycerides 109, Cholesterol 100 L, LDL Cholesterol Direct 50.17 L, VLDL Cholesterol 22, HDL Cholesterol 25 L, Cholesterol/HDL Ratio 4.0 H 03/27/25 05:50: WBC 5.7 D, RBC 4.41 L, Hgb 13.3 L, Hct 40.0 L, MCV 90.7, MCH 30.2, MCHC 33.3, RDW 12.4, Plt Count 145, MPV 10.7 H, Neut % (Auto) 58.3, Lymph % (Auto) 28.7, [place] % (Auto) 9.9 H, Eos % (Auto) 2.5, Baso % (Auto) 0.4, Neut # (Auto) 3.3, Lymph # (Auto) 1.6, [place] # (Auto) 0.6, Eos # (Auto) 0.1, Baso # (Auto) 0.0, Sodium 136, Potassium 4.0, Chloride 105, Carbon Dioxide 28, Anion Gap 7.0, BUN 18, Creatinine 0.90, Estimated Creat Clear 78, Estimated GFR 83, Est GFR ( Amer) 100, Glucose 88, Calcium 8.5, Total Bilirubin 1.1, Direct Bilirubin 0.0, Conjugated Bilirubin 0.0, Indirect Bilirubin 1.1 H, Unconjugated Bilirubin 1.1, AST 32, ALT 23, Alkaline Phosphatase 79, Total Protein 6.2 L, Albumin 3.6, Triglycerides 113, Cholesterol 103 L, LDL Cholesterol Direct 48.28 L, VLDL Cholesterol 23, HDL Cholesterol 23 L, Cholesterol/HDL Ratio 4.5 H, TSH 0.62 I & O for Labs for Last 24 Hours: Intake & Output 03/24/25 03/25/25 03/26/25 03/27/25 11:59 11:59 11:59 11:59 Intake Total 120 / 120 Output Total 500 / 500 1375 / 1375 Balance -500 / -500 -1255 / -1255 Weight 182 lb 4.8 oz 180 lb Constitutional: Present no acute distress Respiratory: Present CTA bilaterally Cardiac: Present Reg Rate and Rhythm GI: Present soft and normal bowel sounds; Absent distention or tenderness Extremities: Absent edema, clubbing or cyanosis Skin: Present intact Neuro: Present alert and awake Assessment and Plan *Assessment and plan (1) CAD (coronary artery disease): Problem Comment: JANUARY 2021 Medical management for ischemic heart disease NOVEMBER 2020.Critical proximal dominant right coronary stenosis Successful stenting of the ostial proximal dominant right coronary artery critical disease reduced to 0% with 1 drug-eluting stent Preserved ejection fraction with mild regional wall motion abnormality Mildly elevated LVEDP Status: Chronic Qualifiers: Associated angina: without angina Coronary Disease-Associated Artery/Lesion type: [place] artery [place] vs. transplanted heart: [place] heart Qualified Code(s): I25.10 - Atherosclerotic heart disease of [place] coronary artery without angina pectoris Category: Medical Code(s): I25.10 - Atherosclerotic heart disease of [place] coronary artery without angina pectoris (2) Third degree atrioventricular block: Status: Acute Category: Medical Code(s): I44.2 - Atrioventricular block, complete (3) Sinus bradycardia: Status: Acute Category: Medical Code(s): R00.1 - Bradycardia, unspecified (4) COPD (chronic obstructive pulmonary disease): Status: Chronic Qualifiers: COPD type: emphysema Emphysema type: centrilobular Qualified Code(s): J43.2 - Centrilobular emphysema Category: Medical Code(s): J44.9 - Chronic obstructive pulmonary disease, unspecified (5) GERD (gastroesophageal reflux disease): Status: Chronic Qualifiers: Esophagitis bleeding: without hemorrhage Esophagitis presence: with esophagitis Qualified Code(s): K21.00 - Gastro-esophageal reflux disease with esophagitis, without bleeding Category: Medical Code(s): K21.9 - Gastro-esophageal reflux disease without esophagitis (6) Chest pain: Status: Acute Qualifiers: Ischemic chest pain type: unstable angina pectoris Category: Medical Code(s): R07.9 - Chest pain, unspecified (7) Hypertension: Status: Chronic Qualifiers: Hypertension type: primary hypertension Qualified Code(s): I10 - Essential (primary) hypertension Category: Medical Code(s): I10 - Essential (primary) hypertension (8) HLD (hyperlipidemia): Status: Chronic Qualifiers: Hyperlipidemia type: mixed hyperlipidemia Qualified Code(s): E78.2 - Mixed hyperlipidemia Category: Medical Code(s): E78.5 - Hyperlipidemia, unspecified Plan Cardiac Cath 1. Medical management for coronary artery disease 2. Patient's symptoms of weakness with TIA-like symptoms are almost certainly stemming from symptomatic bradycardia therefore recommend pacemaker placement tomorrow 3. Check TFTs today 4. Start low-dose dopamine if patient experiences bradycardia 5. Continuous telemetry Patient is scheduled for pacemaker placement today. Dr. Fernandez entry - Saw patient, agree with above note. No additional DVT prophylaxis needed.
[2025-03-27 08:31] LABS: Free T4 (Free Thyroxine) 1.11 ng/dl (0.78-2.19)
[2025-03-27] MEDS: ASPIRIN 81MG CHEWABLE TABLET 81 MG PO (09:05)
[2025-03-27] MEDS: IRBESARTAN 75MG TABLET 37.5 MG PO (09:05)
[2025-03-27] MEDS: CLOPIDOGREL 75MG TAB 75 MG PO (09:05)
[2025-03-27] MEDS: PANTOPRAZOLE 40MG TABLET 40 MG PO (09:06)
--- NOTE | 2025-03-27 11:09 | P.PN_ITS ---
Subjective Subjective Date: 03/27/25 Time: 10:00 Principal diagnosis: Chest pain, sinus arrest with junctional escape Interval history: This is a 74-year-old white gentleman who presented to the emergency department complaints of chest pain. He underwent left cardiac catheterization yesterday and had patent coronary artery disease. During the procedure yesterday he did get profoundly bradycardic. He had sinus arrest with a junctional escape beat and then got profoundly hypotensive. Permanent pacemaker placement has been recommended. He is bradycardic this morning. He states he still had some intermittent episodes of chest pain but not as severe as they were. Still having sharp pain in the left side of his chest. It is not radiating to his left arm now. He denies any shortness of breath or edema. He denies any fever, chills, nausea, vomiting or diarrhea. He states when he has these episodes of chest pain he is getting significantly fatigued and very weak. He was having left arm numbness. The symptoms are most likely from his sinus arrest with junctional escape. Exam Data for Last 24 hours Vital signs and Labs for Last 24 Hours: Temp Pulse Resp BP Pulse Ox O2 Del Method O2 Flow Rate 98.0 F 50 L 16 112/66 92 L Room Air 2 03/27/25 08:00 03/27/25 08:30 03/27/25 08:00 03/27/25 08:00 03/27/25 08:30 03/27/25 11:05 03/27/25 05:00 Laboratory Results - last 24 hr 03/27/25 05:50: WBC 5.7 D, RBC 4.41 L, Hgb 13.3 L, Hct 40.0 L, MCV 90.7, MCH 30.2, MCHC 33.3, RDW 12.4, Plt Count 145, MPV 10.7 H, Neut % (Auto) 58.3, Lymph % (Auto) 28.7, [place] % (Auto) 9.9 H, Eos % (Auto) 2.5, Baso % (Auto) 0.4, Neut # (Auto) 3.3, Lymph # (Auto) 1.6, [place] # (Auto) 0.6, Eos # (Auto) 0.1, Baso # (Auto) 0.0, Sodium 136, Potassium 4.0, Chloride 105, Carbon Dioxide 28, Anion Gap 7.0, BUN 18, Creatinine 0.90, Estimated Creat Clear 78, Estimated GFR 83, Est GFR ( Amer) 100, Glucose 88, Calcium 8.5, Total Bilirubin 1.1, Direct Bilirubin 0.0, Conjugated Bilirubin 0.0, Indirect Bilirubin 1.1 H, Unconjugated Bilirubin 1.1, AST 32, ALT 23, Alkaline Phosphatase 79, Total Protein 6.2 L, Albumin 3.6, Triglycerides 113, Cholesterol 103 L, LDL Cholesterol Direct 48.28 L, VLDL Cholesterol 23, HDL Cholesterol 23 L, Cholesterol/HDL Ratio 4.5 H, TSH 0.62, Free T4 1.11 I & O for Last 24 hours: Intake & Output 03/24/25 03/25/25 03/26/25 03/27/25 23:59 23:59 23:59 23:59 Intake Total 120 / 120 Output Total 500 / 1275 1375 / 1375 Balance -500 / -1155 -1255 / -1255 Weight 182 lb 182 lb 4.8 oz 180 lb Constitutional Constitutional: no acute distress and average body habitus *Routine HEENT Exam Head: Present normocephalic and atraumatic ENT: Present mucous membranes moist *Routine Neck Exam Neck: Present supple, full ROM and normal carotid upstroke; Absent JVD, carotid bruit or lymphadenopathy *Routine Respiratory Exam Respiratory: Present CTA bilaterally, normal respiratory effort, able to speak in complete sentences and symmetric chest movement *Routine Cardiovascular Exam Cardiovascular: Present RRR, Normal S1, Normal S2 and bradycardia; Absent murmur or gallop *Routine Abdominal Exam Abdominal: Present soft and normoactive bowel sounds; Absent tenderness, distended or organomegaly *Routine Extremities Exam Extremities: Present full ROM, pulses intact and normal capillary refill; Absent cyanosis, clubbing or edema *Routine Skin Exam Skin: Present intact and warm; Absent erythema *Routine Neurological Exam Neurological: Present alert, oriented X3 and CN II-XII intact; Absent sensory deficit or motor deficit Routine Psychiatric Exam Psychiatric: Present normal affect Progress Note: A&P Assessment and plan (1) Symptomatic bradycardia: Status: Acute (2) Sinus arrest with junctional escape: Status: Acute (3) CAD (coronary artery disease): Problem details: JANUARY 2021 Medical management for ischemic heart disease NOVEMBER 2020.Critical proximal dominant right coronary stenosis Successful stenting of the ostial proximal dominant right coronary artery critical disease reduced to 0% with 1 drug-eluting stent Preserved ejection fraction with mild regional wall motion abnormality Mildly elevated LVEDP Status: Chronic (4) Sinus bradycardia: Status: Acute (5) COPD (chronic obstructive pulmonary disease): Status: Chronic (6) GERD (gastroesophageal reflux disease): Status: Chronic (7) Chest pain: Status: Acute (8) Hypertension: Status: Chronic (9) HLD (hyperlipidemia): Status: Chronic Assessment and Plan Assessment and Plan for All Diagnoses:: Plan: 1. The patient was admitted to the hospital with chest pain and was found to have unstable angina. He underwent left cardiac catheterization and had patent CAD with no intervention. 2. During his left cardiac catheterization the patient did have sinus arrest with junctional escape accompanied by hypotension. The patient's symptoms are most likely coming from his bradycardia and sinus arrest with junctional escape. Will plan to proceed with permanent pacemaker placement today. 3. The patient has been educated the risk and benefits of proceeding with permanent pacemaker placement. The patient verbalizes understanding and is agreeable to proceeding with the procedure. 4. The patient will be n.p.o. in preparation for permanent pacemaker placement. 5. Echocardiogram shows a normal ejection fraction 6. CAD is stable. Continue aspirin. 7. His blood pressure is well-controlled. Continue losartan. 8. His LDL goal is less than 55. His LDL is 48. Continue Lipitor. 9. No beta-evie due to his history of chronic bradycardia. If his blood pressure tolerates then we will consider starting a beta-evie post pacemaker implant. 10. Further recommendations will be made pending the patient's response to treatment and the results of his permanent pacemaker placement today. Thank you for the opportunity to help participate in the care of this patient. All recommendations and orders are per Dr. Enrique.
[2025-03-27] MEDS: LIDOCAINE 1% W/EPI 1:100,000 20ML VIAL 20 ML SQ (15:31)
--- NOTE | 2025-03-27 16:34 | XR_ITS ---
PROCEDURE INFORMATION: Exam: XR Chest Exam date and time: 03/27/2025 5:12 PM Age: 74 years old Clinical indication: Device placement; Cardiac pacemaker placement or adjustment; Prior surgery; Surgery date: Post-operative (0-2 days); Additional info: Confirm pacemaker/aid placement TECHNIQUE: Imaging protocol: Radiologic exam of the chest. Views: 1 view. COMPARISON: CR XR CHEST PORTABLE 03/25/2025 9:06 PM FINDINGS: Tubes, catheters and devices: Dual lead cardiac pacemaker now in place. Lungs: Unremarkable. No consolidation. Pleural spaces: Unremarkable. No pleural effusion. No pneumothorax. Heart/Mediastinum: Unremarkable. No cardiomegaly. Bones/joints: Unremarkable. IMPRESSION: No acute abnormality
[2025-03-27] MEDS: ATORVASTATIN 40MG TABLET 40 MG PO (21:05)
[2025-03-27] MEDS: ACETAMINOPHEN 325MG TAB 650 MG PO (21:07)
[2025-03-28] VITALS: BP 102/51; PULSE 60; RESP 16; TEMP 36.8; O2SAT 92
[2025-03-28 04:00] VITALS: BP 123/65; PULSE 60; PULSE 70; RESP 16; TEMP 36.8; O2SAT 93; BMI 28.3
--- NOTE | 2025-03-28 05:53 | PC.NURSE ---
Pt has rested well this shift and has no complaints. Pt does admit to mild but tolerable pain to his left chest. Pt dressing to left chest is clean dry and intact with mild bruising.
[2025-03-28 08:00] VITALS: BP 131/77; PULSE 62; PULSE 66; RESP 16; TEMP 36.6; O2SAT 93
--- NOTE | 2025-03-28 08:40 | P.PN_ITS ---
Subjective *Date: 03/28/25 *Time: 08:40 Interval history: Patient had pacemaker placed yesterday and is anxious to go home. Medical Exam Vital signs and Labs for Last 24 Hours: Vital Signs Temp Pulse Pulse Resp BP Pulse Ox O2 Del Method 03/28/25 08:00 97.9 F 66 16 131/77 93 L Room Air 03/28/25 06:55 Room Air 03/28/25 05:00 Room Air 03/28/25 04:00 98.2 F 70 16 123/65 93 L Room Air 03/28/25 04:00 60 03/28/25 03:00 Room Air 03/28/25 01:00 Room Air 03/28/25 00:00 60 03/28/25 00:00 98.2 F 60 16 102/51 L 92 L Room Air 03/27/25 23:00 Room Air 03/27/25 21:00 Room Air 03/27/25 20:00 75 03/27/25 20:00 95 Room Air 03/27/25 20:00 97.7 F 80 14 118/65 95 Room Air 03/27/25 19:00 68 19 104/58 L 94 L Room Air 03/27/25 18:52 Room Air 03/27/25 18:30 72 18 135/72 97 Room Air 03/27/25 18:00 67 18 121/64 96 Room Air 03/27/25 17:45 62 18 105/59 L 93 L Room Air 03/27/25 17:30 63 18 118/71 93 L Room Air 03/27/25 17:15 65 20 123/60 94 L Room Air 03/27/25 17:00 Room Air 03/27/25 17:00 97.8 F 71 20 144/75 H 93 L Room Air 03/27/25 16:35 63 63 18 134/78 93 L Room Air 03/27/25 13:10 Room Air 03/27/25 12:00 60 03/27/25 11:50 97.7 F 57 L 18 121/71 92 L Room Air 03/27/25 11:05 Room Air 03/27/25 09:20 Room Air Intake and Output 03/27/25 03/28/25 03/28/25 23:59 07:59 15:59 Intake Total 50 / 410 240 / 480 240 / 480 Output Total 700 / 2075 300 / 800 500 / 800 Balance -650 / -1665 -60 / -320 -260 / -320 Intake: Intake, Oral Amount 240 / 480 240 / 480 Intake, Total IV Amount 50 / 50 Cefazolin Sodium 1 gm In 0.9 % 50 / 50 Sodium Chloride 50 ml @ 100 mls /hr IV PREOP ONE Rx#:[id number] Output: Output, Urine Amount 2074 300 / 800 500 / 800 Other: Number of Unmeasured Voids 1 1 0 Weight 180 lb 9.6 oz Patient Weight 03/28/25 23:59 Weight 180 lb 9.6 oz I & O for Labs for Last 24 Hours: Intake & Output 03/25/25 03/26/25 03/27/25 03/28/25 23:59 23:59 23:59 23:59 Intake Total 170 / 410 480 / 480 Output Total 500 / 1275 2074 / 5 800 / 800 Balance -500 / -1155 -1905 / -1665 -320 / -320 Weight 182 lb 182 lb 4.8 oz 180 lb 180 lb 9.6 oz Constitutional: Present no acute distress Respiratory: Present CTA bilaterally Cardiac: Present Reg Rate and Rhythm GI: Present soft and normal bowel sounds; Absent distention or tenderness Extremities: Absent edema, clubbing or cyanosis Skin: Present intact Comment:: dressing over pacemaker site is C/D/I. Neuro: Present alert and awake Assessment and Plan *Assessment and plan (1) CAD (coronary artery disease): Problem Comment: JANUARY 2021 Medical management for ischemic heart disease NOVEMBER 2020.Critical proximal dominant right coronary stenosis Successful stenting of the ostial proximal dominant right coronary artery critical disease reduced to 0% with 1 drug-eluting stent Preserved ejection fraction with mild regional wall motion abnormality Mildly elevated LVEDP Status: Chronic Qualifiers: Coronary Disease-Associated Artery/Lesion type: [place] artery [place] vs. transplanted heart: [place] heart Associated angina: without angina Qual ified Code(s): I25.10 - Atherosclerotic heart disease of [place] coronary artery without angina pectoris Category: Medical Code(s): I25.10 - Atherosclerotic heart disease of [place] coronary artery without angina pectoris (2) Third degree atrioventricular block: Status: Acute Category: Medical Code(s): I44.2 - Atrioventricular block, complete (3) Sinus bradycardia: Status: Acute Category: Medical Code(s): R00.1 - Bradycardia, unspecified (4) COPD (chronic obstructive pulmonary disease): Status: Chronic Qualifiers: COPD type: emphysema Emphysema type: centrilobular Qualified Code(s): J43.2 - Centrilobular emphysema Category: Medical Code(s): J44.9 - Chronic obstructive pulmonary disease, unspecified (5) GERD (gastroesophageal reflux disease): Status: Chronic Qualifiers: Esophagitis presence: with esophagitis Esophagitis bleeding: without hemorrhage Qualified Code(s): K21.00 - Gastro-esophageal reflux disease with esophagitis, without bleeding Category: Medical Code(s): K21.9 - Gastro-esophageal reflux disease without esophagitis (6) Chest pain: Status: Acute Qualifiers: Ischemic chest pain type: unstable angina pectoris Category: Medical Code(s): R07.9 - Chest pain, unspecified (7) Hypertension: Status: Chronic Qualifiers: Hypertension type: primary hypertension Qualified Code(s): I10 - Essential (primary) hypertension Category: Medical Code(s): I10 - Essential (primary) hypertension (8) HLD (hyperlipidemia): Status: Chronic Qualifiers: Hyperlipidemia type: mixed hyperlipidemia Qualified Code(s): E78.2 - Mixed hyperlipidemia Category: Medical Code(s): E78.5 - Hyperlipidemia, unspecified (9) Symptomatic bradycardia: Status: Acute Category: Medical Code(s): R00.1 - Bradycardia, unspecified (10) Sinus arrest with junctional escape: Status: Acute Category: Medical Code(s): I45.5 - Other specified heart block; I49.2 - Junctional premature depolarization (11) S/P placement of cardiac pacemaker: Status: Acute Category: Surgical Code(s): Z95.0 - Presence of cardiac pacemaker Plan OK for discharge home today, f/u with cardiology next week and with Dr. Armenta in 2 weeks.
--- NOTE | 2025-03-28 09:05 | EXP.CARD.PN ---
Subjective Subjective Date: 03/28/25 Time: 07:30 Principal diagnosis: Chest pain, sinus arrest with junctional escape Interval history: This is a 74-year-old white gentleman who presented to the emergency department complaints of chest pain. He underwent left cardiac catheterization and had patent coronary artery disease. During the procedure he did get profoundly bradycardic. He had sinus arrest with a junctional escape beat and then got profoundly hypotensive. Patient underwent permanent pacemaker placement yesterday. He tolerated the procedure well. He states that he is having some soreness around the pacemaker insertion site but other than that he feels good. He denies any chest pain or pressure. He denies any shortness of breath or edema. He denies any fever, chills, nausea, vomiting or diarrhea. Exam Data for Last 24 hours Vital signs and Labs for Last 24 Hours: Temp Pulse Resp BP Pulse Ox O2 Del Method O2 Flow Rate 97.9 F 66 16 131/77 93 L Room Air 2 03/28/25 08:00 03/28/25 08:00 03/28/25 08:00 03/28/25 08:00 03/28/25 08:00 03/28/25 08:00 03/27/25 05:00 I & O for Last 24 hours: Intake & Output 03/25/25 03/26/25 03/27/25 03/28/25 23:59 23:59 23:59 23:59 Intake Total 170 / 410 480 / 480 Output Total 500 / 1275 2075 / 2075 800 / 800 Balance -500 / -1155 -1905 / -1665 -320 / -320 Weight 182 lb 182 lb 4.8 oz 180 lb 180 lb 9.6 oz Constitutional Constitutional: no acute distress and average body habitus *Routine HEENT Exam Head: Present normocephalic and atraumatic ENT: Present mucous membranes moist *Routine Neck Exam Neck: Present supple, full ROM and normal carotid upstroke; Absent JVD, carotid bruit or lymphadenopathy *Routine Respiratory Exam Respiratory: Present CTA bilaterally, normal respiratory effort, able to speak in complete sentences and symmetric chest movement *Routine Cardiovascular Exam Cardiovascular: Present RRR, Normal S1, Normal S2 and bradycardia; Absent murmur or gallop *Routine Abdominal Exam Abdominal: Present soft and normoactive bowel sounds; Absent tenderness, distended or organomegaly *Routine Extremities Exam Extremities: Present full ROM, pulses intact and normal capillary refill; Absent cyanosis, clubbing or edema *Routine Skin Exam Skin: Present intact and warm; Absent erythema *Routine Neurological Exam Neurological: Present alert, oriented X3 and CN II-XII intact; Absent sensory deficit or motor deficit Routine Psychiatric Exam Psychiatric: Present normal affect Progress Note: A&P Assessment and plan (1) CAD (coronary artery disease): Problem details: JANUARY 2021 Medical management for ischemic heart disease NOVEMBER 2020.Critical proximal dominant right coronary stenosis Successful stenting of the ostial proximal dominant right coronary artery critical disease reduced to 0% with 1 drug-eluting stent Preserved ejection fraction with mild regional wall motion abnormality Mildly elevated LVEDP Status: Chronic (2) COPD (chronic obstructive pulmonary disease): Status: Chronic (3) GERD (gastroesophageal reflux disease): Status: Chronic (4) Hypertension: Status: Chronic (5) HLD (hyperlipidemia): Status: Chronic (6) Symptomatic bradycardia: Status: Acute (7) Sinus arrest with junctional escape: Status: Acute (8) S/P placement of cardiac pacemaker: Status: Acute Assessment and Plan Assessment and Plan for All Diagnoses:: Plan: 1. The patient was admitted to the hospital with chest pain. He underwent left cardiac catheterization and had patent CAD with no intervention. 2. During his left cardiac catheterization the patient did have sinus arrest with junctional escape accompanied by hypotension. The patient's symptoms are most likely coming from his bradycardia and sinus arrest with junctional escape. The patient underwent permanent pacemaker placement yesterday and tolerated the procedure well. His site is healing well with no signs of infection. 3. Echocardiogram shows a normal ejection fraction 4. CAD is stable. Continue aspirin. 5. His blood pressure is well-controlled. Continue losartan. 6. His LDL goal is less than 55. His LDL is 48. Continue Lipitor. 7. No further recommendations at this time from a cardiac standpoint. The patient can be discharged home today from a cardiac standpoint with follow-up in cardiology clinic next week for staple removal. The patient can be discharged on the following cardiac medications: Aspirin 81 mg daily Lipitor 40 mg p.o. nightly Plavix 75 mg daily Losartan 25 mg daily Protonix 40 mg daily Consider beta-evie on an outpatient basis Thank you for the opportunity to help participate in the care of this patient. All recommendations and orders are per Dr. Enrique.
[2025-03-28] MEDS: PANTOPRAZOLE 40MG TABLET 40 MG PO (09:51)
[2025-03-28] MEDS: CLOPIDOGREL 75MG TAB 75 MG PO (09:51)
[2025-03-28] MEDS: ASPIRIN 81MG CHEWABLE TABLET 81 MG PO (09:51)
[2025-03-28] MEDS: IRBESARTAN 75MG TABLET 37.5 MG PO (09:51)
[2025-03-28] MEDS: OXYCODONE 5MG W/APAP 325MG TABLET 1 EACH PO (09:54)
--- NOTE | 2025-03-31 10:11 | SW/DCPLANNER ---
Spoke with patient on the phone. Patient stated that he is feeling better. Patient stated that he is aware of his upcoming appointments. Patient stated that he was able to get his new medicine picked up from [facility]. Patient stated that he has no concerns or questions at this time. Teresa Traore
--- NOTE | 2025-04-07 18:09 | P.DS_ITS ---
General Admission date:: 03/26/25 Discharge date: 03/28/25 HPI HPI HPI: Patient is a 74-year-old gentleman with a past medical history of hypertension, coronary artery disease on a daily aspirin who presents to the emergency department with concern for chest pain. Patient states that he woke up around 8 PM with left-sided chest pain with heaviness in his left arm. Patient states that he took 1 dose of nitro and his pain went away but then his pain returned about 30 minutes later. Patient did not have any shortness of breath. Patient has not had any upper respiratory symptoms. Patient has not had any fevers. Patient has not had any abdominal pain nausea vomiting or diarrhea. Patient states that he has had 5 stents in the past. Patient is on a statin high blood pressure medications and takes a daily aspirin. Patient is not on any other blood thinners. Patient denies any recent long travel. Patient denies any history of blood clots. (above as per ER physician) Patient is still having pain this am but it is not as severe as it was last night. The pain did radiate to his left arm. Hospital Course Hospital Course Hospital Course: The patient's imaging showed nothing acute. Cardiac enzymes were normal and EKG showed sinus bradycardia. Cardiology was consulted and wanted to perform a h eart cath. The coronaries were patent but during the cath the patient's heart rate dropped to 30 with 1/3 degree block. Cardiology therefore placed a pacemaker. By 03/28/2025 he was doing well and was anxious to go home. He was stable to be discharged with a follow-up with cardiology Exam Data for Last 24 hours Vital signs and Labs for Last 24 Hours: Temp Pulse Resp BP Pulse Ox O2 Del Method O2 Flow Rate 97.9 F 66 16 131/77 93 L Room Air 2 03/28/25 08:00 03/28/25 08:00 03/28/25 08:00 03/28/25 08:00 03/28/25 08:00 03/28/25 09:00 03/27/25 05:00 Narrative: Constitutional Constitutional: no acute distress *Routine HEENT Exam Head: Present normocephalic and atraumatic Eye: Present EOMI and PERRL ENT: Present mucous membranes moist *Routine Neck Exam Neck: Present supple and full ROM *Routine Respiratory Exam Respiratory: Present CTA bilaterally *Routine Cardiovascular Exam Cardiovascular: Present RRR *Routine Abdominal Exam Abdominal: Present soft and normoactive bowel sounds; Absent tenderness *Routine Rectal Exam Rectal:: deferred *Routine Genitalia Exam Genitalia:: deferred *Routine Extremities Exam Extremities: Absent cyanosis, clubbing or edema *Routine Skin Exam Skin: Present intact; Absent erythema *Routine Neurological Exam Neurological: Present alert and oriented X3 DS: Diagnosis Discharge Diagnosis (1) CAD (coronary artery disease): Status: Chronic Code(s): I25.10 - Atherosclerotic heart disease of [place] coronary artery without angina pectoris Qualifiers: Coronary Disease-Associated Artery/Lesion type: [place] artery [place] vs. transplanted heart: [place] heart Associated angina: without angina Qualified Code(s): I25.10 - Atherosclerotic heart disease of [place] coronary artery without angina pectoris Problem details: JANUARY 2021 Medical management for ischemic heart disease NOVEMBER 2020.Critical proximal dominant right coronary stenosis Successful stenting of the ostial proximal dominant right coronary artery critical disease reduced to 0% with 1 drug-eluting stent Preserved ejection fraction with mild regional wall motion abnormality Mildly elevated LVEDP (2) COPD (chronic obstructive pulmonary disease): Status: Chronic Code(s): J44.9 - Chronic obstructive pulmonary disease, unspecified Qualifiers: COPD type: emphysema Emphysema type: centrilobular Qualified Code(s): J43.2 - Centrilobular emphysema (3) GERD (gastroesophageal reflux disease): Status: Chronic Code(s): K21.9 - Gastro-esophageal reflux disease without esophagitis Qualifiers: Esophagitis presence: with esophagitis Esophagitis bleeding: without hemorrhage Qualified Code(s): K21.00 - Gastro-esophageal reflux disease with esophagitis, without bleeding (4) Hypertension: Status: Chronic Code(s): I10 - Essential (primary) hypertension Qualifiers: Hypertension type: primary hypertension Qualified Code(s): I10 - Essential (primary) hypertension (5) HLD (hyperlipidemia): Status: Chronic Code(s): E78.5 - Hyperlipidemia, unspecified Qualifiers: Hyperlipidemia type: mixed hyperlipidemia Qualified Code(s): E78.2 - Mixed hyperlipidemia (6) Symptomatic bradycardia: Status: Acute Code(s): R00.1 - Bradycardia, unspecified (7) Sinus arrest with junctional escape: Status: Acute Code(s): I45.5 - Other specified heart block; I49.2 - Junctional premature depolarization (8) S/P placement of cardiac pacemaker: Status: Acute Code(s): Z95.0 - Presence of cardiac pacemaker Meds Home Medications and Allergies Home Medications ?Medication ?Instructions ?Recorded ?Confirmed ?Type aspirin 81 mg chewable tablet 81 mg PO HS 03/12/18 History fluticasone fur. 100 mcg-umeclid 1 inh inhalation SHENA Y 11/14/24 04/02/25 History 62.5 mcg-vilant 25 mcg inhalat.powder (Trelegy Ellipta) albuterol sulfate 90 mcg/actuation 1 inh inhalation Q6 H PRN shortness 11/15/24 04/02/25 Rx aerosol inhaler of breath or wheezing #8.5 g sulma atorvastatin 40 mg tablet 40 mg PO HS #90 tabs 5 04/02/25 Rx clopidogrel 75 mg tablet 75 mg PO DAILY #90 tabs 10/0804/02/25 Rx pantoprazole 40 mg tablet,delayed 40 mg PO DAILY #90 t abs 12/17/24 04/02/25 Rx release losartan 25 mg tablet 25 mg PO DAILY 03/26/2503/17 History oxycodone-acetaminophen 5 mg-325 1 tab PO Q6H PRN pain #15 tabs 03/28/25 04/02/25 Rx mg tablet New Prescriptions to Start Prescriptions: oxycodone-acetaminophen Brian Fernandez Allergies Allergy/AdvReac Type Severity Reaction Status Date / Time No Known Allergies Allergy Verified 04/02/25 13:24 Discharge Plan Disposition Patient Disposition: Home, Self-Care Condition: Fair Discharge Order Discharge Orders: Discharge Order (Routine); Ordered 03/28/25 Ordered By: Brian Fernandez Follow up Plan Follow up with: Minoo Armenta MD [Primary Care Provider, Medical] - 04/11/25 10:30 am Rocael Enrique MD [Staff Physician, Cardiology] - 04/02/25 1:30 pm Prescriptions/Medication Reconciliation: New oxycodone-acetaminophen 5-325 mg tablet 1 tab PO Q6H PRN (Reason: pain) Qty: 15 0RF Continued Trelegy Ellipta 100-62.5-25 mcg blister with device 1 inh inhalation DAILY albuterol sulfate 90 mcg/actuation HFA aerosol inhaler 1 inh inhalation Q6H PRN (Reason: shortness of breath or wheezing) Qty: 8.5 3RF atorvastatin 40 mg tablet 40 mg PO HS Qty: 90 1RF clopidogrel 75 mg tablet 75 mg PO DAILY Qty: 90 1RF pantoprazole 40 mg tablet,delayed release (DR/EC) 40 mg PO DAILY Qty: 90 3RF losartan 25 mg tablet 25 mg PO DAILY aspirin 81 MG tablet,chewable 81 mg PO HS Problem Reconciliation Problems Reviewed?: Yes Patient Discharge Instructions ACTIVITY: Limited activity DIET: advance to your usual diet Patient Instructions: Cardiac Catheterization, DI for Pacemaker Insertion, Surgical Site Infection, Stop Light Infection Print Language: Swedish Providers Primary Care Provider: Minoo Armenta Admit Provider: Dedrick Mcwilliams Attending Provider: Minoo Armenta
== END 2025-03-28 11:01 | disposition home or self-care (01) | DRG 243 ==
LOC: ER 03-26 02:49 → 2ND 03-26 06:09
PROVIDERS: Internal Medicine; Nurse Practitioner Family; Student in an Organized Health Care Education/Training Program; Admitting Provider Internal Medicine Adolescent Medicine; Emergency Provider Emergency Medicine; PCP Family Medicine; Visit Provider Family Medicine
PROC: 4A023N7 Measurement of Cardiac Sampling and Pressure, Left Heart, Percutaneous Approach (ICD-10-PCS; CPT 93452; principal; 2025-03-26 11:15)
PROC: 0JH606Z Insertion of Pacemaker, Dual Chamber into Chest Subcutaneous Tissue and Fascia, Open Approach (ICD-10-PCS; CPT 33208; principal; 2025-03-27 13:00)
DX: I25.110 Atherosclerotic heart disease of native coronary artery with unstable angina pectoris (principal); I44.2 Atrioventricular block, complete; I49.2 Junctional premature depolarization; I97.710 Intraoperative cardiac arrest during cardiac surgery; I10 Essential (primary) hypertension; J43.2 Centrilobular emphysema; E78.2 Mixed hyperlipidemia; K21.00 Gastro-esophageal reflux disease with esophagitis, without bleeding; I45.5 Other specified heart block; Z95.5 Presence of coronary angioplasty implant and graft; Z79.82 Long term (current) use of aspirin; Z79.02 Long term (current) use of antithrombotics/antiplatelets; Z79.899 Other long term (current) drug therapy
CPT/HCPCS: 36415; 70450; 70496; 70498; 71045; 80048; 80053; 80061; 80076; 82962; 83880; 84439; 84443; 84484; 85025; 85378; 85610; 86803; 87389; 93005; 93306; 99152; 99153; 99285; C1725; C1769; C1785; C1898; J1200; J1644; J2003; J2004; J2250; J2405; J2704; J3010; J7040; Q9967